=== PATIENT | female | born 1955 | race Asian ===

== ENCOUNTER → 2017-12-20 14:25 | Outpatient (CLI) | payer OTHER, SELFPAY ==
--- NOTE | 2017-12-20 | DI.RAD.S_ITS ---
PROCEDURE: XR KNEE LT 3V INDICATIONS: BILATERAL KNEE PAIN TECHNIQUE: 3 views of the knee were acquired. COMPARISON: [facility], CR, XR KNEE RT 3V, 12/20/2017, 14:21. FINDINGS: Bones: No fractures or dislocations. No suspicious bony lesions. Slight medial joint space narrowing indicating presence of mild osteoarthritis in this area. Soft tissues: No joint effusion. No suspicious soft tissue calcifications. IMPRESSION: No effusion or loose body found, no trauma seen. Only very mild degenerative medial compartment joint space narrowing is identified. Dictated by: Schuyler Stafford M.D. on 12/20/2017 at 15:18 Approved by: Schuyler Stafford M.D. on 12/20/2017 at 15:18
--- NOTE | 2017-12-20 | DI.RAD.S_ITS ---
PROCEDURE: XR KNEE RT 3V INDICATIONS: BILATERAL KNEE PAIN TECHNIQUE: 3 views of the knee were acquired. COMPARISON: [facility], CR, XR KNEE LT 3V, 12/20/2017, 14:21. FINDINGS: Bones: No fractures or dislocations. No suspicious bony lesions. Soft tissues: No joint effusion. No suspicious soft tissue calcifications. IMPRESSION: No trauma to the right knee is seen. Slight medial compartment joint space narrowing. Dictated by: Schuyler Stafford M.D. on 12/20/2017 at 15:17 Approved by: Schuyler Stafford M.D. on 12/20/2017 at 15:18
== END ==
PROVIDERS: Family Provider Family Medicine; PCP Family Medicine; Visit Provider Family Medicine
DX: M25.561 Pain in right knee (principal); M25.562 Pain in left knee
CPT/HCPCS: 73562

== ENCOUNTER 2017-12-26 06:55 | Day surgery (SDC) | payer OTHER, SELFPAY ==
[2017-12-26 07:27] VITALS: BP 124/75; PULSE 79; RESP 15; TEMP 36.3; O2SAT 100; BMI 21.2
[2017-12-26] MEDS: PROPARACAINE 0.5% OPHTH SOL 2 DROPS EYE-OP (07:30)
[2017-12-26] MEDS: CATARACT EYE COMPOUND (10 DROPS/SYRINGE) 3 DROPS EYE-OP ×3 (07:35→07:45)
--- NOTE | 2017-12-26 08:53 | P.OP.PRE_ITS ---
Pre-operative Note Interval Note Changes: No
--- NOTE | 2017-12-26 08:53 | PM.PREOP ---
Pre-operative Note Interval Note Changes: No
--- NOTE | 2017-12-26 08:54 | P.OP_ITS ---
Operative Date/Time/Diagnoses Pre-op diagnosis: Cataract Right eye Post-op diagnosis: same Procedure & Clinicians Procedure: Cataract Surgery Same procedure as scheduled: Yes Surgeon: Mikey Barriga Anesthesia Type: MAC +/- and Sedation Operative Notes Procedure in detail: Patient brought to the operating suite. Tetracaine drops placed in the right eye. Patient was prepped and draped in sterile manner. Wire lid speculum was placed in the eye. Betadine drops were placed on the eye. This was irrigated. Lidocaine jelly was placed on the eye. A paracentesis port was created with a side-port blade. 0.1 mL 1% preservative free lidocaine was injected into the anterior chamber. The anterior chamber was deepened with viscoelastic. 2.6 mm keratome was used to create a temporal clear corneal incision. Cystotome and Utrata forceps were used to create continuous tear capsulorrhexis. Balanced salt solution was used to hydro dissect the nucleus. The phacoemulsification handpiece was inserted and the nucleus was removed using the stop and chop technique. The irrigation aspiration handpiece was inserted and the remaining cortex was removed. Anterior chamber was deepened with viscoelastic. An Clay ZCB00 intraocular lens with a power of 19.5 was injected into the capsular bag. Irrigation aspiration handpiece was inserted and the remaining viscoelastic was removed. Incision was hydrated with balanced salt solution and found to be leak free with pressure with Weck- Moni sponges. 0.1 mL Vigamox injected anterior chamber. 0.3 mL Kenalog 10 mg was injected subconjunctivally. Lid speculum was removed. The patient left the operating room in excellent condition. Complications: none Condition: stable Disposition: same day surgery
[2017-12-26] MEDS: CHONDROIDTIN/SOD HYALURONATE 1.05 ML SYRINGE INTRAOCULA (09:03)
[2017-12-26] MEDS: MOXIFLOXACIN OPHTH DROPS 3 ML BOTTLE 2 DROPS INJ (09:03)
[2017-12-26] MEDS: LIDOCAINE JELLY 2% 5 ML 1 APPLIC TOP (09:03)
[2017-12-26] MEDS: TRIAMCINOLONE 50 MG/5 ML VIAL INJ (09:04)
[2017-12-26] MEDS: TETRACAINE 0.5% OPHTH DROPS 15 ML 2 DROPS EYE-RIGHT (09:04)
[2017-12-26] MEDS: PHENYLEPHRINE/LIDOCAINE 3ML VIAL (OR) EYE-OP (09:04)
[2017-12-26] MEDS: BALANCED SALT IRRIG SOLN NO.2 500 ML, EPINEPHrine 1 MG IRR (09:05)
[2017-12-26 09:20] VITALS: BP 115/72; PULSE 73; RESP 15; TEMP 36.6; O2SAT 97
== END 2017-12-26 09:38 ==
PROVIDERS: PCP Family Medicine; Visit Provider Ophthalmology
DX: H25.11 Age-related nuclear cataract, right eye (principal); F41.9 Anxiety disorder, unspecified; E16.2 Hypoglycemia, unspecified
CPT/HCPCS: J0171; J2250; J3010; J3301

== ENCOUNTER 2018-01-09 06:25 | Day surgery (SDC) | payer OTHER, SELFPAY ==
[2018-01-09] MEDS: PROPARACAINE 0.5% OPHTH SOL 2 DROPS EYE-OP (06:42)
[2018-01-09 06:43] VITALS: BP 144/74; PULSE 75; RESP 16; TEMP 36.3; O2SAT 100; BMI 21.2
[2018-01-09] MEDS: CATARACT EYE COMPOUND (10 DROPS/SYRINGE) 3 DROPS EYE-OP (06:43)
--- NOTE | 2018-01-09 07:51 | P.OP.PRE_ITS ---
Pre-operative Note Interval Note Changes: No
--- NOTE | 2018-01-09 07:51 | P.OP_ITS ---
Operative Date/Time/Diagnoses Pre-op diagnosis: Cataract Left eye Post-op diagnosis: same Procedure & Clinicians Surgeon: Mikey Barriga Anesthesia Type: MAC +/- and Sedation Operative Notes Procedure in detail: Patient brought to the operating suite. Tetracaine drops placed in the left eye. Patient was prepped and draped in sterile manner. Wire lid speculum was placed in the eye. Betadine drops were placed on the eye. This was irrigated. Lidocaine jelly was placed on the eye. A paracentesis port was created with a side-port blade. 0.1 mL 1% preservative free lidocaine was injected into the anterior chamber. The anterior chamber was deepened with viscoelastic. 2.6 mm keratome was used to create a temporal clear corneal incision. Cystotome and Utrata forceps were used to create continuous tear capsulorrhexis. Balanced salt solution was used to hydro dissect the nucleus. The phacoemulsification handpiece was inserted and the nucleus was removed using the stop and chop technique. The irrigation aspiration handpiece was inserted and the remaining cortex was removed. Anterior chamber was deepened with viscoelastic. An Clay ZCB00 intraocular lens with a power of 19.5 was injected into the capsular bag. Irrigation aspiration handpiece was inserted and the remaining viscoelastic was removed. Incision was hydrated with balanced salt solution and found to be leak free with pressure with Weck- Moni sponges. 0.1 mL Vigamox injected anterior chamber. 0.3 mL Kenalog 10 mg was injected subconjunctivally. Lid speculum was removed. The patient left the operating room in excellent condition. Complications: none Condition: stable Disposition: same day surgery
--- NOTE | 2018-01-09 07:51 | PM.PREOP ---
Pre-operative Note Interval Note Changes: No
[2018-01-09] MEDS: CHONDROIDTIN/SOD HYALURONATE 1.05 ML SYRINGE INTRAOCULA (08:02)
[2018-01-09] MEDS: LIDOCAINE JELLY 2% 5 ML 1 APPLIC TOP (08:03)
[2018-01-09] MEDS: TETRACAINE 0.5% OPHTH DROPS 15 ML 2 DROPS EYE-LEFT (08:03)
[2018-01-09] MEDS: PHENYLEPHRINE/LIDOCAINE VIAL (OR) 0.2 ML EYE-OP (08:03)
[2018-01-09] MEDS: MOXIFLOXACIN OPHTH DROPS 3 ML BOTTLE 2 DROPS INJ (08:03)
[2018-01-09] MEDS: TRIAMCINOLONE 50 MG/5 ML VIAL INJ (08:04)
[2018-01-09] MEDS: BALANCED SALT IRRIG SOLN NO.2 500 ML, EPINEPHrine 1 MG IRR (08:04)
[2018-01-09 08:23] VITALS: BP 106/66; PULSE 72; RESP 16; TEMP 36.5; O2SAT 98
--- NOTE | 2018-01-09 08:34 | SUR.PHASEII ---
pt states bp high on admit- normal is 110/70
== END 2018-01-09 08:35 ==
LOC: OR 06:26
PROVIDERS: PCP Family Medicine; Visit Provider Ophthalmology
DX: H25.12 Age-related nuclear cataract, left eye (principal); F41.9 Anxiety disorder, unspecified; E16.2 Hypoglycemia, unspecified
CPT/HCPCS: J0171; J2250; J3010; J3301

== ENCOUNTER → 2018-01-18 10:00 | Outpatient (CLI) | payer OTHER, SELFPAY | PROVIDERS: PCP Family Medicine | DX: Z23 Encounter for immunization (principal) | CPT/HCPCS: 90471; 90686 ==

== ENCOUNTER 2018-02-15 18:57 | Emergency (ER) | payer OTHER, SELFPAY ==
--- NOTE | 2018-02-15 19:02 | ED.EYEPROB ---
HPI - Eye Problem <DWAYNE Arora - Last Filed: 02/15/18 20:13> General Chief complaint: Eye Problems Stated complaint: LEFT EYE PAIN Time Seen by Provider: 02/15/18 19:02 Source: patient Mode of arrival: ambulatory Limitations: no limitations History of Present Illness HPI Narrative: L eye started hurting earlier today, denies any injury/trauma, but states feels like something is in it, feels gritty and like there is a dagger or something in bottom of eye shooting up eye denies any other issues than the eye MD chief complaint: eye pain Onset (ago): day(s) (1) Onset description: sudden Duration: constant Location: left eye Eye Symptoms: pain and foreign body sensation Place: home Mechanism: none Severity: moderate If Pain, Quality: stabbing Associated symptoms: none Treatments Prior to Arrival: irrigated eye Related Data Home Medications Medication Instructions Recorded Confirmed pseudoephedrine-guaifenesin 1 tab PO Q12H #0 05/31/12 12/26/17 [Mucinex D Maximum Strength] metformin [Glucophage] 500 mg PO DAILY #0 05/23/17 tramadol 50 mg PO Q6HP PRN 12/26/17 12/26/17 fluoxetine 40 mg PO DAILY 01/09/18 01/09/18 lisinopril 5 mg PO DAILY 01/09/18 01/09/18 omeprazole 20 mg PO DAILY 01/09/18 01/09/18 Previous Rx's Medication Instructions Recorded erythromycin 0.5 inch EYE-LEFT Q8H 5 Days #1 02/15/18 gram tramadol [Ultram] 50 mg PO Q6H PRN #20 tab 02/15/18 Allergies Allergy/AdvReac Type Severity Reaction Status Date / Time No Known Drug Allergies Allergy Verified 02/15/18 19:05 Review of Systems <DWAYNE Arora - Last Filed: 02/15/18 20:13> Constitutional Reports as per HPI and Reports system reviewed and no additional complaints, except as docu Eyes Reports as per HPI, Denies blurry vision, Denies change in vision, Denies eye discharge, Denies irritation, Denies itchy eyes, Denies loss of vision, Reports eye pain, Denies requires corrective lenses and Denies photophobia ENT Ears, Nose, Mouth, and Throat: Reports system reviewed and no additional complaints, except as docu and Reports as per HPI Neurologic Denies loss of vision Allergic/Immunologic Denies itchy eyes Exam <DWAYNE Arora - Last Filed: 02/15/18 20:13> Initial Vital Signs Initial Vital Signs: Vital Signs Temperature 98.5 F 02/15/18 19:05 Pulse Rate 80 02/15/18 19:05 Respiratory Rate 16 02/15/18 19:05 Blood Pressure 124/73 02/15/18 19:05 Pulse Oximetry 100 02/15/18 19:05 Const General: cooperative, healthy appearing, comfortable, well developed and well groomed Nutritional Appearance: average body habitus Orientation: alert, awake and oriented x3 HENMT Head: normal to inspection and atraumatic Ears: hearing grossly normal bilaterally and external ears normal Nose: external nose normal Face and sinus: normal facial exam Mouth: oral mucosae normal, lip normal and tongue normal Eyes General: appearance normal, both eyes and all related structures Visual Real: normal visual real by confrontation Alignment and Position: alignment normal Periorbital: periorbital findings normal Eyelids: eyelids normal Conjunctivae: conjunctivae normal Sclera: sclerae normal Cornea: corneas abnormal and fluorescein used (using properacaine gtts to L eye and fluorscein stain strip, eye examined under wood/black lamp and dye uptake and corneal abrasion seen at 6:00 position, eye flushed with ns after and pt tolerated procedure well without issues) Pupils: PERRL EOM: EOM intact bilaterally Direct ophthalmoscopy: normal light reflex Neck Neck: normal visual inspection and full ROM Resp Effort & Inspection: normal respiratory effort and able to speak in complete sentences Back/Spine/Pelvis Cervical Spine: cervical ROM normal Thoracic/Lumbar Spine: thoraco-lumbar ROM normal Skin General: elasticity normal and turgor normal Neuro General: alert, awake, oriented x3, gait normal and moves all extremities Cognition: normal cognition Speech: speech normal Gait: normal gait Motor: muscle tone normal throughout Sensory Exam: no sensory deficits noted Extrem General: normal to inspection and full ROM Right upper extremity: full ROM Left upper extremity: full ROM Right lower extremity: full ROM Psych Appearance: grossly normal and well kempt Speech and Movement: speech and movement normal Mood: congruent mood Affect: normal affect Attitude: cooperative Thought Process: normal Thought Content: normal Judgment: judgment good <Herminia Wood DO - Last Filed: 02/16/18 04:22> Initial Vital Signs Initial Vital Signs: Vital Signs Temperature 98.5 F 02/15/18 19:05 Pulse Rate 80 02/15/18 19:05 Respiratory Rate 16 02/15/18 19:05 Blood Pressure 124/73 02/15/18 19:05 Pulse Oximetry 100 02/15/18 19:05 Course <DWAYNE Arora - Last Filed: 02/15/18 20:13> Orders Ordered: Discontinued Medications Proparacaine HCl (Parcaine 0.5% Ophth Julianna) 1 drops EYE-LEFT NOW ONE Stop: 02/15/18 19:16 Last Admin: 02/15/18 19:16 Dose: 1 drop Vital Signs - 8 hr 02/15/18 19:05 02/15/18 19:43 Temperature 98.5 F Pulse Rate 80 75 Respiratory Rate 16 16 Blood Pressure 124/73 153/69 H Pulse Oximetry 100 98 <DO Natalie Fox Last Filed: 02/16/18 04:22> Orders Ordered: Discontinued Medications Proparacaine HCl (Parcaine 0.5% Ophth Julianna) 1 drops EYE-LEFT NOW ONE Stop: 02/15/18 19:16 Last Admin: 02/15/18 19:16 Dose: 1 drop Vital Signs - 8 hr 02/15/18 19:05 02/15/18 19:43 Temperature 98.5 F Pulse Rate 80 75 Respiratory Rate 16 16 Blood Pressure 124/73 153/69 H Pulse Oximetry 100 98 MDM - Eye Problem <DWAYNE Arora - Last Filed: 02/15/18 20:13> Differential Diagnosis Likely corneal abrasion, conjunctivitis, acute iritis, hyphema, subconjunctival hemorrhage and corneal ulcer Discharge Plan Departure Patient Disposition: Home Clinical Impression: Corneal abrasion Discharge Date/Time: 02/15/18 19:42 Interventions: ED Discharge Assessment Last Done: 02/15/18 19:43 Instructions: DI for Corneal Abrasion Prescriptions: New erythromycin 5 mg/gram (0.5 %) ointment 0.5 inch EYE-LEFT Q8H 5 Days Qty: 1 RF: 0 tramadol [Ultram] 50 mg tablet 50 mg PO Q6H PRN (Reason: pain) Qty: 20 RF: 0 No Action pseudoephedrine-guaifenesin [Mucinex D Maximum Strength] 1,200 MG/120 MG tablet extended release 12 hr 1 tab PO Q12H Qty: 0 RF: 0 metformin [Glucophage] 500 MG tablet 500 mg PO DAILY Qty: 0 RF: 0 tramadol 50 MG tablet 50 mg PO Q6HP PRN (Reason: Pain (Scale Score 1-3)) RF: 0 fluoxetine 40 mg PO DAILY RF: 0 omeprazole 20 mg Capsule,Delayed Release(Dr/Ec) 20 mg PO DAILY RF: 0 lisinopril 5 mg Tablet 5 mg PO DAILY RF: 0 Referrals: Angeline Taylor MD [Non-Staff] - Xavi Hernandez MD [Primary Care Provider] - Estella Leach MD [Non-Staff] - Israel Corley MD [Non-Staff] - Miya Walter MD [Non-Staff] - (would recommend follow up with ophthalmology in 1-2 days ) Paul Cabrera MD [Non-Staff] - Stand Alone Forms: Work/School Restrictions <Herminia Wood DO - Last Filed: 02/16/18 04:22> Cosign ED Attending Cosignature Attestation: I was immediately available in the department for consultation. This documentation has been reviewed and I agree with assessment and plan. Supervised by Herminia Wood DO
[2018-02-15 19:05] VITALS: BP 124/73; PULSE 80; RESP 16; TEMP 36.9; O2SAT 100; BMI 21.2
[2018-02-15] MEDS: PROPARACAINE 0.5% OPHTH SOL 1 DROPS EYE-LEFT (19:16)
[2018-02-15 19:43] VITALS: BP 153/69; PULSE 75; RESP 16; O2SAT 98
== END 2018-02-15 19:42 | disposition home or self-care (01) ==
PROVIDERS: Emergency Provider Nurse Practitioner; PCP Family Medicine
DX: S05.02XA Injury of conjunctiva and corneal abrasion without foreign body, left eye, initial encounter (principal); Z98.890 Other specified postprocedural states
CPT/HCPCS: 99282; 99283

== ENCOUNTER → 2018-07-05 11:39 | Outpatient (CLI) | payer OTHER, SELFPAY ==
--- NOTE | 2018-07-05 | DI.RAD.S_ITS ---
PROCEDURE: XR CHEST 2V INDICATIONS: COUGH AND DYSPENEA TECHNIQUE: 2 views of the chest were acquired. COMPARISON: [facility], , CHEST 2 VIEW, 08/01/2014, 10:01. FINDINGS: Surgical changes and devices: None. Lungs and pleura: Lungs are clear. No pleural effusions or pneumothorax. Mediastinum: Mediastinal contours are normal. Heart size is normal. Bones and chest wall: No suspicious bony abnormalities. Soft tissues appear unremarkable. IMPRESSION: Negative chest films Dictated by: Zafar Wheeler M.D. on 07/05/2018 at 13:06 Approved by: Zafar Wheeler M.D. on 07/05/2018 at 13:07
== END ==
PROVIDERS: PCP Family Medicine; Visit Provider Family Medicine
DX: R05 Cough (principal); R06.00 Dyspnea, unspecified
CPT/HCPCS: 71046

== ENCOUNTER → 2019-02-15 13:17 | Outpatient (CLI) | payer OTHER, SELFPAY | PROVIDERS: PCP Family Medicine | DX: Z23 Encounter for immunization (principal) | CPT/HCPCS: 90471; 90686 ==

== ENCOUNTER 2019-08-09 02:13 | Emergency (ER) | payer OTHER, SELFPAY ==
--- NOTE | 2019-08-09 02:14 | ED.BACK ---
HPI - Back Pain/Injury General Chief Complaint: Back Pain/Injury Stated Complaint: pulsating pain lower back Time Seen by Provider: 08/09/19 02:14 Source: patient Mode of arrival: Ambulatory Limitations: no limitations History of Present Illness HPI Narrative: 64-year-old female smoker with history of HTN and COPD on prednisone presents with the chief complaint of severe lumbar pain that comes in waves. She denies any injury, history of the same. She denies provocation or palliation. The episodes are by 5-10 minutes and seem to radiate to her chest. She is not dizzy, weak, or lightheaded. She denies recent travel or exposure to ill persons under suspicion for COVID-19. She denies numbness, weakness or tingling. She denies any trouble controlling bowel or bladder. She denies any abdominal pain or constipation. She has had no dysuria, frequency or urgency. She stopped taking her blood pressure medications a month or so ago. She has lost 15-20 pounds in the past 2 months or so, unplanned, due to poor appetite. MD Complaint: back pain Onset (ago): hour(s) Duration: intermittent Similar Symptoms Previously: No Location: lumbar spine Severity: severe Quality: spasming Radiation: none Relieving factors: none Exacerbating factors: none Associated symptoms: other Related Data Home Medications Medication Instructions Recorded Confirmed pseudoephedrine-guaifenesin 1 tab PO Q12H #0 05/31/12 12/26/17 [Mucinex D Maximum Strength] metformin [Glucophage] 500 mg PO DAILY #0 05/23/17 tramadol 50 mg PO Q6HP PRN 12/26/17 12/26/17 fluoxetine 40 mg PO DAILY 01/09/18 01/09/18 lisinopril 5 mg PO DAILY 01/09/18 01/09/18 omeprazole 20 mg PO DAILY 01/09/18 01/09/18 Previous Rx's Medication Instructions Recorded tramadol [Ultram] 50 mg PO Q6H PRN #20 tab 02/15/18 diazepam [Valium] 2 mg PO BID-TID PRN #10 tab 08/09/19 Allergies Allergy/AdvReac Type Severity Reaction Status Date / Time No Known Drug Allergies Allergy Verified 02/15/18 19:05 Review of Systems Constitutional Constitutional: Denies chills, Denies fatigue, Denies fever(s), Denies frequent falls, Denies lethargy and Denies weakness Eyes Eyes: Denies change in vision, Denies eye discharge, Denies irritation and Denies loss of vision ENT Ears, Nose, Mouth, and Throat: Denies change in voice, Denies dizziness, Denies neck pain, Denies sore throat and Denies throat swelling Cardiovascular Cardiovascular: Reports chest pain, Denies irregular heart rhythm, Denies lightheadedness, Denies palpitations, Denies dyspnea, Denies dyspnea on exertion and Denies orthopnea Respiratory Respiratory: Denies cough, Denies dyspnea, Denies dyspnea on exertion and Denies wheezing Gastrointestinal Gastrointestinal: Denies abdominal pain, Denies change in bowel habits, Denies diarrhea, Denies nausea and Denies vomiting Genitourinary Genitourinary: Denies hematuria, Denies flank pain, Denies urinary incontinence and Denies urinary urgency Musculoskeletal Musculoskeletal: Reports back pain, Denies muscle weakness, Denies neck pain, Denies numbness and Denies tingling Integumentary/Breasts Skin/Breast: Denies pruritus, Denies erythema, Denies rash and Denies wounds Neurologic Neurologic: Denies behavioral changes, Denies confusion, Denies dizziness, Denies frequent falls, Denies loss of vision, Denies numbness, Denies tingling and Denies weakness Psychiatric Psychiatric: Denies anxiety, Denies behavioral changes, Denies confusion, Denies depression, Denies homicidal ideation and Denies suicidal ideation Endocrine Endocrine: Denies fatigue, Denies flushing and Denies palpitations Hematologic/Lymphatic Hematologic/Lymphatic: Denies easy bruising Allergic/Immunologic Allergic/Immunologic: Denies urticaria, Denies throat swelling and Denies wheezing Patient History Social History household members: friend(s) and none Smoking Status: Current every day smoker Exam Narrative Exam Narrative: GENERAL: [64] year old patient appears stated age. Well-nourished, well-developed patient, in obviously in pain, tearful. HEAD: Atraumatic. Normocephalic. EYES: Pupils equal round and reactive. Extraocular motions intact. No scleral icterus. No injection or drainage. ENT: Nose without bleeding, purulent drainage. Throat without erythema, tonsillar hypertrophy or exudate. Airway patent. NECK: Trachea midline. Non tender CARDIOVASCULAR: Regular rate and rhythm without murmurs, gallops, or rubs. Anterior chest wall pain to palpation RESPIRATORY: Clear to auscultation. Breath sounds equal bilaterally. No wheezes, rales, or rhonchi. GASTROINTESTINAL: Abdomen soft, non-tender, nondistended. EXTREMITIES: No edema or joint tenderness. BACK: Tender to palpation in the paraspinal musculature NEURO: AOx3. SKIN: No rash or erythema of visible areas Initial Vital Signs Initial Vital Signs: Vital Signs Temperature 97.6 F 08/09/19 02:27 Pulse Rate 80 08/09/19 02:27 Respiratory Rate 12 08/09/19 02:27 Blood Pressure 218/114 H 08/09/19 02:27 Pulse Oximetry 98 08/09/19 02:27 Course Orders Ordered: ED Orders 08/09/19 02:20 Basic Metabolic Panel Stat Complete Blood Count AUTO DIFF Stat Magnesium Stat Troponin & CK Cardiac Panel Stat 08/09/19 02:22 EKG-12 Lead Stat 08/09/19 02:52 CT chest abd pel w con Stat 08/09/19 03:51 Urine Culture Stat Urine Microscopic Stat Magnesium Sulfate (Magnesium Sulfate) 2 gm in 50 mls @ 25 mls/hr IV NOW ONE Stop: 08/09/19 04:51 Last Admin: 08/09/19 02:55 Dose: 25 mls/hr Documented by: QUETA Cosigned by: SUNNY Discontinued Medications Sodium Chloride (Normal Saline 0.9%) 1,000 mls @ 1,000 mls/hr IV BOLUS ONE Stop: 08/09/19 03:51 Last Infusion: 08/09/19 03:51 Dose: 0 mls/hr Documented by: Admin: 08/09/19 02:57 Dose: 1,000 mls/hr Documented by: QUETA Lorazepam (Ativan) 1 mg IV NOW ONE Stop: 08/09/19 02:23 Last Admin: 08/09/19 02:46 Dose: 1 mg Documented by: QUETA Pantoprazole Sodium (Protonix) 40 mg IV NOW ONE Stop: 08/09/19 02:53 Last Admin: 08/09/19 02:57 Dose: 40 mg Documented by: QUETA Reevaluation(s) Reevaluation #1: patient feeling much better after Ativan 1mg IVP Time: 02:54 Vital Signs Vital signs: Vital Signs - 8 hr 08/09/19 02:27 08/09/19 02:50 08/09/19 03:45 Temperature 97.6 F Pulse Rate 80 77 74 Respiratory Rate 12 15 20 Blood Pressure 218/114 H Blood Pressure [Left Arm] 173/81 H 175/81 H Pulse Oximetry 98 97 96 MDM - Back Pain/Injury Lab Data Result diagrams: 08/09/19 02:20 08/09/19 02:20 Labs: Lab Results 08/09/19 08/09/19 08/09/19 Range/Units 02:20 02:20 03:51 WBC 7.3 (4.5-11.0) X10^3/uL RBC 4.24 (4.0-5.2) X10^6/uL Hgb 13.8 (12.0-16.0) g/dL Hct 40.1 (36-46) % MCV 94.6 (80-100) fL MCH 32.6 (26-34) PG MCHC 34.5 (30-36) % RDW 12.0 (11.6-14.8) % Plt Count 232 (150-400) X10^3/uL Neut % (Auto) 80.2 H (50-75) % Lymph % (Auto) 14.5 L (25-40) % [place] % (Auto) 4.2 (3-14) % Eos % (Auto) 0.1 L (2-4) % Baso % (Auto) 1.0 (0-2) % Neut # (Auto) 5800 (1766-1008) /uL Lymph # (Auto) 1100 (3514-6792) /uL [place] # (Auto) 300 (0-900) /uL Eos # (Auto) 0 (0-450) /uL Baso # (Auto) 100 (0-100) /uL Sodium 135 L (137-145) mmol/L Potassium 4.0 (3.4-5.1) mmol/L Chloride 100 (98-107) mmol/L Carbon Dioxide 24 (22-32) mmol/L BUN 15 (7-17) mg/dL Creatinine 0.72 (0.52-1.04) mg/dL Estimated GFR > 60.0 (>60) mL/min BUN/Creatinine Ratio 20.8 (6-22) Glucose 229 H (80-110) mg/dL Calcium 9.8 (8.4-10.2) mg/dL Magnesium 1.5 L (1.6-2.3) mg/dL Total Creatine Kinase 34 (30-135) U/L CK-MB (CK-2) TNP CK-MB (CK-2) Rel Index TNP Troponin I < 0.012 (0.01-0.034) ng/mL Urine RBC 0-1/hpf (0-5/HPF) Urine WBC 0-1/hpf (0-5/HPF) Ur Squamous Epith Cells 0-1 /hpf (0-5/HPF) Urine Bacteria Occasional (0-1) (None) Ur Culture Indicated? Specimen cultured Urine Dip Bedside Urine Glucose Negative Bedside Urine Bilirubin - Negative Bedside Urine Ketone - Negative Urine Specific [place] 1.010 Bedside Urine Occult Blood +/- Bedside Urine pH 6.0 Bedside Urine Protein +/- 15 Bedside Urine Urobilinogen - Negative Bedside Urine Nitrite - Negative Bedside Urine Leukocytes +/- [address] scan - abdomen/pelvis: Radiologist's Impression: No neoplastic process identified within chest, abdomen, or pelvis. Emphysema. Hepatic steatosis. ECG Data Attestation: I personally reviewed and interpreted this ECG as follows: Interpretation: EKG is normal sinus rhythm rate [86 ] and free of any signs of ischemia or ectopy. No ST segmental elevation or depression. No T wave inversions Discharge Plan Departure Patient Disposition: Home Clinical Impression: Back muscle spasm Instructions: DI for Back Spasm Activity Restrictions/Additional Instructions: *You have been diagnosed with [back spasm] *What to do: *Take medications as directed *Follow up with your primary care provider in 2-3 days, call for an appointment. Let them know you were seen in the Emergency Department and that we ask that you be seen in follow up *Return to ER if you should have any new, worsening or concerning symptoms Prescriptions: New diazepam [Valium] 2 mg tablet 2 mg PO BID-TID PRN (Reason: muscle spasm) Qty: 10 RF: 0 No Action pseudoephedrine-guaifenesin [Mucinex D Maximum Strength] 1,200 MG/120 MG tablet extended release 12 hr 1 tab PO Q12H Qty: 0 RF: 0 metformin [Glucophage] 500 MG tablet 500 mg PO DAILY Qty: 0 RF: 0 tramadol 50 MG tablet 50 mg PO Q6HP PRN (Reason: Pain (Scale Score 1-3)) RF: 0 fluoxetine 40 mg PO DAILY RF: 0 omeprazole 20 mg Capsule,Delayed Release(Dr/Ec) 20 mg PO DAILY RF: 0 lisinopril 5 mg Tablet 5 mg PO DAILY RF: 0 tramadol [Ultram] 50 mg tablet 50 mg PO Q6H PRN (Reason: pain) Qty: 20 RF: 0 Referrals: Brenda Vieyra MD [Primary Care Provider] -
[2019-08-09 02:27] VITALS: BP 218/114; PULSE 80; RESP 12; TEMP 36.4; O2SAT 98
[2019-08-09 02:34] LABS: Add Manual Diff / Slide Review NO; Basophils Absolute Auto 100 /uL (0-100); Eosinophils Absolute Auto 0 /uL (0-450); Eosinophils Percent Auto 0.1 % (2-4); Hematocrit 40.1 % (36-46); Hemoglobin 13.8 g/dL (12.0-16.0); Lymphocytes Absolute Auto 1100 /uL (1100-4500); Lymphocytes Percent Auto 14.5 % (25-40); Mean Corpuscular HGB Conc 34.5 % (30-36); Mean Corpuscular Hemoglobin 32.6 PG (26-34); Mean Corpuscular Volume 94.6 fL (80-100); Monocytes Absolute Auto 300 /uL (0-900); Monocytes Percent Auto 4.2 % (3-14); Neutrophils Absolute Auto 5800 /uL (1500-7000); Neutrophils Percent Auto 80.2 % (50-75); Platelet Count 232 X10^3/uL (150-400); Red Blood Cell Count 4.24 X10^6/uL (4.0-5.2); White Blood Cell Count 7.3 X10^3/uL (4.5-11.0)
[2019-08-09 02:42] LABS: BUN Creatinine Ratio 20.8 (6-22); Blood Urea Nitrogen 15 mg/dL (7-17); Calcium 9.8 mg/dL (8.4-10.2); Carbon Dioxide 24 mmol/L (22-32); Chloride 100 mmol/L (98-107); Creatine Kinase 34 U/L (30-135); Estimated Glomerular Filt Rate > 60.0 mL/min (>60); Glucose 229 mg/dL (80-110); HEMOLYSIS 34 (0-50); Magnesium 1.5 mg/dL (1.6-2.3); Sodium 135 mmol/L (137-145)
--- NOTE | 2019-08-09 02:42 | PC.NURSE ---
PT states lumbar pain that shoots toward chest and comes in waves since about 0100 after she had awoke to go to bathroom and denies known injury or weakness. Hx of HTN and COPD on prednisone. denies any injury, history of the same. Denies urinary or bowel changes. Reports she stopped taking her blood pressure medications about a month ago and hypertensive upon arrival. LS clear bilaterally upon auscultation.
[2019-08-09] MEDS: LORazepam 2 MG/ML INJ 1 MG IV (02:46)
[2019-08-09 02:50] VITALS: BP 173/81; PULSE 77; RESP 15; O2SAT 97
--- NOTE | 2019-08-09 02:52 | DI.CT.S_ITS ---
PROCEDURE: CT CHEST ABD PEL W CON INDICATIONS: chest pain, back pain, unexplained weight loss TECHNIQUE: After the administration of intravenous contrast, 5 mm thick sections acquired from the lung apices to the symphysis. 5 mm coronal and sagittal reformats were performed, with additional 7 mm MIP reformats through the lungs. For radiation dose reduction, the following was used: automated exposure control, adjustment of mA and/or kV according to patient size. COMPARISON: None. FINDINGS: Image quality: Excellent. CHEST: Lungs and pleura: 3 mm subpleural nodule noted in the right upper lobe (series 5, image 71). 4 mm sub-solid nodule noted in the left upper lobe (series 5, image 91). 1.1 cm groundglass opacity noted in the right middle lobe (series 5, image 179). No pleural effusions or pneumothorax. Central and peripheral airways appear patent and normal in caliber. Mediastinum: Heart size is normal. No pericardial effusion. No mediastinal or hilar adenopathy by size criteria. Thoracic aorta and central pulmonary arteries are normal in size. Esophagus is normal in caliber. No hiatal hernia. Chest wall: No axillary or supraclavicular adenopathy by size criteria. Thyroid gland is normal. ABDOMEN: Solid organs: Liver is normal in size and enhancement. Mild, diffuse fatty infiltration of the liver. Gallbladder is contracted, but within normal limits. Biliary system is non dilated. Pancreas enhances normally. Spleen is normal in size and enhancement. No adrenal nodules. Kidneys demonstrate normal size and enhancement, without hydronephrosis. Peritoneum and bowel: There is prominence of the proximal stomach wall which be due to under distention versus less likely inflammatory or neoplastic process. Bowel loops demonstrate normal wall thickness and caliber. No free fluid or air. The appendix is normal. Nodes and vessels: No retroperitoneal or mesenteric adenopathy by size criteria. Aorta and inferior vena cava are normal in size. Scattered atherosclerotic calcifications involving the abdominal and pelvic vasculature. Miscellaneous: No ventral hernias. PELVIS: Genitourinary: Bladder wall thickness is normal. Prominent periuterine vessels are noted which is a nonspecific finding but can be associated with pelvic congestion syndrome (pelvic venous insufficiency). Miscellaneous: No inguinal hernias or adenopathy. Bones: No suspicious bony lesions. No vertebral body compression fractures. IMPRESSION: 1. 3 mm right upper lobe solid nodule, 4 mm left upper lobe a sub-solid nodule and 1.1 cm groundglass opacity in the right middle lobe. Recommend followup CT scan in 3-6 months based on Fleischner Society criteria outlined below. 2. Prominence of the proximal gastric wall likely due to underdistention. There is clinical concern for inflammatory neoplastic process involving the stomach, then barium contrast upper GI series or endoscopy should be considered for additional evaluation of the finding. 3. No lymphadenopathy based on size criteria. Fleischner Society criteria for SOLID lung nodule followup. Nodule size (mm)Low-risk patientHigh-risk patient<6 (single or multiple)No routine followup.Optional CT at 12 months. 6-8 (single or multiple)CT at 6-12 months, then optional CT at 18-24 mo.CT at 6-12 months, then CT at 18-24 months. >8 (single)CT at 3 months, PET-CT, or biopsy. Same as for low-risk pts. >8 (multiple)CT at 3-6 months, then optional CT at 18-24 mo.CT at 3-6 months, then CT at 18-24 months. Fleischner Society criteria for SUB-SOLID lung nodule followup. Solitary pure ground-glass nodules<6 mm (ground glass or part solid)No followup needed. 6 mm or larger (ground glass)CT at 6-12 months to confirm persistence, then CT every 2 years until 5 years.6 mm or larger (part solid)CT at 3-6 months to confirm persistence, then annual CT until 5 years if unchanged and solid component remains <6 mm. Multiple sub-solid nodules<6 mmCT at 3-6 months, then CT consider at 2 & 4 years for high risk patients. [address] at 3-6 months. Subsequent management based on most suspicious lesions. Recommendations do not apply to lung cancer screening, patients with immunosuppression, or patients with known primary cancer. Dictated by: Samaria Pruitt MD, PhD on 08/09/2019 at 8:31 Approved by: Samaria Pruitt MD, PhD on 08/09/2019 at 8:39
[2019-08-09 02:54] LABS: Troponin I < 0.012 ng/mL (0.01-0.034)
[2019-08-09] MEDS: MAGNESIUM SULFATE 2 GM/50 ML PIGGYBACK IV (02:55)
[2019-08-09] MEDS: PANTOPRAZOLE 40 MG VIAL IV (02:57)
[2019-08-09] MEDS: SODIUM CHLORIDE 0.9% 1,000 ML 1000 ML IV (02:57)
[2019-08-09 03:45] VITALS: BP 175/81; PULSE 74; RESP 20; O2SAT 96
[2019-08-09 04:07] LABS: Bacteria Urine Occasional (0-1); Culture Indicated Urine Specimen Cultured; RBC Urine 0-1/HPF (0-5/HPF); Squamous Epithelial Cell Urine 0-1 /HPF (0-5/HPF); WBC Urine 0-1/HPF (0-5/HPF)
== END 2019-08-09 04:28 | disposition home or self-care (01) ==
PROVIDERS: Emergency Provider Emergency Medicine; PCP Student in an Organized Health Care Education/Training Program
DX: M62.830 Muscle spasm of back (principal); I10 Essential (primary) hypertension; R07.9 Chest pain, unspecified
CPT/HCPCS: 36415; 71260; 74177; 80048; 81003; 81015; 82550; 83735; 84484; 85025; 87086; 93005; 96361; 96374; 96375; 99284; C9113; J2060; Q9967

== ENCOUNTER → 2019-09-25 12:31 | Outpatient (CLI) | payer OTHER, SELFPAY ==
--- NOTE | 2019-09-25 | DI.RAD.S_ITS ---
PROCEDURE: FL UPPER GI SERIES INDICATIONS: Other diseases of stomach and duodenum COMPARISON: None. FINDINGS: KUB: Preprocedural mill controller film demonstrates a normal bowel gas pattern. No suspicious abdominal calcifications. Visualized solid organ contours appear normal. Bony structures appear unremarkable. Esophagus: Esophageal mucosa is normal on air-contrast views. On single-contrast views, there is normal esophageal peristalsis. No strictures, extrinsic mass effects, or diverticula. No hiatal hernia or elicited gastroesophageal reflux. Stomach: The stomach is normally distensible, with normal rugal fold thickness. No mucosal masses or ulcers. Pylorus and duodenal bulb appear normal in morphology. Duodenal folds are normal in thickness as well. IMPRESSION: Normal examination, no reflux seen. No hiatal hernia mass or stricture is found. Dictated by: Schuyler Stafford M.D. on 09/25/2019 at 16:14 Approved by: Schuyler Stafford M.D. on 09/25/2019 at 16:15
== END ==
PROVIDERS: PCP Student in an Organized Health Care Education/Training Program; Referring Provider Student in an Organized Health Care Education/Training Program; Visit Provider Student in an Organized Health Care Education/Training Program
DX: K31.89 Other diseases of stomach and duodenum (principal)
CPT/HCPCS: 74240

== ENCOUNTER → 2019-10-18 11:16 | Outpatient (CLI) | payer OTHER, SELFPAY ==
[2019-10-18 23:19] LABS: COVID19 Sendout Not Detected (Not Detect)
== END ==
PROVIDERS: PCP Student in an Organized Health Care Education/Training Program; Visit Provider Physician Assistant
DX: Z01.812 Encounter for preprocedural laboratory examination (principal)
CPT/HCPCS: 87635

== ENCOUNTER 2019-10-21 12:49 | Day surgery (SDC) | payer OTHER, SELFPAY ==
[2019-10-21] VITALS (8 sets, daily range): BP systolic 106–177; BP diastolic 59–105; PULSE 103–122; RESP 16–28; TEMP 36.3–36.9; O2SAT 95–98; BMI 22.6
--- NOTE | 2019-10-21 | PATH_ITS ---
[facility] Accession Number: [id number] . 01 Material submitted: . PART A: duodenum - DUODENUM THIRD PORTION PART B: duodenum - DUODENUM SECOND PORTION PART C: duodenum bulb - DUODENAL BULB PART D: gastrointestinal site - ANTRUM, HYPERPLASTIC TISSUE PART E: gastrointestinal site - ANTRUM RANDOM BIOPSIES PART F: gastrointestinal site - FUNDUS PART G: gastrointestinal site - BODY PART H: esophagus, E-G Junction - GE JUNCTION 6 O'CLOCK PART I: esophagus - DISTAL ESOPHAGUS . 02 Diagnosis: A-C: Duodendum, Third Portion, Section Portion, Bulb, Biopsies: Duodenal mucosa with no diagnostic abnormality. Negative for active inflammation, features of sprue, dysplasia, or malignancy. . D. Stomach, Hyperplastic Tissue Antrum, Biopsy: Antral mucosa with foveolar hyperplasia and active inflammation. Please see comment. Negative for intestinal metaplasia. Negative for dysplasia and malignancy. . E. Stomach Antrum, Random Biopsies: Antral mucosa with mild chronic gastritis. Please see comment. Negative for intestinal metaplasia. Negative for dysplasia and malignancy. . F. Stomach, Fundus, Biopsy: Body-type mucosa with mild chronic gastritis and proton pump inhibitor-like changes. Negative for intestinal metaplasia. Negative for dysplasia and malignancy. . G. Stomach, Body, Biopsy: Body-type mucosa with mild chronic gastritis and proton pump inhibitor-like changes. Negative for intestinal metaplasia. Negative for dysplasia and malignancy. . H. Gastroesophageal Junction, 6 o'clock, Biopsy: Columnar mucosa with mild active inflammation and specialized intestinal metaplasia, consistent with Marroquin's esophagus. Negative for dysplasia and malignancy. . I. Distal Esophagus, Biopsy: Squamous epithelium with no diagnostic abnormality. Intraepithelial eosinophils are not increased. Negative for dysplasia and malignancy. [facility] 10/22/2019 1123 Local . 02 Comment: D-G: There is no definite evidence of Helicobacter organisms on the H/E stains. Immunohistochemical stains for Helicobacter will be performed and the results reported as an addendum. . D. The hyperplastic antral tissue may be consistent with an inflamed hyperplastic polyp in the appropriate endoscopic setting. . 02 Electronically signed: . Neela Aponte MD, Pathologist NPI- [id number] . 01 Gross description: . Part A: DUODENUM THIRD PORTION: Received in formalin are 2 fragment(s) of damon, soft tissue measuring 0.1 x 0.1 x 0.1 cm to 0.2 x 0.1 x 0.1 cm submitted entirely in 1 cassette(s) Part B: DUODENUM SECOND PORTION: Received in formalin are 2 fragment(s) of damon, soft tissue measuring 0.1 x 0.1 x 0.1 cm to 0.2 x 0.1 x 0.1 cm submitted entirely in 1 cassette(s) Part C: DUODENAL BULB: Received in formalin is 1 fragment(s) of damon, soft tissue measuring 0.1 x 0.1 x 0.1 cm submitted entirely in 1 cassette(s) Part D: ANTRUM, HYPERPLASTIC TISSUE: Received in formalin are 2 fragment(s) of damon, soft tissue measuring 0.1 x 0.1 x 0.1 cm to 0.2 x 0.1 x 0.1 cm submitted entirely in 1 cassette(s) Part E: ANTRUM RANDOM BIOPSIES: Received in formalin are 2 fragment(s) of damon, soft tissue measuring 0.1 x 0.1 x 0.1 cm to 0.2 x 0.1 x 0.1 cm submitted entirely in 1 cassette(s) Part F: FUNDUS: Received in formalin are 2 fragment(s) of damon, soft tissue measuring 0.1 x 0.1 x 0.1 cm to 0.3 x 0.2 x 0.2 cm submitted entirely in 1 cassette(s) Part G: BODY: Received in formalin is 1 fragment(s) of damon, soft tissue measuring 0.3 x 0.2 x 0.2 cm submitted entirely in 1 cassette(s) Part H: GE JUNCTION 6 O'CLOCK: Received in formalin is 1 fragment(s) of damon, soft tissue measuring 0.2 x 0.1 x 0.1 cm submitted entirely in 1 cassette(s) Part I: DISTAL ESOPHAGUS: Received in formalin is 1 fragment(s) of damon, soft tissue measuring 0.1 x 0.1 x 0.1 cm submitted entirely in 1 cassette(s) /HARRY 10/21/2019 2111 Local . 02 Pathologist provided ICD-10: K22.70, K21.9, K31.89 . 02 CPT . 011366, 582272, 472413, 211787, 614027, 739694, 606189, 224491, 085209, [id number] Performed at: 01 [facility] [address] [facility] [address] [place] [address], [place], [place] [id number] MD Edy Pepper MD Phone: [phone] Performed at: [address] [facility] [address] [place], [place] [id number] MD Neela Aponte MD Phone: [phone]
--- NOTE | 2019-10-21 12:05 | PM.HP.1 ---
History of Present Illness History of Present Illness Date Patient Seen: 10/21/19 Time Patient Seen: 14:24 Chief complaint: [id number] Narrative: 64 year old female comes in today for consideration of a diagnostic EGD. Patient had a recent ED visit on 08/09/2019 for pulsating lower back pain. CT chest/abdomen/pelvis showed lung nodules in the right left in upper lobes as well as prominence of proximal stomach ectopy distension versus inflammation versus neoplasm. Prior to coronavirus, she did have a 15-20 lb unintentional weight loss in 2 months but then we gained 6 lb back during the [place] due to overeating. Barium contrast on 09/25/2019 was normal. She is postmenopausal and has regular night sweats, nothing above baseline. Denies any overt epigastric or abdominal pain. No change in bowel or bladder habits. No nausea or vomiting. No dysphagia. Denies reflux. History of GERD. Recent labs including CBC, CMP, UA significant for a low sodium of 129 and low chloride of 91 as well as a low ALT of 8. Notably, she did not have any anemia. Last EGD/colonoscopy on 05/23/2017 for abdominal pain, nausea, and vomiting, showed a normal appearing duodenum, mild antral gastritis, small sliding hiatal hernia, her and a mildly irregular Z-line and no colonic polyps or masses. She had both internal and external hemorrhoids. Chronic health issues have been otherwise stable, including no major cardiac events for at least 6 weeks. Past medical history: Diabetes mellitus type 2 Hyperlipidemia Hypertension COPD GERD Gastric wall thickening Pulmonary nodule Osteoporosis, postmenopausal Tobacco dependence Eczema Past Surgical history: EGD/colonoscopy, 2018 Bilateral tubal ligation Family history: No gastric, or colon cancer. Social history: Lives alone, works at [employer]. Tobacco dependence. One beer per week. Patient History Family & Social History Social History: household members friend(s),none Tobacco & Substance use: Smoking Status Current every day smoker alcohol intake frequency 0-2 drinks per day Substance Use Type does not use Meds Home Medications and Allergies Home Medications Medication Instructions Recorded Confirmed Type pseudoephedrine-guaifenesin 1 tab PO Q12H #0 05/31/12 10/21/19 History [Mucinex D Maximum Strength] metformin [Glucophage] 500 mg PO DAILY #0 05/23/17 10/21/19 History fluoxetine 40 mg PO DAILY 01/09/18 10/21/19 History lisinopril 5 mg PO DAILY 01/09/18 10/21/19 History omeprazole 20 mg PO DAILY 01/09/18 10/21/19 History diazepam [Valium] 2 mg PO BID-TID PRN #10 tab 08/09/19 10/21/19 Rx Allergies Allergy/AdvReac Type Severity Reaction Status Date / Time No Known Drug Allergies Allergy Verified 10/21/19 13:08 Review of Systems Review of Systems ROS: Yes All systems reviewed with the patient and are negative except as otherwise documented Exam Narrative Exam Narrative: GENERAL: Alert and oriented, appearing stated age and in no acute distress. HEENT: Head normocephalic/atraumatic. Pupils equal, round, and reactive to light and accomodation. Extraocular muscles intact. Tympanic membranes clear. Nasal mucosa moist, septum midline. Oral mucosa moist, no lesions. Neck soft and supple, no lymphadenopathy. LUNGS: Clear to ausculation bilaterally, no wheezes, rhonchi or rales. CV: Normal S1 and S2 with regular rate and rhythm, no audible murmurs, rubs or gallops. ABDOMEN: Soft, non-tender, non-distended, no organomegaly. Positive bowel sounds. EXTREMITIES: No clubbing, cyanosis, or edema. NEURO: Cranial nerves II through XII grossly intact, no focal deficits. PSYCH: Alert and oriented x 3. SKIN: No concerning lesions. Assessment & Plan Assessment & Plan narrative: 1. Gastric wall thickening 2. Unintentional weight loss 3. History of GERD 4. Recently diagnosed pulmonary nodules 5. Tobacco dependence Plan for EGD. The nature and character of the procedure as well as anticipated results were discussed. The possibility of not completing the procedure was also discussed. Possible complications including aspiration pneumonia, bleeding, perforation and reaction to medications either for sedation or preparation and missed lesions were discussed. Questions were answered and proceeding to the colonoscopy was elected. Informed consent signed.
--- NOTE | 2019-10-21 12:19 | P.OP.ENDO_ITS ---
Operative Date/Time/Diagnoses Date of procedure: 10/21/19 Time of procedure: 14:38 Pre-op diagnosis: 1. Gastric wall thickening 2. Unintentional weight loss 3. History of GERD 4. Recently diagnosed pulmonary nodules 5. Tobacco dependence Post-op diagnosis: other (1. Duodenitis, 2. Antritis, 3. Peptic ulcer disease, 4. Hyperplastic lesions, antrum x2) Procedure & Clinicians Study performed: EGD Same procedure as scheduled: Yes Indications: 1. Gastric wall thickening 2. Unintentional weight loss 3. History of GERD 4. Recently diagnosed pulmonary nodules 5. Tobacco dependence Surgeon: Brenda Vieyra Procedure Notes SCOAP/Timeout: 14:37 Procedure in detail: PROCEDURE: EGD with biopsy INDICATIONS: 1. Gastric wall thickening 2. Unintentional weight loss 3. GERD 4. Recently diagnosed pulmonary nodules 5. Tobacco dependence ENDOSCOPIST: Brenda Vieyra MD Sedation RN: Sanjana Kessler RN Sedation start time: 2:30 p.m. Sedation end time: 3:06 p.m. MEDICATION: Incremental doses of Versed and fentanyl until an appropriate level of sedation was achieved. ASA Ratin DURATION OF PROCEDURE: 7 minutes. COMPLICATIONS: None. LIMITATIONS: None EXTENT OF PROCEDURE: Third portion of the Duodenum. PROCEDURE: The high-definition gastroduodenoscope was introduced into the posterior oropharynx under direct vision after Hurricaine spray, noted IV sedation, and proper informed consent. The esophagus was identified and intubated under direct visualization. The scope was quickly passed through the esophagus and into the fundus of the stomach. A clear fundal pool was aspirated. The scope was then advanced to the antrum and the pylorus was identified. The scope was passed through the pylorus into the second and third portions of the duodenum. Severe peptic ulcer disease was noted in various stages of healing, no actively bleeding ulcers. Targeted random biopsies taken in the 2nd, 3rd, and 1st portions of the duodenum. The pyloric channel was not stenotic. The antrum had severe peptic ulcer disease in various stages of healing, no active bleeding. There were 2 areas of hyperplastic tissue with targeted biopsy taken x2. Random biopsy sampling was done in the antrum, body, and fundus. J maneuver was produced. No abnormalities were noted of the proximal body, fundus or cardia. No hiatal hernia was noted. Scope was broken out of the J maneuver and the remainder of the stomach was carefully inspected upon withdrawal and was normal. The stomach was carefully deflated of all air on withdrawal. The distal esophagus was carefully inspected and Z-line was noted to be intact, targeted b iopsy taken at 6 o'clock. The remainder of the esophagus was normal upon withdrawal. Random esophageal biopsy taken in the distal esophagus. The larynx and vocal cords appeared to be unremarkable. IMPRESSION: 1. Peptic ulcer disease, duodenum and antrum, severe, very stages of healing 2. Duodenitis 3. Antritis 4. Hyperplastic mass x 2, approximately 1x1 cm, antrum PLAN: 1. Follow-up in clinic status post pathology results. The possibility of missed lesion including a malignancy was discussed prior with the patient. Potential alarm symptoms have been discussed and should be reported by the patient immediately. Complications: none Post-procedure Recommendations: Will call with biopsy results Follow up: weeks (2) Disposition: PACU
[2019-10-21] MEDS: HYOSCYAMINE 0.125 MG TABLET PO (13:41)
[2019-10-21] MEDS: LACTATED RINGERS 1,000 ML 42 ML IV (13:42)
[2019-10-21] MEDS: LIDOCAINE 4% SOLN 50 ML 20 ML TOP (15:11)
[2019-10-21] MEDS: MIDAZOLAM 5 MG/5 ML VIAL IV (15:12)
[2019-10-21] MEDS: fentaNYL 250 MCG/5 ML INJ IV (15:12)
--- NOTE | 2019-10-21 15:18 | SUR.PHASEI ---
Denture placed back in mouth.
--- NOTE | 2019-10-21 15:43 | SUR.PHASEI ---
Slow to wqake up tolerated ice then juice. To OPD stable
--- NOTE | 2019-10-21 16:05 | SUR.PHASEII ---
Pt asked to go, called friend, left unit when ready and left in stable condition.
== END 2019-10-21 16:05 | disposition home or self-care (01) ==
PROVIDERS: PCP Student in an Organized Health Care Education/Training Program; Referring Provider Student in an Organized Health Care Education/Training Program; Visit Provider Student in an Organized Health Care Education/Training Program
PROC: 0DJ08ZZ Inspection of Upper Intestinal Tract, Via Natural or Artificial Opening Endoscopic (ICD-10-PCS; CPT 43235; principal; 2019-10-21 14:30)
DX: K29.50 Unspecified chronic gastritis without bleeding (principal); E11.9 Type 2 diabetes mellitus without complications; E78.5 Hyperlipidemia, unspecified; I10 Essential (primary) hypertension; J44.9 Chronic obstructive pulmonary disease, unspecified; R91.8 Other nonspecific abnormal finding of lung field; R63.4 Abnormal weight loss; F17.210 Nicotine dependence, cigarettes, uncomplicated; Z79.84 Long term (current) use of oral hypoglycemic drugs; K29.80 Duodenitis without bleeding; K21.9 Gastro-esophageal reflux disease without esophagitis; K31.89 Other diseases of stomach and duodenum
CPT/HCPCS: 43239; J2250; J3010

== ENCOUNTER 2020-01-11 13:43 | Observation (INO) | payer OTHER, SELFPAY ==
[2020-01-11] VITALS (12 sets, daily range): BP systolic 144–190; BP diastolic 65–97; PULSE 82–111; RESP 16–36; TEMP 36–36.9; O2SAT 94–100; BMI 20.9
--- NOTE | 2020-01-11 14:14 | DI.RAD.S_ITS ---
PROCEDURE: XR CHEST 1V INDICATIONS: Dyspnea TECHNIQUE: One view of the chest was acquired. COMPARISON: [facility], , XR CHEST 2V, 07/05/2018, 11:45. [facility], , CHEST 2 VIEW, 08/01/2014, 10:01. FINDINGS: Surgical changes and devices: None. Lungs and pleura: Lungs are clear but lung volumes are large. No pleural effusions or pneumothorax. Mediastinum: Mediastinal contours appear normal. Heart size is normal. Bones and chest wall: No suspicious bony lesions. Overlying soft tissues appear unremarkable. IMPRESSION: Normal for age except for large lung volumes, source of current shortness of breath symptoms is not seen. Dictated by: Schuyler Stafford M.D. on 01/11/2020 at 15:29 Approved by: Schuyler Stafford M.D. on 01/11/2020 at 15:30
--- NOTE | 2020-01-11 14:23 | ED.SOB ---
HPI - SOB/Dyspnea General Chief Complaint: Shortness of Breath/Dyspnea Stated Complaint: Hyperventilating/Coughing COPD Time Seen by Provider: 01/11/20 14:05 Source: patient Mode of arrival: Ambulatory Limitations: no limitations History of Present Illness HPI Narrative: Patient is a smoker. History of COPD. Patient is staff member here. Complains dyspnea with nonproductive cough for the past 2 weeks. Worsening in the past 2 days. Denies any chest pain. Denies any history of coronary disease. He is diabetic. Denies any fever chills. No sore throat. Complaint: shortness of breath Related Data Home Medications Medication Instructions Recorded Confirmed pseudoephedrine-guaifenesin 1 tab PO Q12H #0 05/31/12 01/11/20 [Mucinex D Maximum Strength] metformin [Glucophage] 500 mg PO DAILY #0 05/23/17 10/21/19 fluoxetine 20 mg PO DAILY #0 01/09/18 01/11/20 omeprazole 20 mg PO DAILY 01/09/18 10/21/19 albuterol sulfate 2 puff INHALATION Q4-6H PRN 01/11/20 01/11/20 meloxicam 01/11/20 Allergies Allergy/AdvReac Type Severity Reaction Status Date / Time No Known Drug Allergies Allergy Verified 01/11/20 14:00 Review of Systems Review of Systems Narrative: GENERAL: Denies chills, fatigue, malaise, fever, sweats. HEENT: Denies sinus pain, ear pain, sore throat, difficulty swallowing, dizziness. RESPIRATORY: Complains of dyspnea, cough, wheezing, denies hemoptysis, sputum. CARDIOVASCULAR: Denies chest pain, palpitations, orthopnea, edema, GASTROINTESTINAL: Denies nausea, vomiting, abdominal pain, diarrhea, constipation, melena. : Denies dysuria, frequency, incontinence, hematuria, urinary retention. MUSCULOSKELETAL: denies weakness, joint pain, or bony pain SKIN: Denies rash, skin lesions NEUROLOGIC: Denies weakness, headache, numbness, change in speech, confusion, seizures, incoordination. PSYCHIATRIC: No concerning psychosocial issues. ROS Unobtainable: All systems reviewed & are unremarkable except as noted in HPI and below Patient History Social History household members: friend(s) and none Smoking Status: Current every day smoker Smoking Status: Current every day smoker tobacco type: cigarettes alcohol intake frequency: 0-2 drinks per day Substance Use Type: does not use Exam Narrative Exam Narrative: GENERAL: patient appears stated age. Well-nourished, well-developed patient, in no distress, not toxic HEAD: Atraumatic. Normocephalic. EYES: Pupils equal round and reactive. Extraocular motions intact. No scleral icterus. No injection or drainage. ENT: Nose without bleeding, purulent drainage. Throat without erythema, tonsillar hypertrophy or exudate. Airway patent. NECK: Trachea midline. Non tender CARDIOVASCULAR: Regular rate and rhythm without murmurs, gallops, or rubs. RESPIRATORY: Equal bilateral lung sounds that are diminished in diffuse wheezing. Speaks short sentences GASTROINTESTINAL: Abdomen soft, non-tender, nondistended. EXTREMITIES: No edema or joint tenderness. BACK: Nontender without deformity or crepitance. No flank tenderness. NEURO: AOx4. SKIN: No rash or erythema of visible areas PSYCH: Not anxious, is cooperative Initial Vital Signs Initial Vital Signs: Vital Signs Pulse Rate 101 H 01/11/20 13:49 Pulse Oximetry 100 01/11/20 13:49 Course Course Course Narrative: Patient improving with breathing treatments Solu-Medrol IV fluids. Would benefit for admission Decision to Admit Date: 01/11/20 Decision to Admit time: 15:06 Orders Ordered: ED Orders 01/11/20 14:10 Venous Blood Gas Stat 01/11/20 14:13 EKG-12 Lead Stat 01/11/20 14:14 XR chest 1V Stat 01/11/20 14:15 COVID19 -ED/INPAT/OR/L&D Stat Complete Blood Count AUTO DIFF Stat Comprehensive Metabolic Panel Stat D Dimer Stat Lactate (Lactic Acid) Stat NT-proBNP (BNP-Adult 18+) Stat Partial Thromboplastin Time Stat Procalcitonin Stat Troponin & CK Cardiac Panel Stat 01/11/20 15:04 RT Consult Eval and Treat NOW 01/11/20 15:24 Blood Culture Stat Acetaminophen (Tylenol) 650 mg PO Q6HR PRN PRN Reason: Fever/Mild Pain (1-3) Albuterol/Ipratropium (Duoneb) 3 ml INH RTQ4HR PRN PRN Reason: Shortness Of Breath Discontinued Medications Albuterol (Ventolin Hfa (Vent/Covid R/O)) 2 puff INH NOW ONE Stop: 01/11/20 14:01 Last Admin: 01/11/20 14:25 Dose: 2 puff Documented by: DEDRA Albuterol (Ventolin) 2.5 mg INH NOW ONE Stop: 01/11/20 14:24 Last Admin: 01/11/20 14:28 Dose: 2.5 mg Documented by: DEDRA Ceftriaxone Sodium/Dextrose (Rocephin) 1 gm in 50 mls @ 100 mls/hr IV NOW ONE Stop: 01/11/20 15:33 Last Infusion: 01/11/20 16:10 Dose: 0 mls/hr Documented by: Admin: 01/11/20 15:23 Dose: 100 mls/hr Documented by: SHAKA Azithromycin 500 mg/ Dextrose 250 mls @ 250 mls/hr IV NOW ONE Stop: 01/11/20 15:05 Last Admin: 01/11/20 16:45 Dose: 250 mls/hr Documented by: BISI Methylprednisolone (Solu-Medrol 125 Mg Vial) 125 mg IV NOW ONE Stop: 01/11/20 14:13 Last Admin: 01/11/20 14:27 Dose: 125 mg Documented by: SHAKA Reevaluation(s) Reevaluation #1: Breathing much easier after treatment. Time: 15:06 Consultations Consultation #1: Spoke with Dr. Franklin, will admit. Time: 15:07 Vital Signs Vital signs: Vital Signs - 8 hr 01/11/20 13:49 01/11/20 13:51 01/11/20 14:00 Temperature Pulse Rate 101 H 92 H 82 Respiratory Rate 33 H 36 H Blood Pressure 190/88 H Pulse Oximetry 100 96 96 01/11/20 14:01 01/11/20 14:06 01/11/20 14:30 Temperature 98.4 F Pulse Rate 92 H 87 84 Respiratory Rate 36 H 24 22 Blood Pressure 190/88 H 159/73 H Pulse Oximetry 98 96 96 01/11/20 15:00 Temperature Pulse Rate 87 Respiratory Rate 27 H Blood Pressure 144/65 H Pulse Oximetry 97 MDM - SOB/Dyspnea Differential Diagnosis Differential diagnosis: Likely acute exacerbation of chronic obstructive airways disease, congestive heart failure and community acquired pneumonia Lab Data Attestation: I reviewed the patient's lab results. Result diagrams: 01/11/20 14:15 01/11/20 14:15 Labs: Lab Results 01/11/20 01/11/20 01/11/20 Range/Units 14:10 14:15 14:15 WBC (4.5-11.0) X10^3/uL RBC (4.0-5.2) X10^6/uL Hgb (12.0-16.0) g/dL Hct (36-46) % MCV (80-100) fL MCH (26-34) PG MCHC (30-36) % RDW (11.6-14.8) % Plt Count (150-400) X10^3/uL Neut % (Auto) (50-75) % Lymph % (Auto) (25-40) % Sterling % (Auto) (3-14) % Eos % (Auto) (2-4) % Baso % (Auto) (0-2) % Neut # (Auto) (4951-9769) /uL Lymph # (Auto) (9860-6609) /uL Sterling # (Auto) (0-900) /uL Eos # (Auto) (0-450) /uL Baso # (Auto) (0-100) /uL APTT 33 (26.4-36.2) SECONDS D-Dimer < 200 (<230) ng/mL VBG pH 7.40 (7.33-7.43) VBG pCO2 43.0 L (45-50) mmHg VBG pO2 38 (35-45) mmHg VBG HCO3 26 (23-28) mmol/L VBG Total CO2 28 (24-29) mmol/L VBG O2 Saturation 71 (70-75) % VBG Base Excess 2.0 (0-4) mmol/L Sodium (137-145) mmol/L Potassium (3.4-5.1) mmol/L Chloride (98-107) mmol/L Carbon Dioxide (22-32) mmol/L BUN (7-17) mg/dL Creatinine (0.52-1.04) mg/dL Estimated GFR (>60) mL/min BUN/Creatinine Ratio (6-22) Glucose (80-110) mg/dL Lactate (0.7-2.1) mmol/L Calcium (8.4-10.2) mg/dL Total Bilirubin (0.2-1.3) mg/dL AST (14-36) IU/L ALT (<35) IU/L Alkaline Phosphatase (38-126) U/L Total Creatine Kinase (30-135) U/L CK-MB (CK-2) CK-MB (CK-2) Rel Index Troponin I (0.01-0.034) ng/mL NT-Pro-B Natriuret Pep 116 (<125) pg/mL Total Protein (6.3-8.2) g/dL Albumin (3.5-5.0) g/dL Globulin (1.7-4.1) g/dL Albumin/Globulin Ratio (1.0-2.8) Procalcitonin (<0.5) ng/mL COVID-19 PCR (Negative) 01/11/20 01/11/20 01/11/20 Range/Units 14:15 14:15 14:15 WBC 3.7 L (4.5-11.0) X10^3/uL RBC 4.38 (4.0-5.2) X10^6/uL Hgb 13.9 (12.0-16.0) g/dL Hct 40.3 (36-46) % MCV 92.0 (80-100) fL MCH 31.7 (26-34) PG MCHC 34.4 (30-36) % RDW 11.9 (11.6-14.8) % Plt Count 178 (150-400) X10^3/uL Neut % (Auto) 52.6 (50-75) % Lymph % (Auto) 23.9 L (25-40) % Sterling % (Auto) 8.0 (3-14) % Eos % (Auto) 13.4 H (2-4) % Baso % (Auto) 2.1 H (0-2) % Neut # (Auto) 1900 (8768-1204) /uL Lymph # (Auto) 900 L (9400-7365) /uL Sterling # (Auto) 300 (0-900) /uL Eos # (Auto) 500 H (0-450) /uL Baso # (Auto) 100 (0-100) /uL APTT (26.4-36.2) SECONDS D-Dimer (<230) ng/mL VBG pH (7.33-7.43) VBG pCO2 (45-50) mmHg VBG pO2 (35-45) mmHg VBG HCO3 (23-28) mmol/L VBG Total CO2 (24-29) mmol/L VBG O2 Saturation (70-75) % VBG Base Excess (0-4) mmol/L Sodium 131 L (137-145) mmol/L Potassium 4.5 (3.4-5.1) mmol/L Chloride 96 L (98-107) mmol/L Carbon Dioxide 27 (22-32) mmol/L BUN 10 (7-17) mg/dL Creatinine 0.59 (0.52-1.04) mg/dL Estimated GFR > 60.0 (>60) mL/min BUN/Creatinine Ratio 16.9 (6-22) Glucose 219 H (80-110) mg/dL Lactate (0.7-2.1) mmol/L Calcium 9.4 (8.4-10.2) mg/dL Total Bilirubin 0.6 (0.2-1.3) mg/dL AST 26 (14-36) IU/L ALT 9 (<35) IU/L Alkaline Phosphatase 100 (38-126) U/L Total Creatine Kinase 68 (30-135) U/L CK-MB (CK-2) TNP CK-MB (CK-2) Rel Index TNP Troponin I < 0.012 (0.01-0.034) ng/mL NT-Pro-B Natriuret Pep (<125) pg/mL Total Protein 7.2 (6.3-8.2) g/dL Albumin 4.2 (3.5-5.0) g/dL Globulin 3.0 (1.7-4.1) g/dL Albumin/Globulin Ratio 1.4 (1.0-2.8) Procalcitonin (<0.5) ng/mL COVID-19 PCR Negative (Negative) 01/11/20 01/11/20 Range/Units 14:15 14:15 WBC (4.5-11.0) X10^3/uL RBC (4.0-5.2) X10^6/uL Hgb (12.0-16.0) g/dL Hct (36-46) % MCV (80-100) fL MCH (26-34) PG MCHC (30-36) % RDW (11.6-14.8) % Plt Count (150-400) X10^3/uL Neut % (Auto) (50-75) % Lymph % (Auto) (25-40) % Sterling % (Auto) (3-14) % Eos % (Auto) (2-4) % Baso % (Auto) (0-2) % Neut # (Auto) (7853-3819) /uL Lymph # (Auto) (5252-4304) /uL Sterling # (Auto) (0-900) /uL Eos # (Auto) (0-450) /uL Baso # (Auto) (0-100) /uL APTT (26.4-36.2) SECONDS D-Dimer (<230) ng/mL VBG pH (7.33-7.43) VBG pCO2 (45-50) mmHg VBG pO2 (35-45) mmHg VBG HCO3 (23-28) mmol/L VBG Total CO2 (24-29) mmol/L VBG O2 Saturation (70-75) % VBG Base Excess (0-4) mmol/L Sodium (137-145) mmol/L Potassium (3.4-5.1) mmol/L Chloride (98-107) mmol/L Carbon Dioxide (22-32) mmol/L BUN (7-17) mg/dL Creatinine (0.52-1.04) mg/dL Estimated GFR (>60) mL/min BUN/Creatinine Ratio (6-22) Glucose (80-110) mg/dL Lactate 1.6 (0.7-2.1) mmol/L Calcium (8.4-10.2) mg/dL Total Bilirubin (0.2-1.3) mg/dL AST (14-36) IU/L ALT (<35) IU/L Alkaline Phosphatase (38-126) U/L Total Creatine Kinase (30-135) U/L CK-MB (CK-2) CK-MB (CK-2) Rel Index Troponin I (0.01-0.034) ng/mL NT-Pro-B Natriuret Pep (<125) pg/mL Total Protein (6.3-8.2) g/dL Albumin (3.5-5.0) g/dL Globulin (1.7-4.1) g/dL Albumin/Globulin Ratio (1.0-2.8) Procalcitonin < 0.05 (<0.5) ng/mL COVID-19 PCR (Negative) Imaging Data Chest x-ray: My Impression: No acute process Radiologist's Impression: [address] [address] XRay Report Signed Patient: Edwina Woods BMR#: [id number] : 7Acct:[id number] Age/Sex: 64 / FDate of Service: 01/11/20 Loc: GW70H-3 Accession Number: [id number] Procedure: XR chest 1V Ordering Provider: Paul Matute MD PROCEDURE: XR CHEST 1V INDICATIONS: Dyspnea TECHNIQUE: One view of the chest was acquired. COMPARISON: [facility], CR, XR CHEST 2V, 07/05/2018, 11:45. [facility], , CHEST 2 VIEW, 08/01/2014, 10:01. FINDINGS: Surgical changes and devices: None. Lungs and pleura: Lungs are clear but lung volumes are large. No pleural effusions or pneumothorax. Mediastinum: Mediastinal contours appear normal. Heart size is normal. Bones and chest wall: No suspicious bony lesions. Overlying soft tissues appear unremarkable. IMPRESSION: Normal for age except for large lung volumes, source of current shortness of breath symptoms is not seen. Dictated by: Schuyler Stafford M.D. on 01/11/2020 at 15:29 Approved by: Schuyler Stafford M.D. on 01/11/2020 at 15:30 ECG Data Attestation: I personally reviewed and interpreted this ECG as follows: Interpretation: Normal sinus rhythm ventricular rate 83. Normal EKG. No ST elevation or depression MDM Narrative Medical decision making narrative: Patient agrees for admission for COPD exacerbation. Will need DuoNeb treatments and steroids, likely need observation 23 hours Discharge Plan Departure Patient Disposition: Admitted as Observation Clinical Impression: Acute exacerbation of chronic obstructive airways disease Discharge Date/Time: 01/11/20 16:00 Referrals: Brenda Vieyra MD [Primary Care Provider] - Admit Date/Time: 01/11/20 15:24 Admit Provider: Vicente Franklin
[2020-01-11] MEDS: ALBUTEROL HFA 200 PUFF/18 GM INH (COVID POS/VENT PTS) INH ×3 (14:25→19:35)
[2020-01-11] MEDS: methylPREDNISolone 125 MG/2 ML VIAL IV (14:27)
[2020-01-11] MEDS: ALBUTEROL 2.5 MG/3 ML NEB (ADULT) INH (14:28)
[2020-01-11 14:36] LABS: Add Manual Diff / Slide Review NO; Basophils Absolute Auto 100 /uL (0-100); Basophils Percent Auto 2.1 % (0-2); Eosinophils Absolute Auto 500 /uL (0-450); Eosinophils Percent Auto 13.4 % (2-4); Hematocrit 40.3 % (36-46); Hemoglobin 13.9 g/dL (12.0-16.0); Lymphocytes Absolute Auto 900 /uL (1100-4500); Lymphocytes Percent Auto 23.9 % (25-40); Mean Corpuscular HGB Conc 34.4 % (30-36); Mean Corpuscular Hemoglobin 31.7 PG (26-34); Monocytes Absolute Auto 300 /uL (0-900); Neutrophils Absolute Auto 1900 /uL (1500-7000); Neutrophils Percent Auto 52.6 % (50-75); Platelet Count 178 X10^3/uL (150-400); Red Blood Cell Count 4.38 X10^6/uL (4.0-5.2); Red Cell Distribution Width 11.9 % (11.6-14.8); White Blood Cell Count 3.7 X10^3/uL (4.5-11.0)
[2020-01-11 14:42] LABS: Lactate (Lactic Acid) 1.6 mmol/L (0.7-2.1); PTT Partial Thromboplastin Tim 33 SECONDS (26.4-36.2)
[2020-01-11 14:43] LABS: Alanine Aminotransferase 9 IU/L (<35); Albumin 4.2 g/dL (3.5-5.0); Albumin Globulin Ratio 1.4 (1.0-2.8); Alkaline Phosphatase 100 U/L (38-126); Aspartate Aminotransferase 26 IU/L (14-36); BUN Creatinine Ratio 16.9 (6-22); Bilirubin Total 0.6 mg/dL (0.2-1.3); Blood Urea Nitrogen 10 mg/dL (7-17); Calcium 9.4 mg/dL (8.4-10.2); Carbon Dioxide 27 mmol/L (22-32); Chloride 96 mmol/L (98-107); Creatine Kinase 68 U/L (30-135); Estimated Glomerular Filt Rate > 60.0 mL/min (>60); Glucose 219 mg/dL (80-110); HEMOLYSIS < 15 (0-50); Potassium 4.5 mmol/L (3.4-5.1); Sodium 131 mmol/L (137-145); Total Protein 7.2 g/dL (6.3-8.2)
[2020-01-11 14:48] LABS: COVID19 -Nasal RAPID Negative (Negative)
[2020-01-11 14:50] LABS: D Dimer < 200 ng/mL (<230)
[2020-01-11 14:54] LABS: Troponin I < 0.012 ng/mL (0.01-0.034)
[2020-01-11 14:58] LABS: NT-proBNP (BNP-Adult 18+) 116 pg/mL (<125)
[2020-01-11 15:00] LABS: Procalcitonin < 0.05 ng/mL (<0.5)
[2020-01-11 15:21] LABS: HCO3 VBG 26 mmol/L (23-28); Oxygen Saturation VBG 71 % (70-75); PO2 VBG 38 mmHg (35-45); Total CO2 VBG 28 mmol/L (24-29)
[2020-01-11] MEDS: CEFTRIAXONE 1 GM/50 ML FROZ.PIGGY IV (15:23)
[2020-01-11] MEDS: AZITHROMYCIN 500 MG in DEXTROSE 5% IN WATER 250 ML IV (16:45)
--- NOTE | 2020-01-11 16:59 | PC.ADMIT ---
[id number] [place] [address] Admission Note: The patient,Edwina Woods,64 y/o, was given written information regarding hospital policies, unit procedures and contact persons. Patient's smoking status: Current every day smoker. Pt arrived from ED via stretcher. A/O. Steady on feet. Oriented to room and call system. Pt verbalized she will call for needs. Vital Signs - 8 hr 01/11/20 13:49 01/11/20 13:51 01/11/20 14:00 Temperature Pulse Rate 101 H 92 H 82 Respiratory Rate 33 H 36 H Blood Pressure 190/88 H Pulse Oximetry 100 96 96 01/11/20 14:01 01/11/20 14:06 01/11/20 14:30 Temperature 98.4 F Pulse Rate 92 H 87 84 Respiratory Rate 36 H 24 22 Blood Pressure 190/88 H 159/73 H Pulse Oximetry 98 96 96 01/11/20 15:00 01/11/20 15:30 Temperature Pulse Rate 87 92 H Respiratory Rate 27 H 26 H Blood Pressure 144/65 H 152/72 H Pulse Oximetry 97 96
--- NOTE | 2020-01-11 17:10 | DI.CT.S_ITS ---
PROCEDURE: CT CHEST WO CON COMPARISON: [facility], CT, CT CHEST ABD PEL W CON, 08/09/2019, 2:57. [facility], RF, FL UPPER GI SERIES, 09/25/2019, 12:48. [facility], CR, XR CHEST 1V, 01/11/2020, 14:34. INDICATIONS: f/u lung nodules FINDINGS: A 3 mm subpleural nodule has not changed lateral right upper lobe. This is currently seen on series 3, image 77. A subsolid 4 mm focus of airspace disease can be seen at the left upper lobe, smaller in size currently measuring only approximately 3 mm in diameter. At the right middle lobe and a small focus of subsolid radiodensity is more clearly visualized by the current study in represents it band of mild alveolar prominence, transverse in its orientation, consistent with alveolar scarring from a prior inflammatory event. No new nodule has developed, no malignant-appearing mass is seen. IMPRESSION: According to the Fleischner society no follow-up is recommended for the 3 mm stable appearing nodule lateral right upper lobe and the left upper lobe subsolid focus has diminished in size to only 3 mm. The band of alveolar scarring right middle lobe does not raise concern for neoplasm. Overall, no neoplasm or pneumonia is suspected and no follow-up is recommended. Dictated by: Schuyler Stafford M.D. on 01/11/2020 at 19:07 Approved by: Schuyler Stafford M.D. on 01/11/2020 at 19:15
--- NOTE | 2020-01-11 17:22 | PM.HP.1 ---
History of Present Illness History of Present Illness Date Patient Seen: 01/11/20 Time Patient Seen: 17:22 Date of Onset of Symptoms: 01/09/20 Chief complaint: Hyperventilating/Coughing COPD Narrative: Shortness of breath Patient admitted through the ER for seizures seen for shortness of breath. She has been having increasing cough and shortness of breath for the last 2 weeks. Over last 2 days shortness of breath seemingly got more severe and that she present to the emergency room. She does have an albuterol inhaler that she has been does seem to be helping. She has had no fever chills no mucus production no URI symptoms no chest pain no palpitations no calf pain no edema She says she has a history of diagnosis of of COPD. For which she uses the inhaler. She does not have asthma or emphysema as far she is aware. She currently is a smoker and has been a smoker for years. She was found to have pulmonary nodules and chest CT in August this year with recommended follow-up in 3-[address] will be ordered while she is here at the hospital. Other medical calms include diabetes for which she takes metformin once a day. She does not monitor her sugar. So far as I can tell the last hemoglobin A1c was 4 years ago. She apparently has a problem with depression and degenerative joint disease takes medication for same. Patient was given the inhalation treatment in the emergency room IV steroids and has improved significantly over was feeling back to normal Patient History Family & Social History Social History: household members friend(s),none Prior Living Arrangements Apartment/Condo Safety & Behavioral: Feels Safe in Current Yes Environment Suicidal Ideation Description None Tobacco & Substance use: Tobacco type cigarettes Smoking Status Current every day smoker Smoking packs per day 1 alcohol intake frequency 0-2 drinks per day Substance Use Type does not use Meds Home Medications and Allergies Home Medications Medication Instructions Recorded Confirmed Type pseudoephedrine-guaifenesin 1 tab PO Q12H #0 05/31/12 01/11/20 History [Mucinex D Maximum Strength] metformin [Glucophage] 500 mg PO DAILY #0 05/23/17 10/21/19 History fluoxetine 20 mg PO DAILY #0 01/09/18 01/11/20 History omeprazole 20 mg PO DAILY 01/09/18 10/21/19 History albuterol sulfate 2 puff INHALATION Q4-6H PRN 01/11/20 01/11/20 History meloxicam 01/11/20 History Allergies Allergy/AdvReac Type Severity Reaction Status Date / Time No Known Drug Allergies Allergy Verified 01/11/20 14:00 Review of Systems Review of Systems ROS: Yes All systems reviewed with the patient and are negative except as otherwise documented Exam Vital Signs (past 8 hours): - 01/11/20 13:49 01/11/20 13:51 01/11/20 14:00 Temperature Pulse Rate 101 H 92 H 82 Respiratory Rate 33 H 36 H Blood Pressure 190/88 H Pulse Oximetry 100 96 96 01/11/20 14:01 01/11/20 14:06 01/11/20 14:30 Temperature 98.4 F Pulse Rate 92 H 87 84 Respiratory Rate 36 H 24 22 Blood Pressure 190/88 H 159/73 H Pulse Oximetry 98 96 96 01/11/20 15:00 01/11/20 15:30 Temperature Pulse Rate 87 92 H Respiratory Rate 27 H 26 H Blood Pressure 144/65 H 152/72 H Pulse Oximetry 97 96 Oxygen Delivery Method Room Air Narrative Exam Narrative: Gen.: The patient examined hospital bed sitting up and she appears in no distress conversant able to speech long sentences has no obvious wheezing hurt look short of breath and has intermittent cough. Skin: Warm well perfused. No prominent lesions. Nonicteric. HEENT: PERRL., normal EOM, external ears canals TMs normal, nasal mucosa normal and midline septum, oropharynx without lesions. Neck: Trachea midline. Thyroid nontender and not enlarged. Carotids without bruits. No lymphadenopathy Back: No obvious deformity or tenderness. Chest: She has decreased breath sounds throughout. She does have expiratory rhonchi and end expiratory wheezing CV: RRR no murmur or gallop. No JVD. Abdomen: No masses bruits tenderness or visceromegaly. Neuro: Cranial nerves II through XII grossly intact. Sensory and motor exams intact. Gait normal. Mental status: Intact for screening Extremities: No cyanosis clubbing or edema calves are nontender Musculoskeletal: No gross deformities Lymphatics: Negative for lymphadenopathy, supraclavicular axillary or inguinal Objective Labs Result Diagrams: 01/11/20 14:15 01/11/20 14:15 Labs: Laboratory Results - last 24 hr 01/11/20 01/11/20 01/11/20 14:10 14:15 14:15 WBC RBC Hgb Hct MCV MCH MCHC RDW Plt Count Neut % (Auto) Lymph % (Auto) Baldwin % (Auto) Eos % (Auto) Baso % (Auto) Neut # (Auto) Lymph # (Auto) Baldwin # (Auto) Eos # (Auto) Baso # (Auto) APTT 33 D-Dimer < 200 VBG pH 7.40 VBG pCO2 43.0 L VBG pO2 38 VBG HCO3 26 VBG Total CO2 28 VBG O2 Saturation 71 VBG Base Excess 2.0 Sodium Potassium Chloride Carbon Dioxide BUN Creatinine Estimated GFR BUN/Creatinine Ratio Glucose Lactate Calcium Total Bilirubin AST ALT Alkaline Phosphatase Total Creatine Kinase CK-MB (CK-2) CK-MB (CK-2) Rel Index Troponin I NT-Pro-B Natriuret Pep 116 Total Protein Albumin Globulin Albumin/Globulin Ratio Procalcitonin COVID-19 PCR 01/11/20 01/11/20 01/11/20 14:15 14:15 14:15 WBC 3.7 L RBC 4.38 Hgb 13.9 Hct 40.3 MCV 92.0 MCH 31.7 MCHC 34.4 RDW 11.9 Plt Count 178 Neut % (Auto) 52.6 Lymph % (Auto) 23.9 L Baldwin % (Auto) 8.0 Eos % (Auto) 13.4 H Baso % (Auto) 2.1 H Neut # (Auto) 1900 Lymph # (Auto) 900 L Baldwin # (Auto) 300 Eos # (Auto) 500 H Baso # (Auto) 100 APTT D-Dimer VBG pH VBG pCO2 VBG pO2 VBG HCO3 VBG Total CO2 VBG O2 Saturation VBG Base Excess Sodium 131 L Potassium 4.5 Chloride 96 L Carbon Dioxide 27 BUN 10 Creatinine 0.59 Estimated GFR > 60.0 BUN/Creatinine Ratio 16.9 Glucose 219 H Lactate Calcium 9.4 Total Bilirubin 0.6 AST 26 ALT 9 Alkaline Phosphatase 100 Total Creatine Kinase 68 CK-MB (CK-2) TNP CK-MB (CK-2) Rel Index TNP Troponin I < 0.012 NT-Pro-B Natriuret Pep Total Protein 7.2 Albumin 4.2 Globulin 3.0 Albumin/Globulin Ratio 1.4 Procalcitonin COVID-19 PCR Negative 01/11/20 01/11/20 14:15 14:15 WBC RBC Hgb Hct MCV MCH MCHC RDW Plt Count Neut % (Auto) Lymph % (Auto) Baldwin % (Auto) Eos % (Auto) Baso % (Auto) Neut # (Auto) Lymph # (Auto) Baldwin # (Auto) Eos # (Auto) Baso # (Auto) APTT D-Dimer VBG pH VBG pCO2 VBG pO2 VBG HCO3 VBG Total CO2 VBG O2 Saturation VBG Base Excess Sodium Potassium Chloride Carbon Dioxide BUN Creatinine Estimated GFR BUN/Creatinine Ratio Glucose Lactate 1.6 Calcium Total Bilirubin AST ALT Alkaline Phosphatase Total Creatine Kinase CK-MB (CK-2) CK-MB (CK-2) Rel Index Troponin I NT-Pro-B Natriuret Pep Total Protein Albumin Globulin Albumin/Globulin Ratio Procalcitonin < 0.05 COVID-19 PCR of significance COVID-19 negative, procalcitonin negative, lactate normal, BNP normal troponin normal white blood cell count 3700 D-dimer normal Assessment & Plan Assessment & Plan narrative: 1. The patient presumably has pre-existing COPD. She she does have lower expanded lungs on x-ray it certainly consistent with the diagnosis. She does state this which she had in the past. On albuterol for same. She is on no maintenance inhalers however. 2. Current respiratory status appears to be an acute exacerbation of chronic obstructive pulmonary disease. She does not have pneumonia as far as we can tell. May well have some upper airway bronchitis hence the azithromycin. Clearly has reactive airway based on the wheezing that she has. She will be given intravenous Solu-Medrol overnight at perhaps the couple days of prednisone on discharge. She also be continued on p.o. Zithromax and upon discharge. 3. Diabetes unclear exactly how well the management has been blood sugars over 200 here. Hemoglobin A1c to be ordered. And we will resume her maintenance apparent of metformin 500 mg once a day in the morning. Additionally BGs a.c. and HS. 4. History of pulmonary nodules based on as a chest CT done in August. Recommended follow-up in 3-[address] will be ordered while she is here. 5. Anticipated overnight stay and hopefully with the aggressive pulmonary toilet patient can be discharged tomorrow presumably on a maintenance inhaler based on recommendation by the respiratory therapist Should the patient end up staying in the hospital till Monday Dr. Vieyra will resume care then
[2020-01-11 19:29] LABS: Hemoglobin A1C% w Est Avg Glu 7.2 % (4.0-6.0)
[2020-01-11] MEDS: guaiFENesin ER 600 MG TAB PO (20:52)
[2020-01-11] MEDS: methylPREDNISolone 125 MG/2 ML VIAL 60 MG IV (20:57)
[2020-01-11] MEDS: SODIUM CHLORIDE 0.9% FLUSH 10 ML IV (21:37)
[2020-01-11] MEDS: INSULIN ASPART 100 UNIT/ML INSULN PEN SUBCUT (22:38)
[2020-01-11] MEDS: NICOTINE 21 MG PATCH TOP (22:41)
[2020-01-12 03:08] VITALS: BP 170/110; PULSE 104; RESP 16; TEMP 36.3; O2SAT 96
[2020-01-12] MEDS: ALBUTEROL HFA 200 PUFF/18 GM INH (COVID POS/VENT PTS) INH ×2 (03:27→06:18)
[2020-01-12] MEDS: ACETAMINOPHEN 325 MG TABLET 650 MG PO (03:29)
[2020-01-12] MEDS: methylPREDNISolone 125 MG/2 ML VIAL 60 MG IV (05:33)
[2020-01-12 06:19] VITALS: PULSE 102; RESP 20; O2SAT 97
[2020-01-12 06:33] VITALS: BP 149/90; PULSE 108
[2020-01-12] MEDS: ALBUTEROL 2.5 MG/3 ML NEB (ADULT) INH ×2 (08:17→08:18)
[2020-01-12 08:30] VITALS: BP 146/79; PULSE 106; RESP 17; TEMP 36.2; O2SAT 96
[2020-01-12 08:38] VITALS: PULSE 104; RESP 18; O2SAT 97
--- NOTE | 2020-01-12 09:28 | P.DS_ITS ---
History of Present Illness History of Present Illness Chief complaint: Hyperventilating/Coughing COPD Narrative: Shortness of breath Patient admitted through the ER for seizures seen for shortness of breath. She has been having increasing cough and shortness of breath for the last 2 weeks. Over last 2 days shortness of breath seemingly got more severe and that she present to the emergency room. She does have an albuterol inhaler that she has been does seem to be helping. She has had no fever chills no mucus production no URI symptoms no chest pain no palpitations no calf pain no edema She says she has a history of diagnosis of of COPD. For which she uses the inhaler. She does not have asthma or emphysema as far she is aware. She currently is a smoker and has been a smoker for years. She was found to have pulmonary nodules and chest CT in August this year with recommended follow-up in 3-[address] will be ordered while she is here at the hospital. Other medical calms include diabetes for which she takes metformin once a day. She does not monitor her sugar. So far as I can tell the last hemoglobin A1c was 4 years ago. She apparently has a problem with depression and degenerative joint disease takes medication for same. Patient was given the inhalation treatment in the emergency room IV steroids and has improved significantly over was feeling back to normal Discharge Providers Provider Date of admission: 01/11/20 15:24 Discharge Date: 01/12/20 Primary care physician: Brenda Vieyra MD Discharge provider: Vicente Franklin MD Summary Hospital Course Discharge Diagnosis: Acute exacerbation of pre-existing COPD 2. Presumed upper airway bronchitis. 3. Hypertension that apparently has been present in the past. 4. Diabetes reasonably well controlled. 5. Smoker. Hospital Course: Patient was admitted for respiratory therapy for acute exacerbation of a pre-existing COPD. She tells me that she does have a diagnosis of COPD unclear how that was made. She has been using her albuterol as needed. Her hospital stay here was uneventful she was treated initially with IV steroids antibiotics. She responded the relative good typically quickly from the treatment emergency room and she remained asymptomatic overnight on room air. This morning she feels much better feels great wants to go home. She does cells have a cough for request something to help suppress the cough. And she is also interested in starting on a nicotine patch which she requested. She has had problems quo quitting in the past. She was discharged on azithromycin 250 mg daily for 4 days. Prednisone 40 mg for 2 days. Lisinopril 10 mg daily for hypertension. And nicotine patch 21 mg per day she is a pack-a-day smoker. This will be followed up by Dr. Vieyra in the office as far as the tapering down the dosage of the nicotine. Diabetes management is reasonable without A1c of 7.2. Status at Discharge Cognitive/behavioral status at discharge: oriented and at baseline, oriented Functional status at discharge: independent ambulation Overall status at discharge: patient is back to baseline Exam Vital Signs (past 8 hours): - 01/12/20 03:08 01/12/20 06:19 01/12/20 06:33 Temperature 97.4 F L Pulse Rate 104 H 102 H 108 H Respiratory Rate 16 20 Blood Pressure 170/110 H 149/90 H Pulse Oximetry 96 97 01/12/20 08:38 Temperature Pulse Rate 104 H Respiratory Rate 18 Blood Pressure Pulse Oximetry 97 Oxygen Delivery Method Room Air Oxygen Flow Rate 0 Objective Labs Result Diagrams: 01/11/20 14:15 01/11/20 14:15 Labs: Laboratory Results - last 24 hr 01/11/20 01/11/20 01/11/20 14:10 14:15 14:15 WBC RBC Hgb Hct MCV MCH MCHC RDW Plt Count Neut % (Auto) Lymph % (Auto) [place] % (Auto) Eos % (Auto) Baso % (Auto) Neut # (Auto) Lymph # (Auto) [place] # (Auto) Eos # (Auto) Baso # (Auto) APTT 33 D-Dimer < 200 VBG pH 7.40 VBG pCO2 43.0 L VBG pO2 38 VBG HCO3 26 VBG Total CO2 28 VBG O2 Saturation 71 VBG Base Excess 2.0 Sodium Potassium Chloride Carbon Dioxide BUN Creatinine Estimated GFR BUN/Creatinine Ratio Glucose Hemoglobin A1c Lactate Calcium Total Bilirubin AST ALT Alkaline Phosphatase Total Creatine Kinase CK-MB (CK-2) CK-MB (CK-2) Rel Index Troponin I NT-Pro-B Natriuret Pep 116 Total Protein Albumin Globulin Albumin/Globulin Ratio Procalcitonin COVID-19 PCR 01/11/20 01/11/20 01/11/20 14:15 14:15 14:15 WBC 3.7 L RBC 4.38 Hgb 13.9 Hct 40.3 MCV 92.0 MCH 31.7 MCHC 34.4 RDW 11.9 Plt Count 178 Neut % (Auto) 52.6 Lymph % (Auto) 23.[address] [place] % (Auto) 8.0 Eos % (Auto) 13.4 H Baso % (Auto) 2.1 H Neut # (Auto) 1900 Lymph # (Auto) [address] [place] # (Auto) 300 Eos # (Auto) 500 H Baso # (Auto) 100 APTT D-Dimer VBG pH VBG pCO2 VBG pO2 VBG HCO3 VBG Total CO2 VBG O2 Saturation VBG Base Excess Sodium 131 L Potassium 4.5 Chloride 96 L Carbon Dioxide 27 BUN 10 Creatinine 0.59 Estimated GFR > 60.0 BUN/Creatinine Ratio 16.9 Glucose 219 H Hemoglobin A1c Lactate Calcium 9.4 Total Bilirubin 0.6 AST 26 ALT 9 Alkaline Phosphatase 100 Total Creatine Kinase 68 CK-MB (CK-2) TNP CK-MB (CK-2) Rel Index TNP Troponin I < 0.012 NT-Pro-B Natriuret Pep Total Protein 7.2 Albumin 4.2 Globulin 3.0 Albumin/Globulin Ratio 1.4 Procalcitonin COVID-19 PCR Negative 01/11/20 01/11/20 01/11/20 14:15 14:15 14:15 WBC RBC Hgb Hct MCV MCH MCHC RDW Plt Count Neut % (Auto) Lymph % (Auto) [place] % (Auto) Eos % (Auto) Baso % (Auto) Neut # (Auto) Lymph # (Auto) [place] # (Auto) Eos # (Auto) Baso # (Auto) APTT D-Dimer VBG pH VBG pCO2 VBG pO2 VBG HCO3 VBG Total CO2 VBG O2 Saturation VBG Base Excess Sodium Potassium Chloride Carbon Dioxide BUN Creatinine Estimated GFR BUN/Creatinine Ratio Glucose Hemoglobin A1c 7.2 H Lactate 1.6 Calcium Total Bilirubin AST ALT Alkaline Phosphatase Total Creatine Kinase CK-MB (CK-2) CK-MB (CK-2) Rel Index Troponin I NT-Pro-B Natriuret Pep Total Protein Albumin Globulin Albumin/Globulin Ratio Procalcitonin < 0.05 COVID-19 PCR Discharge Plan Discharge Plan Patient Disposition: Home Discharge comment: appt w Dr. Vieyra 2 weeks Discharge orders & Medications Prescriptions: New azithromycin 250 mg tablet 250 mg PO DAILY 4 Days Qty: 4 RF: 0 prednisone 20 mg tablet 40 mg PO DAILY Qty: 4 RF: 0 lisinopril 10 mg tablet 10 mg PO DAILY Qty: 90 RF: 3 nicotine [Nicoderm CQ] 21 mg/24 hr patch 24 hour 1 patch transdermal DAILY Qty: 14 RF: 0 benzonatate [Tessalon Perles] 100 mg capsule 100 mg PO TID PRN (Reason: cough) Qty: 20 RF: 0 Continued pseudoephedrine-guaifenesin [Mucinex D Maximum Strength] 1,200 MG/120 MG tablet extended release 12 hr 1 tab PO Q12H Qty: 0 RF: 0 metformin [Glucophage] 500 MG tablet 500 mg PO DAILY Qty: 0 RF: 0 fluoxetine 20 mg Tablet 20 mg PO DAILY Qty: 0 RF: 0 omeprazole 20 mg Capsule,Delayed Release(Dr/Ec) 20 mg PO DAILY RF: 0 meloxicam 7.5 mg Tablet 7.5 mg BEDTIME RF: 0 albuterol sulfate 90 mcg/actuation Hfa Aerosol Inhaler 2 puff INHALATION Q4-6H PRN (Reason: shortness of breath) RF: 0 Follow up/Referrals: Brenda Vieyra MD [Primary Care Provider] - Discharge Health Status Multidrug resistant organism: No MDRO Diet/Activity/Treatments Diet: Diet as Tolerated Discharge Data Primary Care Provider: Brenda Vieyra Attending Provider: Brenda Vieyra Admit Date/Time: 01/11/20 15:24
[2020-01-12] MEDS: METFORMIN HCL 500 MG TABLET PO (09:29)
[2020-01-12] MEDS: ENOXAPARIN 40 MG/0.4 ML SYRINGE SUBCUT (09:29)
[2020-01-12 09:30] VITALS: BP 149/90
[2020-01-12] MEDS: lisinopriL 10 MG TABLET PO (09:30)
[2020-01-12] MEDS: FLUoxetine 20 MG CAPSULE PO (09:30)
[2020-01-12] MEDS: guaiFENesin ER 600 MG TAB PO (09:30)
[2020-01-12] MEDS: INSULIN ASPART 100 UNIT/ML INSULN PEN SUBCUT (09:32)
--- NOTE | 2020-01-12 10:48 | PC.NURSE ---
D/c instructions review with Pt. Pt signed instruction and verbally commented she understood. Pt's belongings accounted for, packed up and given to Pt. Pt escorted to car via w/c by ELIA Rodriguez.
--- NOTE | 2020-01-12 11:01 | CM.DANOTE ---
Discharge Planning/Care Management DCP: assessment: case received, EM reviewed and discussed in Team Rounds. A d/c order was expected. Pt is a 64 year old female who admitted late yesterday to care of Dr. Franklin. PCP: Dr. Vieyra Payer: [facility] Dr. Franklin was in early this morning, deemed pt stable for d/c to home on oral antibiotics. A check in after Rounds with RN Naman showed that pt, who works nights at [employer] in [facility], had left for home. She drove herself to her apartment and then followed up with a call to Naman to let him know she arrived safely. PCP followup was planned. CM Discharge Assessment Start: 01/12/20 10:57 Freq: Status: Active Protocol: Document 01/12/20 10:57 ITV (Rec: 01/12/20 11:01 ITV [id number]) Discharge Planning Assessment Advance Directives? No Advance Directives on File Yes History Provided By Medical Record Prior Living Arrangements Apartment/Condo Type of transporation used prior to Drives own vehicle admit Independent with ADL's Yes Is patient alert and oriented? Yes Review Status In Process
[2020-01-13 18:24] LABS: PCO2 VBG 42.7 mmHg (45-50)
[2020-01-15 23:46] LABS: Acinetobacter baumannii Not Detected (Not Detect); Candida albicans Not Detected (Not Detect); Candida glabrata Not Detected (Not Detect); Candida krusei Not Detected (Not Detect); Candida parapsilosis Not Detected (Not Detect); Candida tropicalis Not Detected (Not Detect); E. coli Not Detected (Not Detect); Enterobacter cloacae complex Not Detected (Not Detect); Enterobacteriaceae species Not Detected (Not Detect); Enterococcus species Not Detected (Not Detect); Haemophilus influenzae Not Detected (Not Detect); Listeria monocytogenes Not Detected (Not Detect); Neisseria meningitidis Not Detected (Not Detect); Proteus species Not Detected (Not Detect); Pseudomonas aeruginosa Not Detected (Not Detect); Serratia marcescens Not Detected (Not Detect); Staphylococcus species Not Detected (Not Detect); Streptococcus agalactiae (Gr B Not Detected (Not Detect); Streptococcus pneumonia Not Detected (Not Detect); Streptococcus pyogenes (Gr A) Not Detected (Not Detect); Streptococcus species Not Detected (Not Detect)
--- NOTE | 2020-01-21 00:11 | PC.NURSE ---
Late Entry: Azithromycin infusion initiated 01/10 at 16:45, complete at 17:46.
== END 2020-01-12 10:50 | disposition home or self-care (01) ==
LOC: ED 15:07 → AC 15:25
PROVIDERS: Admitting Provider Family Medicine; Emergency Provider Emergency Medicine; PCP Student in an Organized Health Care Education/Training Program; Referring Provider Emergency Medicine; Visit Provider Student in an Organized Health Care Education/Training Program
DX: J44.1 Chronic obstructive pulmonary disease with (acute) exacerbation (principal); R06.02 Shortness of breath; F17.210 Nicotine dependence, cigarettes, uncomplicated; F32.9 Major depressive disorder, single episode, unspecified; E11.9 Type 2 diabetes mellitus without complications; I10 Essential (primary) hypertension; Z11.59 Encounter for screening for other viral diseases; R91.8 Other nonspecific abnormal finding of lung field
CPT/HCPCS: 36415; 71045; 71250; 80053; 82550; 82805; 82962; 83036; 83605; 83880; 84145; 84484; 85025; 85379; 85730; 87040; 87150; 87205; 87635; 93005; 94640; 94760; 96365; 96367; 96372; 96375; 96376; 99217; 99220; 99284; G0378; A9270; J1650; J2930; J7613

== ENCOUNTER → 2020-02-19 00:20 | Outpatient (CLI) | payer OTHER, SELFPAY ==
[2020-01-11 16:23] VITALS: BMI 20.9
== END ==
PROVIDERS: PCP Student in an Organized Health Care Education/Training Program; Referring Provider Internal Medicine; Visit Provider Internal Medicine
DX: Z23 Encounter for immunization (principal)
CPT/HCPCS: 90471; 90686

== ENCOUNTER → 2020-03-10 15:16 | Outpatient (CLI) | payer OTHER, SELFPAY ==
[2020-01-11 16:23] VITALS: BMI 20.9
[2020-03-12 07:30] LABS: COVID19 Sendout Not Detected (Not Detect)
== END ==
PROVIDERS: PCP Student in an Organized Health Care Education/Training Program; Visit Provider Physician Assistant
DX: Z01.812 Encounter for preprocedural laboratory examination (principal)
CPT/HCPCS: 87635

== ENCOUNTER 2020-03-13 12:37 | Day surgery (SDC) | payer OTHER, SELFPAY ==
[2020-01-11 16:23] VITALS: BMI 20.9
--- NOTE | 2020-03-13 | PATH_ITS ---
[facility] Accession Number: [id number] . 01 Material submitted: . PART A: duodenum - DUODENUM BIOPSY PART B: gastrointestinal site - ANTRUM BIOPSY PART C: esophagus, E-G Junction - GE JUNCTION 6 O'CLOCK BIOPSY PART D: esophagus, E-G Junction - GE JUNCTION 3 O'CLOCK BIOPSY PART E: esophagus, E-G Junction - GE JUNCTION 12 O'CLOCK BIOPSY PART F: esophagus, E-G Junction - GE JUNCTION 9 O'CLOCK BIOPSY PART G: esophagus - DISTAL ESOPHAGUS 36 CM 6 O'CLOCK BIOPSY PART H: esophagus - DISTAL ESOPHAGUS 36 CM 12 O'CLOCK BIOPSY PART I: esophagus - DISTAL ESOPHAGUS 36CM 3 O'CLOCK PART J: esophagus - DISTAL ESOPHAGUS 36CM 9 O'CLOCK . 01 Clinical history: . SDC B: ABNORMAL MUCOSA . 02 Diagnosis: A. Duodenum, Biopsy: Small bowel mucosa with no diagnostic abnormality. Negative for active inflammation, features of sprue, dysplasia, and malignancy. . B. Stomach, Antrum, Biopsy: Helicobacter pylori gastritis confirmed by immunohistochemistry. Negative for intestinal metaplasia. Negative for dysplasia and malignancy. . C. Gastroesophageal Junction, 6 o'clock, Biopsy: Squamocolumnar junctional mucosa with no diagnostic abnormality. Negative for intestinal metaplasia. Negative for dysplasia and malignancy. . D. Gastroesophageal Junction, 3 o'clock, Biopsy: Squamocolumnar junctional mucosa with mild chronic inflammation. Positive for Helicobacter organism by immunohistochemistry. Negative for intestinal metaplasia. Negative for dysplasia and malignancy. . E. Gastroesophageal Junction, 12 o'clock, Biopsy: Squamous epithelium with no diagnostic abnormality. Intraepithelial eosinophils are not increased. A PAS stain is negative for fungal organisms. Negative for dysplasia and malignancy. . F. Gastroesophageal Junction 9 o'clock, Biopsy: Squamocolumnar junctional mucosa with specialized intestinal metaplasia, consistent with Marroquin's esophagus. Negative for dysplasia and malignancy. . G-J. Distal Esophagus 36 cm, 6 o'clock, 12 o'clock, 3 o'clock, 9 o'clock, Biopsies: Squamous epithelium with no diagnostic abnormality. Intraepithelial eosinophils are not increased. Negative for dysplasia and malignancy. [facility] 03/18/2020 [facility] Local . 02 Electronically signed: . Neela Aponte MD, Pathologist NPI- [id number] . 01 Gross description: . A. The specimen is received in formalin, labeled duodenum, and consists of a 0.5 x 0.4 x 0.2 cm damon-pink fragment of soft tissue which is entirely submitted in cassette A1. B. The specimen is received in formalin, labeled antrum, and consists of two damon-pink fragments of soft tissue measuring 0.6 x 0.4 x 0.2 cm in aggregate. The specimen is entirely submitted in cassette B1. C. The specimen is received in formalin, labeled GE junction, and consists of a 0.3 x 0.2 x 0.2 cm damon-white fragment of soft tissue which is entirely submitted in cassette C1. D. The specimen is received in formalin, labeled GE junction 3 o'clock, and consists of a 0.4 x 0.3 x 0.2 cm damon fragment of soft tissue which is entirely submitted in cassette D1. E. The specimen is received in formalin, labeled GE junction 12 o'clock, and consists of a 0.2 x 0.2 x 0.2 cm damon fragment of soft tissue which is entirely submitted in cassette E1. F. The specimen is received in formalin, labeled GE junction 9 o'clock, and consists of a 0.2 x 0.2 x 0.2 cm damon fragment of soft tissue which is entirely submitted in cassette F1. G. The specimen is received in formalin, labeled distal esophagus 36 cm 6 o'clock, and consists of two damon fragments of soft tissue measuring 0.2 x 0.2 x 0.2 cm in aggregate. The specimen is entirely submitted in cassette G1. H. The specimen is received in formalin, labeled distal esophagus 36 cm 12 o'clock, and consists of a 0.3 x 0.2 x 0.2 cm damon fragment of soft tissue which is entirely submitted in cassette H1. I. The specimen is received in formalin, labeled distal esophagus 36 cm 3 o'clock, and consists of a 0.2 x 0.2 x 0.2 cm damon-white fragment of soft tissue which is entirely submitted in cassette I1. J. The specimen is received in formalin, labeled distal esophagus 36 cm 9 o'clock, and consists of a 0.4 x 0.3 x 0.2 cm damon-white fragment of soft tissue which is entirely submitted in cassette J1. ([id number]) /FRR 03/14/2020 [facility] . 02 Microscopic: . B, D, F. Immunohistochemical stains were performed on blocks B, D and F in order to evaluate for Helicobacter organisms and are all positive. The control stain showed appropriate reactivity. . E. A PAS stain was performed to evaluate for fungal organisms and is negative. The control stain showed appropriate reactivity. . F. An AB/PAS stain was performed to evaluate for intestinal metaplasia and is positive. The control stain showed appropriate reactivity. . * This test was developed and its performance characteristics determined by [employer]. It has not been cleared or approved by the U.S. Food and Drug Administration. The FDA has determined that such clearance or approval is not necessary. This test is used for clinical purposes. It should not be regarded as investigational or for research. . 02 Pathologist provided ICD-10: K22.70, B96.81 . 02 CPT . 862149, 328230, 700291, 385574, 359366, 370330, 658841, 407863, 774047, 914129, G39627, 441133, 460441 Performed at: 01 [facility] [address] [place] [address], [place], [place] [id number] MD Edy Pepper MD Phone: [phone] Performed at: 02 [facility] [address] [place], [place] [id number] MD Neela Aponte MD Phone: [phone]
--- NOTE | 2020-03-13 12:08 | P.HP_ITS ---
History of Present Illness History of Present Illness Date Patient Seen: 03/13/20 Chief complaint: SDC Narrative: 64 Years Old Female seen today for consideration of a surveillance EGD. Last EGD on 10/21/2019 indicated for: 1. Gastric wall thickening 2. Unintentional weight loss 3. History of GERD 4. Recently diagnosed pulmonary nodules 5. Tobacco dependence Showed: 1. Mild, chronic gastritis, antrum, body 2. Proton pump inhibitor-like changes, body 3. Hyperplastic mass x2, presently 1 x 1 cm, antrum. Biopsy showed no evidence of H. pylori. Findings consistent with inflamed hyperplastic polyp. No intestinal metaplasia, dysplasia, or malignancy. 4. Irregular GE junction, 6 o'clock biopsy showed mild active inflammation and specialized intestinal metaplasia consistent with Beckham's esophagus. Negative for dysplasia or malignancy. 5. Biopsies from distal esophagus and duodenum had no diagnostic abnormalities. Started on Protonix 40 mg p.o. twice daily and advised patient to avoid NSAIDs, alcohol, tobacco, caffeine. Also advised elevating her head the head of her bed x4 inches. She is here today for her 3-month surveillance scope. Plan is for esophageal biopsies every 2 cm. Reports that she is now asymptomatic on Protonix. She has cut down on her smoking, half pack a day now from 1 pack a day. Otherwise, overall health issues have been stable, including no major cardiac events for at least 6 weeks. Past Medical History: Reviewed history from 03/12/2019 and no changes required: Neck pain (ICD-723.1) (UHI51-Q46.2) HYPERLIPIDEMIA (ICD-272.4) (TTA05-V18.5) HYPERTENSION (ICD-401.1) (STX74-R04) Diabetes mellitus type II (ICD-250.00) (JVC43-H56.9) DM, TYPE 2, W/ PERIPHERAL AUTONOMIC NEUROPATHY (ICD-250.60) (JCG99-Y22.43) COPD (ICD-496) (EJB27-S52.9) ESOPHAGEAL REFLUX (ICD-530.81) (TOK23-G04.9) Cough, chronic (ICD-786.2) (XBQ11-J87) Cold intolerance (ICD-780.99) (KSA98-F78.89) Degenerative joint disease (ICD-715.90) (RDV09-D00.90) OSTEOPOROSIS, POSTMENOPAUSAL (ICD-733.01) (WJZ51-U77.0) Leg cramps, nocturnal (ICD-729.82) (CZP39-F18.62) ECZEMA (ICD-692.9) (XXB30-I27.9) DEPRESSION, MAJOR, RECURRENT, MODERATE (ICD-296.32) (GQI38-M96.1) Past Surgical History: Reviewed history and no changes required Family History: No family history of colon cancer or colon polyps. 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 Patient History Family & Social History Social History: household members friend(s),none Tobacco & Substance use: Tobacco type cigarettes Smoking Status Current every day smoker alcohol intake frequency 0-2 drinks per day Substance Use Type does not use Meds Home Medications and Allergies Home Medications Medication Instructions Recorded Confirmed Type metformin [Glucophage] 500 mg PO DAILY #0 05/23/17 03/13/20 History fluoxetine 20 mg PO DAILY #0 01/09/18 03/13/20 History omeprazole 20 mg PO DAILY 01/09/18 03/13/20 History albuterol sulfate 2 puff INHALATION Q4-6H PRN 01/11/20 03/13/20 History meloxicam 7.5 mg BEDTIME 01/11/20 03/13/20 History lisinopril 10 mg PO DAILY #90 tab 01/12/20 03/13/20 Rx nicotine [Nicoderm CQ] 1 patch TRANSDERMAL DAILY #14 each 01/12/20 03/13/20 Rx atorvastatin See Rx Instructions .ROUTE .COMPLEX 03/13/20 03/13/20 History Allergies Allergy/AdvReac Type Severity Reaction Status Date / Time No Known Drug Allergies Allergy Verified 03/13/20 12:52 Review of Systems Review of Systems ROS: Yes All systems reviewed with the patient and are negative except as otherwise documented Exam Narrative Exam Narrative: GENERAL: Alert and oriented, appearing stated age and in no acute distress. HEENT: Head normocephalic/atraumatic. Pupils equal, round, and reactive to light and accomodation. Extraocular muscles intact. Tympanic membranes clear. Nasal mucosa moist, septum midline. Oral mucosa moist, no lesions. Neck soft and supple, no lymphadenopathy. LUNGS: Clear to ausculation bilaterally, no wheezes, rhonchi or rales. CV: Normal S1 and S2 with regular rate and rhythm, no audible murmurs, rubs or gallops. ABDOMEN: Soft with tenderness over epigastrium. No masses, organomegaly, or abdominal wall hernias. Bowel sounds positive. EXTREMITIES: No clubbing, cyanosis, or edema. NEURO: Cranial nerves II through XII grossly intact, no focal deficits. PSYCH: Alert and oriented x 3. SKIN: No concerning lesions. Assessment & Plan Assessment & Plan narrative: 1. BECKHAM'S ESOPHAGUS 2. Gastric wall thickening 3. Esophageal reflux Plan: Surveillance EGD with esophageal biopsy specimens every 2 cm. Gastric wall thickening was likely a hyperplastic polyp. Will revisualize today and repeat biopsy if necessary. The nature and character of the procedure as well as anticipated results were discussed. The possibility of not completing the procedure was also discussed. Possible complications including aspiration pneumonia, bleeding, perforation and reaction to medications either for sedation or preparation and missed lesions were discussed. Questions were answered and proceeding to the colonoscopy was elected. Informed consent signed.
--- NOTE | 2020-03-13 12:13 | PM.OP.ENDO ---
Operative Date/Time/Diagnoses Date of procedure: 03/13/20 Procedure Notes SCOAP/Timeout: 1:54 p.m. Procedure in detail: ENDOSCOPIST: Brenda Vieyra MD Sedation RN: Bernie Michel RN Sedation start time: 2:00 p.m. Sedation end time: 142 PROCEDURE: EGD with biopsy INDICATIONS: 1. Marroquin's esophagus 2. Gastric wall thickening 3. Esophageal reflux MEDICATION: Incremental doses of Versed and fentanyl until an appropriate level of sedation was achieved. ASA Ratin DURATION OF PROCEDURE: 25 minutes. COMPLICATIONS: None. LIMITATIONS: None EXTENT OF PROCEDURE: Third portion of the Duodenum. PROCEDURE: The high-definition gastroduodenoscope was introduced into the posterior oropharynx under direct vision after Hurricaine spray, noted IV sedation, and proper informed consent. The esophagus was identified and intubated under direct visualization. The scope was quickly passed through the esophagus and into the fundus of the stomach. A clear fundal pool was aspirated. The scope was then advanced to the antrum and the pylorus was identified. The scope was passed through the pylorus into the second and third portions of the duodenum. No abnormalities were noted in the duodenum, duodenal bulb or pyloric channel. The antrum again had abnormal erythematous mucosa surrounding the pylorus, targeted biopsy taken x2. J maneuver was produced. No abnormalities were noted of the proximal body, fundus or cardia. A small hiatal hernia was noted. Scope was broken out of the J maneuver and the remainder of the stomach was carefully inspected upon withdrawal and was normal. The stomach was carefully deflated of all air on withdrawal. The distal esophagus was carefully inspected and Z-line was noted to be irregular, 4 quadrant biopsies taken x2, 1 cm apart, at 37 and 36 cm from the incisors. Top of the gastric folds noted at 37 cm from the incisors; circumferential extent of the metaplasia was 36 cm from the incisors; maximal extent of the metaplasia was 36 cm from the incisors. The remainder of the esophagus was normal upon withdrawal. The larynx and vocal cords appeared to be unremarkable. IMPRESSION: 1. Inflamed mucosa, pylorus 2. Endoscopically suspected esophageal mucosa, C1M1 PLAN: 1. Follow-up in clinic status post pathology results. The possibility of missed lesion including a malignancy was discussed prior with the patient. Potential alarm symptoms have been discussed and should be reported by the patient immediately.
[2020-03-13 12:56] VITALS: BP 141/75; PULSE 71; RESP 16; TEMP 36.5; O2SAT 98; BMI 21.2
[2020-03-13] MEDS: LACTATED RINGERS 1,000 ML 200 ML IV (13:16)
[2020-03-13] MEDS: LIDOCAINE 4% SOLN 50 ML 20 ML TOP (13:55)
[2020-03-13] MEDS: LIDOCAINE JELLY 2% 5 ML 1 APPLIC TOP (13:55)
[2020-03-13] MEDS: MIDAZOLAM 5 MG/5 ML VIAL IV (14:05)
[2020-03-13] MEDS: fentaNYL 250 MCG/5 ML INJ IV (14:06)
[2020-03-13 14:30] VITALS: BP 141/65; PULSE 72; RESP 18; TEMP 36.7; O2SAT 100
[2020-03-13 14:35] VITALS: BP 125/71; PULSE 76; RESP 20; O2SAT 96
--- NOTE | 2020-03-13 14:38 | SUR.PHASEI ---
Dr. Vieyra into see pt and to talk with her about her results
[2020-03-13 14:41] VITALS: BP 118/73; PULSE 75; RESP 20; TEMP 36.4; O2SAT 100
[2020-03-13 14:55] VITALS: BP 155/78; PULSE 71; RESP 12; TEMP 36.7; O2SAT 99
== END 2020-03-13 15:04 | disposition home or self-care (01) ==
PROVIDERS: PCP Student in an Organized Health Care Education/Training Program; Referring Provider Student in an Organized Health Care Education/Training Program; Visit Provider Student in an Organized Health Care Education/Training Program
PROC: 0DJ08ZZ Inspection of Upper Intestinal Tract, Via Natural or Artificial Opening Endoscopic (ICD-10-PCS; CPT 43235; principal; 2020-03-13 13:45)
DX: K22.70 Barrett's esophagus without dysplasia (principal); B96.81 Helicobacter pylori [H. pylori] as the cause of diseases classified elsewhere; K21.9 Gastro-esophageal reflux disease without esophagitis; K44.9 Diaphragmatic hernia without obstruction or gangrene; E11.43 Type 2 diabetes mellitus with diabetic autonomic (poly)neuropathy; I10 Essential (primary) hypertension; E78.5 Hyperlipidemia, unspecified; F17.210 Nicotine dependence, cigarettes, uncomplicated; Z79.84 Long term (current) use of oral hypoglycemic drugs; F33.1 Major depressive disorder, recurrent, moderate
CPT/HCPCS: 43239; J2250; J3010

== ENCOUNTER → 2020-05-14 14:07 | Outpatient (CLI) | payer OTHER, SELFPAY ==
[2020-01-11 16:23] VITALS: BMI 20.9
[2020-05-14] MEDS: COVID-19 VACC(MODERNA-1)/PF 100 MCG/0.5 ML VIAL IM (14:11)
== END ==
PROVIDERS: PCP Student in an Organized Health Care Education/Training Program; Visit Provider Internal Medicine
DX: Z23 Encounter for immunization (principal)
CPT/HCPCS: 0011A; 91301

== ENCOUNTER → 2020-06-12 13:52 | Outpatient (CLI) | payer OTHER, SELFPAY ==
[2020-01-11 16:23] VITALS: BMI 20.9
[2020-06-12] MEDS: COVID-19 VACC #2, MRNA(MOD) 100 MCG/0.5 ML VIAL IM (13:58)
== END ==
PROVIDERS: PCP Student in an Organized Health Care Education/Training Program; Visit Provider Internal Medicine
DX: Z23 Encounter for immunization (principal)
CPT/HCPCS: 0012A; 91301

== ENCOUNTER → 2020-12-31 15:16 | Outpatient (ROUT) | payer OTHER, SELFPAY ==
[2020-01-11 16:23] VITALS: BMI 20.9
[2020-12-31 15:45] LABS: Troponin I < 0.012 ng/mL (0.01-0.034)
== END ==
PROVIDERS: PCP Student in an Organized Health Care Education/Training Program; Visit Provider Student in an Organized Health Care Education/Training Program
DX: R07.89 Other chest pain (principal)
CPT/HCPCS: 84484

== ENCOUNTER → 2021-01-13 13:47 | Outpatient (CLI) | payer OTHER, SELFPAY ==
[2020-01-11 16:23] VITALS: BMI 20.9
[2021-01-13 14:57] LABS: COVID19 -Nasal RAPID Negative (Negative)
== END ==
PROVIDERS: PCP Student in an Organized Health Care Education/Training Program; Referring Provider Internal Medicine; Visit Provider Internal Medicine
DX: Z20.822 Contact with and (suspected) exposure to COVID-19 (principal)
CPT/HCPCS: 87635; C9803

== ENCOUNTER → 2021-01-14 12:42 | Outpatient (CLI) | payer OTHER, SELFPAY ==
[2020-01-11 16:23] VITALS: BMI 20.9
--- NOTE | 2021-01-22 08:35 | PM.PFT.1 ---
Pulmonary Function Test Referral & Results Date Patient Seen: 01/14/21 Requesting provider: Brenda Vieyra Results: The spirometry demonstrates an FVC of 1.35 L which is 43% of predicted. The FEV1 was measured at 0.8 L which is 34% of predicted. The FEV1/FVC ratio was 60 which is 77% of predicted. Following the administration of bronchodilator there was a 36% improvement in FEV1 and a 144% improvement in FEF 25-75% Lung volumes show an SVC of 1.44 L which is 49% of predicted. The diffusing capacity was measured at 13.59 which is 59% of predicted. No hemoglobin value was provided, so no correction for potential anemia could be made, if appropriate. The maximum voluntary ventilation was severely reduced Interpretation: This study demonstrates severe obstructive lung disease based on FEV1 of less than 1 L. There is evidence of significant benefit following bronchodilator as above both in large in small airway flow based on improvement in FEV1 and FEF 25-75% There is also moderately severe restrictive lung disease present based on reduction SVC There is also a moderate reduction in diffusing capacity suggesting significant disease at the capillary alveolar level Altogether this is consistent with a diagnosis of moderately severe COPD Clinical correlation suggested
== END ==
PROVIDERS: PCP Student in an Organized Health Care Education/Training Program; Referring Provider Student in an Organized Health Care Education/Training Program; Visit Provider Student in an Organized Health Care Education/Training Program
DX: J44.1 Chronic obstructive pulmonary disease with (acute) exacerbation (principal); F17.200 Nicotine dependence, unspecified, uncomplicated
CPT/HCPCS: 94060; 94726; 94729

== ENCOUNTER 2021-01-21 20:20 | Emergency (ER) | payer OTHER, SELFPAY ==
[2020-01-11 16:23] VITALS: BMI 20.9
[2021-01-21] VITALS (10 sets, daily range): BP systolic 184–202; BP diastolic 84–93; PULSE 89–106; RESP 18–28; TEMP 36.9; O2SAT 93–100; BMI 20.2
--- NOTE | 2021-01-21 20:25 | DI.RAD.S_ITS ---
PROCEDURE: XR CHEST 2V INDICATIONS: SOB TECHNIQUE: 2 views of the chest were acquired. COMPARISON: [facility], CR, XR CHEST 1V, 01/11/2020, 14:34. FINDINGS: Surgical changes and devices: None. Lungs and pleura: Lungs are hyperinflated and demonstrate coarse interstitial markings. There is possible right infrahilar linear like consolidation previously present. No pleural effusion pneumothorax Mediastinum: Mediastinal contours are normal. Heart size is normal. Bones and chest wall: No suspicious bony abnormalities. Soft tissues appear unremarkable. IMPRESSION: 1. Bandlike right infrahilar opacity, atelectasis versus scarring. 2. Findings of hyperinflation suggests asthma or emphysema. Dictated by: Aga Montero M.D. on 01/21/2021 at 22:14 Approved by: Aga Montero M.D. on 01/21/2021 at 22:19
[2021-01-21 20:47] LABS: Hematocrit 37.4 % (36-46); Hemoglobin 13.1 g/dL (12.0-16.0); Mean Corpuscular Hemoglobin 32.6 PG (26-34); Platelet Count 190 X10^3/uL (150-400); Red Blood Cell Count 4.02 X10^6/uL (4.0-5.2); Red Cell Distribution Width 12.1 % (11.6-14.8); White Blood Cell Count 5.3 X10^3/uL (4.5-11.0)
[2021-01-21 20:47] LABS: COVID19 -Nasal RAPID Negative (Negative)
--- NOTE | 2021-01-21 20:48 | ED_ITS ---
HPI - SOB/Dyspnea General Chief Complaint: Shortness of Breath/Dyspnea Stated Complaint: difficulty breathing Time Seen by Provider: 01/21/21 20:22 Source: patient Mode of arrival: Ambulatory History of Present Illness HPI Narrative: 65-year-old female smoker with history of COPD presents with a chief complaint of increasing shortness of breath for the past month. She has had increased SOB with exertion and feels tight and wheezy. She's had no fever or chills. She has developed some sharp and stabbing anterior chest pain with cough only. She has had increased sputum production but denies any hemoptysis. She has had no nausea or vomiting. She denies any diarrhea. She denies recent travel. Related Data Home Medications Medication Instructions Recorded Confirmed metformin 500 mg tablet 500 mg PO DAILY #0 05/23/17 03/13/20 (Glucophage) fluoxetine 20 mg tablet 20 mg PO DAILY #0 01/09/18 03/13/20 omeprazole 20 mg capsule,delayed 20 mg PO DAILY 01/09/18 03/13/20 release albuterol sulfate 90 mcg/actuation 2 puff INHALATION Q4-6H PRN 01/11/20 03/13/20 aerosol inhaler meloxicam 7.5 mg tablet 7.5 mg BEDTIME 01/11/20 03/13/20 atorvastatin 10 mg tablet See Rx Instructions .ROUTE .COMPLEX 03/13/20 03/13/20 Previous Rx's Medication Instructions Recorded lisinopril 10 mg tablet 10 mg PO DAILY #90 tab 01/12/20 nicotine 21 mg/24 hr daily 1 patch TRANSDERMAL DAILY #14 each 01/12/20 transdermal patch (Nicoderm CQ) benzonatate 100 mg capsule 100 mg PO TID PRN #14 cap 01/21/21 (Tessalon Perlkrystyna) doxycycline hyclate 100 mg tablet 100 mg PO BID #20 tab 01/21/21 prednisone 10 mg tablet See Rx Instructions .ROUTE 01/21/21 .COMPLEX #30 tab Allergies Allergy/AdvReac Type Severity Reaction Status Date / Time No Known Drug Allergies Allergy Verified 01/21/21 20:29 Review of Systems Review of Systems Narrative: GENERAL: Denies chills, fatigue, malaise, fever, sweats. HEENT: Denies sinus pain, ear pain, sore throat, difficulty swallowing, dizziness. RESPIRATORY: See HPI CARDIOVASCULAR: See HPI GASTROINTESTINAL: Denies nausea, vomiting, abdominal pain, diarrhea, constipation, melena. : Denies dysuria, frequency, incontinence, hematuria, urinary retention. MUSCULOSKELETAL: denies weakness, joint pain, or bony pain SKIN: Denies rash, skin lesions, or other NEUROLOGIC: Denies weakness, headache, numbness, change in speech, confusion, seizures, incoordination. PSYCHIATRIC: No concerning psychosocial issues. 12 point review of systems is negative except for those stated above Patient History Social History household members: none Smoking Status: Current every day smoker alcohol intake: current Smoking Status: Current every day smoker tobacco type: cigarettes alcohol intake frequency: 3 or more drinks per day Substance Use Type: does not use Exam Narrative Exam Narrative: GENERAL: [65 year old patient appears stated age. Well-developed patient, in mild distress. HEAD: Atraumatic. Normocephalic. EYES: Pupils equal round and reactive. Extraocular motions intact. No scleral icterus. No injection or drainage. ENT: Nose without bleeding, purulent drainage. Throat without erythema, tonsillar hypertrophy or exudate. Airway patent. NECK: Trachea midline. Non tender CARDIOVASCULAR: Regular rate and rhythm without murmurs, gallops, or rubs. RESPIRATORY: Decreased breath sounds bilaterally with prolonged expiratory phase, tight, wheezes in all griffiths with faint crackles in bilateral bases GASTROINTESTINAL: Abdomen soft, non-tender, nondistended. EXTREMITIES: No edema or joint tenderness. BACK: Nontender without deformity or crepitance. No flank tenderness. NEURO: AOx3. SKIN: No rash or erythema of visible areas Initial Vital Signs Initial Vital Signs: Vital Signs Pulse Rate 106 H 01/21/21 20:25 Pulse Oximetry 97 01/21/21 20:25 Course Orders Ordered: ED Orders 01/21/21 20:25 XR chest 2V Stat 01/21/21 20:26 COVID19 -Nasal swab/Pre-Proc Stat 01/21/21 20:40 Complete Blood Count AUTO DIFF Stat Comprehensive Metabolic Panel Stat NT-proBNP (BNP-Adult 18+) Stat Procalcitonin Stat Troponin & CK Cardiac Panel Stat 01/21/21 20:45 Blood Culture Stat Discontinued Medications Albuterol/Ipratropium (Albuterol/Ipratropium 3 Ml Ampul) 3 ml INH NOW ONE Stop: 01/21/21 20:49 Last Admin: 01/21/21 20:55 Dose: 3 ml Documented by: ANGELIQUE Albuterol/Ipratropium (Albuterol/Ipratropium 3 Ml Ampul) 3 ml INH NOW ONE Stop: 01/21/21 21:53 Last Admin: 01/21/21 21:57 Dose: 3 ml Documented by: ANGELIQUE Sodium Chloride (Normal Saline 0.9%) 1,000 mls @ 125 mls/hr IV CONT RAFY Last Infusion: 01/21/21 22:33 Dose: 0 mls/hr Documented by: Admin: 01/21/21 20:56 Dose: 125 mls/hr Documented by: SUNNY Methylprednisolone (Methylprednisolone 125 Mg/2 Ml Vial) 125 mg IV NOW ONE Stop: 01/21/21 20:49 Last Admin: 01/21/21 20:56 Dose: 125 mg Documented by: SUNNY Reevaluation(s) Reevaluation #1: Significant improvement with above-stated therapies. Vital signs are stable. Vital Signs Vital signs: Vital Signs - 8 hr 01/21/21 20:25 01/21/21 20:26 01/21/21 20:27 Temperature 98.4 F Pulse Rate 106 H 102 H 102 H Respiratory Rate 28 H Blood Pressure 202/93 H 202/93 H Pulse Oximetry 97 97 96 01/21/21 20:30 01/21/21 20:57 01/21/21 21:00 Temperature Pulse Rate 90 89 90 Respiratory Rate 18 Blood Pressure 190/89 H Pulse Oximetry 97 96 100 01/21/21 21:30 01/21/21 22:00 01/21/21 22:01 Temperature Pulse Rate 92 H 94 H 95 H Respiratory Rate 18 Blood Pressure Pulse Oximetry 94 100 95 01/21/21 22:29 Temperature Pulse Rate 104 H Respiratory Rate Blood Pressure 184/84 H Pulse Oximetry 93 MDM - SOB/Dyspnea Lab Data Result diagrams: 01/21/21 20:40 01/21/21 20:40 Labs: Lab Results 01/21/21 01/21/21 01/21/21 Range/Units 20:26 20:40 20:40 WBC 5.3 (4.5-11.0) X10^3/uL RBC 4.02 (4.0-5.2) X10^6/uL Hgb 13.1 (12.0-16.0) g/dL Hct 37.4 (36-46) % MCV 93.0 (80-100) fL MCH 32.6 (26-34) PG MCHC 35.0 (30-36) % RDW 12.1 (11.6-14.8) % Plt Count 190 (150-400) X10^3/uL Neut % (Auto) 56.6 (50-75) % Lymph % (Auto) 29.4 (25-40) % Lewis % (Auto) 5.7 (3-14) % Eos % (Auto) 6.7 H (2-4) % Baso % (Auto) 1.4 (0-2) % Neut # (Auto) 3000 (1980-2504) /uL Lymph # (Auto) 1600 (5855-1123) /uL Lewis # (Auto) 300 (0-900) /uL Eos # (Auto) 400 (0-450) /uL Baso # (Auto) 100 (0-100) /uL Sodium 132 L (137-145) mmol/L Potassium 4.8 (3.4-5.1) mmol/L Chloride 99 (98-107) mmol/L Carbon Dioxide 24 (22-32) mmol/L BUN 15 (7-17) mg/dL Creatinine 0.94 (0.52-1.04) mg/dL Estimated GFR > 60.0 (>60) mL/min BUN/Creatinine Ratio 16.0 (6-22) Glucose 121 H (80-110) mg/dL Calcium 9.5 (8.4-10.2) mg/dL Total Bilirubin 0.8 (0.2-1.3) mg/dL AST 32 (14-36) IU/L ALT 15 (<35) IU/L Alkaline Phosphatase 115 (38-126) U/L Total Creatine Kinase 79 (30-135) U/L CK-MB (CK-2) TNP CK-MB (CK-2) Rel Index TNP Troponin I < 0.012 (0.01-0.034) ng/mL NT-Pro-B Natriuret Pep 139 H (<125) pg/mL Total Protein 7.3 (6.3-8.2) g/dL Albumin 4.5 (3.5-5.0) g/dL Globulin 2.8 (1.7-4.1) g/dL Albumin/Globulin Ratio 1.6 (1.0-2.8) Procalcitonin 0.07 (<0.5) ng/mL SARS-CoV-2 (PCR) Negative (Negative) Imaging Data Chest x-ray: Radiologist's Impression: [address] [address] XRay Report Signed Patient: Edwina Woods MR#: [id number] : 1955 Acct:[id number] Age/Sex: 65 / F Date of Service: 01/21/21 Loc: ED Accession Number: [id number] ?? Procedure: XR chest 2V Ordering Provider: Polo Gaston D.O. PROCEDURE:? XR CHEST 2V ? INDICATIONS:? SOB ? TECHNIQUE:? 2 views of the chest were acquired.? ? COMPARISON:? [facility], CR, XR CHEST 1V, 01/11/2020, 14:34. ? FINDINGS:? ? Surgical changes and devices:? None.? ? Lungs and pleura:? Lungs are hyperinflated and demonstrate coarse interstitial markings.? There is possible right infrahilar linear like consolidation previously present.? No pleural effusion pneumothorax ? Mediastinum:? Mediastinal contours are normal.? Heart size is normal.? ? Bones and chest wall:? No suspicious bony abnormalities.? Soft tissues appear unremarkable.? ? IMPRESSION:? 1. Bandlike right infrahilar opacity, atelectasis versus scarring.? 2. Findings of hyperinflation suggests asthma or emphysema.? ? Dictated by: Aga Montero M.D. on 01/21/2021 at 22:14 ? ? Approved by: Aga Montero M.D. on 01/21/2021 at 22:19 ? MDM Narrative Medical decision making narrative: worsening symptoms over the course of 1 month. Patient has no fever but minor chills and increasing sputum production. She has significant improvement with above-stated therapies, patient has no significant work of breathing or need for supplemental oxygen. Return precautions given and questions answered to their apparent satisfaction Discharge Plan Departure Patient Disposition: Home Clinical Impression: Acute exacerbation of chronic obstructive airways disease, Atypical pneumonia Instructions: DI for Chronic Obstructive Pulmonary Disease, DI for Atypical Pneumonia Activity Restrictions/Additional Instructions: *You have been diagnosed with [exacerbation of COPD and possible atypical pneumonia *What to do: *Please continue to take your regular medications as directed. [x ] New medication prescriptions sent to your pharmacy: [[facility]] [ ] New medication written as a paper prescription [ ] No new medications given *Please follow up with your primary care provider in 2-3 days, call for an appointment. Let them know you were seen in the Emergency Department and that we ask that you be seen in follow up. We will electronically transmit a record of today's note if your PCP is in our system *If you do not have a primary care provider please contact the [facility] Resource line at [phone]. They will ask some questions about your medical history and help get you set up with a doctor in the community. *Return to Emergency Department if you should have any new, worsening or concerning symptoms, such as [fever greater than 101 F, shaking chills, worsening pain, persistent vomiting or other bothersome symptoms] Prescriptions: New prednisone 10 mg tablet See Rx Instructions .ROUTE .COMPLEX Qty: 30 RF: 0 benzonatate [Tessalon Perles] 100 mg capsule 100 mg PO TID PRN (Reason: cough) Qty: 14 RF: 0 doxycycline hyclate 100 mg tablet 100 mg PO BID Qty: 20 RF: 0 No Action metformin [Glucophage] 500 MG tablet 500 mg PO DAILY Qty: 0 RF: 0 fluoxetine 20 mg Tablet 20 mg PO DAILY Qty: 0 RF: 0 omeprazole 20 mg Capsule,Delayed Release(Dr/Ec) 20 mg PO DAILY RF: 0 meloxicam 7.5 mg Tablet 7.5 mg BEDTIME RF: 0 albuterol sulfate 90 mcg/actuation Hfa Aerosol Inhaler 2 puff INHALATION Q4-6H PRN (Reason: shortness of breath) RF: 0 lisinopril 10 mg tablet 10 mg PO DAILY Qty: 90 RF: 3 nicotine [Nicoderm CQ] 21 mg/24 hr patch 24 hour 1 patch transdermal DAILY Qty: 14 RF: 0 atorvastatin 10 mg Tablet See Rx Instructions .ROUTE .COMPLEX RF: 0 Referrals: Brenda Vieyra MD [Primary Care Provider] - Stand Alone Forms: Work Release Note
[2021-01-21] MEDS: ALBUTEROL/IPRATROPIUM 3 ML AMPUL INH ×2 (20:55→21:57)
[2021-01-21] MEDS: SODIUM CHLORIDE 0.9% 1,000 ML 125 ML IV (20:56)
[2021-01-21] MEDS: methylPREDNISolone 125 MG/2 ML VIAL IV (20:56)
[2021-01-21 20:57] LABS: Alanine Aminotransferase 15 IU/L (<35); Albumin 4.5 g/dL (3.5-5.0); Albumin Globulin Ratio 1.6 (1.0-2.8); Alkaline Phosphatase 115 U/L (38-126); Aspartate Aminotransferase 32 IU/L (14-36); Bilirubin Total 0.8 mg/dL (0.2-1.3); Blood Urea Nitrogen 15 mg/dL (7-17); Calcium 9.5 mg/dL (8.4-10.2); Carbon Dioxide 24 mmol/L (22-32); Chloride 99 mmol/L (98-107); Creatine Kinase 79 U/L (30-135); Estimated Glomerular Filt Rate > 60.0 mL/min (>60); Globulin 2.8 g/dL (1.7-4.1); Glucose 121 mg/dL (80-110); HEMOLYSIS < 15 (0-50); Potassium 4.8 mmol/L (3.4-5.1); Sodium 132 mmol/L (137-145); Total Protein 7.3 g/dL (6.3-8.2)
[2021-01-21 21:04] LABS: Lymphocytes Percent Auto 29.4 % (25-40); Monocytes Percent Auto 5.7 % (3-14); Neutrophils Percent Auto 56.6 % (50-75)
[2021-01-21 21:05] LABS: Add Manual Diff / Slide Review NO; Basophils Absolute Auto 100 /uL (0-100); Basophils Percent Auto 1.4 % (0-2); Eosinophils Absolute Auto 400 /uL (0-450); Eosinophils Percent Auto 6.7 % (2-4); Lymphocytes Absolute Auto 1600 /uL (1100-4500); Monocytes Absolute Auto 300 /uL (0-900); Neutrophils Absolute Auto 3000 /uL (1500-7000)
[2021-01-21 21:10] LABS: NT-proBNP (BNP-Adult 18+) 139 pg/mL (<125); Troponin I < 0.012 ng/mL (0.01-0.034)
[2021-01-21 21:14] LABS: Procalcitonin 0.07 ng/mL (<0.5)
== END 2021-01-21 22:33 | disposition home or self-care (01) ==
PROVIDERS: Emergency Provider Emergency Medicine; PCP Student in an Organized Health Care Education/Training Program
DX: J44.1 Chronic obstructive pulmonary disease with (acute) exacerbation (principal); J18.9 Pneumonia, unspecified organism; R07.9 Chest pain, unspecified; R05 Cough; Z20.822 Contact with and (suspected) exposure to COVID-19
CPT/HCPCS: 36415; 71046; 80053; 82550; 83880; 84145; 84484; 85025; 87040; 87635; 94640; 96361; 96374; 99284; C9803; J2930

== ENCOUNTER 2021-02-16 00:15 | Emergency (ER) | payer OTHER, SELFPAY ==
[2020-01-11 16:23] VITALS: BMI 20.9
[2021-02-16 00:38] VITALS: BP 173/82; PULSE 95; RESP 20; TEMP 36.6; O2SAT 97; BMI 20.2
--- NOTE | 2021-02-16 00:53 | ED.HA ---
HPI - Headache General Chief Complaint: Headache Stated Complaint: headache x5 days Time Seen by Provider: 02/16/21 00:51 Mode of arrival: Ambulatory Limitations: no limitations History of Present Illness HPI Narrative: 65-year-old female smoker with history of COPD, hypertension hyperlipidemia presents with a chief complaint of a gradually worsening generalized headache over the past few days. She states that this is perhaps the most intense headache she has ever had. She denies any trauma or injury. She has had no fever or chills. She states that it has been gradually worsening and denies any neck involvement. She has no neurologic symptoms such as blurred vision or trouble with speech. She has no focal neurologic findings such as numbness, tingling or weakness. Her pain is worse with any motion as well bright lights and loud noises Related Data Home Medications Medication Instructions Recorded Confirmed metformin 500 mg tablet 500 mg PO DAILY #0 05/23/17 03/13/20 (Glucophage) fluoxetine 20 mg tablet 20 mg PO DAILY #0 01/09/18 03/13/20 omeprazole 20 mg capsule,delayed 20 mg PO DAILY 01/09/18 03/13/20 release albuterol sulfate 90 mcg/actuation 2 puff INHALATION Q4-6H PRN 01/11/20 03/13/20 aerosol inhaler meloxicam 7.5 mg tablet 7.5 mg BEDTIME 01/11/20 03/13/20 atorvastatin 10 mg tablet See Rx Instructions .ROUTE .COMPLEX 03/13/20 03/13/20 Previous Rx's Medication Instructions Recorded lisinopril 10 mg tablet 10 mg PO DAILY #90 tab 01/12/20 nicotine 21 mg/24 hr daily 1 patch TRANSDERMAL DAILY #14 each 01/12/20 transdermal patch (Nicoderm CQ) benzonatate 100 mg capsule 100 mg PO TID PRN #14 cap 01/21/21 (Tessalon Perles) doxycycline hyclate 100 mg tablet 100 mg PO BID #20 tab 01/21/21 prednisone 10 mg tablet See Rx Instructions .ROUTE 01/21/21 .COMPLEX #30 tab Allergies Allergy/AdvReac Type Severity Reaction Status Date / Time No Known Drug Allergies Allergy Verified 01/21/21 20:29 Review of Systems Review of Systems Narrative: GENERAL: Denies chills, fatigue, malaise, fever, sweats. HEENT: Denies sinus pain, ear pain, sore throat, difficulty swallowing, dizziness. RESPIRATORY: Denies dyspnea, cough, wheezing, hemoptysis, sputum. CARDIOVASCULAR: Denies chest pain, palpitations, orthopnea, edema, GASTROINTESTINAL: Denies nausea, vomiting, abdominal pain, diarrhea, constipation, melena. : Denies dysuria, frequency, incontinence, hematuria, urinary retention. MUSCULOSKELETAL: denies weakness, joint pain, or bony pain SKIN: Denies rash, skin lesions, or other NEUROLOGIC: See HP PSYCHIATRIC: No concerning psychosocial issues. 12 point review of systems is negative except for those stated above Patient History Social History household members: none Smoking Status: Current every day smoker alcohol intake: current Smoking Status: Current every day smoker tobacco type: cigarettes alcohol intake frequency: 3 or more drinks per day Substance Use Type: does not use Exam Narrative Exam Narrative: GENERAL: [65 year old patient appears stated age. Well-developed patient, in mild distress. Obviously uncomfortable, rubbing her head HEAD: Atraumatic. Normocephalic. EYES: Pupils equal round and reactive. Extraocular motions intact. No scleral icterus. No injection or drainage. ENT: Nose without bleeding, purulent drainage. Throat without erythema, tonsillar hypertrophy or exudate. Airway patent. NECK: Trachea midline. Non tender CARDIOVASCULAR: Regular rate and rhythm without murmurs, gallops, or rubs. RESPIRATORY: Clear to auscultation. Breath sounds equal bilaterally. No wheezes, rales, or rhonchi. GASTROINTESTINAL: Abdomen soft, non-tender, nondistended. EXTREMITIES: No edema or joint tenderness. BACK: Nontender without deformity or crepitance. No flank tenderness. NEURO: AOx3. SKIN: No rash or erythema of visible areas Initial Vital Signs Initial Vital Signs: Vital Signs Temperature 97.9 F 02/16/21 00:38 Pulse Rate 95 H 02/16/21 00:38 Respiratory Rate 20 02/16/21 00:38 Blood Pressure 173/82 H 02/16/21 00:38 Pulse Oximetry 97 02/16/21 00:38 Course Orders Ordered: Discontinued Medications Diphenhydramine HCl (Diphenhydramine 50 Mg/Ml Vial) 25 mg IV NOW ONE Stop: 02/16/21 02:04 Sodium Chloride (Normal Saline 0.9%) 1,000 mls @ 1,000 mls/hr IV BOLUS ONE Stop: 02/16/21 01:53 Last Infusion: 02/16/21 03:18 Dose: 0 mls/hr Documented by: Admin: 02/16/21 01:39 Dose: 1,000 mls/hr Documented by: SUNNY Ketorolac Tromethamine (Ketorolac 30 Mg/Ml Vial) 15 mg IV NOW ONE Stop: 02/16/21 02:04 Last Admin: 02/16/21 02:13 Dose: 15 mg Documented by: SUNNY Metoclopramide HCl (Metoclopramide 10 Mg/2 Ml Inj) 5 mg IV NOW ONE Stop: 02/16/21 02:04 Last Admin: 02/16/21 02:12 Dose: 5 mg Documented by: SUNNY Reevaluation(s) Reevaluation #1: Significant improvement after above-stated therapies Vital Signs Vital signs: Vital Signs - 8 hr 02/16/21 00:38 Temperature 97.9 F Pulse Rate 95 H Respiratory Rate 20 Blood Pressure 173/82 H Pulse Oximetry 97 MDM - Headache Lab Data Labs: Lab Results 02/16/21 Range/Units 00:35 SARS-CoV-2 (PCR) Negative (Negative) Imaging Data CT scan - head: Radiologist's Impression: Chart Viewer Diagnostics Subcategory All Activity ??:?? All Time ??:?? All Subcategories Filter Laboratory Imaging Microbiology Pathology Blood Bank Tests Cardiovascular Other Specialty DATE TYPE STATUS REF RANGE/AUTHOR Hx 02/16/21 00:[address] Signed Javon Wen 01/21/21 20:25 Chest X-Ray Signed Aga Montero 03/13/20 12:37 Telemetry Strips ? 01/11/20 17:[address] Signed Schuyler Stafford 01/11/20 15:24 Telemetry Strips ? 01/11/20 14:14 Chest X-Ray Signed Schuyler Stafford 10/21/19 12:49 Telemetry Strips ? 09/25/19 00:00 Upper GI Series Signed Schuyler Stafford 08/09/19 02:52 Chest/Abdomen/Pelvis CT Signed Samaria Pruitt 07/05/18 00:00 Chest X-Ray Signed Zafar Wheeler 12/20/17 00:00 Knee X-Ray Signed Schuyler Stafford 12/20/17 00:00 Knee X-Ray Signed Schuyler Stafford 12/10/16 22:05 Radiology - Historical ? Edwina Woods 65, F?1955 MRN#? [id number] DEP ER,?[facility] ED??? 160.02cm 51.71kg BMI: 20.2kg/m? Headache Acc#? [id number] Resus Status Not Ordered Hx Avail Special Indicators No Data to Display Home Meds Not Confirmed Prescription Monitoring Program MEDICATIONS (INSTRUCTIONS) LAST TAKEN Active ??albuterol sulfate ??2 puffINHALATIONQ4-6HPRN ??atorvastatin ??See Rx Instructions.ROUTE.COMPLEX ??benzonatate [Tessalon Perles] ??100 mgPOTIDPRN#14 cap ??doxycycline hyclate ??100 mgPOBID#20 tab ??fluoxetine ??20 mgPODAILY#0 ??lisinopril ??10 mgPODAILY#90 tab ??meloxicam ??7.5 mgBEDTIME ??metformin [Glucophage] ??500 mgPODAILY#0 *Product no longer available ??nicotine [Nicoderm CQ] ??1 patchTRANSDERMALDAILY#14 each ??omeprazole ??20 mgPODAILY ??prednisone ??See Rx Instructions.ROUTE.COMPLEX#30 tab Allergies No Known Drug Allergies Problems ? ONSET Acute exacerbation of chronic obstructive airways disease Headache Scalp hematoma Alcohol intoxication Post concussive syndrome Vital Signs 02/16/21 03:45 BP 128/70? Pulse 82? Resp 16? O2 Sat 97? Delivery Room Air? Diagnostics Reports Edwina Woods??65??F??1955 ? Allergy/Adv: No Known Drug Allergies (More??) Close Head CT (Signed) Javon Wen - 02/16/21 Chest X-Ray (Signed) Aga Montero - 01/21/21 Telemetry Strips 03/13/[address] (Signed) Schuyler Stafford - 01/11/20 Telemetry Strips 01/11/20 Chest X-Ray (Signed) Schuyler Stafford - 01/11/20 Telemetry Strips 10/21/19 Upper GI Series (Signed) Schuyler Stafford - 09/25/19 Chest/Abdomen/Pelvis CT (Signed) Samaria Pruitt - 08/09/19 Chest X-Ray (Signed) Nitza Wheeleric - 07/05/18 Knee X-Ray (Signed) Schuyler Stafford - 12/20/17 Knee X-Ray (Signed) Schuyler Stafford - 12/20/17 Radiology - Historical 12/10/16 Launch?Image [address] [address] [address] Scan Report Signed Patient: Edwina Woods MR#: [id number] : 1955 Acct:[id number] Age/Sex: 65 / F Date of Service: 02/16/21 Loc: ED Accession Number: [id number] ?? Procedure: CT head/brain wo con Ordering Provider: Polo Gaston D.O. PROCEDURE:? CT HEAD/BRAIN WO CON ? INDICATIONS:? worst headache of life ? TECHNIQUE:? Noncontrast 4.5 mm thick angled axial sections acquired from the foramen magnum to the vertex, with coronal and sagittal reformats.? For radiation dose reduction, the following was used:? automated exposure control, adjustment of mA and/or kV according to patient size.? ? COMPARISON:? [facility], CT, HEAD WITHOUT CONTRAST, 12/17/2016, 0:45. ? FINDINGS:? Image quality:? Excellent.? ? CSF spaces:? Basal cisterns are patent.? No extra-axial fluid collections.? The ventricles are symmetric in size and shape.? ? Brain:? No intracranial bleeds or masses.? There is cerebral volume loss for age, with resultant ventricular and sulcal prominence.? There are periventricular and deep white matter chronic small vessel ischemic changes.? There is intracranial internal carotid artery atherosclerosis.? ? Skull and face:? Calvarium and visualized facial bones appear intact, without suspicious lesions.? ? Sinuses:? Visualized sinuses and mastoids are clear.? ? IMPRESSION:? No acute intracranial process. ? Dictated by: Javon Wen M.D. on 02/16/2021 at 1:19 ? ? MDM Narrative Medical decision making narrative: Headache considerations include, but not limited to: Subarachnoid hemorrhage, but unlikely as patient denies sudden onset of pain, not worst of life, or neck pain Meningitis considered, but thought unlikely given lack of Brudzinski's, Kernig's sign, altered mental status or fever Giant cell arteritis considered, but thought unlikely given lack of unilateral findings, pain in anglican, vision change HTN Emergency considered, but thought unlikely given normal vitals Other serious diagnoses considered unlikely given lack of red flag findings such as sudden onset, increasing frequency, immunocompromise, systemic signs (fever, chills, stiff neck, or rash), focal neurologic findings, trauma, blood thinners, etc. Discharge Plan Departure Patient Disposition: Home Clinical Impression: Headache Qualifiers: Headache type: unspecified Headache chronicity pattern: acute headache Intractability: not intractable Qualified Code(s): R51.9 - Headache, unspecified Activity Restrictions/Additional Instructions: *You have been diagnosed with [ Headache ] *What to do: *Take medications as directed *Follow up with your primary care provider in 2-3 days, call for an appointment. Let them know you were seen in the Emergency Department and that we ask that you be seen in follow up *Return to ER if you should have any new, worsening or concerning symptoms, such as [ fever > 101F, neck pain or stiffness, vomiting, confusion, seizure, focal weakness, vision change, speech deficit or other concerning symptoms ] Prescriptions: No Action metformin [Glucophage] 500 MG tablet 500 mg PO DAILY Qty: 0 RF: 0 prednisone 10 mg tablet See Rx Instructions .ROUTE .COMPLEX Qty: 30 RF: 0 benzonatate [Tessalon Perles] 100 mg capsule 100 mg PO TID PRN (Reason: cough) Qty: 14 RF: 0 doxycycline hyclate 100 mg tablet 100 mg PO BID Qty: 20 RF: 0 fluoxetine 20 mg Tablet 20 mg PO DAILY Qty: 0 RF: 0 omeprazole 20 mg Capsule,Delayed Release(Dr/Ec) 20 mg PO DAILY RF: 0 meloxicam 7.5 mg Tablet 7.5 mg BEDTIME RF: 0 albuterol sulfate 90 mcg/actuation Hfa Aerosol Inhaler 2 puff INHALATION Q4-6H PRN (Reason: shortness of breath) RF: 0 lisinopril 10 mg tablet 10 mg PO DAILY Qty: 90 RF: 3 nicotine [Nicoderm CQ] 21 mg/24 hr patch 24 hour 1 patch transdermal DAILY Qty: 14 RF: 0 atorvastatin 10 mg Tablet See Rx Instructions .ROUTE .COMPLEX RF: 0 Referrals: Brenda Vieyra MD [Primary Care Provider] - Stand Alone Forms: Work Release Note
--- NOTE | 2021-02-16 00:54 | DI.CT.S_ITS ---
PROCEDURE: CT HEAD/BRAIN WO CON INDICATIONS: worst headache of life TECHNIQUE: Noncontrast 4.5 mm thick angled axial sections acquired from the foramen magnum to the vertex, with coronal and sagittal reformats. For radiation dose reduction, the following was used: automated exposure control, adjustment of mA and/or kV according to patient size. COMPARISON: [facility], CT, HEAD WITHOUT CONTRAST, 12/17/2016, 0:45. FINDINGS: Image quality: Excellent. CSF spaces: Basal cisterns are patent. No extra-axial fluid collections. The ventricles are symmetric in size and shape. Brain: No intracranial bleeds or masses. There is cerebral volume loss for age, with resultant ventricular and sulcal prominence. There are periventricular and deep white matter chronic small vessel ischemic changes. There is intracranial internal carotid artery atherosclerosis. Skull and face: Calvarium and visualized facial bones appear intact, without suspicious lesions. Sinuses: Visualized sinuses and mastoids are clear. IMPRESSION: No acute intracranial process. Dictated by: Javon Wen M.D. on 02/16/2021 at 1:19 Approved by: Javon Wen M.D. on 02/16/2021 at 1:21
[2021-02-16 00:59] LABS: COVID19 -Nasal RAPID Negative (Negative)
[2021-02-16] MEDS: SODIUM CHLORIDE 0.9% 1,000 ML 1000 ML IV (01:39)
[2021-02-16] MEDS: METOCLOPRAMIDE 10 MG/2 ML INJ 5 MG IV (02:12)
[2021-02-16] MEDS: KETOROLAC 30 MG/ML VIAL 15 MG IV (02:13)
[2021-02-16 03:45] VITALS: BP 128/70; PULSE 82; RESP 16; O2SAT 97
== END 2021-02-16 03:49 | disposition home or self-care (01) ==
PROVIDERS: Emergency Provider Emergency Medicine; PCP Student in an Organized Health Care Education/Training Program
DX: R51.9 Headache, unspecified (principal); Z20.822 Contact with and (suspected) exposure to COVID-19
CPT/HCPCS: 36415; 70450; 87635; 96361; 96374; 96375; 99284; C9803; J1200; J1885; J2765

== ENCOUNTER 2021-02-24 02:04 | Emergency (ER) | payer OTHER, SELFPAY ==
[2020-01-11 16:23] VITALS: BMI 20.9
[2021-02-24] VITALS (8 sets, daily range): BP systolic 125–134; BP diastolic 60–88; PULSE 89–115; RESP 22–39; TEMP 36.8; O2SAT 94–100; BMI 23.0
--- NOTE | 2021-02-24 02:08 | ED_ITS ---
HPI - General Adult General Chief complaint: Shortness of Breath/Dyspnea Stated complaint: trouble breathing copd Time Seen by Provider: 02/24/21 02:04 History of Present Illness HPI narrative: 65-year-old woman with history of COPD, hypertension, hyperlipidemia, depression, continued tobacco addiction and reflux presents with 4 days of worsening dyspnea. She has baseline significant wheeze and was recently started on Spiriva. Over the last 4 days she has had worsening wheezing, fatigue, tachycardia. She notes that she is able to work only 1-2 days before being so exhausted she today off. She describes slightly productive cough, no fevers. She has had some chest tightness but no specific palpitations. No abdominal pain vomiting or diarrhea. Sometimes when she is working hard to breathe she notices some numbness and to her fingers. No headaches and no other neurologic complaints Related Data Home Medications Medication Instructions Recorded Confirmed metformin 500 mg tablet 500 mg PO DAILY #0 05/23/17 03/13/20 (Glucophage) fluoxetine 20 mg tablet 20 mg PO DAILY #0 01/09/18 03/13/20 omeprazole 20 mg capsule,delayed 20 mg PO DAILY 01/09/18 03/13/20 release albuterol sulfate 90 mcg/actuation 2 puff INHALATION Q4-6H PRN 01/11/20 03/13/20 aerosol inhaler meloxicam 7.5 mg tablet 7.5 mg BEDTIME 01/11/20 03/13/20 atorvastatin 10 mg tablet See Rx Instructions .ROUTE .COMPLEX 03/13/20 03/13/20 Previous Rx's Medication Instructions Recorded lisinopril 10 mg tablet 10 mg PO DAILY #90 tab 01/12/20 nicotine 21 mg/24 hr daily 1 patch TRANSDERMAL DAILY #14 each 01/12/20 transdermal patch (Nicoderm CQ) benzonatate 100 mg capsule 100 mg PO TID PRN #14 cap 01/21/21 (Tessalon Perles) doxycycline hyclate 100 mg tablet 100 mg PO BID #20 tab 01/21/21 prednisone 10 mg tablet See Rx Instructions .ROUTE 01/21/21 .COMPLEX #30 tab prednisone 10 mg tablet 10 mg PO DAILY #42 tab 02/24/21 Allergies Allergy/AdvReac Type Severity Reaction Status Date / Time No Known Drug Allergies Allergy Verified 01/21/21 20:29 Review of Systems Review of Systems Narrative: Remainder of complete review of systems is otherwise unremarkable except for that included in the HPI. Patient History Medical History COPD (chronic obstructive pulmonary disease) Depression Hyperlipidemia Hypertension Social History household members: none Smoking Status: Current every day smoker alcohol intake: current Smoking Status: Current every day smoker tobacco type: cigarettes alcohol intake frequency: 3 or more drinks per day Substance Use Type: does not use Exam Narrative Exam Narrative: General: Chronically ill-appearing in moderate respiratory distress. Able to give a complete and coherent history but able to speak in only 4-5 word sentences. HEENT: Moist mucous membranes, normal sclera with reactive pupils, Neck: No JVD, supple Respiratory: Lungs with significant wheeze throughout all lung griffiths, overall increased work of breathing with tachypnea without retractions Cardiac: Tachycardic with Regular rate and rhythm no murmurs no bruits Abdomen: Soft, nontender, good bowel tones, no flank pain Skin: Warm and dry, no rashes Neurologic: Grossly neurologically intact with no obvious asymmetries or abnormalities Extremities: No trauma, well perfused Psych: Cooperative, appropriate insight and affect Initial Vital Signs Initial Vital Signs: Vital Signs Pulse Rate 114 H 02/24/21 02:11 Respiratory Rate 33 H 02/24/21 02:11 Blood Pressure 127/88 02/24/21 02:11 Pulse Oximetry 94 02/24/21 02:11 Course Orders Ordered: ED Orders 02/24/21 02:05 COVID19 -Nasal swab/Pre-Proc Stat 02/24/21 02:13 Complete Blood Count AUTO DIFF Stat Comprehensive Metabolic Panel Stat 02/24/21 02:14 XR chest 1V Stat D Dimer Stat Magnesium Stat NT-proBNP (BNP-Adult 18+) Stat Troponin I Stat EKG-12 Lead Stat 02/24/21 02:20 Respiratory Panel (Film Array) Stat Sodium Chloride (Normal Saline 0.9%) 1,000 mls @ 150 mls/hr IV CONT RAFY Last Admin: 02/24/21 02:27 Dose: 150 mls/hr Documented by: Discontinued Medications Albuterol (Albuterol 2.5 Mg/3 Ml Neb (Adult)) 5 mg INH NOW ONE Stop: 02/24/21 03:11 Last Admin: 02/24/21 03:15 Dose: 5 mg Documented by: Albuterol/Ipratropium (Albuterol/Ipratropium 3 Ml Ampul) 3 ml INH NOW ONE Stop: 02/24/21 02:13 Last Admin: 02/24/21 02:36 Dose: 3 ml Documented by: Magnesium Sulfate (Magnesium Sulfate) 2 gm in 50 mls @ 150 mls/hr IV NOW ONE Stop: 02/24/21 02:31 Last Infusion: 02/24/21 02:50 Dose: Infused Documented by: Ketorolac Tromethamine (Ketorolac 30 Mg/Ml Vial) 15 mg IV NOW ONE Stop: 02/24/21 03:11 Last Admin: 02/24/21 03:15 Dose: 15 mg Documented by: Methylprednisolone (Methylprednisolone 125 Mg/2 Ml Vial) 125 mg IV NOW ONE Stop: 02/24/21 02:13 Last Admin: 02/24/21 02:27 Dose: 125 mg Documented by: Vital Signs Vital signs: Vital Signs - 8 hr 02/24/21 02:11 02/24/21 02:13 02/24/21 02:30 Temperature 98.3 F Pulse Rate 114 H 115 H 97 H Respiratory Rate 33 H 36 H 31 H Blood Pressure 127/88 127/88 132/73 Pulse Oximetry 94 94 98 02/24/21 02:36 02/24/21 03:00 02/24/21 03:15 Temperature Pulse Rate 89 96 H 107 H Respiratory Rate 25 H 26 H 25 H Blood Pressure 125/61 Pulse Oximetry 100 95 94 02/24/21 03:30 02/24/21 04:00 Temperature Pulse Rate 100 H 108 H Respiratory Rate 39 H 22 Blood Pressure 134/60 Pulse Oximetry 99 94 Medical Decision Making Lab Data Result diagrams: 02/24/21 02:20 02/24/21 02:20 Labs: Lab Results 02/24/21 02/24/21 02/24/21 Range/Units 02:05 02:20 02:20 WBC 7.1 (4.5-11.0) X10^3/uL RBC 3.94 L (4.0-5.2) X10^6/uL Hgb 12.6 (12.0-16.0) g/dL Hct 37.2 (36-46) % MCV 94.3 (80-100) fL MCH 32.0 (26-34) PG MCHC 33.9 (30-36) % RDW 12.2 (11.6-14.8) % Plt Count 212 (150-400) X10^3/uL Neut % (Auto) 55.7 (50-75) % Lymph % (Auto) 30.1 (25-40) % [place] % (Auto) 7.8 (3-14) % Eos % (Auto) 5.2 H (2-4) % Baso % (Auto) 1.2 (0-2) % Neut # (Auto) 4000 (3471-9053) /uL Lymph # (Auto) 2200 (7941-9159) /uL [place] # (Auto) 600 (0-900) /uL Eos # (Auto) 400 (0-450) /uL Baso # (Auto) 100 (0-100) /uL D-Dimer (<230) ng/mL Sodium 131 L (137-145) mmol/L Potassium 4.2 (3.4-5.1) mmol/L Chloride 94 L (98-107) mmol/L Carbon Dioxide 27 (22-32) mmol/L BUN 14 (7-17) mg/dL Creatinine 0.66 (0.52-1.04) mg/dL Estimated GFR > 60.0 (>60) mL/min BUN/Creatinine Ratio 21.2 (6-22) Glucose 170 H (80-110) mg/dL Calcium 9.4 (8.4-10.2) mg/dL Magnesium (1.6-2.3) mg/dL Total Bilirubin 0.8 (0.2-1.3) mg/dL AST 36 (14-36) IU/L ALT 16 (<35) IU/L Alkaline Phosphatase 115 (38-126) U/L Troponin I (0.01-0.034) ng/mL NT-Pro-B Natriuret Pep (<125) pg/mL Total Protein 7.2 (6.3-8.2) g/dL Albumin 4.5 (3.5-5.0) g/dL Globulin 2.7 (1.7-4.1) g/dL Albumin/Globulin Ratio 1.7 (1.0-2.8) Chlamy pneumoniae PCR (Not Detect) Adenovirus (PCR) (Not Detect) B. pertussis DNA (PCR) (Not Detecte) B.parapertussis DNA PCR (Not Detecte) Coronavirus OC43 (PCR) (Not Detect) Coronavirus HKU1 (PCR) (Not Detect) Coronavirus 229E (PCR) (Not Detect) SARS-CoV-2 (PCR) Negative (Negative) Coronavirus NL63 (PCR) (Not Detect) Human Metapneumovir PCR (Not Detect) Influenza Type A (PCR) (Not Detect) Influenza Type B (PCR) (Not Detect) M. pneumoniae (PCR) (Not Detect) Parainfluenza 1 (PCR) (Not Detect) Parainfluenza 2 (PCR) (Not Detect) Parainfluenza 3 (PCR) (Not Detect) Parainfluenza 4 (PCR) (Not Detect) RSV (PCR) (Not Detect) Entero/Rhino (PCR) (Not Detect) 02/24/21 02/24/21 02/24/21 Range/Units 02:20 02:20 02:20 WBC (4.5-11.0) X10^3/uL RBC (4.0-5.2) X10^6/uL Hgb (12.0-16.0) g/dL Hct (36-46) % MCV (80-100) fL MCH (26-34) PG MCHC (30-36) % RDW (11.6-14.8) % Plt Count (150-400) X10^3/uL Neut % (Auto) (50-75) % Lymph % (Auto) (25-40) % [place] % (Auto) (3-14) % Eos % (Auto) (2-4) % Baso % (Auto) (0-2) % Neut # (Auto) (0012-2635) /uL Lymph # (Auto) (8082-5418) /uL [place] # (Auto) (0-900) /uL Eos # (Auto) (0-450) /uL Baso # (Auto) (0-100) /uL D-Dimer < 200 (<230) ng/mL Sodium (137-145) mmol/L Potassium (3.4-5.1) mmol/L Chloride (98-107) mmol/L Carbon Dioxide (22-32) mmol/L BUN (7-17) mg/dL Creatinine (0.52-1.04) mg/dL Estimated GFR (>60) mL/min BUN/Creatinine Ratio (6-22) Glucose (80-110) mg/dL Calcium (8.4-10.2) mg/dL Magnesium 1.2 L (1.6-2.3) mg/dL Total Bilirubin (0.2-1.3) mg/dL AST (14-36) IU/L ALT (<35) IU/L Alkaline Phosphatase (38-126) U/L Troponin I < 0.012 (0.01-0.034) ng/mL NT-Pro-B Natriuret Pep 214 H (<125) pg/mL Total Protein (6.3-8.2) g/dL Albumin (3.5-5.0) g/dL Globulin (1.7-4.1) g/dL Albumin/Globulin Ratio (1.0-2.8) Chlamy pneumoniae PCR Not detected (Not Detect) Adenovirus (PCR) Not detected (Not Detect) B. pertussis DNA (PCR) Not detected (Not Detecte) B.parapertussis DNA PCR Not detected (Not Detecte) Coronavirus OC43 (PCR) Not detected (Not Detect) Coronavirus HKU1 (PCR) Not detected (Not Detect) Coronavirus 229E (PCR) Not detected (Not Detect) SARS-CoV-2 (PCR) Not detected (Negative) Coronavirus NL63 (PCR) Not detected (Not Detect) Human Metapneumovir PCR Not detected (Not Detect) Influenza Type A (PCR) Not detected (Not Detect) Influenza Type B (PCR) Not detected (Not Detect) M. pneumoniae (PCR) Not detected (Not Detect) Parainfluenza 1 (PCR) Not detected (Not Detect) Parainfluenza 2 (PCR) Not detected (Not Detect) Parainfluenza 3 (PCR) Not detected (Not Detect) Parainfluenza 4 (PCR) Not detected (Not Detect) RSV (PCR) Not detected (Not Detect) Entero/Rhino (PCR) Not detected (Not Detect) Imaging Data Chest x-ray: Radiologist's Impression: Mild lung hyperinflation suggesting chronic obstructive pulmonary disease. No acute process. Lorrie Bain, ECG Data Interpretation: Sinus tachycardia at a rate of 108 Normal intervals, normal axis No acute ischemic changes MDM Narrative Medical decision making narrative: 65-year-old woman presents with increasing work of breathing and dyspnea for the last 4 days. Moderate respiratory distress on arrival. Response nicely to initial DuoNeb, fluids are being administered, magnesium and Solu-Medrol are given. Labs do not suggest acute infection she does not have a pneumothorax, no pulmonary embolism she is COVID negative, no acute coronary syndrome. Remainder of respiratory panel is currently pending. Despite interventions she still is having significant tachypnea with increased work of breathing and pursed lipped breathing. Oxygen saturations on room air remain in the upper 90s. Heart rate has come down to the mid 90s, respiratory rate in the low 20s. 420am sleeping comfortably no longer using pursed lip breathing. Still with scattered wheeze but dramatically improved. No evidence of any respiratory viruses. Today's presentation is most consistent with acute COPD exacerbation. Will place her on a steroid taper, have her continue albuterol nebulizers 3 times a day and more if needed and follow-up with Dr. Vieyra in the near future. She states she has a administrative office assistant appointment scheduled already in April. We again, talked about the importance of discontinuing smoking completely. She Is safe for home discharge Discharge Plan Departure Patient Disposition: Home Clinical Impression: Acute exacerbation of chronic obstructive pulmonary disease, Continuous tobacco abuse Instructions: DI for Chronic Obstructive Pulmonary Disease Activity Restrictions/Additional Instructions: Thank you for coming in today Your exam, chest x-ray and blood work all suggest that your wheezing is an acute COPD exacerbation. Today, there is no evidence of acute heart attack or heart attack like syndrome, collapsed lung, pneumonia, respiratory viral infection (including COVID) or pulmonary embolism. Your given fluids, IV magnesium, IV steroids and nebulizer treatments. You improved nicely. I am going to send you home but you do need follow-up with Dr. Vieyra in the near future. Home medications will need to include steroid taper. Please take 40 mg for 4 days, 30 mg for 4 days, 20 mg for 4 days, 10 mg for 4 days and 5 mg for 4 days. Please write this taper out on your calendar. Your prescription will be for a total of 40-10 mg pills to complete this slow steroid taper. This prescription was electronically transmitted to [facility] for you today Please use your albuterol nebulizer 3 times a day and more if you are coughing or having severe wheezing. Do continue your Spiriva If you have new or worsening symptoms, please return to the ER Prescriptions: New prednisone 10 mg tablet 10 mg PO DAILY Qty: 42 RF: 0 No Action metformin [Glucophage] 500 MG tablet 500 mg PO DAILY Qty: 0 RF: 0 prednisone 10 mg tablet See Rx Instructions .ROUTE .COMPLEX Qty: 30 RF: 0 benzonatate [Tessalon Perles] 100 mg capsule 100 mg PO TID PRN (Reason: cough) Qty: 14 RF: 0 doxycycline hyclate 100 mg tablet 100 mg PO BID Qty: 20 RF: 0 fluoxetine 20 mg Tablet 20 mg PO DAILY Qty: 0 RF: 0 omeprazole 20 mg Capsule,Delayed Release(Dr/Ec) 20 mg PO DAILY RF: 0 meloxicam 7.5 mg Tablet 7.5 mg BEDTIME RF: 0 albuterol sulfate 90 mcg/actuation Hfa Aerosol Inhaler 2 puff INHALATION Q4-6H PRN (Reason: shortness of breath) RF: 0 lisinopril 10 mg tablet 10 mg PO DAILY Qty: 90 RF: 3 nicotine [Nicoderm CQ] 21 mg/24 hr patch 24 hour 1 patch transdermal DAILY Qty: 14 RF: 0 atorvastatin 10 mg Tablet See Rx Instructions .ROUTE .COMPLEX RF: 0 Referrals: Brenda Vieyra MD [Primary Care Provider] -
--- NOTE | 2021-02-24 02:14 | DI.RAD.S_ITS ---
PROCEDURE: XR CHEST 1V INDICATIONS: dyspnea TECHNIQUE: One view of the chest was acquired. COMPARISON: [facility], CR, XR CHEST 1V, 01/11/2020, 14:34. FINDINGS: Surgical changes and devices: None. Lungs and pleura: Lungs are clear. No pleural effusions or pneumothorax. Lungs hyperinflated suggesting COPD. Mediastinum: Mediastinal contours appear normal. Heart size is normal. Bones and chest wall: No suspicious bony lesions. Overlying soft tissues appear unremarkable. IMPRESSION: No acute cardiopulmonary disease process. Dictated by: Samaria Pruitt MD, PhD on 02/24/2021 at 9:36 Approved by: Samaria Pruitt MD, PhD on 02/24/2021 at 9:36
[2021-02-24 02:27] LABS: COVID19 -Nasal RAPID Negative (Negative)
[2021-02-24] MEDS: SODIUM CHLORIDE 0.9% 1,000 ML 150 ML IV (02:27)
[2021-02-24] MEDS: MAGNESIUM SULFATE 2 GM/50 ML PIGGYBACK IV (02:27)
[2021-02-24] MEDS: methylPREDNISolone 125 MG/2 ML VIAL IV (02:27)
[2021-02-24] MEDS: ALBUTEROL/IPRATROPIUM 3 ML AMPUL INH (02:36)
[2021-02-24 02:38] LABS: Alanine Aminotransferase 16 IU/L (<35); Albumin 4.5 g/dL (3.5-5.0); Albumin Globulin Ratio 1.7 (1.0-2.8); Alkaline Phosphatase 115 U/L (38-126); Aspartate Aminotransferase 36 IU/L (14-36); BUN Creatinine Ratio 21.2 (6-22); Bilirubin Total 0.8 mg/dL (0.2-1.3); Blood Urea Nitrogen 14 mg/dL (7-17); Calcium 9.4 mg/dL (8.4-10.2); Carbon Dioxide 27 mmol/L (22-32); Chloride 94 mmol/L (98-107); Estimated Glomerular Filt Rate > 60.0 mL/min (>60); Globulin 2.7 g/dL (1.7-4.1); Glucose 170 mg/dL (80-110); HEMOLYSIS 19 (0-50); Potassium 4.2 mmol/L (3.4-5.1); Sodium 131 mmol/L (137-145); Total Protein 7.2 g/dL (6.3-8.2)
[2021-02-24 02:39] LABS: Magnesium 1.2 mg/dL (1.6-2.3)
[2021-02-24 02:40] LABS: D Dimer < 200 ng/mL (<230)
[2021-02-24 02:42] LABS: Add Manual Diff / Slide Review NO; Basophils Absolute Auto 100 /uL (0-100); Basophils Percent Auto 1.2 % (0-2); Eosinophils Absolute Auto 400 /uL (0-450); Eosinophils Percent Auto 5.2 % (2-4); Hematocrit 37.2 % (36-46); Hemoglobin 12.6 g/dL (12.0-16.0); Lymphocytes Absolute Auto 2200 /uL (1100-4500); Lymphocytes Percent Auto 30.1 % (25-40); Mean Corpuscular HGB Conc 33.9 % (30-36); Mean Corpuscular Volume 94.3 fL (80-100); Monocytes Absolute Auto 600 /uL (0-900); Monocytes Percent Auto 7.8 % (3-14); Neutrophils Absolute Auto 4000 /uL (1500-7000); Neutrophils Percent Auto 55.7 % (50-75); Platelet Count 212 X10^3/uL (150-400); Red Blood Cell Count 3.94 X10^6/uL (4.0-5.2); Red Cell Distribution Width 12.2 % (11.6-14.8); White Blood Cell Count 7.1 X10^3/uL (4.5-11.0)
[2021-02-24 02:50] LABS: NT-proBNP (BNP-Adult 18+) 214 pg/mL (<125); Troponin I < 0.012 ng/mL (0.01-0.034)
[2021-02-24] MEDS: KETOROLAC 30 MG/ML VIAL 15 MG IV (03:15)
[2021-02-24] MEDS: ALBUTEROL 2.5 MG/3 ML NEB (ADULT) 5 MG INH (03:15)
[2021-02-24 03:25] LABS: Adenovirus Not Detected (Not Detect); B. parapertussis Not Detected (Not Detecte); Bordetella pertussis Not Detected (Not Detecte); Chlamydophila pneumoniae Not Detected (Not Detect); Coronavirus 229E Not Detected (Not Detect); Coronavirus HKU1 Not Detected (Not Detect); Coronavirus NL 63 Not Detected (Not Detect); Coronavirus OC43 Not Detected (Not Detect); Human Metapneumovirus Not Detected (Not Detect); Human Rhinovirus/Enterovirus Not Detected (Not Detect); Influenza A Not Detected (Not Detect); Influenza B Not Detected (Not Detect); Mycoplasma pneumoniae Not Detected (Not Detect); Parainfluenza Virus 1 Not Detected (Not Detect); Parainfluenza Virus 2 Not Detected (Not Detect); Parainfluenza Virus 3 Not Detected (Not Detect); Parainfluenza Virus 4 Not Detected (Not Detect); Respiratory Syncytial Virus Not Detected (Not Detect); SARS- CoV-2 Not Detected (Not Detecte)
== END 2021-02-24 04:37 | disposition home or self-care (01) ==
PROVIDERS: Emergency Provider Emergency Medicine; PCP Student in an Organized Health Care Education/Training Program
DX: J44.1 Chronic obstructive pulmonary disease with (acute) exacerbation (principal); F17.210 Nicotine dependence, cigarettes, uncomplicated; Z20.822 Contact with and (suspected) exposure to COVID-19
CPT/HCPCS: 36415; 71045; 80053; 83735; 83880; 84484; 85025; 85379; 87633; 87635; 93005; 93010; 94640; 96361; 96365; 96375; 99284; 99285; C9803; J1885; J2930; J3475; J7613

== ENCOUNTER → 2021-03-22 12:11 | Outpatient (CLI) | payer OTHER, SELFPAY ==
[2020-01-11 16:23] VITALS: BMI 20.9
== END ==
PROVIDERS: PCP Student in an Organized Health Care Education/Training Program; Referring Provider Internal Medicine; Visit Provider Internal Medicine
DX: Z23 Encounter for immunization (principal)
CPT/HCPCS: 90471; 90686

== ENCOUNTER → 2021-03-26 08:55 | Outpatient (CLI) | payer OTHER, SELFPAY ==
[2020-01-11 16:23] VITALS: BMI 20.9
[2021-03-26] MEDS: COVID-19 VACC #3, MRNA(MOD) 50 MCG/0.25 ML VIAL IM (09:01)
== END ==
PROVIDERS: PCP Student in an Organized Health Care Education/Training Program; Visit Provider Internal Medicine
DX: Z23 Encounter for immunization (principal)
CPT/HCPCS: 0013A; 91301

== ENCOUNTER 2021-05-29 11:29 | Emergency (ER) | payer OTHER, SELFPAY ==
[2020-01-11 16:23] VITALS: BMI 20.9
[2021-05-29 11:37] VITALS: BP 154/78; PULSE 92; RESP 16; TEMP 36.7; O2SAT 97; BMI 20.9
--- NOTE | 2021-05-29 11:48 | ED.BACK ---
HPI - Back Pain/Injury General Chief Complaint: Back Pain/Injury Stated Complaint: back pain Time Seen by Provider: 05/29/21 11:41 Source: patient Mode of arrival: Ambulatory Limitations: no limitations History of Present Illness HPI Narrative: 66-year-old female who is here for evaluation of bilateral lower back pain with left being greater than right. She states that these symptoms started yesterday when she woke up. There was no specific incident that caused the discomfort. Was recently started on antibiotics by the walk-in clinic for a left-sided facial/your infection no urinary symptoms. No fevers. Has not tried anything for the symptoms prior to arrival. Related Data Home Medications Medication Instructions Recorded Confirmed metformin 500 mg tablet 500 mg PO DAILY #0 05/23/17 05/27/21 (Glucophage) fluoxetine 20 mg tablet 20 mg PO DAILY #0 01/09/18 05/27/21 omeprazole 20 mg capsule,delayed 20 mg PO DAILY 01/09/18 05/27/21 release albuterol sulfate 90 mcg/actuation 2 puff INHALATION Q4-6H PRN 01/11/20 05/27/21 aerosol inhaler meloxicam 7.5 mg tablet 7.5 mg BEDTIME 01/11/20 05/27/21 atorvastatin 10 mg tablet See Rx Instructions .ROUTE .COMPLEX 03/13/20 05/27/21 Aspirin PO DAILY 05/27/21 05/27/21 Previous Rx's Medication Instructions Recorded lisinopril 10 mg tablet 10 mg PO DAILY #90 tab 01/12/20 nicotine 21 mg/24 hr daily 1 patch TRANSDERMAL DAILY #14 each 01/12/20 transdermal patch (Nicoderm CQ) benzonatate 100 mg capsule 100 mg PO TID PRN #14 cap 01/21/21 (Tessalon Leonor) doxycycline hyclate 100 mg tablet 100 mg PO BID #20 tab 01/21/21 prednisone 10 mg tablet See Rx Instructions .ROUTE 01/21/21 .COMPLEX #30 tab prednisone 10 mg tablet 10 mg PO DAILY #42 tab 02/24/21 amoxicillin 875 mg-potassium 1 tab PO BID 10 Days #20 tab 05/27/21 clavulanate 125 mg tablet (Augmentin) cyclobenzaprine 10 mg tablet 10 mg PO TID PRN #10 tab 05/29/21 hydrocodone 5 mg-acetaminophen 325 1 tab PO Q4-6H PRN #14 tab 05/29/21 mg tablet Allergies Allergy/AdvReac Type Severity Reaction Status Date / Time No Known Drug Allergies Allergy Verified 05/27/21 11:38 Review of Systems Gastrointestinal Gastrointestinal: Reports system reviewed and no additional complaints, except as documented Genitourinary Genitourinary: Reports system reviewed and no additional complaints, except as documented Musculoskeletal Musculoskeletal: Reports system reviewed and no additional complaints, except as documented and Reports as per HPI Neurologic Neurologic: Reports system reviewed and no additional complaints, except as documented and Reports as per HPI Patient History Medical History COPD (chronic obstructive pulmonary disease) Depression Hyperlipidemia Hypertension Social History household members: none Smoking Status: Current every day smoker alcohol intake: current Smoking Status: Current every day smoker tobacco type: cigarettes alcohol intake frequency: 3 or more drinks per day Substance Use Type: does not use Exam Initial Vital Signs Initial Vital Signs: Vital Signs Temperature 98.0 F 05/29/21 11:37 Pulse Rate 92 H 05/29/21 11:37 Respiratory Rate 16 05/29/21 11:37 Blood Pressure 154/78 H 05/29/21 11:37 Pulse Oximetry 97 05/29/21 11:37 HENMT Head: normal to inspection Resp Effort & Inspection: normal respiratory effort Cardio Rate: regular rate GI Inspection: normal to inspection and non-distended Palpation: soft Back/Spine/Pelvis Other: Tenderness to palpation lumbar paraspinal region. Also tenderness to palpation Neuro General: patient alert, patient awake and moves all extremities Extrem General: normal to inspection and capillary refill normal Course Orders Ordered: Discontinued Medications Ketorolac Tromethamine (Ketorolac 30 Mg/Ml Vial) 30 mg IM NOW ONE Stop: 05/29/21 11:50 Last Admin: 05/29/21 12:01 Dose: 30 mg Documented by: JONATHAN Morphine Sulfate (Morphine 4 Mg/Ml Inj) 4 mg IM NOW ONE Stop: 05/29/21 11:50 Last Admin: 05/29/21 12:01 Dose: 4 mg Documented by: JONATHAN Vital Signs Vital signs: Vital Signs - 8 hr 05/29/21 11:37 Temperature 98.0 F Pulse Rate 92 H Respiratory Rate 16 Blood Pressure 154/78 H Pulse Oximetry 97 MDM - Back Pain/Injury MDM Narrative Medical decision making narrative: Patient's symptoms today very clearly musculoskeletal in origin. Low suspicion for cauda equina or emergent surgical issue based on her history and my physical exam. Will try symptom treatment. Patient was given return precautions and follow-up instructions. She expressed understanding and agreement. Discharge Plan Departure Patient Disposition: Home Clinical Impression: Lower back pain Instructions: DI for Low Back Pain Activity Restrictions/Additional Instructions: I do recommend that you try to stay as active as possible. Can use heat and ice and massage. You can also use Advil like we discussed. Medications to try to help the symptoms were electronically transmitted to [facility]. Please take them as needed and as directed. Contact your primary doctor for a follow-up. Return to the emergency department for any new or worsening symptoms. Prescriptions: New cyclobenzaprine 10 mg tablet 10 mg PO TID PRN (Reason: muscle spasm) Qty: 10 0RF hydrocodone-acetaminophen 5-325 mg tablet 1 tab PO Q4-6H PRN (Reason: pain) Qty: 14 0RF No Action Aspirin 81 mg PO DAILY 0RF amoxicillin-pot clavulanate [Augmentin] 875-125 mg tablet 1 tab PO BID 10 Days Qty: 20 0RF Rx Instructions: Take with food. Finish all of this medication. metformin [Glucophage] 500 MG tablet 500 mg PO DAILY Qty: 0 0RF prednisone 10 mg tablet See Rx Instructions .ROUTE .COMPLEX Qty: 30 0RF Rx Instructions: Day 1,2,3: 40mg PO Daily Day 4,5,6: 30mg PO Daily Day 7,8,9: 20mg PO Daily Day 10,11,12: 10mg PO Daily #30 benzonatate [Tessalon Perles] 100 mg capsule 100 mg PO TID PRN (Reason: cough) Qty: 14 0RF doxycycline hyclate 100 mg tablet 100 mg PO BID Qty: 20 0RF fluoxetine 20 mg Tablet 20 mg PO DAILY Qty: 0 0RF omeprazole 20 mg Capsule,Delayed Release(Dr/Ec) 20 mg PO DAILY 0RF meloxicam 7.5 mg Tablet 7.5 mg BEDTIME 0RF albuterol sulfate 90 mcg/actuation Hfa Aerosol Inhaler 2 puff INHALATION Q4-6H PRN (Reason: shortness of breath) 0RF lisinopril 10 mg tablet 10 mg PO DAILY Qty: 90 3RF nicotine [Nicoderm CQ] 21 mg/24 hr patch 24 hour 1 patch transdermal DAILY Qty: 14 0RF atorvastatin 10 mg Tablet See Rx Instructions .ROUTE .COMPLEX 0RF Rx Instructions: unsure of dosage prednisone 10 mg tablet 10 mg PO DAILY Qty: 42 0RF Rx Instructions: Patient has tapering instructions Referrals: Brenda Vieyra MD [Primary Care Provider] -
[2021-05-29] MEDS: KETOROLAC 30 MG/ML VIAL IM (12:01)
[2021-05-29] MEDS: MORPHINE 4 MG/ML INJ IM (12:01)
[2021-05-29 13:27] VITALS: BP 163/70; PULSE 79; RESP 18; TEMP 37.1; O2SAT 97
== END 2021-05-29 13:28 | disposition home or self-care (01) ==
PROVIDERS: Emergency Provider Emergency Medicine; PCP Student in an Organized Health Care Education/Training Program
DX: M54.50 Low back pain, unspecified (principal)
CPT/HCPCS: 96372; 99283; J1885; J2270

== ENCOUNTER 2021-05-30 17:25 | Emergency (ER) | payer OTHER, SELFPAY ==
[2020-01-11 16:23] VITALS: BMI 20.9
[2021-05-30 17:32] VITALS: BP 165/79; PULSE 67; RESP 20; TEMP 36.6; O2SAT 96
--- NOTE | 2021-05-30 17:56 | DI.CT.S_ITS ---
PROCEDURE: CT ABDOMEN PELVIS WO CON INDICATIONS: back pain - kidney stone TECHNIQUE: Axial sections were acquired from the lung bases to the pubic symphysis. Coronal and sagittal reformats were performed. For radiation dose reduction, the following was used: automated exposure control, adjustment of mA and/or kV according to patient size. COMPARISON: None. FINDINGS: Image quality: Excellent. Lung bases: Minimal left atelectasis. Heart: No significant findings. URINARY: Right Kidney: No stones or hydronephrosis. Right Ureter: No hydroureter. Left Kidney: No stones or hydronephrosis. Left Ureter: No hydroureter. Bladder: Normal wall thickness. No stones. ABDOMEN: Liver: Unremarkable. Gallbladder: Unremarkable. Biliary ducts: Unremarkable. Pancreas: Unremarkable. Spleen: Unremarkable. Adrenal Glands: Unremarkable. Stomach and Bowel: Stomach, small bowel loops, and colon are unremarkable. The appendix is not dilated. Peritoneum: No abnormal intraperitoneal fluid. No free air. Ventral Wall: No hernia. Abdominal Nodes: No enlarged retroperitoneal or mesenteric lymph nodes. Vessels: Aorta and inferior vena cava are normal in size. Moderate calcified plaque. PELVIS: Pelvic Organs: Uterus is unremarkable. Pelvic Nodes: Unremarkable. Miscellaneous: No inguinal hernias are seen. Bones: No compression fracture. No suspicious lesion. IMPRESSION: 1. No kidney stones. No hydronephrosis. 2. Normal appendix. No free fluid. Dictated by: Sabas Toure M.D. on 05/30/2021 at 18:32 Approved by: Sabas Toure M.D. on 05/30/2021 at 18:37
--- NOTE | 2021-05-30 17:58 | ED_ITS ---
HPI - Back Pain/Injury <Julian Renteria PA-C - Last Filed: 05/30/21 19:14> General Chief Complaint: Back Pain/Injury Stated Complaint: Lower Back Pain, Thinks Kidneys Time Seen by Provider: 05/30/21 17:53 Source: patient History of Present Illness HPI Narrative: Patient is 66-year-old female presenting with low back pain on both sides. She was seen in the ER yesterday for the same symptoms was given pain medications muscle relaxers with no change in her pain. She denies any recent trauma or fall. Patient reports pain increases with flexion and extension of the lower back with pain radiating to her left hip. Related Data Home Medications Medication Instructions Recorded Confirmed metformin 500 mg tablet 500 mg PO DAILY #0 05/23/17 05/27/21 (Glucophage) fluoxetine 20 mg tablet 20 mg PO DAILY #0 01/09/18 05/27/21 omeprazole 20 mg capsule,delayed 20 mg PO DAILY 01/09/18 05/27/21 release albuterol sulfate 90 mcg/actuation 2 puff INHALATION Q4-6H PRN 01/11/20 05/27/21 aerosol inhaler meloxicam 7.5 mg tablet 7.5 mg BEDTIME 01/11/20 05/27/21 atorvastatin 10 mg tablet See Rx Instructions .ROUTE .COMPLEX 03/13/20 05/27/21 Aspirin PO DAILY 05/27/21 05/27/21 Previous Rx's Medication Instructions Recorded lisinopril 10 mg tablet 10 mg PO DAILY #90 tab 01/12/20 nicotine 21 mg/24 hr daily 1 patch TRANSDERMAL DAILY #14 each 01/12/20 transdermal patch (Nicoderm CQ) benzonatate 100 mg capsule 100 mg PO TID PRN #14 cap 01/21/21 (Tessalon Leonor) doxycycline hyclate 100 mg tablet 100 mg PO BID #20 tab 01/21/21 prednisone 10 mg tablet See Rx Instructions .ROUTE 01/21/21 .COMPLEX #30 tab prednisone 10 mg tablet 10 mg PO DAILY #42 tab 02/24/21 amoxicillin 875 mg-potassium 1 tab PO BID 10 Days #20 tab 05/27/21 clavulanate 125 mg tablet (Augmentin) cyclobenzaprine 10 mg tablet 10 mg PO TID PRN #10 tab 05/29/21 hydrocodone 5 mg-acetaminophen 325 1 tab PO Q4-6H PRN #14 tab 05/29/21 mg tablet cyclobenzaprine 10 mg tablet 10 mg PO Q8H PRN #21 tab 05/30/21 ibuprofen 800 mg tablet 800 mg PO Q8H PRN #21 tab 05/30/21 Allergies Allergy/AdvReac Type Severity Reaction Status Date / Time No Known Drug Allergies Allergy Verified 05/27/21 11:38 Review of Systems <Julian Renteria PA-C - Last Filed: 05/30/21 19:14> Review of Systems ROS Unobtainable: All systems reviewed & are unremarkable except as noted in HPI and below Constitutional Constitutional: Denies chills, Denies fatigue, Denies fever(s), Denies frequent falls, Denies lethargy and Denies weakness Eyes Eyes: Denies change in vision, Denies eye discharge, Denies irritation and Denies loss of vision ENT Ears, Nose, Mouth, and Throat: Denies change in voice, Denies dizziness, Denies neck pain, Denies sore throat and Denies throat swelling Cardiovascular Cardiovascular: Denies chest pain, Denies irregular heart rhythm, Denies lightheadedness, Denies palpitations, Denies dyspnea, Denies dyspnea on exertion and Denies orthopnea Respiratory Respiratory: Denies cough, Denies dyspnea, Denies dyspnea on exertion and Denies wheezing Gastrointestinal Gastrointestinal: Reports abdominal pain, Denies change in bowel habits, Denies diarrhea, Denies nausea and Denies vomiting Genitourinary Genitourinary: Denies hematuria, Denies flank pain, Denies urinary incontinence and Denies urinary urgency Musculoskeletal Musculoskeletal: Reports back pain, Denies muscle weakness, Denies neck pain, Denies numbness and Denies tingling Integumentary/Breasts Skin/Breast: Denies pruritus, Denies erythema, Denies rash and Denies wounds Neurologic Neurologic: Denies behavioral changes, Denies confusion, Denies dizziness, Denies frequent falls, Denies loss of vision, Denies numbness, Denies tingling and Denies weakness Psychiatric Psychiatric: Denies anxiety, Denies behavioral changes, Denies confusion, Denies depression, Denies homicidal ideation and Denies suicidal ideation Endocrine Endocrine: Denies fatigue, Denies flushing and Denies palpitations Hematologic/Lymphatic Hematologic/Lymphatic: Denies easy bruising Allergic/Immunologic Allergic/Immunologic: Denies urticaria, Denies throat swelling and Denies wheezing Patient History <Julian Renteria PA-C - Last Filed: 05/30/21 19:14> Medical History COPD (chronic obstructive pulmonary disease) Depression Hyperlipidemia Hypertension Social History household members: none Smoking Status: Current every day smoker alcohol intake: current Smoking Status: Current every day smoker tobacco type: cigarettes alcohol intake frequency: 3 or more drinks per day Substance Use Type: does not use Exam <Julian Renteria PA-C - Last Filed: 05/30/21 19:14> Initial Vital Signs Initial Vital Signs: Vital Signs Temperature 97.9 F 05/30/21 17:32 Pulse Rate 67 05/30/21 17:32 Respiratory Rate 20 05/30/21 17:32 Blood Pressure 165/79 H 05/30/21 17:32 Pulse Oximetry 96 05/30/21 17:32 Const General: cooperative, healthy appearing, comfortable and acute distress Nutritional Appearance: average body habitus and well nourished Orientation: Orientation Resp Effort & Inspection: normal respiratory effort and able to speak in complete sentences Auscultation: clear to auscultation bilaterally Percussion: percussion normal Cardio Palpation: normal PMI Rate: regular rate Rhythm: regular rhythm GI Inspection: normal to inspection Palpation: soft Percussion: normal to percussion Auscultation: normal bowel sounds Neuro General: patient alert, patient awake and patient oriented x3 Course <Julian Renteria PA-C - Last Filed: 05/30/21 19:14> Orders Ordered: ED Orders 05/30/21 17:46 Urine Culture Stat Urine Microscopic Stat 05/30/21 17:56 CT abdomen pelvis wo con Stat 05/30/21 18:05 CBC Auto Diff [Complete Blood Count AUTO DIFF] Stat CMP [Comprehensive Metabolic Panel] Stat Discontinued Medications Fentanyl (Fentanyl 100 Mcg/2 Ml Inj) 50 mcg IV NOW ONE Stop: 05/30/21 17:57 Last Admin: 05/30/21 18:20 Dose: 50 mcg Documented by: IRMA Vital Signs Vital signs: Vital Signs - 8 hr 05/30/21 17:32 05/30/21 19:23 Temperature 97.9 F Pulse Rate 67 90 Respiratory Rate 20 Blood Pressure 165/79 H 138/63 Pulse Oximetry 96 98 MDM - Back Pain/Injury <Julain Renteria PA-C - Last Filed: 05/30/21 19:14> Differential Diagnosis Differential diagnosis: Likely strain of lumbar region Lab Data Result diagrams: 05/30/21 18:05 05/30/21 18:05 Labs: Lab Results 05/30/21 05/30/21 05/30/21 Range/Units 17:46 18:05 18:05 WBC 6.7 (4.5-11.0) X10^3/uL RBC 3.95 L (4.0-5.2) X10^6/uL Hgb 12.7 (12.0-16.0) g/dL Hct 37.2 (36-46) % MCV 94.2 (80-100) fL MCH 32.2 (26-34) PG MCHC 34.2 (30-36) % RDW 12.2 (11.6-14.8) % Plt Count 180 (150-400) X10^3/uL Neut % (Auto) 67.4 (50-75) % Lymph % (Auto) 19.5 L (25-40) % [place] % (Auto) 10.7 (3-14) % Eos % (Auto) 1.9 L (2-4) % Baso % (Auto) 0.5 (0-2) % Neut # (Auto) 4500 (2193-2732) /uL Lymph # (Auto) 1300 (0958-0523) /uL [place] # (Auto) 700 (0-900) /uL Eos # (Auto) 100 (0-450) /uL Baso # (Auto) 0 (0-100) /uL Sodium 133 L (137-145) mmol/L Potassium 4.1 (3.4-5.1) mmol/L Chloride 100 (98-107) mmol/L Carbon Dioxide 24 (22-32) mmol/L BUN 10 (7-17) mg/dL Creatinine 0.54 (0.52-1.04) mg/dL Estimated GFR > 60.0 (>60) mL/min BUN/Creatinine Ratio 18.5 (6-22) Glucose 125 H (80-110) mg/dL Calcium 9.7 (8.4-10.2) mg/dL Total Bilirubin 1.2 (0.2-1.3) mg/dL AST 41 H (14-36) IU/L ALT 21 (<35) IU/L Alkaline Phosphatase 120 (38-126) U/L Total Protein 7.8 (6.3-8.2) g/dL Albumin 4.5 (3.5-5.0) g/dL Globulin 3.3 (1.7-4.1) g/dL Albumin/Globulin Ratio 1.4 (1.0-2.8) Urine RBC 1-5/hpf (0-5/HPF) Urine WBC None seen (0-5/HPF) Ur Squamous Epith Cells 1-5 /hpf (0-5/HPF) Urine Bacteria None seen (None) Ur Culture Indicated? Cult not indicated Urine Dip Bedside Urine Glucose Negative Bedside Urine Bilirubin - Negative Bedside Urine Ketone - Negative Urine Specific [place] 1.010 Bedside Urine Occult Blood + Bedside Urine pH 6.0 Bedside Urine Protein +/- 15 Bedside Urine Urobilinogen - Negative Bedside Urine Nitrite - Negative Bedside Urine Leukocytes - Negative Esterase Imaging Data CT scan - abdomen/pelvis: Radiologist's Impression: PROCEDURE:? CT ABDOMEN PELVIS WO CON ? INDICATIONS:? back pain - kidney stone ? TECHNIQUE:? Axial sections were acquired from the lung bases to the pubic symphysis.? Coronal and sagittal reformats were performed.? For radiation dose reduction, the following was used: ?automated exposure control, adjustment of mA and/or kV according to patient size.? ? COMPARISON:? None. ? FINDINGS:? Image quality:? Excellent.? ? Lung bases:? Minimal left atelectasis.? ? Heart:? No significant findings. ? URINARY: Right Kidney: ? No stones or hydronephrosis.? Right Ureter:? No hydroureter.? ? Left Kidney: ? No stones or hydronephrosis. Left Ureter:? No hydroureter.? ? Bladder:? Normal wall thickness. No stones. ? ? ? ABDOMEN: Liver:? Unremarkable.? ? Gallbladder:? Unremarkable.? ? Biliary ducts:? Unremarkable.? ? Pancreas:? Unremarkable.? ? Spleen:? Unremarkable.? ? Adrenal Glands:? Unremarkable.? ? ? Stomach and Bowel:? Stomach, small bowel loops, and colon are unremarkable.? The appendix is not dilated.? Peritoneum:? No abnormal intraperitoneal fluid.? No free air.? ? Ventral Wall: ? No hernia.? Abdominal Nodes:? No enlarged retroperitoneal or mesenteric lymph nodes.? Vessels:? Aorta and inferior vena cava are normal in size.? Moderate calcified plaque.? ? PELVIS: Pelvic Organs:? Uterus is unremarkable.? ? Pelvic Nodes: Unremarkable. Miscellaneous: No inguinal hernias are seen. ? ? ? Bones:? No compression fracture.? No suspicious lesion. ? IMPRESSION:? 1. No kidney stones.? No hydronephrosis. ? 2. Normal appendix.? No free fluid. MDM Narrative Medical decision making narrative: Patient was evaluated in the emergency room today for severe low back pain. Blood work CT was done which was all unremarkable. Her work condition requires frequent bending and lifting and as result I believe that this she has strained her lower back. A few days off of work muscle relaxers anti-inflammatories should be enough to diminish her pain and make it tolerable. If her low back continues she will need a referral to neuro for further workup and evaluation. Patient was discharged home Discharge Plan Departure Patient Disposition: Home Clinical Impression: Lumbar back sprain Instructions: DI for Back Spasm Activity Restrictions/Additional Instructions: Patient will require 2 days off work return to work on Monday without any limitations. Prescriptions: New cyclobenzaprine 10 mg tablet 10 mg PO Q8H PRN (Reason: muscle spasm) Qty: 21 0RF ibuprofen 800 mg tablet 800 mg PO Q8H PRN (Reason: pain) Qty: 21 0RF No Action Aspirin 81 mg PO DAILY 0RF amoxicillin-pot clavulanate [Augmentin] 875-125 mg tablet 1 tab PO BID 10 Days Qty: 20 0RF Rx Instructions: Take with food. Finish all of this medication. metformin [Glucophage] 500 MG tablet 500 mg PO DAILY Qty: 0 0RF prednisone 10 mg tablet See Rx Instructions .ROUTE .COMPLEX Qty: 30 0RF Rx Instructions: Day 1,2,3: 40mg PO Daily Day 4,5,6: 30mg PO Daily Day 7,8,9: 20mg PO Daily Day 10,11,12: 10mg PO Daily #30 benzonatate [Tessalon Perles] 100 mg capsule 100 mg PO TID PRN (Reason: cough) Qty: 14 0RF doxycycline hyclate 100 mg tablet 100 mg PO BID Qty: 20 0RF fluoxetine 20 mg Tablet 20 mg PO DAILY Qty: 0 0RF omeprazole 20 mg Capsule,Delayed Release(Dr/Ec) 20 mg PO DAILY 0RF meloxicam 7.5 mg Tablet 7.5 mg BEDTIME 0RF albuterol sulfate 90 mcg/actuation Hfa Aerosol Inhaler 2 puff INHALATION Q4-6H PRN (Reason: shortness of breath) 0RF lisinopril 10 mg tablet 10 mg PO DAILY Qty: 90 3RF nicotine [Nicoderm CQ] 21 mg/24 hr patch 24 hour 1 patch transdermal DAILY Qty: 14 0RF atorvastatin 10 mg Tablet See Rx Instructions .ROUTE .COMPLEX 0RF Rx Instructions: unsure of dosage prednisone 10 mg tablet 10 mg PO DAILY Qty: 42 0RF Rx Instructions: Patient has tapering instructions cyclobenzaprine 10 mg tablet 10 mg PO TID PRN (Reason: muscle spasm) Qty: 10 0RF hydrocodone-acetaminophen 5-325 mg tablet 1 tab PO Q4-6H PRN (Reason: pain) Qty: 14 0RF Referrals: Brenda Vieyra MD [Primary Care Provider] - Stand Alone Forms: Work Release Note
[2021-05-30 18:09] LABS: Bacteria Urine None Seen; Culture Indicated Urine Cult Not Indicated; RBC Urine 1-5/HPF (0-5/HPF); Squamous Epithelial Cell Urine 1-5 /HPF (0-5/HPF); WBC Urine None Seen (0-5/HPF)
[2021-05-30 18:13] LABS: Add Manual Diff / Slide Review NO; Basophils Absolute Auto 0 /uL (0-100); Basophils Percent Auto 0.5 % (0-2); Eosinophils Absolute Auto 100 /uL (0-450); Eosinophils Percent Auto 1.9 % (2-4); Hematocrit 37.2 % (36-46); Hemoglobin 12.7 g/dL (12.0-16.0); Lymphocytes Absolute Auto 1300 /uL (1100-4500); Lymphocytes Percent Auto 19.5 % (25-40); Mean Corpuscular HGB Conc 34.2 % (30-36); Mean Corpuscular Hemoglobin 32.2 PG (26-34); Mean Corpuscular Volume 94.2 fL (80-100); Monocytes Absolute Auto 700 /uL (0-900); Monocytes Percent Auto 10.7 % (3-14); Neutrophils Absolute Auto 4500 /uL (1500-7000); Neutrophils Percent Auto 67.4 % (50-75); Platelet Count 180 X10^3/uL (150-400); Red Blood Cell Count 3.95 X10^6/uL (4.0-5.2); Red Cell Distribution Width 12.2 % (11.6-14.8); White Blood Cell Count 6.7 X10^3/uL (4.5-11.0)
[2021-05-30] MEDS: fentaNYL 100 MCG/2 ML INJ 50 MCG IV (18:20)
[2021-05-30 18:26] LABS: Alanine Aminotransferase 21 IU/L (<35); Albumin 4.5 g/dL (3.5-5.0); Albumin Globulin Ratio 1.4 (1.0-2.8); Alkaline Phosphatase 120 U/L (38-126); Aspartate Aminotransferase 41 IU/L (14-36); BUN Creatinine Ratio 18.5 (6-22); Bilirubin Total 1.2 mg/dL (0.2-1.3); Blood Urea Nitrogen 10 mg/dL (7-17); Calcium 9.7 mg/dL (8.4-10.2); Carbon Dioxide 24 mmol/L (22-32); Chloride 100 mmol/L (98-107); Estimated Glomerular Filt Rate > 60.0 mL/min (>60); Globulin 3.3 g/dL (1.7-4.1); Glucose 125 mg/dL (80-110); HEMOLYSIS 46 (0-50); Potassium 4.1 mmol/L (3.4-5.1); Sodium 133 mmol/L (137-145); Total Protein 7.8 g/dL (6.3-8.2)
[2021-05-30 19:23] VITALS: BP 138/63; PULSE 90; O2SAT 98
--- NOTE | 2021-05-30 19:27 | PC.NURSE ---
Patient decided to ambulate instead of use wheelchair for discharge. Steady gait.
== END 2021-05-30 19:27 | disposition home or self-care (01) ==
PROVIDERS: Emergency Medicine; Emergency Provider Physician Assistant; PCP Student in an Organized Health Care Education/Training Program
DX: S33.5XXA Sprain of ligaments of lumbar spine, initial encounter (principal); X58.XXXA Exposure to other specified factors, initial encounter
CPT/HCPCS: 36415; 74176; 80053; 81003; 81015; 85025; 87077; 87086; 87186; 96374; 99284; J3010

== ENCOUNTER → 2022-04-04 08:04 | Outpatient (CLI) | payer OTHER, SELFPAY ==
[2022-04-10 12:46] VITALS: BMI 19.9
== END ==
PROVIDERS: PCP Student in an Organized Health Care Education/Training Program; Referring Provider Internal Medicine; Visit Provider Internal Medicine
DX: Z23 Encounter for immunization (principal)
CPT/HCPCS: 90471; 90686

== ENCOUNTER 2022-04-10 03:56 | Inpatient (IN) | payer OTHER, SELFPAY ==
[2020-01-11 16:23] VITALS: BMI 20.9
[2022-04-10] VITALS (29 sets, daily range): BP systolic 127–235; BP diastolic 60–98; PULSE 91–129; RESP 18–40; TEMP 37.1–38.5; O2SAT 90–99; BMI 20.9; BMI 19.9
--- NOTE | 2022-04-10 04:23 | DI.RAD.S_ITS ---
PROCEDURE: XR CHEST 1V INDICATIONS: coughing, short of breath, h/o COPD TECHNIQUE: One view of the chest was acquired. COMPARISON: [facility], CT, CT CHEST WO CON, 01/11/2020, 18:41. [facility], CR, CHEST 1 VIEW, 08/10/2007, 17:34. [facility], CR, XR CHEST 1V, 01/11/2020, 14:34. [facility], CR, XR CHEST 2V, 01/21/2021, 20:22. [facility], CR, XR CHEST 1V, 02/24/2021, 2:15. FINDINGS: Surgical changes and devices: None. Lungs and pleura: Minimal nodules can be seen within the left suprahilar region. The lungs otherwise appear clear. No pleural effusions or pneumothorax. Mediastinum: Mediastinal contours appear normal. Heart size is normal. Atherosclerotic calcification of the aortic arch is noted. Bones and chest wall: No suspicious bony lesions. Age-appropriate bony degenerative changes are seen. Overlying soft tissues appear unremarkable. IMPRESSION: Minimal nodular opacity can be seen within the left suprahilar region. If clinically appropriate, please consider short-term follow-up. Note: No significant discrepancy from the preliminary report. Dictated by: Gerald Grubbs M.D. on 04/10/2022 at 7:30 Approved by: Gerald Grubbs M.D. on 04/10/2022 at 7:35
[2022-04-10 05:02] LABS: Influenza A - CEPHEID Flu A POSITIVE (NEGATIVE); Influenza B - CEPHEID Flu B NEGATIVE (NEGATIVE); Respiratory Syncytial Virus Negative (Negative)
[2022-04-10 05:05] LABS: COVID-19 CEPHEID 4-PLEX PCR Negative (Negative)
[2022-04-10] MEDS: SODIUM CHLORIDE 0.9% 1,000 ML 1000 ML IV (05:45)
[2022-04-10 05:50] LABS: Add Manual Diff / Slide Review NO; Basophils Absolute Auto 0 /uL (0-100); Basophils Percent Auto 0.7 % (0-2); Eosinophils Absolute Auto 0 /uL (0-450); Eosinophils Percent Auto 0.1 % (2-4); Hematocrit 37.6 % (36-46); Hemoglobin 12.8 g/dL (12.0-16.0); Lymphocytes Absolute Auto 300 /uL (1100-4500); Mean Corpuscular HGB Conc 34.2 % (30-36); Mean Corpuscular Hemoglobin 31.3 PG (26-34); Mean Corpuscular Volume 91.5 fL (80-100); Monocytes Absolute Auto 400 /uL (0-900); Monocytes Percent Auto 9.4 % (3-14); Neutrophils Absolute Auto 3500 /uL (1500-7000); Neutrophils Percent Auto 81.8 % (50-75); Platelet Count 122 X10^3/uL (150-400); Red Blood Cell Count 4.11 X10^6/uL (4.0-5.2); Red Cell Distribution Width 12.4 % (11.6-14.8); White Blood Cell Count 4.3 X10^3/uL (4.5-11.0)
[2022-04-10 06:02] LABS: Lactate (Lactic Acid) 1.7 mmol/L (0.7-2.1)
[2022-04-10 06:03] LABS: Alanine Aminotransferase 24 IU/L (<35); Albumin 4.5 g/dL (3.5-5.0); Albumin Globulin Ratio 1.6 (1.0-2.8); Alkaline Phosphatase 167 U/L (38-126); Aspartate Aminotransferase 58 IU/L (14-36); BUN Creatinine Ratio 10.8 (6-22); Bilirubin Total 0.4 mg/dL (0.2-1.3); Blood Urea Nitrogen 7 mg/dL (7-17); Calcium 8.7 mg/dL (8.4-10.2); Carbon Dioxide 23 mmol/L (22-32); Chloride 99 mmol/L (98-107); Creatine Kinase 235 U/L (30-135); Estimated Glomerular Filt Rate > 60 mL/min (>60); Globulin 2.9 g/dL (1.7-4.1); Glucose 190 mg/dL (80-110); HEMOLYSIS < 15 (0-50); Potassium 3.9 mmol/L (3.4-5.1); Sodium 134 mmol/L (137-145); Total Protein 7.4 g/dL (6.3-8.2)
[2022-04-10 06:15] LABS: Troponin I 0.114 ng/mL (0.01-0.034)
[2022-04-10 06:18] LABS: Creatine Kinase MB 2.36 ng/mL (<2.37)
[2022-04-10] MEDS: KETOROLAC 30 MG/ML VIAL 15 MG IV (06:24)
--- NOTE | 2022-04-10 07:38 | ED.CHESTPAIN ---
HPI - Chest Pain General Chief Complaint: Upper Respiratory Symptoms Stated Complaint: COUGHING/HEADACHE/BODY ACHES Time Seen by Provider: 04/10/22 04:49 Source: patient Mode of arrival: Ambulatory Limitations: no limitations History of Present Illness HPI narrative: This a 66 year old female with history of COPD, hypertension, diabetes and dyslipidemia. Patient states Monday she started having cough, she states it was productive but that has stopped she has not had any hemoptysis. Patient has had some chest discomfort which she states has been persistent without any waxing and waning, she is felt short of breath, she is felt wheezy, she denies nausea or vomiting, no swelling in her extremities. She is had some dizziness but no passing out, patient denies any persistent productive sputum. She takes her Advair every single day regardless of how she feels. She uses her albuterol only for emergencies but has been using it several times daily since Monday when her symptoms started. Patient has not had fevers that she is aware. Patient denies any known drug allergies. Related Data Home Medications Medication Instructions Recorded Confirmed metformin 500 mg tablet 1,000 mg PO DAILY ##0 05/23/17 04/10/22 (Glucophage) albuterol sulfate 90 mcg/actuation 2 puff inhalation Q4-6H PRN 01/11/20 04/10/22 aerosol inhaler shortness of breath Aspirin 81 mg PO DAILY 05/27/21 04/10/22 clopidogrel 75 mg tablet 75 mg PO DAILY 04/10/22 04/10/22 fluoxetine 40 mg capsule 40 mg PO DAILY 04/10/22 04/10/22 fluticasone propionate 45 2 puff inhalation BID 04/10/22 04/10/22 mcg-salmeterol 21 mcg/actuation HFA inhaler (Advair HFA) lisinopril 40 mg tablet 40 mg PO DAILY 04/10/22 04/10/22 pantoprazole 40 mg tablet,delayed 40 mg PO BID 04/10/22 04/10/22 release rosuvastatin 40 mg tablet 40 mg PO DAILY 04/10/22 04/10/22 Allergies Allergy/AdvReac Type Severity Reaction Status Date / Time No Known Drug Allergies Allergy Verified 05/27/21 11:38 Review of Systems Review of Systems ROS Unobtainable: All systems reviewed & are unremarkable except as noted in HPI and below Patient History Medical History COPD (chronic obstructive pulmonary disease) Depression Hyperlipidemia Hypertension Social History household members: none Smoking Status: Current every day smoker alcohol intake: current Smoking Status: Current every day smoker tobacco type: cigarettes alcohol intake frequency: 3 or more drinks per day Substance Use Type: does not use Exam Narrative Exam Narrative: GENERAL: Alert and oriented x three, female in [id number] distress. HEENT: Head normocephalic, atraumatic, EOMI, pupils reactive, face symmetric, moist mucous membranes NECK: Supple, full range of motion CARDIOVASCULAR: Tachycardic but Regular rate and rhythm without murmurs, rubs or gallops. No JVD. No swelling bilateral lower extremities. RESPIRATORY: Breath sounds equal bilaterally, mild wheeze bilaterally, no rales or rhonchi. Patient has tachypnea, no accessory muscle use. ABDOMEN: Soft, nontender. Normoactive bowel sounds all 4 quadrants. No guarding or rebound, rigidity, no mass : No CVA tenderness EXTREMITIES: Normal range of motion, no clubbing or edema. Neurovascularly intact NEUROLOGICAL: Cranial nerves II through XII grossly intact. Moving all extremities SKIN: Warm, dry, no petechiae, no rashes or lesions. Initial Vital Signs Initial Vital Signs: Vital Signs Temperature 101.3 F H 04/10/22 04:13 Pulse Rate 125 H 04/10/22 04:13 Respiratory Rate 40 H 04/10/22 04:13 Blood Pressure 235/98 H 04/10/22 04:13 Pulse Oximetry 93 04/10/22 04:13 Oxygen Delivery Method 04/10/22 04:13 Course Orders Ordered: Hydrocodone Bitart/Acetaminophen (Hydrocodone/Acet 5/325 Tablet) 1 tab PO Q4H PRN PRN Reason: Pain, Moderate (4-6) Last Admin: 04/10/22 21:59 Dose: 1 tab Documented By: TLS Aspirin (Aspirin Ec 325 Mg Tablet) 325 mg PO DAILY [facility] Last Admin: 04/11/22 08:16 Dose: 325 mg Documented By: HCW Atorvastatin Calcium (Atorvastatin 20 Mg Tablet) 20 mg PO BEDTIME [facility] Last Admin: 04/10/22 20:13 Dose: 20 mg Documented By: AM Benzonatate (Benzonatate 100 Mg Capsule) 100 mg PO TID PRN PRN Reason: cough Last Admin: 04/10/22 15:37 Dose: 100 mg Documented By: NR Dextrose (Dextrose 50 % In Water 25 Gm/50 Ml Syringe) 25 gm IV PRN PRN PRN Reason: Hypoglycemia Enoxaparin Sodium (Enoxaparin 40 Mg/0.4 Ml Syringe) 40 mg SUBCUT DAILY [facility] Last Admin: 04/11/22 08:16 Dose: 40 mg Documented By: Admin: 04/10/22 15:37 Dose: 40 mg Documented By: NR Fluoxetine HCl (Fluoxetine 20 Mg Capsule) 20 mg PO DAILY [facility] Last Admin: 04/11/22 08:16 Dose: 20 mg Documented By: HCW Guaifenesin (Guaifenesin Er 600 Mg Tab) 600 mg PO BID [facility] Last Admin: 04/11/22 11:05 Dose: 600 mg Documented By: SYEDAW Guaifenesin/Codeine Phosphate (Codeine/Guaifenesin Liquid 5ml Udc) 10 ml PO Q6H PRN PRN Reason: Cough Azithromycin 500 mg/ Dextrose 250 mls @ 250 mls/hr IV Q24H [facility] Last Infusion: 04/10/22 17:43 Dose: 0 mls/hr Documented By: Admin: 04/10/22 15:37 Dose: 250 mls/hr Documented By: NR Ibuprofen (Ibuprofen 600 Mg Tablet) 600 mg PO Q6H PRN PRN Reason: Fever/Mild Pain (1-3) Insulin Human Lispro (Insulin Lispro 100 Unit/Ml 3ml Vial) 0 unit SUBCUT ACHS [facility]; Protocol Last Admin: 04/11/22 08:14 Dose: 1 unit Documented By: HCW Co-signed By: CK Admin: 04/10/22 20:13 Dose: Not Given Documented By: Admin: 04/10/22 17:25 Dose: 7 unit Documented By: CLL Co-signed By: ALONDRA Lisinopril (Lisinopril 20 Mg Tablet) 40 mg PO DAILY [facility] Last Admin: 04/11/22 11:05 Dose: 40 mg Documented By: HCW Methylprednisolone (Methylprednisolone 125 Mg/2 Ml Vial) 60 mg IV Q8H [facility] Last Admin: 04/11/22 09:32 Dose: Not Given Documented By: HCW Metoprolol Tartrate (Metoprolol Ir 25 Mg Tablet) 12.5 mg PO BID [facility] Morphine Sulfate (Morphine 2 Mg/Ml Inj) 2 mg IV Q5MIN PRN PRN Reason: Chest Pain Naloxone HCl (Naloxone 0.4 Mg/Ml Vial) 0.2 mg IV Q2MIN PRN PRN Reason: Opiate Reversal Nitroglycerin (Nitroglycerin 0.4 Mg Sl Tab) 0.4 mg SL [id number] PRN PRN Reason: Chest Pain Nitroglycerin (Nitroglycerin Oint 1 Inch/Gm Oint...G.) 0.25 inch TOP Q6HR [facility] Pantoprazole Sodium (Pantoprazole Dr 20 Mg Tablet) 20 mg PO 0600 [facility] Last Admin: 04/11/22 07:01 Dose: 20 mg Documented By: AM Discontinued Medications Albuterol/Ipratropium (Albuterol/Ipratropium 3 Ml Ampul) 3 ml INH NOW ONE Stop: 04/10/22 08:20 Last Admin: 04/10/22 08:23 Dose: 3 ml Documented By: SANTOS Aspirin (Aspirin 81 Mg Chew Tab) 324 mg PO NOW ONE Stop: 04/10/22 07:29 Last Admin: 04/10/22 08:09 Dose: 324 mg Documented By: RB Sodium Chloride (Normal Saline 0.9%) 1,000 mls @ 1,000 mls/hr IV BOLUS ONE Stop: 04/10/22 05:49 Last Infusion: 04/10/22 08:27 Dose: 0 mls/hr Documented By: Admin: 04/10/22 05:45 Dose: 1,000 mls/hr Documented By: MEGAN Dextrose/Sodium Chloride (Dextrose 5%-0.9% Ns) 1,000 mls @ 100 mls/hr IV CONT [facility] Last Admin: 04/10/22 17:50 Dose: Not Given Documented By: CLL Sodium Chloride (Normal Saline 0.9%) 1,000 mls @ 100 mls/hr IV CONT [facility] Last Admin: 04/11/22 03:05 Dose: 100 mls/hr Documented By: Infusion: 04/11/22 03:05 Dose: 100 mls/hr Documented By: Admin: 04/10/22 17:24 Dose: 100 mls/hr Documented By: JAMES Ketorolac Tromethamine (Ketorolac 30 Mg/Ml Vial) 15 mg IV NOW ONE Stop: 04/10/22 06:11 Last Admin: 04/10/22 06:24 Dose: 15 mg Documented By: NR Methylprednisolone (Methylprednisolone 125 Mg/2 Ml Vial) 125 mg IV NOW ONE Stop: 04/10/22 08:21 Last Admin: 04/10/22 09:24 Dose: 125 mg Documented By: NR Methylprednisolone (Methylprednisolone 125 Mg/2 Ml Vial) 60 mg IV DAILY [facility] Last Admin: 04/11/22 08:16 Dose: 60 mg Documented By: HCW Metoprolol Succinate (Metoprolol Er 50 Mg Tablet) 50 mg PO NOW ONE Stop: 04/10/22 14:04 Last Admin: 04/10/22 15:49 Dose: 50 mg Documented By: NR Potassium Chloride (Potassium Chloride 20 Meq Tab) 20 meq PO NOW ONE Stop: 04/11/22 10:35 Last Admin: 04/11/22 11:58 Dose: 20 meq Documented By: HCW Vital Signs Vital signs: Vital Signs - 8 hr 04/10/22 04:13 04/10/22 04:41 04/10/22 05:49 Temperature 101.3 F H Pulse Rate 125 H 125 H 117 H Respiratory Rate 40 H Blood Pressure 235/98 H Pulse Oximetry 93 94 92 Oxygen Delivery Method Room Air 04/10/22 06:00 04/10/22 06:22 04/10/22 06:22 Temperature Pulse Rate 119 H 125 H Respiratory Rate Blood Pressure 194/84 H Pulse Oximetry 90 L 91 Oxygen Delivery Method 04/10/22 06:27 04/10/22 06:27 04/10/22 06:30 Temperature Pulse Rate 125 H Respiratory Rate Blood Pressure 201/84 H 180/77 H Pulse Oximetry 93 Oxygen Delivery Method 04/10/22 06:30 04/10/22 07:00 04/10/22 07:00 Temperature Pulse Rate 124 H 121 H Respiratory Rate Blood Pressure 151/67 H Pulse Oximetry 90 L 91 Oxygen Delivery Method 04/10/22 07:30 04/10/22 07:30 04/10/22 08:24 Temperature Pulse Rate 120 H 127 H Respiratory Rate 22 Blood Pressure 146/67 H Pulse Oximetry 91 96 Oxygen Delivery Method Room Air 04/10/22 07:59 04/10/22 07:59 04/10/22 08:00 Temperature Pulse Rate 129 H 129 H Respiratory Rate Blood Pressure 178/81 H Pulse Oximetry 94 94 Oxygen Delivery Method 04/10/22 08:01 04/10/22 08:01 Temperature 98.9 F Pulse Rate 128 H Respiratory Rate Blood Pressure 169/68 H Pulse Oximetry 94 Oxygen Delivery Method MDM - Chest Pain Lab Data Result diagrams: 04/11/22 06:35 04/11/22 06:35 Labs: Lab Results 04/10/22 04/10/22 04/10/22 Range/Units 04:09 05:35 05:35 WBC 4.3 L (4.5-11.0) X10^3/uL RBC 4.11 (4.0-5.2) X10^6/uL Hgb 12.8 (12.0-16.0) g/dL Hct 37.6 (36-46) % MCV 91.5 (80-100) fL MCH 31.3 (26-34) PG MCHC 34.2 (30-36) % RDW 12.4 (11.6-14.8) % Plt Count 122 L (150-400) X10^3/uL Neut % (Auto) 81.8 H (50-75) % Lymph % (Auto) 8.0 L (25-40) % [place] % (Auto) 9.4 (3-14) % Eos % (Auto) 0.1 L (2-4) % Baso % (Auto) 0.7 (0-2) % Neut # (Auto) 3500 (5026-0929) /uL Lymph # (Auto) 300 L (6496-3636) /uL [place] # (Auto) 400 (0-900) /uL Eos # (Auto) 0 (0-450) /uL Baso # (Auto) 0 (0-100) /uL D-Dimer (<500) ng/ml Sodium 134 L (137-145) mmol/L Potassium 3.9 (3.4-5.1) mmol/L Chloride 99 (98-107) mmol/L Carbon Dioxide 23 (22-32) mmol/L BUN 7 (7-17) mg/dL Creatinine 0.65 (0.52-1.04) mg/dL Estimated GFR > 60 (>60) mL/min BUN/Creatinine Ratio 10.8 (6-22) Glucose 190 H (80-110) mg/dL Lactate (0.7-2.1) mmol/L Calcium 8.7 (8.4-10.2) mg/dL Total Bilirubin 0.4 (0.2-1.3) mg/dL AST 58 H (14-36) IU/L ALT 24 (<35) IU/L Alkaline Phosphatase 167 H (38-126) U/L Total Creatine Kinase 235 H (30-135) U/L CK-MB (CK-2) 2.36 (<2.37) ng/mL CK-MB (CK-2) Rel Index 1.0 L (1.5-5.0) % Troponin I 0.114 H (0.01-0.034) ng/mL NT-Pro-B Natriuret Pep (<125) pg/mL Total Protein 7.4 (6.3-8.2) g/dL Albumin 4.5 (3.5-5.0) g/dL Globulin 2.9 (1.7-4.1) g/dL Albumin/Globulin Ratio 1.6 (1.0-2.8) Procalcitonin 0.20 (<0.5) ng/mL SARS-CoV-2 (PCR) Negative (Negative) Influenza A (RT-PCR) Flu a positive H (NEGATIVE) Influenza B (RT-PCR) Flu b negative (NEGATIVE) RSV (PCR) Negative (Negative) 04/10/22 04/10/22 04/10/22 Range/Units 05:35 08:20 08:20 WBC (4.5-11.0) X10^3/uL RBC (4.0-5.2) X10^6/uL Hgb (12.0-16.0) g/dL Hct (36-46) % MCV (80-100) fL MCH (26-34) PG MCHC (30-36) % RDW (11.6-14.8) % Plt Count (150-400) X10^3/uL Neut % (Auto) (50-75) % Lymph % (Auto) (25-40) % [place] % (Auto) (3-14) % Eos % (Auto) (2-4) % Baso % (Auto) (0-2) % Neut # (Auto) (6230-6935) /uL Lymph # (Auto) (9178-5419) /uL [place] # (Auto) (0-900) /uL Eos # (Auto) (0-450) /uL Baso # (Auto) (0-100) /uL D-Dimer 581 H (<500) ng/ml Sodium (137-145) mmol/L Potassium (3.4-5.1) mmol/L Chloride (98-107) mmol/L Carbon Dioxide (22-32) mmol/L BUN (7-17) mg/dL Creatinine (0.52-1.04) mg/dL Estimated GFR (>60) mL/min BUN/Creatinine Ratio (6-22) Glucose (80-110) mg/dL Lactate 1.7 (0.7-2.1) mmol/L Calcium (8.4-10.2) mg/dL Total Bilirubin (0.2-1.3) mg/dL AST (14-36) IU/L ALT (<35) IU/L Alkaline Phosphatase (38-126) U/L Total Creatine Kinase (30-135) U/L CK-MB (CK-2) (<2.37) ng/mL CK-MB (CK-2) Rel Index (1.5-5.0) % Troponin I 0.288 H* (0.01-0.034) ng/mL NT-Pro-B Natriuret Pep (<125) pg/mL Total Protein (6.3-8.2) g/dL Albumin (3.5-5.0) g/dL Globulin (1.7-4.1) g/dL Albumin/Globulin Ratio (1.0-2.8) Procalcitonin (<0.5) ng/mL SARS-CoV-2 (PCR) (Negative) Influenza A (RT-PCR) (NEGATIVE) Influenza B (RT-PCR) (NEGATIVE) RSV (PCR) (Negative) 04/10/22 04/10/22 Range/Units 08:20 08:20 WBC (4.5-11.0) X10^3/uL RBC (4.0-5.2) X10^6/uL Hgb (12.0-16.0) g/dL Hct (36-46) % MCV (80-100) fL MCH (26-34) PG MCHC (30-36) % RDW (11.6-14.8) % Plt Count (150-400) X10^3/uL Neut % (Auto) (50-75) % Lymph % (Auto) (25-40) % [place] % (Auto) (3-14) % Eos % (Auto) (2-4) % Baso % (Auto) (0-2) % Neut # (Auto) (0147-1177) /uL Lymph # (Auto) (8757-9872) /uL [place] # (Auto) (0-900) /uL Eos # (Auto) (0-450) /uL Baso # (Auto) (0-100) /uL D-Dimer (<500) ng/ml Sodium (137-145) mmol/L Potassium (3.4-5.1) mmol/L Chloride (98-107) mmol/L Carbon Dioxide (22-32) mmol/L BUN (7-17) mg/dL Creatinine (0.52-1.04) mg/dL Estimated GFR (>60) mL/min BUN/Creatinine Ratio (6-22) Glucose (80-110) mg/dL Lactate 1.4 (0.7-2.1) mmol/L Calcium (8.4-10.2) mg/dL Total Bilirubin (0.2-1.3) mg/dL AST (14-36) IU/L ALT (<35) IU/L Alkaline Phosphatase (38-126) U/L Total Creatine Kinase (30-135) U/L CK-MB (CK-2) (<2.37) ng/mL CK-MB (CK-2) Rel Index (1.5-5.0) % Troponin I (0.01-0.034) ng/mL NT-Pro-B Natriuret Pep 959 H (<125) pg/mL Total Protein (6.3-8.2) g/dL Albumin (3.5-5.0) g/dL Globulin (1.7-4.1) g/dL Albumin/Globulin Ratio (1.0-2.8) Procalcitonin (<0.5) ng/mL SARS-CoV-2 (PCR) (Negative) Influenza A (RT-PCR) (NEGATIVE) Influenza B (RT-PCR) (NEGATIVE) RSV (PCR) (Negative) Imaging Data Chest x-ray: Radiologist's Impression: [address] [address] XRay Report Signed Patient: Edwina Woods MR#: [id number] : 1955 Acct:[id number] Age/Sex: 66 / F Date of Service: 04/10/22 Loc: ED Accession Number: [id number] ?? Procedure: XR chest 1V Ordering Provider: Michell Sinclair D.O. PROCEDURE:? XR CHEST 1V ? INDICATIONS:? coughing, short of breath, h/o COPD ? TECHNIQUE:? One view of the chest was acquired.? ? COMPARISON:? [facility], CT, CT CHEST WO CON, 01/11/2020, 18:41.? [facility], CR, CHEST 1 VIEW, 08/10/2007, 17:34.? [facility], CR, XR CHEST 1V, 01/11/2020, 14:34.? [facility], CR, XR CHEST 2V, 01/21/2021, 20:22.? [facility], CR, XR CHEST 1V, 02/24/2021, 2:15. ? FINDINGS:? ? Surgical changes and devices:? None.? ? Lungs and pleura:? Minimal nodules can be seen within the left suprahilar region.? The lungs otherwise appear clear.? No pleural effusions or pneumothorax.? ? Mediastinum:? Mediastinal contours appear normal.? Heart size is normal.? Atherosclerotic calcification of the aortic arch is noted.? ? Bones and chest wall:? No suspicious bony lesions.? Age-appropriate bony degenerative changes are seen.? ? Overlying soft tissues appear unremarkable.? ? ? IMPRESSION:? Minimal nodular opacity can be seen within the left suprahilar region.? If clinically appropriate, please consider short-term follow-up. ? Note: No significant discrepancy from the preliminary report. ? ? ? Dictated by: Gerald Grubbs M.D. on 04/10/2022 at 7:30 ? ? Approved by: Gerald Grubbs M.D. on 04/10/2022 at 7:35?? CT scan - chest: Radiologist's Impression: Close Chest CTA (Signed) Gerald Grubbs - 04/10/22 Chest X-Ray (Signed) Gerald Grubbs - 04/10/22 Launch?Image [address] [address] [address] Scan Report Signed Patient: Edwina Woods MR#: [id number] : 1955 Acct:[id number] Age/Sex: 66 / F Date of Service: 04/10/22 Loc: ED Accession Number: [id number] ?? Procedure: CT angio chest PE protocol Ordering Provider: Herminia Wood D.O. PROCEDURE:? CT ANGIO CHEST PE PROTOCOL ? INDICATIONS:? influenza, + trop, + dimer ? TECHNIQUE:? After the administration of intravenous contrast, 2 mm thick sections acquired from the pulmonary apices to the posterior costophrenic angles.? 3-dimensional maximum intensity projection (MIP) coronal and sagittal reformats were then acquired through the thorax.? For radiation dose reduction, the following was used:? automated exposure control, adjustment of mA and/or kV according to patient size.? ? COMPARISON:? [facility], CT, CT CHEST ABD PEL W CON, 08/09/2019, 2:57.? [facility], CT, CT CHEST WO CON, 01/11/2020, 18:41.? [facility], CR, XR CHEST 1V, 04/10/2022, 4:34. ? FINDINGS:? Image quality:? Excellent.? ? Pulmonary arteries:? Pulmonary arteries are normal in size, and demonstrate no intraluminal filling defects to suggest central pulmonary embolism.? ? Lungs and pleura:? There is mild ground-glass opacity seen involving the anterior right middle lobe, the lingula, and the left lower lobe.? No consolidated infiltrates are seen. ?No definite correlate is seen for the suprahilar nodular appearing opacity.? ? Tiny pulmonary nodules are seen that measure up to 5 mm.? These are similar to prior studies, without enlargement.? No new nodules are seen. ? No pneumothorax or pleural effusions are seen. The central airways are patent. Centrilobular emphysematous changes are seen. These are more prominent at the lung apices than at the lung bases. ? Mediastinum:? Heart size is normal, without pericardial effusion.? No mediastinal or hilar adenopathy.? Thoracic aorta is normal in caliber and enhancement. Atherosclerotic calcification is noted. ? Esophagus is normal in caliber, without hiatal hernia.? ? Bones and chest wall:? No suspicious bony lesions.? Mild dextroconvex scoliotic curvature is seen. ? Ribs and thoracic spine appear intact throughout.? Thyroid gland demonstrates no significant abnormality.? No axillary or supraclavicular adenopathy.? ? Abdomen:? Visualized upper abdominal solid organs appear normal in the early arterial phase of enhancement.? IMPRESSION:? Negative for pulmonary embolism. ? Scattered areas of ground-glass opacity are seen, which are consistent with viral infection. ? No CT correlate is found for the nodular appearing left suprahilar opacity.? This is most likely related to artifact from normal vessels. ? Tiny pulmonary nodules are again seen, without new or suspicious nodules.? No specific imaging follow-up is recommended, although attention should be paid to these nodules on any future follow-up studies. ? ? Additional findings: Mild emphysematous change Mild dextroconvex scoliotic curvature ? Dictated by: Gerald Grubbs M.D. on 04/10/2022 at 9:26 ? ? Approved by: Gerald Grubbs M.D. on 04/10/2022 at 9:32?? ECG Data Attestation: I personally reviewed and interpreted this ECG as follows: Interpretation: Sinus tachycardia rate of 128 OH 142 QRS is 72 and QTC 467. No acute ST elevation, patient does not appear to be depressed. EKG 2. Sinus tachycardia rate of 112 OH 152 QRS of 477. No acute ST elevation or depression appreciated. [facility] Narrative Medical decision making narrative: This is a 66-year-old female with what appears to be COPD exacerbation brought on by influenza a, initial labs do show an indeterminate troponin that is close to positive EKG shows sinus tachycardia, will repeat troponin, add on dimer, lactate blood cultures although I suspect this is more viral than bacterial infection but will evaluate further for PE as she is persistently tachycardic despite her fever improving, she does still have wheeze so will give a DuoNeb here in the department. Patient had Toradol earlier which did improve her fever, she would a L fluids patient has not been hypotensive. Patient's repeat troponin is positive suspect possibly demand ischemia, dimer is mildly elevated and with persistent tachycardia which be secondary to infection but did not improve after fluids or neb PE scan was ordered. This is negative. Discharge Plan Departure Patient Disposition: Admitted as Observation Clinical Impression: Influenza A, Acute exacerbation of chronic obstructive pulmonary disease, Non-ST elevation NH (NSTEMI) Admit Date/Time: 04/10/22 11:56 Admit Provider: Femi Benitez
[2022-04-10] MEDS: ASPIRIN 81 MG CHEW TAB 324 MG PO (08:09)
[2022-04-10] MEDS: ALBUTEROL/IPRATROPIUM 3 ML AMPUL INH (08:23)
[2022-04-10 08:44] LABS: D Dimer 581 ng/ml (<500)
[2022-04-10 08:47] LABS: Lactate (Lactic Acid) 1.4 mmol/L (0.7-2.1)
[2022-04-10 08:57] LABS: NT-proBNP (BNP-Adult 18+) 959 pg/mL (<125)
--- NOTE | 2022-04-10 09:14 | DI.CT.S_ITS ---
PROCEDURE: CT ANGIO CHEST PE PROTOCOL INDICATIONS: influenza, + trop, + dimer TECHNIQUE: After the administration of intravenous contrast, 2 mm thick sections acquired from the pulmonary apices to the posterior costophrenic angles. 3-dimensional maximum intensity projection (MIP) coronal and sagittal reformats were then acquired through the thorax. For radiation dose reduction, the following was used: automated exposure control, adjustment of mA and/or kV according to patient size. COMPARISON: [facility], CT, CT CHEST ABD PEL W CON, 08/09/2019, 2:57. [facility], CT, CT CHEST WO CON, 01/11/2020, 18:41. [facility], CR, XR CHEST 1V, 04/10/2022, 4:34. FINDINGS: Image quality: Excellent. Pulmonary arteries: Pulmonary arteries are normal in size, and demonstrate no intraluminal filling defects to suggest central pulmonary embolism. Lungs and pleura: There is mild ground-glass opacity seen involving the anterior right middle lobe, the lingula, and the left lower lobe. No consolidated infiltrates are seen. No definite correlate is seen for the suprahilar nodular appearing opacity. Tiny pulmonary nodules are seen that measure up to 5 mm. These are similar to prior studies, without enlargement. No new nodules are seen. No pneumothorax or pleural effusions are seen. The central airways are patent. Centrilobular emphysematous changes are seen. These are more prominent at the lung apices than at the lung bases. Mediastinum: Heart size is normal, without pericardial effusion. No mediastinal or hilar adenopathy. Thoracic aorta is normal in caliber and enhancement. Atherosclerotic calcification is noted. Esophagus is normal in caliber, without hiatal hernia. Bones and chest wall: No suspicious bony lesions. Mild dextroconvex scoliotic curvature is seen. Ribs and thoracic spine appear intact throughout. Thyroid gland demonstrates no significant abnormality. No axillary or supraclavicular adenopathy. Abdomen: Visualized upper abdominal solid organs appear normal in the early arterial phase of enhancement. IMPRESSION: Negative for pulmonary embolism. Scattered areas of ground-glass opacity are seen, which are consistent with viral infection. No CT correlate is found for the nodular appearing left suprahilar opacity. This is most likely related to artifact from normal vessels. Tiny pulmonary nodules are again seen, without new or suspicious nodules. No specific imaging follow-up is recommended, although attention should be paid to these nodules on any future follow-up studies. Additional findings: Mild emphysematous change Mild dextroconvex scoliotic curvature Dictated by: Gerald Grubbs M.D. on 04/10/2022 at 9:26 Approved by: Gerald Grubbs M.D. on 04/10/2022 at 9:32
[2022-04-10 09:23] LABS: Troponin I 0.288 ng/mL (0.01-0.034)
[2022-04-10] MEDS: methylPREDNISolone 125 MG/2 ML VIAL IV (09:24)
--- NOTE | 2022-04-10 13:50 | P.HP_ITS ---
History of Present Illness History of Present Illness Date Patient Seen: 04/10/22 Time Patient Seen: 13:50 Chief complaint: COUGHING/HEADACHE/BODY ACHES Narrative: Patient states she has not been feeling well since missed work. She said this he had fevers and chills and body weakness. She began to have a headache. Then she had worsening cough. She says she has a history of COPD. Her cough is been quite so bad that she has not been able to sleep. She has had decreased appetite. She progressively got worse over the weekend and presented to the emergency department. She is coughing so hard that she gets short of breath she sometimes gets nauseated. She still has headaches and chills. She got her flu shot last week. She says she uses it at home inhalers and had Mucinex but that was not helping. Patient has a history of COPD hypertension hyperlipidemia diabetes Patient History Medical History COPD (chronic obstructive pulmonary disease) Depression Hyperlipidemia Hypertension Family & Social History Social History: household members none Tobacco & Substance use: Tobacco type cigarettes Smoking Status Current every day smoker alcohol intake current alcohol intake frequency 3 or more drinks per day Substance Use Type does not use Meds Home Medications and Allergies Home Medications Medication Instructions Recorded Confirmed Type metformin 500 mg tablet 500 mg PO DAILY ##0 05/23/17 05/27/21 History (Glucophage) fluoxetine 20 mg tablet 20 mg PO DAILY ##0 01/09/18 05/27/21 History omeprazole 20 mg capsule,delayed 20 mg PO DAILY 01/09/18 05/27/21 History release albuterol sulfate 90 mcg/actuation 2 puff inhalation Q4-6H PRN 01/11/20 05/27/21 History aerosol inhaler shortness of breath meloxicam 7.5 mg tablet 7.5 mg BEDTIME 01/11/20 05/27/21 History lisinopril 10 mg tablet 10 mg PO DAILY #90 tabs 01/12/20 05/27/21 Rx nicotine 21 mg/24 hr daily 1 patch transdermal DAILY #14 ea 01/12/20 05/27/21 Rx transdermal patch (Nicoderm CQ) atorvastatin 10 mg tablet See Rx Instructions .Route .COMPLEX 03/13/20 05/27/21 History benzonatate 100 mg capsule 100 mg PO TID PRN cough #14 caps 01/21/21 05/27/21 Rx (Jt Galvez) doxycycline hyclate 100 mg tablet 100 mg PO BID #20 tabs 01/21/21 05/27/21 Rx prednisone 10 mg tablet See Rx Instructions .Route 01/21/21 05/27/21 Rx .COMPLEX #30 tabs prednisone 10 mg tablet 10 mg PO DAILY #42 tabs 02/24/21 05/27/21 Rx Aspirin PO DAILY 05/27/21 05/27/21 History cyclobenzaprine 10 mg tablet 10 mg PO TID PRN muscle spasm #10 05/29/21 Rx tabs hydrocodone 5 mg-acetaminophen 325 1 tab PO Q4-6H PRN pain #14 tabs 05/29/21 Rx mg tablet cyclobenzaprine 10 mg tablet 10 mg PO Q8H PRN muscle spasm #21 05/30/21 Rx tabs ibuprofen 800 mg tablet 800 mg PO Q8H PRN pain #21 tabs 05/30/21 Rx Allergies Allergy/AdvReac Type Severity Reaction Status Date / Time No Known Drug Allergies Allergy Verified 05/27/21 11:38 Exam Vital Signs (past 8 hours): - 04/10/22 06:00 04/10/22 06:22 04/10/22 06:22 Temperature Pulse Rate 119 H 125 H Respiratory Rate Blood Pressure 194/84 H Pulse Oximetry 90 L 91 Oxygen Delivery Method 04/10/22 06:27 04/10/22 06:27 04/10/22 06:30 Temperature Pulse Rate 125 H Respiratory Rate Blood Pressure 201/84 H 180/77 H Pulse Oximetry 93 Oxygen Delivery Method 04/10/22 06:30 04/10/22 07:00 04/10/22 07:00 Temperature Pulse Rate 124 H 121 H Respiratory Rate Blood Pressure 151/67 H Pulse Oximetry 90 L 91 Oxygen Delivery Method 04/10/22 07:30 04/10/22 07:30 04/10/22 08:24 Temperature Pulse Rate 120 H 127 H Respiratory Rate 22 Blood Pressure 146/67 H Pulse Oximetry 91 96 Oxygen Delivery Method Room Air 04/10/22 07:59 04/10/22 07:59 04/10/22 08:00 Temperature Pulse Rate 129 H 129 H Respiratory Rate Blood Pressure 178/81 H Pulse Oximetry 94 94 Oxygen Delivery Method 04/10/22 08:01 04/10/22 08:01 04/10/22 08:30 Temperature 98.9 F Pulse Rate 128 H 127 H Respiratory Rate Blood Pressure 169/68 H Pulse Oximetry 94 98 Oxygen Delivery Method 04/10/22 08:31 04/10/22 08:31 04/10/22 09:00 Temperature Pulse Rate 129 H 127 H Respiratory Rate Blood Pressure 164/70 H Pulse Oximetry 99 93 Oxygen Delivery Method 04/10/22 09:02 04/10/22 09:02 04/10/22 09:30 Temperature Pulse Rate 124 H Respiratory Rate Blood Pressure 132/63 133/60 Pulse Oximetry 94 Oxygen Delivery Method 04/10/22 09:30 04/10/22 10:00 04/10/22 10:00 Temperature Pulse Rate 117 H 111 H Respiratory Rate Blood Pressure 132/68 Pulse Oximetry 95 93 Oxygen Delivery Method 04/10/22 10:30 04/10/22 10:35 04/10/22 10:35 Temperature Pulse Rate 107 H 109 H Respiratory Rate Blood Pressure 148/65 H Pulse Oximetry 92 94 Oxygen Delivery Method 04/10/22 11:00 04/10/22 11:00 04/10/22 11:30 Temperature Pulse Rate 119 H Respiratory Rate Blood Pressure 177/81 H 140/66 Pulse Oximetry 90 L Oxygen Delivery Method 04/10/22 11:30 04/10/22 12:00 04/10/22 12:00 Temperature Pulse Rate 100 H 100 H Respiratory Rate Blood Pressure 155/72 H Pulse Oximetry 91 91 Oxygen Delivery Method 04/10/22 12:30 04/10/22 12:30 04/10/22 13:00 Temperature Pulse Rate 96 H Respiratory Rate Blood Pressure 143/67 H 146/64 H Pulse Oximetry 93 Oxygen Delivery Method 04/10/22 13:00 04/10/22 13:30 04/10/22 13:30 Temperature Pulse Rate 91 H 105 H Respiratory Rate Blood Pressure 138/64 Pulse Oximetry 95 94 Oxygen Delivery Method Oxygen Delivery Method Room Air Narrative Exam Narrative: General alert oriented coughing mildly short of breath HEENT pupils equal round and reactive or mucosa is moist neck is supple Cardio S1-S2 regular rate and rhythm Respiratory lungs show increased work of breathing with some mild scattered wheezes Abdomen soft nontender no rebound or guarding extremities full range of motion no clubbing no cyanosis neurologic grossly intact Objective Labs Result Diagrams: 04/10/22 05:35 04/10/22 05:35 Labs: Laboratory Results - last 24 hr 04/10/22 04/10/22 04/10/22 04:09 05:35 05:35 WBC 4.3 L RBC 4.11 Hgb 12.8 Hct 37.6 MCV 91.5 MCH 31.3 MCHC 34.2 RDW 12.4 Plt Count 122 L Neut % (Auto) 81.8 H Lymph % (Auto) 8.0 L [place] % (Auto) 9.4 Eos % (Auto) 0.1 L Baso % (Auto) 0.7 Neut # (Auto) 3500 Lymph # (Auto) 300 L [place] # (Auto) 400 Eos # (Auto) 0 Baso # (Auto) 0 D-Dimer Sodium 134 L Potassium 3.9 Chloride 99 Carbon Dioxide 23 BUN 7 Creatinine 0.65 Estimated GFR > 60 BUN/Creatinine Ratio 10.8 Glucose 190 H Lactate Calcium 8.7 Total Bilirubin 0.4 AST 58 H ALT 24 Alkaline Phosphatase 167 H Total Creatine Kinase 235 H CK-MB (CK-2) 2.36 CK-MB (CK-2) Rel Index 1.0 L Troponin I 0.114 H NT-Pro-B Natriuret Pep Total Protein 7.4 Albumin 4.5 Globulin 2.9 Albumin/Globulin Ratio 1.6 Procalcitonin 0.20 SARS-CoV-2 (PCR) Negative Influenza A (RT-PCR) Flu a positive H Influenza B (RT-PCR) Flu b negative RSV (PCR) Negative 04/10/22 04/10/22 04/10/22 05:35 08:20 08:20 WBC RBC Hgb Hct MCV MCH MCHC RDW Plt Count Neut % (Auto) Lymph % (Auto) [place] % (Auto) Eos % (Auto) Baso % (Auto) Neut # (Auto) Lymph # (Auto) [place] # (Auto) Eos # (Auto) Baso # (Auto) D-Dimer 581 H Sodium Potassium Chloride Carbon Dioxide BUN Creatinine Estimated GFR BUN/Creatinine Ratio Glucose Lactate 1.7 Calcium Total Bilirubin AST ALT Alkaline Phosphatase Total Creatine Kinase CK-MB (CK-2) CK-MB (CK-2) Rel Index Troponin I 0.288 H* NT-Pro-B Natriuret Pep Total Protein Albumin Globulin Albumin/Globulin Ratio Procalcitonin SARS-CoV-2 (PCR) Influenza A (RT-PCR) Influenza B (RT-PCR) RSV (PCR) 04/10/22 04/10/22 08:20 08:20 WBC RBC Hgb Hct MCV MCH MCHC RDW Plt Count Neut % (Auto) Lymph % (Auto) [place] % (Auto) Eos % (Auto) Baso % (Auto) Neut # (Auto) Lymph # (Auto) [place] # (Auto) Eos # (Auto) Baso # (Auto) D-Dimer Sodium Potassium Chloride Carbon Dioxide BUN Creatinine Estimated GFR BUN/Creatinine Ratio Glucose Lactate 1.4 Calcium Total Bilirubin AST ALT Alkaline Phosphatase Total Creatine Kinase CK-MB (CK-2) CK-MB (CK-2) Rel Index Troponin I NT-Pro-B Natriuret Pep 959 H Total Protein Albumin Globulin Albumin/Globulin Ratio Procalcitonin SARS-CoV-2 (PCR) Influenza A (RT-PCR) Influenza B (RT-PCR) RSV (PCR) Assessment & Plan Assessment and plan (1) Influenza A: Status: Acute (2) Acute exacerbation of chronic obstructive pulmonary disease: Status: Acute (3) Non-ST elevation [place] (NSTEMI): Status: Acute Plan Acute coronary syndrome. Patient has acute coronary syndrome with non ST wave elevation myocardial infarction. Her troponins are elevated. She has risk factors of hypertension diabetes and a smoker. Patient will be admitted with oxygen nasal cannula nitroglycerin aspirin beta-janice and morphine. Will obtain an echocardiogram. I think her concomitant illness of influenza and COPD is contributing to her current cardiac issues. Will go ahead and place her not only on a beta-janice and an aspirin and oxygen she will be given a statin 20 mg daily. Will trend her cardiac enzymes. certainly worsened by her underlying influenza and COPD exacerbation COPD with exacerbation patient has a smoking history and known history of COPD. Patient is not significantly hypoxic but coughing and wheezing. Will continue with steroids 60 mg IV daily. Will go ahead and place her on Zithromax in case there is a concomitant bacterial infection although mice likely this is been exacerbated by her influenza. She will have respiratory therapy with nebulizers per protocol. Oxygen as needed to maintain saturations greater than 90% Influenza a. Patient has influenza A. With headache fevers chills body aches. Continue with Tylenol IV fluids and diet as tolerated. certainly contributing to underlying coronary syndrome and COPD exacerbation Diabetes. Patient has known history of diabetes hyperglycemic in the emergency department. Will go ahead and write for insulin sliding scale coverage will hold her metformin at this time. Provide a carbohydrate consistent diet. Hypertension tachycardic. Patient is mildly hypertensive and tachycardic she wi ll be continued on a beta-janice. We can reinstitute her lisinopril if she tolerates her beta-janice well. Hyperlipidemia patient will be continued on her statin Depression. Patient will be continued on her Prozac code status patient is a full code Prophylaxis for DVT with Lovenox Disposition plan patient will be admitted as an inpatient Time Spent With Patient Critical Care time: I spent a total of [] minutes of critical care time on this patient's care today; this time is exclusive of procedural time.
--- NOTE | 2022-04-10 13:56 | DI.ECHO.S_ITS ---
[facility]---------+ [facility] +---------+ : : [address] [place] : : : : [id number] : : : : Phone: [phone]+ Echocardiogram Report + + :Name: JACLYN DUNAWAY Study Date: 04/11/2022 Height: 63 in : :[facility] ReadingLocation: Weight: 118 lb : : Gender: Female BSA: 1.5 m2 : :: 1955 Age: 66 yrs BP: 142/80 mmHg: :Reason For Study: CHEST PAIN : :Ordering Physician: WADE, : :ROB Performed By: Joellen Soto : :Referring: ROB OLVERA : + + Interpretation Summary The ejection fraction is estimated to be 60-65%. Grade II diastolic dysfunction. The left atrium is mildly dilated. The right ventricle is normal in size and function. There is mild mitral regurgitation. There is mild to moderate tricuspid regurgitation. The right ventricular systolic pressure is estimated to be at least 43 mmHg based on an estimated right atrial pressure of 3 mm Hg. Procedure: A two-dimensional transthoracic echocardiogram with color flow and Doppler was performed. The study quality was technically adequate. There is no prior echocardiogram noted for this patient. The patient was in sinus rhythm with heart rates between 80-90 bpm during the exam. Left Ventricle: There is normal left ventricular wall thickness. The left ventricle is normal in size. The ejection fraction is estimated to be 60-65%. Diastolic parameters suggest a pseudonormalization pattern, consistent with probable elevated filling pressures. Right Ventricle: The right ventricle is normal in size and function. Atria: The left atrium is mildly dilated. Right atrial size is normal. There is no Doppler evidence for an interatrial shunt. Mitral Valve: The mitral valve leaflets appear borderline thickened, but open well. There is mild mitral regurgitation. Aortic Valve: The aortic valve is trileaflet. The aortic valve opens well. There is no aortic valve stenosis. No aortic regurgitation is present. Tricuspid Valve: The tricuspid valve is normal in structure and function. There is mild to moderate tricuspid regurgitation. The right ventricular systolic pressure is estimated to be at least 43 mmHg based on an estimated right atrial pressure of 3 mm Hg. Pulmonic Valve: The pulmonic valve leaflets are thin and pliable; valve motion is normal. There is no pulmonic valvular regurgitation. Great Vessels: The aortic root is normal size. The dimensions of the ascending aorta are normal. The IVC is of normal diameter and collapses greater than 50% with a sniff. This suggests a low right atrial pressure of 3 mm Hg. Pericardium/ Pleura There is no pericardial effusion. There is no pleural effusion. MMode/2D Measurements & Calculations LVIDd: 3.7 cm LVOT diam: 2.0 cm LVIDs: 2.3 cm Ao root diam: 2.8 cm FS: 37.1 % Ao Arch Diam (Prox Trans): 2.6 cm IVSd: 0.99 cm LVPWd: 0.90 cm LV cisneros. diameter/BSA (cm/m^2): 2.4 LV sys. diameter/BSA (cm/m^2): 1.5 LA A2 area: 18.3 cm2 RA long axis: 4.5 cm LA A4 area: 15.6 cm2 RA area: 13.4 cm2 LA length (vol): 4.5 cm RA vol: 33.8 ml LA vol: 53.7 ml RA : 21.9 ml/m2 LA vol index: 34.7 ml/m2 IVC diam: 1.9 cm RVD1 (basal): 3.0 cm RVD2 (mid): 2.6 cm TAPSE: 2.0 cm Doppler Measurements & Calculations Ao V2 max: 140.1 cm/sec LVOT Max Alfredo: 100.6 cm/sec Ao V2 mean: 109.2 cm/sec LV V1 max P.0 mmHg Ao max P.9 mmHg LV V1 VTI: 21.2 cm Ao mean P.1 mmHg VICTORIA(I,D): 2.2 cm2 Ao V2 VTI: 29.9 cm VICTORIA(V,D): 2.2 cm2 sev ratio: 0.71 VICTORIA indexed to BSA (cm^2/m^2): 1.4 MV E max alfredo: 92.5 cm/sec TR max alfredo: 315.9 cm/sec MV A max alfredo: 97.4 cm/sec TR max P.9 mmHg MV E/A: 0.95 PA V2 max: 78.3 cm/sec Med Peak E' Alfredo: 7.5 cm/sec PA V2 mean: 54.6 cm/sec E/E' med: 12.4 PA mean P.4 mmHg Lat Peak E' Alfredo: 6.3 cm/sec PA pr(Accel): 55.0 mmHg E/E' lat: 14.8 E/e' average: 13.6 MV dec time: 0.19 sec SV(LVOT): 65.6 ml Reading Physician:03:12 PM
[2022-04-10] MEDS: AZITHROMYCIN 500 MG in DEXTROSE 5% IN WATER 250 ML 250 MG IV (15:37)
[2022-04-10] MEDS: ENOXAPARIN 40 MG/0.4 ML SYRINGE SUBCUT (15:37)
[2022-04-10] MEDS: BENZONATATE 100 MG CAPSULE PO (15:37)
[2022-04-10] MEDS: METOPROLOL ER 50 MG TABLET PO (15:49)
--- NOTE | 2022-04-10 16:41 | PC.NURSE ---
Addendum entered by Jeimy Falk R.N. 04/10/22 18:50: Patient is resting comfortably. Original Note: Patient admitted to the floor with influenza, and high troponins. She is coughing but nonproductive, patient does sound congested. Breath sounds CTA at this time and patient is on room air. She will be a stand by assist or independent in her room. She is comfortable at this time.
[2022-04-10] MEDS: SODIUM CHLORIDE 0.9% 1,000 ML 100 ML IV (17:24)
[2022-04-10] MEDS: INSULIN LISPRO 100 UNIT/ML 3ML VIAL SUBCUT (17:25)
[2022-04-10] MEDS: ATORVASTATIN 20 MG TABLET PO (20:13)
[2022-04-10] MEDS: HYDROCODONE/ACET 5/325 TABLET 1 TAB PO (21:59)
[2022-04-10 22:25] LABS: Creatine Kinase 500 U/L (30-135)
[2022-04-10 22:38] LABS: Troponin I < 0.012 ng/mL (0.01-0.034)
[2022-04-10 22:45] LABS: CKMB % Relative Index 0.2 % (1.5-5.0); Creatine Kinase MB 1.19 ng/mL (<2.37)
[2022-04-11] VITALS (9 sets, daily range): BP systolic 104–183; BP diastolic 69–98; PULSE 73–94; RESP 16–20; TEMP 36.4–37.2; O2SAT 93–100
[2022-04-11] MEDS: SODIUM CHLORIDE 0.9% 1,000 ML 100 ML IV (03:05)
[2022-04-11] MEDS: PANTOPRAZOLE DR 20 MG TABLET PO (07:01)
[2022-04-11 07:31] LABS: Alanine Aminotransferase 19 IU/L (<35); Albumin 3.6 g/dL (3.5-5.0); Albumin Globulin Ratio 1.3 (1.0-2.8); Alkaline Phosphatase 116 U/L (38-126); Aspartate Aminotransferase 53 IU/L (14-36); BUN Creatinine Ratio 17.3 (6-22); Bilirubin Total 0.3 mg/dL (0.2-1.3); Blood Urea Nitrogen 9 mg/dL (7-17); Calcium 8.4 mg/dL (8.4-10.2); Carbon Dioxide 23 mmol/L (22-32); Chloride 105 mmol/L (98-107); Estimated Glomerular Filt Rate > 60 mL/min (>60); Globulin 2.7 g/dL (1.7-4.1); Glucose 135 mg/dL (80-110); HEMOLYSIS < 15 (0-50); Sodium 135 mmol/L (137-145); Total Protein 6.3 g/dL (6.3-8.2)
[2022-04-11 07:32] LABS: Add Manual Diff / Slide Review NO; Basophils Absolute Auto 0 /uL (0-100); Basophils Percent Auto 0.3 % (0-2); Eosinophils Absolute Auto 0 /uL (0-450); Eosinophils Percent Auto 0.1 % (2-4); Hematocrit 33.9 % (36-46); Hemoglobin 11.5 g/dL (12.0-16.0); Lymphocytes Absolute Auto 700 /uL (1100-4500); Lymphocytes Percent Auto 20.7 % (25-40); Mean Corpuscular HGB Conc 34.1 % (30-36); Mean Corpuscular Hemoglobin 31.4 PG (26-34); Mean Corpuscular Volume 92.3 fL (80-100); Monocytes Absolute Auto 400 /uL (0-900); Neutrophils Absolute Auto 2300 /uL (1500-7000); Neutrophils Percent Auto 66.9 % (50-75); Platelet Count 134 X10^3/uL (150-400); Red Blood Cell Count 3.67 X10^6/uL (4.0-5.2); Red Cell Distribution Width 12.4 % (11.6-14.8); White Blood Cell Count 3.5 X10^3/uL (4.5-11.0)
[2022-04-11 07:42] LABS: Potassium 3.5 mmol/L (3.4-5.1)
[2022-04-11] MEDS: INSULIN LISPRO 100 UNIT/ML 3ML VIAL SUBCUT ×4 (08:14→20:23)
[2022-04-11] MEDS: FLUoxetine 20 MG CAPSULE PO (08:16)
[2022-04-11] MEDS: ASPIRIN EC 325 MG TABLET PO (08:16)
[2022-04-11] MEDS: ENOXAPARIN 40 MG/0.4 ML SYRINGE SUBCUT (08:16)
[2022-04-11] MEDS: methylPREDNISolone 125 MG/2 ML VIAL 60 MG IV ×2 (08:16→17:23)
--- NOTE | 2022-04-11 09:00 | PM.PN.1 ---
Subjective Subjective Date Patient Seen: 04/11/22 Time Patient Seen: 09:00 Interval history: Patient is still feeling poorly but feels better than on admit. She is coughing excessively. She use Mucinex at home and this was helpful. She is eating well without difficulty. Twelve point review of systems is otherwise negative. Exam Vital Signs (past 8 hours): - 04/11/22 04:00 04/11/22 04:00 04/11/22 08:00 Temperature 98.7 F 97.6 F Pulse Rate 85 93 H Respiratory Rate 19 20 Blood Pressure 160/98 H 183/77 H Pulse Oximetry 93 93 93 Oxygen Delivery Method Room Air Oxygen Delivery Method Room Air Oxygen Flow Rate 0 Narrative Exam Narrative: Patient on room air becomes breathless when speaking but alert and oriented x3 and in no apparent distress. Lying in hospital bed eating breakfast HEENT shows mucous membranes moist and pink without lesions Neck: Supple without adenopathy Chest: Inspiratory expiratory wheezes with poor air exchange throughout but no rhonchi or crackles Cor: Regular rate and rhythm with distant S1-S2 Abdomen: Positive bowel sounds, soft, nontender Extremities no edema, pulses intact Objective Labs Result Diagrams: 04/11/22 06:35 04/11/22 06:35 Labs: Laboratory Results - last 24 hr 04/10/22 04/10/22 04/10/22 08:20 16:15 22:00 WBC RBC Hgb Hct MCV MCH MCHC RDW Plt Count Neut % (Auto) Lymph % (Auto) [place] % (Auto) Eos % (Auto) Baso % (Auto) Neut # (Auto) Lymph # (Auto) [place] # (Auto) Eos # (Auto) Baso # (Auto) Sodium Potassium Chloride Carbon Dioxide BUN Creatinine Estimated GFR BUN/Creatinine Ratio Glucose Calcium Total Bilirubin AST ALT Alkaline Phosphatase Total Creatine Kinase 500 H D CK-MB (CK-2) 1.19 D CK-MB (CK-2) Rel Index 0.2 L Troponin I 0.288 H* 0.110 H < 0.012 Total Protein Albumin Globulin Albumin/Globulin Ratio 04/11/22 04/11/22 06:35 06:35 WBC 3.5 L RBC 3.67 L Hgb 11.5 L Hct 33.9 L MCV 92.3 MCH 31.4 MCHC 34.1 RDW 12.4 Plt Count 134 L Neut % (Auto) 66.9 Lymph % (Auto) 20.7 L [place] % (Auto) 12.0 Eos % (Auto) 0.1 L Baso % (Auto) 0.3 Neut # (Auto) 2300 Lymph # (Auto) 700 L [place] # (Auto) 400 Eos # (Auto) 0 Baso # (Auto) 0 Sodium 135 L Potassium 3.5 Chloride 105 Carbon Dioxide 23 BUN 9 Creatinine 0.52 Estimated GFR > 60 BUN/Creatinine Ratio 17.3 Glucose 135 H Calcium 8.4 Total Bilirubin 0.3 AST 53 H ALT 19 Alkaline Phosphatase 116 D Total Creatine Kinase CK-MB (CK-2) CK-MB (CK-2) Rel Index Troponin I Total Protein 6.3 Albumin 3.6 Globulin 2.7 Albumin/Globulin Ratio 1.3 PFSH Medical History COPD (chronic obstructive pulmonary disease) Depression Hyperlipidemia Hypertension Social History household members: none Smoking Status: Current every day smoker alcohol intake: current Assessment & Plan Assessment & Plan narrative: 1) Influenza A: ?Status:?Acute (2) Acute exacerbation of chronic obstructive pulmonary disease: ?Status:?Acute (3) Non-ST elevation [place] (NSTEMI): ?Status:?Acute 4. Type 2 diabetes Plan ?Acute coronary syndrome.? Patient has acute coronary syndrome with non ST wave elevation myocardial infarction.? Her troponins are elevated but peaked on admission. Now normal. Repeat done this a.m. is still pending. Patient has had no symptoms of ischemia or acute coronary syndrome..? She has risk factors of hypertension diabetes and a smoker.? Patient will be admitted with oxygen nasal cannula nitroglycerin aspirin beta-janice and morphine.? Will obtain an echocardiogram.? I think her concomitant illness of influenza and COPD is contributing to her current cardiac issues.? Will go ahead and place her not only on a beta-janice and an aspirin and oxygen she will be given a statin 20 mg daily.? Will trend her cardiac enzymes. certainly worsened by her underlying influenza and COPD exacerbation. We will watch carefully regarding beta-janice and affecting her lungs. ?COPD with exacerbation patient has a smoking history and known history of COPD.? Patient is not significantly hypoxic but coughing and wheezing.? Will continue with steroids 60 mg IV daily.? Will go ahead and place her on Zithromax in case there is a concomitant bacterial infection although mice likely this is been exacerbated by her influenza.? She will have respiratory therapy with nebulizers per protocol.? Oxygen as needed to maintain saturations greater than 90%. Patient currently on room air oxygen Influenza a.? Patient has influenza A.? With headache fevers chills body aches.? Continue with Tylenol IV fluids and diet as tolerated. certainly contributing to underlying coronary syndrome and COPD exacerbation. Patient was out of the window for treatment with Tamiflu Diabetes.? Patient has known history of diabetes hyperglycemic in the emergency department.? Will go ahead and write for insulin sliding scale coverage will hold her metformin at this time.? Provide a carbohydrate consistent diet. Blood sugar this morning 146. Patient on outpatient metformin and well-controlled. Hypertension tachycardic.? Patient is mildly hypertensive and tachycardic she will be continued on a beta-janice.? We can reinstitute her lisinopril if she tolerates her beta-janice well. Hyperlipidemia patient will be continued on her statin Depression.? Patient will be continued on her Prozac Discussed code status with patient and she prefers DNI but would want CPR and other full resuscitation other than invasive airway management Time Spent With Patient Critical Care time: I spent a total of [] minutes of critical care time on this patient's care today; this time is exclusive of procedural time. Quality VTE Deep Vein Thrombosis/Pulmonary Embolism Present on Admission: No
[2022-04-11 09:04] LABS: Creatine Kinase 999 U/L (30-135)
--- NOTE | 2022-04-11 09:14 | RT ---
pt is interested in taking cardio pulmonary rehab. pt has decided to quit smoking and is trying cold turkey. i have advised that she gets some medical help with this. pt is constantly using pierced lip breathing. i gave pt an IS and flutter valve to help clear secretions.
[2022-04-11 09:16] LABS: Troponin I 0.048 ng/mL (0.01-0.034)
[2022-04-11 09:20] LABS: CKMB % Relative Index 0.3 % (1.5-5.0); Creatine Kinase MB 2.82 ng/mL (<2.37)
[2022-04-11] MEDS: lisinopriL 20 MG TABLET 40 MG PO (11:05)
[2022-04-11] MEDS: guaiFENesin ER 600 MG TAB PO ×2 (11:05→20:22)
[2022-04-11] MEDS: POTASSIUM CHLORIDE 20 MEQ TAB PO (11:58)
[2022-04-11] MEDS: NITROGLYCERIN OINT 1 INCH/GM OINT...G. 0.25 INCH TOP (12:47)
[2022-04-11] MEDS: AZITHROMYCIN 500 MG in DEXTROSE 5% IN WATER 250 ML 250 MG IV (14:28)
--- NOTE | 2022-04-11 15:29 | CM.DANOTE ---
DCP: Case received. Called patient's room, since she is in isolation. Introduced self and role. Was able to complete DCP assessment based upon information currently available. Patient is a 66 year old female who admitted yesterday morning to the care of the hospitalist team. PCP: Dr. Medrano. Payer: confirmed: [facility]. Patient came to the hospital via private vehicle secondary to having increased cough, chest discomfort. Patient has history of COPD, and does use inhalers at home. Patient holds diagnosis of influenza A, exacerbation of COPD, and NSTEMI. Called patient's room. Confirmed that she is indepedent at her baseline. She works here at [employer]. She did mention to the nurse, she had concerns about her bill, her insurance covers some of it, but has several co-pays. She mentioned, it's also hard for her to get or buy food, due to limited income. She also wanted to know about how to sign up for Medicare, as patient is 66, and her birthday is in [birth year]. Spoke to patient, and let her know that nurse will bring in a Medicaid application, she indicated, she has started filling out one before, but didn't complete it. Printed out a form with food bank information as well. Emailed the admission change group, and they gave a number for patient to call to establish with Medicare, since [facility] office is not available. Asked patient if she had filled out a [place]ovan application before, but she indicted, she does not qualify. P: DCP to continue to follow. Have had some resources given to patient after consulting with CARMEN Nicholson. Plan is home when deemed medically stable. Angelita Zarate RN/Supervisor Pre Wave Discharge Planning/Care Management CM Discharge Assessment Start: 04/11/22 15:27 Freq: Status: Active Protocol: Document 04/11/22 15:28 (Rec: 04/11/22 15:29 [id number]) Discharge Planning Assessment Assigned Curing Supervisor Angelita Zarate RN/Supervisor Pre Wave Advance Directives? No Advance Directives on File Yes History Provided By Patient,Medical Record Prior Living Arrangements Apartment/Condo Household Members none Type of transporation used prior to Drives own vehicle admit Independent with ADL's Yes Is patient alert and oriented? Yes Caregiver for Another No Discharge Plan Home Transportation Arrangement Family or friends Referrals Initiated None needed Whiteboard Updated in Patient Room with No name and ext. # of Curing Supervisor Comment Patient is in isolation, did not enter room. Review Status In Process Next Review Type Continued Stay Review
--- NOTE | 2022-04-11 16:25 | PC.NURSE ---
notified provider that patient felt very dizzy standing up and going to the bathroom. denied head ache. BP 128/92
--- NOTE | 2022-04-11 16:50 | DIET.CONS ---
Addendum entered by Mery Hammond 04/11/22 16:55: While hospitalized, sending ONS Ensure Enlive bid to support nutrition status as pt remains SOB. Original Note: Dietary Consultation Note Admission Date: 04/10/2022 11:56 Assessment: 66y F admitted for SOB and headache secondary to Influenza A referred to nutrition for resources regarding low BMI. Pt with Chronic Malnutrition related to food insecurity. Pt reports difficulty affording enough food to eat, especially over the past 6mo with increase in food costs. Pt works NOC shift EVS here at hospital. Ht: 160.02 cm Wt: 51 kg BMI: 19.9 Last BM: 04/10/22 (04/10/22 20:00) MNA: 10 Tarik Score: 21 Diet: 04/10/22 Dinner Carbohydrate Consistent Diet Diet Modifications: Carbohydrate level: Large (4 CHO) Bedtime snack: No Nutrition Percent Meal Consumed 75% 04/11/22 09:29 Labs: RBC 3.67 X10^6/uL (4.0-5.2) L 04/11/22 06:35 Hgb 11.5 g/dL (12.0-16.0) L 04/11/22 06:35 Hct 33.9 % (36-46) L 04/11/22 06:35 Creatinine 0.52 mg/dL (0.52-1.04) 04/11/22 06:35 Lactate 1.4 mmol/L (0.7-2.1) 04/10/22 08:20 NT-Pro-B Natriuret Pep 959 pg/mL (<125) H 04/10/22 08:20 Nutrition Diagnosis: Moderate Chronic Malnutrition r/t food insecurity aeb BMI 19.9 (low for age), pt reports difficulty affording food and running out of food. Interventions: 1. Provided pt pamphlet and free shop card for [employer] non-profit food rescue program. Pt can shop up to 3x/w for nominal fee and short volunteer shift monthly. Provided instructions to call ahead to ensure they are open when she wants to do her tour and free shop. Pt excited for this resource and will visit the business once d/c'd from hospital. Program does not require income verification or participation in any state sponsored programming. EER: 1530kcals (30kcal/kg), 51-55g PRO (1-1.3g/kg) Monitoring/Evaluations: ONS tolerance Electronically Signed by: Mery Hammond 04/11/22 16:50 Clinical Dietitian [address] [address]
[2022-04-11] MEDS: HYDROCODONE/ACET 5/325 TABLET 1 TAB PO (18:08)
[2022-04-11] MEDS: METOPROLOL IR 25 MG TABLET 12.5 MG PO (20:22)
[2022-04-11] MEDS: ATORVASTATIN 20 MG TABLET PO (20:22)
[2022-04-11] MEDS: ALBUTEROL/IPRATROPIUM 3 ML AMPUL INH (23:15)
[2022-04-12] VITALS (11 sets, daily range): BP systolic 138–163; BP diastolic 71–83; PULSE 66–80; RESP 16–22; TEMP 36.4–36.6; O2SAT 95–98
[2022-04-12] MEDS: methylPREDNISolone 125 MG/2 ML VIAL 60 MG IV ×3 (00:35→16:19)
[2022-04-12] MEDS: HYDROCODONE/ACET 5/325 TABLET 1 TAB PO ×3 (03:55→16:19)
[2022-04-12] MEDS: BENZONATATE 100 MG CAPSULE PO ×4 (03:59→23:25)
[2022-04-12] MEDS: PANTOPRAZOLE DR 20 MG TABLET PO (05:43)
[2022-04-12 07:13] LABS: Add Manual Diff / Slide Review NO; Basophils Absolute Auto 0 /uL (0-100); Basophils Percent Auto 0.2 % (0-2); Eosinophils Absolute Auto 0 /uL (0-450); Hematocrit 34.4 % (36-46); Hemoglobin 11.6 g/dL (12.0-16.0); Lymphocytes Absolute Auto 300 /uL (1100-4500); Lymphocytes Percent Auto 9.4 % (25-40); Mean Corpuscular HGB Conc 33.9 % (30-36); Mean Corpuscular Hemoglobin 31.5 PG (26-34); Monocytes Absolute Auto 200 /uL (0-900); Monocytes Percent Auto 5.5 % (3-14); Neutrophils Absolute Auto 3100 /uL (1500-7000); Neutrophils Percent Auto 84.9 % (50-75); Platelet Count 152 X10^3/uL (150-400); Red Cell Distribution Width 12.3 % (11.6-14.8); White Blood Cell Count 3.7 X10^3/uL (4.5-11.0)
[2022-04-12 07:28] LABS: Creatine Kinase 1204 U/L (30-135)
[2022-04-12 07:29] LABS: Alanine Aminotransferase 21 IU/L (<35); Albumin 3.8 g/dL (3.5-5.0); Albumin Globulin Ratio 1.5 (1.0-2.8); Alkaline Phosphatase 107 U/L (38-126); Aspartate Aminotransferase 70 IU/L (14-36); BUN Creatinine Ratio 21.7 (6-22); Bilirubin Total 0.3 mg/dL (0.2-1.3); Blood Urea Nitrogen 13 mg/dL (7-17); Calcium 8.9 mg/dL (8.4-10.2); Carbon Dioxide 24 mmol/L (22-32); Chloride 98 mmol/L (98-107); Estimated Glomerular Filt Rate > 60 mL/min (>60); Globulin 2.5 g/dL (1.7-4.1); Glucose 239 mg/dL (80-110); HEMOLYSIS < 15 (0-50); Potassium 4.2 mmol/L (3.4-5.1); Sodium 131 mmol/L (137-145); Total Protein 6.3 g/dL (6.3-8.2)
[2022-04-12 07:41] LABS: Troponin I 0.013 ng/mL (0.01-0.034)
[2022-04-12 07:43] LABS: CKMB % Relative Index 0.1 % (1.5-5.0); Creatine Kinase MB 1.75 ng/mL (<2.37)
--- NOTE | 2022-04-12 08:36 | PM.PN.1 ---
Subjective Subjective Date Patient Seen: 04/12/22 Time Patient Seen: 08:36 Interval history: Patient feeling better today. She got some rest last night. She is coughing less with the cough medicine. She is feeling a bit less breathless. She is having bilateral inferior anterior rib pain with movement and with cough and deep inspiration. She is having no chest pain. She is having no abdominal pain. She is tolerating p.o. without difficulty. She had unremarkable night. Due to bump in troponin yesterday we applied 1/4 inch of nitro paste and patient had extreme dizziness with a blood pressure in the 120s over 70s so this was discontinued. Otherwise 12 point review of systems is negative Exam Vital Signs (past 8 hours): - 04/12/22 04:00 04/12/22 04:00 04/12/22 07:49 Temperature 97.5 F L 98 F Pulse Rate 72 76 Respiratory Rate 22 17 Blood Pressure 147/79 H 140/71 Pulse Oximetry 95 95 96 Oxygen Delivery Method Room Air Oxygen Flow Rate 0 Oxygen Delivery Method Room Air Oxygen Flow Rate 0 Narrative Exam Narrative: Afebrile vital signs are stable. Blood pressure is trending down but still some elevated blood pressures. Also with episode of low blood pressure with nitroglycerin. Patient with no increased work of breathing. She is resting comfortably in actually sleeping in the hospital bed when evaluated. HEENT is unremarkable Neck: Supple without adenopathy or masses Chest: Shows inspiratory expiratory wheezes but better air movement than yesterday. No rhonchi or crackles Cor: Distant S1-S2 with regular rate and rhythm without obvious murmur Abdomen: Positive bowel sounds, soft, nontender, nondistended Extremities no edema, pulses intact Neurologic exam is nonfocal Objective Labs Result Diagrams: 04/12/22 06:37 04/12/22 06:37 Labs: Laboratory Results - last 24 hr 04/11/22 04/12/22 04/12/22 06:35 06:37 06:37 WBC 3.7 L RBC 3.70 L Hgb 11.6 L Hct 34.4 L MCV 93.0 MCH 31.5 MCHC 33.9 RDW 12.3 Plt Count 152 Neut % (Auto) 84.9 H Lymph % (Auto) 9.4 L [place] % (Auto) 5.5 Eos % (Auto) 0.0 L Baso % (Auto) 0.2 Neut # (Auto) 3100 Lymph # (Auto) 300 L [place] # (Auto) 200 Eos # (Auto) 0 Baso # (Auto) 0 Sodium 131 L Potassium 4.2 Chloride 98 Carbon Dioxide 24 BUN 13 Creatinine 0.60 Estimated GFR > 60 BUN/Creatinine Ratio 21.7 Glucose 239 H D Calcium 8.9 Total Bilirubin 0.3 AST 70 H ALT 21 Alkaline Phosphatase 107 Total Creatine Kinase 999 H D CK-MB (CK-2) 2.82 H D CK-MB (CK-2) Rel Index 0.3 L Troponin I 0.048 H Total Protein 6.3 Albumin 3.8 Globulin 2.5 Albumin/Globulin Ratio 1.5 04/12/22 06:37 WBC RBC Hgb Hct MCV MCH MCHC RDW Plt Count Neut % (Auto) Lymph % (Auto) [place] % (Auto) Eos % (Auto) Baso % (Auto) Neut # (Auto) Lymph # (Auto) [place] # (Auto) Eos # (Auto) Baso # (Auto) Sodium Potassium Chloride Carbon Dioxide BUN Creatinine Estimated GFR BUN/Creatinine Ratio Glucose Calcium Total Bilirubin AST ALT Alkaline Phosphatase Total Creatine Kinase 1204 H CK-MB (CK-2) 1.75 CK-MB (CK-2) Rel Index 0.1 L Troponin I 0.013 Total Protein Albumin Globulin Albumin/Globulin Ratio [facility] Medical History COPD (chronic obstructive pulmonary disease) Depression Hyperlipidemia Hypertension Social History household members: none Smoking Status: Current every day smoker alcohol intake: current Assessment & Plan Assessment & Plan narrative: 66-year-old female admitted with acute respiratory failure secondary to COPD exacerbation and influenza A. Hospital day 3. Patient currently on room air Assessment 1. Acute coronary syndrome. Unclear if truly this is acute coronary syndrome verses elevation in her troponin due to elevated blood pressure or respiratory issues. She had an elevation slight in her troponin yesterday but back down to normal today. She is had no symptoms and her echo shows a normal ejection fraction and LV function without evidence of wall motion abnormality. S put a call in to Cardiology to discuss. I think at this point we will continue with medical management with statin, metoprolol, low dose and watch carefully for worsening of her lungs function and lisinopril and continue to monitor. Patient has acute coronary syndrome with non ST wave elevation myocardial infarction.? Her troponins are elevated but peaked on admission.? Now normal.? Repeat done this a.m. is still pending.? Patient has had no symptoms of ischemia or acute coronary syndrome..? She has risk factors of hypertension diabetes and a smoker.? I think her concomitant illness of influenza and COPD is contributing to her current cardiac issues.? Will continue to watch to see if statin contributing to elevation in creatinine kinase. Certainly this could be related to muscle pain from excessive coughing. Assessment 2. ?COPD with exacerbation patient has a smoking history and known history of COPD.? Improved with IV Solu-Medrol. Will continue the same. Continue with RT. Continue with supportive care. Assessment 3. Influenza a.? Patient has influenza A.? With headache fevers chills body aches.? Continue with Tylenol IV fluids and diet as tolerated. certainly contributing to underlying coronary syndrome and COPD exacerbation.? Patient was out of the window for treatment with Tamiflu Assessment 4. Diabetes.? Blood sugars elevated due to steroids. Will add Lantus 10 units at bedtime tonight Will go ahead and write for insulin sliding scale coverage will hold her metformin at this time.? Provide a carbohydrate consistent diet.? Blood sugar this morning 146.? Patient on outpatient metformin and well-controlled. Assessment 5. Hypertension Patient is mildly hypertensive and tachycardic she will be continued on a beta-janice.? Lisinopril restarted yesterday and blood pressure is improving. Unable to tolerate nitro paste. Assessment 6. Hyperlipidemia patient will be continued on her statin Assessment 7. Depression.? Patient will be continued on her Prozac Assessment 8. Hyponatremia, new suspect related to IV Solu-Medrol and hyperglycemia. We will continue to follow. Discussed code status with patient and she prefers DNI but would want CPR and other full resuscitation other than invasive airway management Time Spent With Patient Critical Care time: I spent a total of [] minutes of critical care time on this patient's care today; this time is exclusive of procedural time. Quality VTE Deep Vein Thrombosis/Pulmonary Embolism Present on Admission: No
[2022-04-12] MEDS: ALBUTEROL/IPRATROPIUM 3 ML AMPUL INH ×4 (08:40→23:41)
[2022-04-12] MEDS: guaiFENesin ER 600 MG TAB PO ×2 (09:22→20:24)
[2022-04-12] MEDS: ENOXAPARIN 40 MG/0.4 ML SYRINGE SUBCUT (09:23)
[2022-04-12] MEDS: ASPIRIN EC 325 MG TABLET PO (09:23)
[2022-04-12] MEDS: FLUoxetine 20 MG CAPSULE PO (09:23)
[2022-04-12] MEDS: IBUPROFEN 600 MG TABLET PO (09:23)
[2022-04-12] MEDS: METOPROLOL IR 25 MG TABLET 12.5 MG PO ×2 (09:24→20:24)
[2022-04-12] MEDS: lisinopriL 20 MG TABLET 40 MG PO (09:24)
[2022-04-12] MEDS: INSULIN LISPRO 100 UNIT/ML 3ML VIAL SUBCUT ×4 (09:26→20:25)
[2022-04-12] MEDS: AZITHROMYCIN 500 MG in DEXTROSE 5% IN WATER 250 ML 250 MG IV (14:14)
[2022-04-12] MEDS: CODEINE/GUAIFENESIN LIQUID 5ML UDC 10 ML PO ×2 (16:19→23:25)
[2022-04-12] MEDS: ATORVASTATIN 20 MG TABLET PO (20:24)
[2022-04-12] MEDS: INSULIN GLARGINE 100 UNIT/ML 3ML PEN 10 UNIT SUBCUT (20:25)
[2022-04-13] VITALS (8 sets, daily range): BP systolic 141–161; BP diastolic 72–75; PULSE 69–90; RESP 16–20; TEMP 36.4–36.6; O2SAT 95–96
[2022-04-13] MEDS: methylPREDNISolone 125 MG/2 ML VIAL 60 MG IV ×2 (01:16→09:17)
[2022-04-13 06:31] LABS: Creatine Kinase 775 U/L (30-135)
[2022-04-13 06:38] LABS: Blood Urea Nitrogen 18 mg/dL (7-17); Calcium 9.1 mg/dL (8.4-10.2); Carbon Dioxide 25 mmol/L (22-32); Chloride 97 mmol/L (98-107); Estimated Glomerular Filt Rate > 60 mL/min (>60); Glucose 262 mg/dL (80-110); HEMOLYSIS < 15 (0-50); Potassium 5.3 mmol/L (3.4-5.1); Sodium 131 mmol/L (137-145)
[2022-04-13] MEDS: PANTOPRAZOLE DR 20 MG TABLET PO (06:38)
[2022-04-13 06:42] LABS: Troponin I < 0.012 ng/mL (0.01-0.034)
[2022-04-13 06:46] LABS: CKMB % Relative Index 0.1 % (1.5-5.0); Creatine Kinase MB 1.16 ng/mL (<2.37)
[2022-04-13 07:13] LABS: Add Manual Diff / Slide Review NO; Basophils Absolute Auto 0 /uL (0-100); Basophils Percent Auto 0.1 % (0-2); Eosinophils Absolute Auto 0 /uL (0-450); Hematocrit 34.7 % (36-46); Hemoglobin 11.8 g/dL (12.0-16.0); Lymphocytes Absolute Auto 300 /uL (1100-4500); Lymphocytes Percent Auto 8.7 % (25-40); Mean Corpuscular Hemoglobin 31.5 PG (26-34); Mean Corpuscular Volume 92.6 fL (80-100); Monocytes Absolute Auto 200 /uL (0-900); Monocytes Percent Auto 5.6 % (3-14); Neutrophils Absolute Auto 3200 /uL (1500-7000); Neutrophils Percent Auto 85.6 % (50-75); Platelet Count 158 X10^3/uL (150-400); Red Blood Cell Count 3.75 X10^6/uL (4.0-5.2); Red Cell Distribution Width 12.4 % (11.6-14.8); White Blood Cell Count 3.7 X10^3/uL (4.5-11.0)
[2022-04-13] MEDS: ALBUTEROL/IPRATROPIUM 3 ML AMPUL INH (08:43)
[2022-04-13] MEDS: HYDROCODONE/ACET 5/325 TABLET 1 TAB PO (09:17)
[2022-04-13] MEDS: lisinopriL 20 MG TABLET 40 MG PO (09:17)
[2022-04-13] MEDS: ENOXAPARIN 40 MG/0.4 ML SYRINGE SUBCUT (09:17)
[2022-04-13] MEDS: guaiFENesin ER 600 MG TAB PO (09:18)
[2022-04-13] MEDS: BENZONATATE 100 MG CAPSULE PO ×2 (09:18→14:16)
[2022-04-13] MEDS: INSULIN LISPRO 100 UNIT/ML 3ML VIAL SUBCUT (09:18)
[2022-04-13] MEDS: METOPROLOL IR 25 MG TABLET 12.5 MG PO (09:18)
[2022-04-13] MEDS: FLUoxetine 20 MG CAPSULE PO (09:18)
[2022-04-13] MEDS: AZITHROMYCIN 250 MG TABLET 500 MG PO (09:18)
[2022-04-13] MEDS: ASPIRIN EC 325 MG TABLET PO (09:18)
--- NOTE | 2022-04-13 13:05 | P.DS_ITS ---
History of Present Illness History of Present Illness Date Patient Seen: 04/13/22 Time Patient Seen: 13:05 Chief complaint: COUGHING/HEADACHE/BODY ACHES Narrative: Patient doing much better and cleaning her room. Patient wanted to go home. Her coughing is better and her breathing is better. She still is guarding when she coughs on her right inferior anterior ribs. She is tolerating p.o. without any difficulty. She denies any chest pain or shortness of breath or dizziness or abdominal pain Otherwise 12 point review of systems negative Discharge Providers Provider Date of admission: 04/10/22 11:56 Discharge Date: 04/13/22 Primary care physician: Brenda Vieyra MD Consults: 04/10/22 13:58 Consult to Cardio/Pulmonary Rehabilitation Routine Comment: Physician Instructions: Evaluate and treat 04/10/22 17:20 Consult to Dietitian, Adult Routine Comment: Reason For Exam: risk of malnutrition r/t resources [place] [facility] [place] [facility] Routine Comment: Discharge provider: Geetha Medrano MD Summary Hospital Course Discharge Diagnosis: 1. Acute respiratory failure 2. COPD exacerbation 3. Influenza A 4. Type 2 diabetes with worsening due to IV steroids 5. Troponinemia. Resolved CK-MB % was always normal. Due to the context it is thought that the troponins Patricia was secondary to hypertension, hypoxemia and tachycardia. Normal echo. Normal stress MIBI in June 2021. Reviewed with Cardiology. 6. Depression without issues Hospital Course: Patient admitted to the hospital with acute respiratory failure secondary to COPD exacerbation secondary to influenza A. Patient treated for possible secondary bacterial infection with azithromycin. Patient was treated with IV Solu-Medrol. There was concern for non STEMI however patient never had any symptoms. Her troponin peaked and then improved and then bumped again and then back down to normal. Her CK has been elevated throughout her stay and CK-MB % is always been negative. Her echo was entirely normal. She had a stress MIBI in June of 2021 which is entirely normal. Patient continued to improve and was discharged home on hospital day 4. Will Discharge medications include outpatient medications plus Tessalon Perles, promethazine with codeine as needed, metoprolol tartrate 12.5 mg twice daily, prednisone 40 mg for 5 days, 20 mg for 7 days 10 mg for 7 days 10 mg every other day for 6 days, azithromycin 500 mg x 1 Labs on Monday follow-up with me on Monday. Out of work until seen on Monday Status at Discharge Cognitive/behavioral status at discharge: oriented Functional status at discharge: independent ambulation Overall status at discharge: patient is progressing back to baseline Exam Vital Signs (past 8 hours): - 04/13/22 09:17 04/13/22 08:00 04/13/22 09:00 Temperature 97.5 F L Pulse Rate 78 90 Respiratory Rate 20 Blood Pressure 161/72 H 141/75 H Pulse Oximetry 95 95 Oxygen Delivery Method Room Air Oxygen Flow Rate 0 0 Oxygen Delivery Method Room Air Oxygen Flow Rate 0 Narrative Exam Narrative: Afebrile vital signs are stable. Patient continues to be stable on room air. Decreased coughing Patient with more energy overall appears clinically improved HEENT unremarkable Neck is supple without adenopathy Chest: No wheezing and improved air exchange with no rhonchi or crackles but overall prolonged expiratory phase Cor: Regular rate and rhythm without murmur Abdomen: Positive bowel sounds, soft, nontender Extremities: No edema pulses intact Inferior anterior ribs with tenderness and tenderness rectus abdominal muscles right upper quadrant Neurologic exam nonfocal Objective Labs Result Diagrams: 04/13/22 05:53 04/13/22 05:53 Labs: Laboratory Results - last 24 hr 04/13/22 04/13/22 04/13/22 05:53 05:53 05:53 WBC 3.7 L RBC 3.75 L Hgb 11.8 L Hct 34.7 L MCV 92.6 MCH 31.5 MCHC 34.0 RDW 12.4 Plt Count 158 Neut % (Auto) 85.6 H Lymph % (Auto) 8.7 L [place] % (Auto) 5.6 Eos % (Auto) 0.0 L Baso % (Auto) 0.1 Neut # (Auto) 3200 Lymph # (Auto) 300 L [place] # (Auto) 200 Eos # (Auto) 0 Baso # (Auto) 0 Sodium 131 L Potassium 5.3 H Chloride 97 L Carbon Dioxide 25 BUN 18 H Creatinine 0.72 Estimated GFR > 60 BUN/Creatinine Ratio 25.0 H Glucose 262 H Calcium 9.1 Total Creatine Kinase 775 H CK-MB (CK-2) 1.16 CK-MB (CK-2) Rel Index 0.1 L Troponin I < 0.012 [facility] Medical History COPD (chronic obstructive pulmonary disease) Depression Hyperlipidemia Hypertension Social History household members: none Smoking Status: Current every day smoker alcohol intake: current Discharge Assessment & Plan Assessment and Plan Assessment: 1. Acute respiratory failure 2. COPD exacerbation 3. Influenza A 4. Type 2 diabetes with worsening due to IV steroids 5. Troponinemia. Resolved CK-MB % was always normal. Due to the context it is thought that the troponins Patricia was secondary to hypertension, hypoxemia and tachycardia. Normal echo. Normal stress MIBI in June 2021. Reviewed with Cardiology. 6. Depression without issues Plan of Treatment: Discharge to home Follow-up with me next Monday with labs on Monday Discharge medications include outpatient medications including azithromycin 500 mg x 1; prednisone taper, metoprolol tartrate 12.5 mg twice daily, cough suppressant 35 minute spent with patient in in discharge Discharge Plan Discharge Plan Patient Disposition: Home Discharge orders & Medications Prescriptions: New azithromycin [Zithromax Z-Trino] 250 mg Tablet 500 mg PO DAILY Qty: 1 0RF benzonatate 100 mg Capsule 100 mg PO TID PRN (Reason: cough) Qty: 60 0RF codeine-guaifenesin 10-100 mg/5 mL Liquid 10 ml PO Q6H PRN (Reason: Cough) Qty: 120 0RF metoprolol tartrate 25 mg Tablet 12.5 mg PO BID Qty: 60 0RF Continued Aspirin 81 mg 81 mg PO DAILY metformin [Glucophage] 500 MG tablet 1,000 mg PO DAILY Qty: 0 albuterol sulfate 90 mcg/actuation Hfa Aerosol Inhaler 2 puff INHALATION Q4-6H PRN (Reason: shortness of breath) Advair HFA 45-21 mcg/actuation HFA aerosol inhaler 2 puff INHALATION BID Label Comments: INHALE TWO PUFFS BY MOUTH TWICE DAILY --RINSE MOUTH WITH WATER AFTER USE TO REDUCE AFTERTASTE AND CANDIDIASIS; DO NOT SWALLOW-- clopidogrel 75 mg tablet 75 mg PO DAILY Label Comments: TAKE ONE TABLET BY MOUTH ONE TIME DAILY fluoxetine 40 mg capsule 40 mg PO DAILY lisinopril 40 mg tablet 40 mg PO DAILY Label Comments: TAKE ONE TABLET BY MOUTH ONE TIME DAILY pantoprazole 40 mg tablet,delayed release (DR/EC) 40 mg PO BID Label Comments: Take one tablet by mouth twice a day TAKE 30 MINUTES BEFORE MEALS OR 2 HOURS AFTER EATING. rosuvastatin 40 mg tablet 40 mg PO DAILY Label Comments: TAKE ONE tablet by mouth once a day Follow up/Referrals: Brenda Vieyra MD [Primary Care Provider] - Geetha Medrano MD [Physician] - 04/20/22 Diet/Activity/Treatments Diet: Carb-consistent/Diabetic Discharge Data Primary Care Provider: Brenda Vieyra Quality VTE Deep Vein Thrombosis/Pulmonary Embolism Present on Admission: No
[2022-04-13] MEDS: CODEINE/GUAIFENESIN LIQUID 5ML UDC 10 ML PO (14:16)
== END 2022-04-13 14:50 | disposition home or self-care (01) | DRG 193 ==
LOC: ED 07:36 → AC 16:04
PROVIDERS: Emergency Medicine; Admitting Provider Family Medicine; Emergency Provider Emergency Medicine; PCP Student in an Organized Health Care Education/Training Program; Referring Provider Emergency Medicine; Visit Provider Family Medicine
DX: J10.1 Influenza due to other identified influenza virus with other respiratory manifestations (principal); J96.01 Acute respiratory failure with hypoxia; J44.1 Chronic obstructive pulmonary disease with (acute) exacerbation; I10 Essential (primary) hypertension; E78.5 Hyperlipidemia, unspecified; F32.A Depression, unspecified; E09.65 Drug or chemical induced diabetes mellitus with hyperglycemia; F17.210 Nicotine dependence, cigarettes, uncomplicated; T38.0X5A Adverse effect of glucocorticoids and synthetic analogues, initial encounter; Z79.84 Long term (current) use of oral hypoglycemic drugs; Z20.822 Contact with and (suspected) exposure to COVID-19
CPT/HCPCS: 0241U; 36415; 71045; 71275; 80048; 80053; 82550; 82553; 82962; 83605; 83880; 84145; 84484; 85025; 85379; 87040; 93005; 93010; 93306; 94640; 96374; 96375; 99284; 99285; J1650; J1815; J1885; J2930; Q9967

== ENCOUNTER 2022-04-22 20:34 | Emergency (ER) | payer OTHER, SELFPAY ==
[2022-04-10 12:46] VITALS: BMI 19.9
[2022-04-22 20:45] VITALS: BP 139/68; PULSE 107; RESP 22; TEMP 36.3; O2SAT 98; BMI 20.3
[2022-04-22 21:33] LABS: INR 0.8 (0.9-1.3); Prothrombin Time 9.4 SECONDS (10.1-12.7)
[2022-04-22 21:35] LABS: Albumin 3.8 g/dL (3.5-5.0); Albumin Globulin Ratio 1.6 (1.0-2.8); Alkaline Phosphatase 115 U/L (38-126); Aspartate Aminotransferase 24 IU/L (14-36); BUN Creatinine Ratio 23.6 (6-22); Bilirubin Total 0.5 mg/dL (0.2-1.3); Blood Urea Nitrogen 17 mg/dL (7-17); Calcium 8.2 mg/dL (8.4-10.2); Carbon Dioxide 19 mmol/L (22-32); Chloride 92 mmol/L (98-107); Estimated Glomerular Filt Rate > 60 mL/min (>60); Globulin 2.4 g/dL (1.7-4.1); HEMOLYSIS < 15 (0-50); Potassium 4.9 mmol/L (3.4-5.1); Sodium 124 mmol/L (137-145); Total Protein 6.2 g/dL (6.3-8.2)
[2022-04-22 21:39] LABS: Add Manual Diff / Slide Review NO; Basophils Absolute Auto 0 /uL (0-100); Basophils Percent Auto 0.3 % (0-2); Eosinophils Absolute Auto 0 /uL (0-450); Hemoglobin 11.6 g/dL (12.0-16.0); Lymphocytes Absolute Auto 200 /uL (1100-4500); Lymphocytes Percent Auto 3.4 % (25-40); Mean Corpuscular Hemoglobin 31.2 PG (26-34); Mean Corpuscular Volume 91.9 fL (80-100); Monocytes Absolute Auto 100 /uL (0-900); Monocytes Percent Auto 1.9 % (3-14); Neutrophils Absolute Auto 6900 /uL (1500-7000); Neutrophils Percent Auto 94.4 % (50-75); Platelet Count 240 X10^3/uL (150-400); Red Cell Distribution Width 12.4 % (11.6-14.8); White Blood Cell Count 7.3 X10^3/uL (4.5-11.0)
[2022-04-22 21:40] LABS: D Dimer 742 ng/ml (<500)
[2022-04-22 21:46] LABS: Glucose 518 mg/dL (80-110)
[2022-04-22 21:47] LABS: NT-proBNP (BNP-Adult 18+) 418 pg/mL (<125); Troponin I < 0.012 ng/mL (0.01-0.034)
--- NOTE | 2022-04-22 21:52 | ED_ITS ---
HPI - Chest Pain General Chief Complaint: Shortness of Breath/Dyspnea Stated Complaint: Chest pain, Headache Time Seen by Provider: 04/22/22 21:04 Source: patient Mode of arrival: Ambulatory Limitations: no limitations History of Present Illness HPI narrative: This is a 66-year-old female with history of COPD, hypertension, diabetes and dyslipidemia patient was admitted for influenza, COPD/asthma exasperation and trope anemia, patient presents today with complaint of chest pressure continuing can wheeze sounds some grogginess in her chest headache and feeling a little bit unsteady. She denies any fevers she states she still has a cough although it is better and her shortness of breath has actually improved. She states she is persistent bitter after taste and can not really taste food properly. She jovita es nausea vomiting. She denies diarrhea constipation she states she has not had polyuria or polydipsia, she denies swelling in her extremities. Patient notes she has been on prednisone since her discharge her only medication for her diabetes is metformin and her glucose is found to be 500 today. Patient was discharged home on Tessalon Perles, promethazine with codeine, metoprolol, prednisone taper and azithromycin on 04/13/2022. Patient is currently on 20 mg daily for her prednisone. Related Data Home Medications Medication Instructions Recorded Confirmed metformin 500 mg tablet 1,000 mg PO DAILY ##0 05/23/17 04/10/22 (Glucophage) albuterol sulfate 90 mcg/actuation 2 puff inhalation Q4-6H PRN 01/11/20 04/10/22 aerosol inhaler shortness of breath Aspirin 81 mg PO DAILY 05/27/21 04/10/22 clopidogrel 75 mg tablet 75 mg PO DAILY 04/10/22 04/10/22 fluoxetine 40 mg capsule 40 mg PO DAILY 04/10/22 04/10/22 fluticasone propionate 45 2 puff inhalation BID 04/10/22 04/10/22 mcg-salmeterol 21 mcg/actuation HFA inhaler (Advair HFA) lisinopril 40 mg tablet 40 mg PO DAILY 04/10/22 04/10/22 pantoprazole 40 mg tablet,delayed 40 mg PO BID 04/10/22 04/10/22 release rosuvastatin 40 mg tablet 40 mg PO DAILY 04/10/22 04/10/22 Previous Rx's Medication Instructions Recorded azithromycin 250 mg tablet 500 mg PO DAILY #1 tab 04/13/22 (Zithromax Z-Rtino) benzonatate 100 mg capsule 100 mg PO TID PRN cough #60 caps 04/13/22 codeine 10 mg-guaifenesin 100 mg/5 10 ml PO Q6H PRN Cough #120 mL 04/13/22 mL oral liquid metoprolol tartrate 25 mg tablet 12.5 mg PO BID #60 tabs 04/13/22 blood sugar diagnostic #30 ea 04/23/22 blood-glucose meter #1 ea 04/23/22 insulin glargine 100 unit/mL (3 10 unit (0.1 mL) SUBCUT DAILY #15 04/23/22 mL) subcutaneous pen (Lantus mL Solostar U-100 Insulin) Allergies Allergy/AdvReac Type Severity Reaction Status Date / Time No Known Drug Allergies Allergy Verified 05/27/21 11:38 Review of Systems Review of Systems ROS Unobtainable: All systems reviewed & are unremarkable except as noted in HPI and below Patient History Medical History COPD (chronic obstructive pulmonary disease) Depression Hyperlipidemia Hypertension Social History household members: none Smoking Status: Current every day smoker alcohol intake: current Smoking Status: Current every day smoker tobacco type: cigarettes alcohol intake frequency: 3 or more drinks per day Substance Use Type: does not use Exam Narrative Exam Narrative: GENERAL: Alert and oriented x three, mild distress. HEENT: Head normocephalic, atraumatic, EOMI, pupils reactive, face symmetric, moist mucous membranes NECK: Supple, full range of motion CARDIOVASCULAR: Regular rate and rhythm without murmurs, rubs or gallops. RESPIRATORY: Breath sounds equal bilaterally, no wheezes, no crackles or rhonchi. Patient is slightly coarse bilaterally. No tachypnea accessory muscle use. ABDOMEN: Soft, nontender. Normoactive bowel sounds all 4 quadrants. No guarding or rebound, rigidity, no mass. Nondistended. : No CVA tenderness EXTREMITIES: Normal range of motion, no clubbing or edema. Neurovascularly intact. 5/5 muscle strength upper and lower extremities. NEUROLOGICAL: Cranial nerves II through XII grossly intact. Moving all extremities SKIN: Warm, dry, no petechiae, no rashes or lesions. Initial Vital Signs Initial Vital Signs: Vital Signs Temperature 97.3 F L 04/22/22 20:45 Pulse Rate 107 H 04/22/22 20:45 Respiratory Rate 22 04/22/22 20:45 Blood Pressure 139/68 04/22/22 20:45 Pulse Oximetry 98 04/22/22 20:45 Oxygen Delivery Method 04/22/22 20:45 Scores GCS Maninder coma scale eye opening: Spontaneous Maninder coma scale verbal response: Orientated [place] coma scale motor response: Obey commands Maninder coma scale total score: 15 Course Orders Ordered: ED Orders 04/22/22 20:51 EKG-12 Lead Stat Measure peak expiratory flow ONCE RT Consult Eval and Treat NOW 04/22/22 21:13 Complete Blood Count AUTO DIFF Stat Comprehensive Metabolic Panel Stat D Dimer Stat Lactate (Lactic Acid) Stat NT-proBNP (BNP-Adult 18+) Stat Prothrombin Time INR Stat Troponin I Stat 04/22/22 21:39 Covid-19 + FLU A/B + RSV - PCR Stat 04/22/22 21:48 VBG [Venous Blood Gas] Stat 04/22/22 21:59 Ketones (Beta-Hydroxybutyrate) Stat 04/22/22 22:04 CT angio chest PE protocol Stat Discontinued Medications Sodium Chloride (Normal Saline 0.9%) 1,000 mls @ 1,000 mls/hr IV BOLUS ONE Stop: 04/22/22 22:54 Last Infusion: 04/22/22 23:14 Dose: 0 mls/hr Documented By: Admin: 04/22/22 22:02 Dose: 1,000 mls/hr Documented By: SATISH Sodium Chloride (Normal Saline 0.9%) 1,000 mls @ 1,000 mls/hr IV BOLUS ONE Stop: 04/23/22 00:24 Last Infusion: 04/23/22 00:14 Dose: 0 mls/hr Documented By: JOSE DE JESUS Infusion: 04/23/22 00:14 Dose: 0 mls/hr Documented By: JOSE DE JESUS Admin: 04/22/22 23:29 Dose: 1,000 mls/hr Documented By: JOSE DE JESUS Insulin Glargine (Insulin Glargine 100 Unit/Ml 3ml Pen) 5 unit SUBCUT BEDTIME RAFY Insulin Glargine (Insulin Glargine 100 Unit/Ml 3ml Pen) 5 unit SUBCUT BEDTIME O NE Stop: 04/23/22 01:10 Last Admin: 04/23/22 01:12 Dose: 5 unit Documented By: JOSE DE JESUS Co-signed By: ANABELA Vital Signs Vital signs: Vital Signs - 8 hr 04/22/22 20:45 04/23/22 01:26 Temperature 97.3 F L Pulse Rate 107 H 65 Respiratory Rate 22 16 Blood Pressure 139/68 132/74 Pulse Oximetry 98 98 Oxygen Delivery Method Room Air Room Air MDM - Chest Pain Lab Data Result diagrams: 04/22/22 21:13 04/22/22 21:13 Labs: Lab Results 04/22/22 04/22/22 04/22/22 Range/Units 21:13 21:13 21:13 WBC 7.3 (4.5-11.0) X10^3/uL RBC 3.70 L (4.0-5.2) X10^6/uL Hgb 11.6 L (12.0-16.0) g/dL Hct 34.0 L (36-46) % MCV 91.9 (80-100) fL MCH 31.2 (26-34) PG MCHC 34.0 (30-36) % RDW 12.4 (11.6-14.8) % Plt Count 240 (150-400) X10^3/uL Neut % (Auto) 94.4 H (50-75) % Lymph % (Auto) 3.4 L (25-40) % [place] % (Auto) 1.9 L (3-14) % Eos % (Auto) 0.0 L (2-4) % Baso % (Auto) 0.3 (0-2) % Neut # (Auto) 6900 (4608-6955) /uL Lymph # (Auto) 200 L (2112-7796) /uL [place] # (Auto) 100 (0-900) /uL Eos # (Auto) 0 (0-450) /uL Baso # (Auto) 0 (0-100) /uL PT 9.4 L (10.1-12.7) SECONDS INR 0.8 L (0.9-1.3) D-Dimer (<500) ng/ml VBG pH (7.33-7.43) VBG pCO2 (45-50) mmHg VBG pO2 (35-45) mmHg VBG HCO3 (23-28) mmol/L VBG Total CO2 (24-29) mmol/L VBG O2 Saturation (70-75) % VBG Base Excess (0-4) mmol/L Sodium 124 L (137-145) mmol/L Potassium 4.9 (3.4-5.1) mmol/L Chloride 92 L (98-107) mmol/L Carbon Dioxide 19 L (22-32) mmol/L BUN 17 (7-17) mg/dL Creatinine 0.72 (0.52-1.04) mg/dL Estimated GFR > 60 (>60) mL/min BUN/Creatinine Ratio 23.6 H (6-22) Glucose 518 H* D (80-110) mg/dL Lactate (0.7-2.1) mmol/L Calcium 8.2 L (8.4-10.2) mg/dL Total Bilirubin 0.5 (0.2-1.3) mg/dL AST 24 (14-36) IU/L ALT 21 (<35) IU/L Alkaline Phosphatase 115 (38-126) U/L Troponin I < 0.012 (0.01-0.034) ng/mL NT-Pro-B Natriuret Pep 418 H (<125) pg/mL Total Protein 6.2 L (6.3-8.2) g/dL Albumin 3.8 (3.5-5.0) g/dL Globulin 2.4 (1.7-4.1) g/dL Albumin/Globulin Ratio 1.6 (1.0-2.8) Ketones (<0.27) mmol/L SARS-CoV-2 (PCR) (Negative) Influenza A (RT-PCR) (NEGATIVE) Influenza B (RT-PCR) (NEGATIVE) RSV (PCR) (Negative) 04/22/22 04/22/22 04/22/22 Range/Units 21:13 21:13 21:39 WBC (4.5-11.0) X10^3/uL RBC (4.0-5.2) X10^6/uL Hgb (12.0-16.0) g/dL Hct (36-46) % MCV (80-100) fL MCH (26-34) PG MCHC (30-36) % RDW (11.6-14.8) % Plt Count (150-400) X10^3/uL Neut % (Auto) (50-75) % Lymph % (Auto) (25-40) % [place] % (Auto) (3-14) % Eos % (Auto) (2-4) % Baso % (Auto) (0-2) % Neut # (Auto) (4374-4828) /uL Lymph # (Auto) (7387-3808) /uL [place] # (Auto) (0-900) /uL Eos # (Auto) (0-450) /uL Baso # (Auto) (0-100) /uL PT (10.1-12.7) SECONDS INR (0.9-1.3) D-Dimer 742 H (<500) ng/ml VBG pH (7.33-7.43) VBG pCO2 (45-50) mmHg VBG pO2 (35-45) mmHg VBG HCO3 (23-28) mmol/L VBG Total CO2 (24-29) mmol/L VBG O2 Saturation (70-75) % VBG Base Excess (0-4) mmol/L Sodium (137-145) mmol/L Potassium (3.4-5.1) mmol/L Chloride (98-107) mmol/L Carbon Dioxide (22-32) mmol/L BUN (7-17) mg/dL Creatinine (0.52-1.04) mg/dL Estimated GFR (>60) mL/min BUN/Creatinine Ratio (6-22) Glucose (80-110) mg/dL Lactate 4.0 H (0.7-2.1) mmol/L Calcium (8.4-10.2) mg/dL Total Bilirubin (0.2-1.3) mg/dL AST (14-36) IU/L ALT (<35) IU/L Alkaline Phosphatase (38-126) U/L Troponin I (0.01-0.034) ng/mL NT-Pro-B Natriuret Pep (<125) pg/mL Total Protein (6.3-8.2) g/dL Albumin (3.5-5.0) g/dL Globulin (1.7-4.1) g/dL Albumin/Globulin Ratio (1.0-2.8) Ketones (<0.27) mmol/L SARS-CoV-2 (PCR) Negative (Negative) Influenza A (RT-PCR) Flu a negative (NEGATIVE) Influenza B (RT-PCR) Flu b negative (NEGATIVE) RSV (PCR) Negative (Negative) 04/22/22 04/22/22 04/22/22 Range/Units 21:48 21:59 23:25 WBC (4.5-11.0) X10^3/uL RBC (4.0-5.2) X10^6/uL Hgb (12.0-16.0) g/dL Hct (36-46) % MCV (80-100) fL MCH (26-34) PG MCHC (30-36) % RDW (11.6-14.8) % Plt Count (150-400) X10^3/uL Neut % (Auto) (50-75) % Lymph % (Auto) (25-40) % [place] % (Auto) (3-14) % Eos % (Auto) (2-4) % Baso % (Auto) (0-2) % Neut # (Auto) (2178-8624) /uL Lymph # (Auto) (2342-1817) /uL [place] # (Auto) (0-900) /uL Eos # (Auto) (0-450) /uL Baso # (Auto) (0-100) /uL PT (10.1-12.7) SECONDS INR (0.9-1.3) D-Dimer (<500) ng/ml VBG pH 7.38 (7.33-7.43) VBG pCO2 37.3 L (45-50) mmHg VBG pO2 46 H (35-45) mmHg VBG HCO3 22 L (23-28) mmol/L VBG Total CO2 23 L (24-29) mmol/L VBG O2 Saturation 81 H (70-75) % VBG Base Excess -3.0 L (0-4) mmol/L Sodium (137-145) mmol/L Potassium (3.4-5.1) mmol/L Chloride (98-107) mmol/L Carbon Dioxide (22-32) mmol/L BUN (7-17) mg/dL Creatinine (0.52-1.04) mg/dL Estimated GFR (>60) mL/min BUN/Creatinine Ratio (6-22) Glucose (80-110) mg/dL Lactate 2.9 H (0.7-2.1) mmol/L Calcium (8.4-10.2) mg/dL Total Bilirubin (0.2-1.3) mg/dL AST (14-36) IU/L ALT (<35) IU/L Alkaline Phosphatase (38-126) U/L Troponin I (0.01-0.034) ng/mL NT-Pro-B Natriuret Pep (<125) pg/mL Total Protein (6.3-8.2) g/dL Albumin (3.5-5.0) g/dL Globulin (1.7-4.1) g/dL Albumin/Globulin Ratio (1.0-2.8) Ketones 0.16 (<0.27) mmol/L SARS-CoV-2 (PCR) (Negative) Influenza A (RT-PCR) (NEGATIVE) Influenza B (RT-PCR) (NEGATIVE) RSV (PCR) (Negative) Point of Care Testing Glucose POC [address] scan - chest: Radiologist's Impression: [address] [address] [address] Scan Report Signed Patient: Edwina Woods MR#: [id number] : 1955 Acct:[id number] Age/Sex: 66 / F Date of Service: 04/22/22 Loc: ED Accession Number: [id number] ?? Procedure: CT angio chest PE protocol Ordering Provider: Herminia Wood D.O. PROCEDURE:? CT ANGIO CHEST PE PROTOCOL ? INDICATIONS:? chest pain, post influenza, +dimer, dka ? TECHNIQUE:? After the administration of intravenous contrast, 2 mm thick sections acquired from the pulmonary apices to the posterior costophrenic angles.? 3-dimensional maximum intensity projection (MIP) coronal and sagittal reformats were then acquired through the thorax.? For radiation dose reduction, the following was used:? automated exposure control, adjustment of mA and/or kV according to patient size.? ? COMPARISON:? [facility], CT, CT ANGIO CHEST PE PROTOCOL, 04/10/2022, 9:59. ? FINDINGS:? Image quality:? Excellent.? ? Pulmonary arteries:? Pulmonary arteries are normal in size, and demonstrate no intraluminal filling defects to suggest central pulmonary embolism.? ? Lower Neck: No lymphadenopathy by size criteria. Thyroid:? Visualized thyroid demonstrates no discrete nodules. Axillae: No lymphadenopathy by size criteria. Chest Wall:? Unremarkable.? Bones: Visualized osseous structures demonstrate no suspicious lesions. ? Lungs and Airways:? No acute consolidation.? No suspicious pulmonary nodules.? There is minimal atelectasis.? The trachea and central airways are patent.? There is mild bilateral perihilar bronchial wall thickening. Pleura: No pneumothorax or pleural effusions.? ? Heart: Heart size is normal.? No pericardial effusion. Thoracic Vessels: The thoracic aorta is normal in size.? Mediastinum and Emilia: No lymphadenopathy by size criteria. Esophagus: No wall thickening. No hiatal hernia. ? Abdomen:? Visualized upper abdominal solid organs appear normal in the early arterial phase of enhancement.? ? IMPRESSION:? ? 1. No evidence of pulmonary embolism. ? 2. No acute consolidation. ? 3. Mild bilateral perihilar bronchial wall thickening compatible with bronchiolitis or reactive airways disease.? ? ? Dictated by: Edy Junior M.D. on 04/22/2022 at 23:37 ? ? Approved by: Edy Junior M.D. on 04/22/2022 at 23:40?? ECG Data Attestation: I personally reviewed and interpreted this ECG as follows: Prior ECG tracings: available for review Interpretation: Sinus rhythm rate 92 DC 130 QRS is [address]TC [address] No acute ST changes. MDM Narrative Medical decision making narrative: This is a 66-year-old female who presents with complaint of feeling unwell, patient had influenza, COPD exacerbation with acute respiratory failure and hyperglycemia from type 2 diabetes as well as elevation her troponin which had normal echo during her stay here in the hospital, patient has improved she is currently on oral steroids which is likely causing her hyperglycemia today she almost beats DKA, she has a pH of 7.37 a glucose in the 500 range, her sodium corrected for hyperglycemia is 131 from 124, patient's anion gap is 20, and her bicarb is 19. She is anemic with a hemoglobin of 11, leftward shift. She does not have any other clear acute source of infection but will check urine. Dimer was obtained she is having some increased chest pain this is likely secondary to her hyperglycemia, EKG shows possibly slightly elevated T-waves lateral leads but no other acute dynamic changes troponin is negative. Dimer was elevated outside normal range even when age adjusted so CT angio was obtained as she has had a recent hospitalization. This showed no PE, no acute consolidation patient has some bronchial wall thickening consistent with bronchiolitis/reactive airway consistent with her recent influenza and disease. Patient received IV fluids, re-evaluated glucose is 430's, patient lactate tr ending down words was 4, is now 2.9. Patient glucose on recheck after 2 L fluids as 368, discussed with patient she would like to return home we discussed observation versus admission patient is very reluctant I do not feel that she requires insulin drip at this time, discussed with Dr. Mathews who is on for her PCP Dr. Medrano. Discussed plan to start patient on Lantus 10 units daily while she is taking prednisone. And patient will stop as she is weaning off. Plan for follow-up this coming week for recheck. I did ask patient to stay to repeat her labs she does not wish to. She states that orders already been put in for glucometer but will send prescription to the pharmacy. Patient feels comfortable this plan. She is feeling much improved at this time. Discharge Plan Departure Patient Disposition: Home Clinical Impression: Hyperglycemia Instructions: How to Use an Insulin Pen, Insulin Glargine (rDNA origin) Injection Activity Restrictions/Additional Instructions: Your glucose was extremely elevated today, recommend rechecking her labs before discharging home but understand that you really want to return home. Follow-up with Dr. Medrano this coming week for recheck. Call Monday morning for an appointment. Please start using Lantus, 10 units daily while you are on prednisone. Prednisone can cause blood sugar to be elevated in people with diabetes. As your prednisone is weaned down they will likely stop your Lantus. Check your glucose with a glucometer daily or if you feel unwell to make sure you are not hypoglycemic or have low blood sugar. Prescription sent to [facility] in [place]. Return if you are feeling worse, if you are having elevated blood sugars greater than 300, recurrent headaches, chest pain, shortness of breath, persistent vomiting, signs of dehydration, new abdominal pain, altered mental status, lethargy or other new or concerning changes. Prescriptions: New insulin glargine [Lantus Solostar U-100 Insulin] 100 unit/mL (3 mL) insulin pen 10 unit SUBCUT DAILY Qty: 15 0RF (DME) blood-glucose meter Kit See Rx Instructions .Route Qty: 1 0RF Rx Instructions: As directed (DME) blood sugar diagnostic Strip See Rx Instructions .Route Qty: 30 0RF Rx Instructions: As directed No Action Aspirin 81 mg 81 mg PO DAILY metformin [Glucophage] 500 MG tablet 1,000 mg PO DAILY Qty: 0 albuterol sulfate 90 mcg/actuation Hfa Aerosol Inhaler 2 puff INHALATION Q4-6H PRN (Reason: shortness of breath) Advair HFA 45-21 mcg/actuation HFA aerosol inhaler 2 puff INHALATION BID Label Comments: INHALE TWO PUFFS BY MOUTH TWICE DAILY --RINSE MOUTH WITH WATER AFTER USE TO REDUCE AFTERTASTE AND CANDIDIASIS; DO NOT SWALLOW-- clopidogrel 75 mg tablet 75 mg PO DAILY Label Comments: TAKE ONE TABLET BY MOUTH ONE TIME DAILY fluoxetine 40 mg capsule 40 mg PO DAILY lisinopril 40 mg tablet 40 mg PO DAILY Label Comments: TAKE ONE TABLET BY MOUTH ONE TIME DAILY pantoprazole 40 mg tablet,delayed release (DR/EC) 40 mg PO BID Label Comments: Take one tablet by mouth twice a day TAKE 30 MINUTES BEFORE MEALS OR 2 HOURS AFTER EATING. rosuvastatin 40 mg tablet 40 mg PO DAILY Label Comments: TAKE ONE tablet by mouth once a day azithromycin [Zithromax Z-Trino] 250 mg Tablet 500 mg PO DAILY Qty: 1 0RF benzonatate 100 mg Capsule 100 mg PO TID PRN (Reason: cough) Qty: 60 0RF codeine-guaifenesin 10-100 mg/5 mL Liquid 10 ml PO Q6H PRN (Reason: Cough) Qty: 120 0RF metoprolol tartrate 25 mg Tablet 12.5 mg PO BID Qty: 60 0RF Referrals: Brenda Vieyra MD [Primary Care Provider] - Visit Report Forms: Patient Portal/API
[2022-04-22] MEDS: SODIUM CHLORIDE 0.9% 1,000 ML 1000 ML IV ×2 (22:02→23:29)
--- NOTE | 2022-04-22 22:04 | DI.CT.S_ITS ---
PROCEDURE: CT ANGIO CHEST PE PROTOCOL INDICATIONS: chest pain, post influenza, +dimer, dka TECHNIQUE: After the administration of intravenous contrast, 2 mm thick sections acquired from the pulmonary apices to the posterior costophrenic angles. 3-dimensional maximum intensity projection (MIP) coronal and sagittal reformats were then acquired through the thorax. For radiation dose reduction, the following was used: automated exposure control, adjustment of mA and/or kV according to patient size. COMPARISON: [facility], CT, CT ANGIO CHEST PE PROTOCOL, 04/10/2022, 9:59. FINDINGS: Image quality: Excellent. Pulmonary arteries: Pulmonary arteries are normal in size, and demonstrate no intraluminal filling defects to suggest central pulmonary embolism. Lower Neck: No lymphadenopathy by size criteria. Thyroid: Visualized thyroid demonstrates no discrete nodules. Axillae: No lymphadenopathy by size criteria. Chest Wall: Unremarkable. Bones: Visualized osseous structures demonstrate no suspicious lesions. Lungs and Airways: No acute consolidation. No suspicious pulmonary nodules. There is minimal atelectasis. The trachea and central airways are patent. There is mild bilateral perihilar bronchial wall thickening. Pleura: No pneumothorax or pleural effusions. Heart: Heart size is normal. No pericardial effusion. Thoracic Vessels: The thoracic aorta is normal in size. Mediastinum and Emilia: No lymphadenopathy by size criteria. Esophagus: No wall thickening. No hiatal hernia. Abdomen: Visualized upper abdominal solid organs appear normal in the early arterial phase of enhancement. IMPRESSION: 1. No evidence of pulmonary embolism. 2. No acute consolidation. 3. Mild bilateral perihilar bronchial wall thickening compatible with bronchiolitis or reactive airways disease. Dictated by: Edy Junior M.D. on 04/22/2022 at 23:37 Approved by: Edy Junior M.D. on 04/22/2022 at 23:40
[2022-04-22 22:13] LABS: Alanine Aminotransferase 21 IU/L (<35)
[2022-04-22 22:16] LABS: HCO3 VBG 22 mmol/L (23-28); Oxygen Saturation VBG 81 % (70-75); PCO2 VBG 37.3 mmHg (45-50); PO2 VBG 46 mmHg (35-45); Total CO2 VBG 23 mmol/L (24-29); pH VBG 7.38 (7.33-7.43)
[2022-04-22 22:38] LABS: Ketones (Beta-Hydroxybutyrate) 0.16 mmol/L (<0.27)
[2022-04-22 23:19] LABS: Reflexed Lactate in 2 Hours Y
--- NOTE | 2022-04-22 23:29 | PC.NURSE ---
Patient able to ambulate to restroom and back to ED room, independently with strong and steady gait
[2022-04-22 23:34] LABS: Influenza A - CEPHEID Flu A NEGATIVE (NEGATIVE); Influenza B - CEPHEID Flu B NEGATIVE (NEGATIVE); Respiratory Syncytial Virus Negative (Negative)
[2022-04-22 23:35] LABS: COVID-19 CEPHEID 4-PLEX PCR Negative (Negative)
[2022-04-22 23:40] LABS: Lactate 2HR (Lactic Acid Rflx) 2.9 mmol/L (0.7-2.1)
[2022-04-23] MEDS: INSULIN GLARGINE 100 UNIT/ML 3ML PEN SUBCUT (01:12)
[2022-04-23 01:26] VITALS: BP 132/74; PULSE 65; RESP 16; O2SAT 98
== END 2022-04-23 01:27 | disposition home or self-care (01) ==
PROVIDERS: Emergency Provider Emergency Medicine; PCP Student in an Organized Health Care Education/Training Program
DX: E11.65 Type 2 diabetes mellitus with hyperglycemia (principal); Z79.4 Long term (current) use of insulin; Z79.899 Other long term (current) drug therapy; Z20.822 Contact with and (suspected) exposure to COVID-19
CPT/HCPCS: 0241U; 36415; 71275; 80053; 82009; 82805; 82962; 83605; 83880; 84484; 85025; 85379; 85610; 93005; 93010; 96360; 96361; 96372; 99284; Q9967

== ENCOUNTER 2022-11-10 01:47 | Emergency (ER) | payer OTHER, SELFPAY ==
[2022-04-10 12:46] VITALS: BMI 19.9
[2022-11-10] VITALS (11 sets, daily range): BP systolic 167–193; BP diastolic 71–86; PULSE 75–101; RESP 18–24; TEMP 36.6; O2SAT 95–99
--- NOTE | 2022-11-10 02:22 | DI.CT.S_ITS ---
PROCEDURE: CT HEAD/BRAIN WO CON INDICATIONS: worst headache of life TECHNIQUE: Noncontrast 4.5 mm thick angled axial sections acquired from the foramen magnum to the vertex, with coronal and sagittal reformats. For radiation dose reduction, the following was used: automated exposure control, adjustment of mA and/or kV according to patient size. COMPARISON: [facility], CT, CT HEAD/BRAIN WO CON, 02/16/2021, 1:01. FINDINGS: Image quality: Excellent. CSF spaces: Basal cisterns are patent. No extra-axial fluid collections. The ventricles are symmetric in size and shape. Brain: No intracranial bleeds or masses. There is cerebral volume loss for age, with resultant ventricular and sulcal prominence. There are severe periventricular and deep white matter chronic small vessel ischemic changes. 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 There is intracranial internal carotid artery atherosclerosis. Skull and face: Calvarium and visualized facial bones appear intact, without suspicious lesions. Sinuses: Visualized sinuses and mastoids are clear. IMPRESSION: 1. Age-related volume loss and severe small vessel ischemic change. 2. No acute intracranial process. Comment: Final report is concordant with preliminary interpretation provided by [facility]. Dictated by: Zafar Wheeler M.D. on 11/10/2022 at 7:51 Approved by: Zafar Wheeler M.D. on 11/10/2022 at 7:52
[2022-11-10 02:39] LABS: Add Manual Diff / Slide Review NO; Basophils Absolute Auto 100 /uL (0-100); Basophils Percent Auto 1.4 % (0-2); Eosinophils Absolute Auto 100 /uL (0-450); Eosinophils Percent Auto 1.7 % (2-4); Hemoglobin 12.5 g/dL (12.0-16.0); Lymphocytes Absolute Auto 1800 /uL (1100-4500); Lymphocytes Percent Auto 31.3 % (25-40); Mean Corpuscular HGB Conc 35.6 % (30-36); Mean Corpuscular Hemoglobin 32.7 PG (26-34); Mean Corpuscular Volume 91.8 fL (80-100); Monocytes Absolute Auto 400 /uL (0-900); Monocytes Percent Auto 6.3 % (3-14); Neutrophils Absolute Auto 3300 /uL (1500-7000); Neutrophils Percent Auto 59.3 % (50-75); Platelet Count 189 X10^3/uL (150-400); Red Blood Cell Count 3.81 X10^6/uL (4.0-5.2); Red Cell Distribution Width 12.4 % (11.6-14.8); White Blood Cell Count 5.6 X10^3/uL (4.5-11.0)
[2022-11-10 02:48] LABS: Alanine Aminotransferase 17 IU/L (<35); Albumin 3.7 g/dL (3.5-5.0); Albumin Globulin Ratio 1.5 (1.0-2.8); Alkaline Phosphatase 115 U/L (38-126); Aspartate Aminotransferase 41 IU/L (14-36); Bilirubin Total 0.9 mg/dL (0.2-1.3); Blood Urea Nitrogen 8 mg/dL (7-17); Calcium 6.8 mg/dL (8.4-10.2); Carbon Dioxide 18 mmol/L (22-32); Chloride 84 mmol/L (98-107); Creatine Kinase 83 U/L (30-135); Estimated Glomerular Filt Rate > 60 mL/min (>60); Globulin 2.5 g/dL (1.7-4.1); Glucose 117 mg/dL (80-110); HEMOLYSIS 33 (0-50); Lipase 113 U/L (23-300); Sodium 122 mmol/L (137-145); Total Protein 6.2 g/dL (6.3-8.2)
[2022-11-10 03:00] LABS: Troponin I < 0.012 ng/mL (0.01-0.034)
[2022-11-10] MEDS: SODIUM CHLORIDE 0.9% 1,000 ML 1000 ML IV (03:14)
[2022-11-10] MEDS: KETOROLAC 30 MG/ML VIAL 15 MG IV (03:14)
[2022-11-10] MEDS: ONDANSETRON 4 MG/2 ML INJ IV (03:14)
--- NOTE | 2022-11-10 04:00 | ED.HA ---
HPI - Headache General Chief Complaint: Headache Stated Complaint: Migraine Time Seen by Provider: 11/10/22 02:08 Mode of arrival: Ambulatory History of Present Illness HPI Narrative: Patient 67-year-old female history of COPD hypertension diabetes hyperlipidemia presenting today with headache. She reports that she started having headache around 7:00 p.m. has progressively gotten worse. She typically does not get headaches. She took some Aleve and Advil at home without any relief. Mild nausea no numbness tingling or weakness. She denies any chest pain shortness or other symptoms. She is noted to be quite hypertensive in the ED. mild sensitive to light. no fever or chills. No neck pain. Related Data Home Medications Medication Instructions Recorded Confirmed metformin 500 mg tablet 1,000 mg PO DAILY ##0 05/23/17 04/10/22 (Glucophage) albuterol sulfate 90 mcg/actuation 2 puff inhalation Q4-6H PRN 01/11/20 04/10/22 aerosol inhaler shortness of breath Aspirin 81 mg PO DAILY 05/27/21 04/10/22 clopidogrel 75 mg tablet 75 mg PO DAILY 04/10/22 04/10/22 fluoxetine 40 mg capsule 40 mg PO DAILY 04/10/22 04/10/22 fluticasone propionate 45 2 puff inhalation BID 04/10/22 04/10/22 mcg-salmeterol 21 mcg/actuation HFA inhaler (Advair HFA) lisinopril 40 mg tablet 40 mg PO DAILY 04/10/22 04/10/22 pantoprazole 40 mg tablet,delayed 40 mg PO BID 04/10/22 04/10/22 release rosuvastatin 40 mg tablet 40 mg PO DAILY 04/10/22 04/10/22 Previous Rx's Medication Instructions Recorded azithromycin 250 mg tablet 500 mg PO DAILY #1 tab 04/13/22 (Zithromax Z-Trino) benzonatate 100 mg capsule 100 mg PO TID PRN cough #60 caps 04/13/22 codeine 10 mg-guaifenesin 100 mg/5 10 ml PO Q6H PRN Cough #120 mL 04/13/22 mL oral liquid metoprolol tartrate 25 mg tablet 12.5 mg PO BID #60 tabs 04/13/22 blood sugar diagnostic #30 ea 04/23/22 blood-glucose meter #1 ea 04/23/22 insulin glargine 100 unit/mL (3 10 unit (0.1 mL) SUBCUT DAILY #15 04/23/22 mL) subcutaneous pen (Lantus mL Solostar U-100 Insulin) Allergies Allergy/AdvReac Type Severity Reaction Status Date / Time No Known Drug Allergies Allergy Verified 05/27/21 11:38 Review of Systems Review of Systems ROS Unobtainable: All systems reviewed & are unremarkable except as noted in HPI and below Patient History Medical History COPD (chronic obstructive pulmonary disease) Depression Hyperlipidemia Hypertension Social History household members: none Smoking Status: Current every day smoker alcohol intake: current Smoking Status: Current every day smoker tobacco type: cigarettes alcohol intake frequency: 3 or more drinks per day Substance Use Type: does not use Exam Initial Vital Signs Initial Vital Signs: Vital Signs Temperature 97.9 F 11/10/22 01:55 Pulse Rate 88 11/10/22 01:55 Respiratory Rate 18 11/10/22 01:55 Blood Pressure 193/86 H 11/10/22 01:55 Pulse Oximetry 97 11/10/22 01:55 Oxygen Delivery Method Room Air 11/10/22 01:55 GENERAL: 67-year-old female appears uncomfortable in pain and in no acute distress. HEENT: Head atraumatic,EOMI, pupils reactive, face symmetric, moist mucous membranes . No meningeal signs CARDIOVASCULAR: Regular rate and rhythm without murmurs, rubs or gallops. RESPIRATORY: Breath sounds equal bilaterally, no wheezes rales or rhonchi. ABDOMEN: Soft, nontender. Normoactive bowel sounds all 4 quadrants. No guarding or rebound. EXTREMITIES: Normal range of motion, no clubbing or edema. Neurovascularly intact NEUROLOGICAL: Alert and oriented x4.Normal gait and speech. Real Estate Lawyer strength equal bilaterally SKIN: Warm, dry, no laceration, no petechiae, no rashes or lesions. Course Orders Ordered: Discontinued Medications Sodium Chloride (Normal Saline 0.9%) 1,000 mls @ 1,000 mls/hr IV CONT RAFY Last Infusion: 11/10/22 04:30 Dose: 0 mls/hr Documented By: Admin: 11/10/22 03:14 Dose: 1,000 mls/hr Documented By: WILLIAM Ketorolac Tromethamine (Ketorolac 30 Mg/Ml Vial) 15 mg IV NOW ONE Stop: 11/10/22 02:23 Last Admin: 11/10/22 03:14 Dose: 15 mg Documented By: WILLIAM Morphine Sulfate (Morphine 4 Mg/Ml Inj) 4 mg IV NOW ONE Stop: 11/10/22 04:53 Last Admin: 11/10/22 05:12 Dose: 4 mg Documented By: WILLIAM Ondansetron HCl (Ondansetron 4 Mg/2 Ml Inj) 4 mg IV NOW ONE Stop: 11/10/22 02:23 Last Admin: 11/10/22 03:14 Dose: 4 mg Documented By: WILLIAM Vital Signs Vital signs: Vital Signs - 8 hr 11/10/22 01:55 11/10/22 02:05 11/10/22 02:40 Temperature 97.9 F Pulse Rate 88 81 80 Respiratory Rate 18 22 Blood Pressure 193/86 H Pulse Oximetry 97 99 99 Oxygen Delivery Method Room Air 11/10/22 03:00 11/10/22 03:30 11/10/22 04:00 Temperature Pulse Rate 79 101 H 88 Respiratory Rate 19 20 20 Blood Pressure Pulse Oximetry 97 98 99 Oxygen Delivery Method Room Air Room Air 11/10/22 04:21 11/10/22 04:21 11/10/22 04:30 Temperature Pulse Rate 93 H Respiratory Rate 24 Blood Pressure 180/81 H 167/71 H Pulse Oximetry Oxygen Delivery Method 11/10/22 04:30 11/10/22 05:00 11/10/22 05:00 Temperature Pulse Rate 80 77 Respiratory Rate 18 20 Blood Pressure 175/78 H Pulse Oximetry 97 98 Oxygen Delivery Method Room Air Room Air 11/10/22 05:30 11/10/22 05:30 Temperature Pulse Rate 79 Respiratory Rate 18 Blood Pressure 168/74 H Pulse Oximetry 95 Oxygen Delivery Method Room Air MDM - Headache Lab Data 11/10/22 02:20 11/10/22 02:20 Labs: Lab Results 11/10/22 11/10/22 Range/Units 02:20 02:20 WBC 5.6 (4.5-11.0) X10^3/uL RBC 3.81 L (4.0-5.2) X10^6/uL Hgb 12.5 (12.0-16.0) g/dL Hct 35.0 L (36-46) % MCV 91.8 (80-100) fL MCH 32.7 (26-34) PG MCHC 35.6 (30-36) % RDW 12.4 (11.6-14.8) % Plt Count 189 (150-400) X10^3/uL Neut % (Auto) 59.3 (50-75) % Lymph % (Auto) 31.3 (25-40) % [place] % (Auto) 6.3 (3-14) % Eos % (Auto) 1.7 L (2-4) % Baso % (Auto) 1.4 (0-2) % Neut # (Auto) 3300 (6537-7366) /uL Lymph # (Auto) 1800 (5786-5333) /uL [place] # (Auto) 400 (0-900) /uL Eos # (Auto) 100 (0-450) /uL Baso # (Auto) 100 (0-100) /uL Sodium 122 L (137-145) mmol/L Potassium 4.0 (3.4-5.1) mmol/L Chloride 84 L (98-107) mmol/L Carbon Dioxide 18 L (22-32) mmol/L BUN 8 (7-17) mg/dL Creatinine 0.57 (0.52-1.04) mg/dL Estimated GFR > 60 (>60) mL/min BUN/Creatinine Ratio 14.0 (6-22) Glucose 117 H (80-110) mg/dL Calcium 6.8 L (8.4-10.2) mg/dL Total Bilirubin 0.9 (0.2-1.3) mg/dL AST 41 H (14-36) IU/L ALT 17 (<35) IU/L Alkaline Phosphatase 115 (38-126) U/L Total Creatine Kinase 83 (30-135) U/L Troponin I < 0.012 (0.01-0.034) ng/mL Total Protein 6.2 L (6.3-8.2) g/dL Albumin 3.7 (3.5-5.0) g/dL Globulin 2.5 (1.7-4.1) g/dL Albumin/Globulin Ratio 1.5 (1.0-2.8) Lipase 113 (23-300) U/L Imaging Data CT scan - head: Radiologist's Impression: Missionary report. Negative for acute intracranial CT. Visualized mastoid air cells and paranasal sinuses unchanged ECG Data Interpretation: Sinus rhythm rate 77 MT interval 152 QRS [address] changes no T-wave inversion slightly tall peaked T-waves in V4 V5 and V6 similar to previous EKGs MDM Narrative Medical decision making narrative: Patient is 67-year-old female history of hypertension presenting today with severe headache. She is given Toradol and fluids and Zofran. It helps some but still having pretty severe headache. She is no focal deficits. Head CT is negative. She is given a dose of morphine which seems to help. She is noted to be hyponatremic sodium of 122 previously her sodium was 124. She reports that she tries to drink a lot of water I discussed with her maybe hold off on her water have her sodium rechecked. His glucose of 117 and a bicarb of 18. She previously had bicarb of 17 glucose of 518 and was found to have mild DKA. She is not having any signs or symptoms of DKA today. She was given 1 L of fluid. After toradol, morphine zofran, she is overall feeling like she would just like to go home and sleep. Recommend checking her blood pressure regularly. It has improved. She has no sign of end-organ damage. Discharge Plan Departure Patient Disposition: Home Clinical Impression: Headache, Chronic hyponatremia Instructions: DI for Headache, Hyponatremia-Adult Activity Restrictions/Additional Instructions: *You have been diagnosed with headache *What to do: At this time please check her blood pressure at home 1-2 times daily record and discussed your PCP may need changes in your medication. I also recommend decreasing your water intake her sodium getting quite low. Please have your sodium rechecked next week. *Continue to take medications as directed Motrin 600 mg every 6 hours Tylenol 650 mg every 4-6 hours needed for [id number] pain *Follow up with your primary care provider in 2-3 days or call [phone] *Return to ER if you should have increasing pain weakness numbness tingling chest pain or any new, worsening or concerning symptoms Prescriptions: No Action Aspirin 81 mg 81 mg PO DAILY metformin [Glucophage] 500 MG tablet 1,000 mg PO DAILY Qty: 0 insulin glargine [Lantus Solostar U-100 Insulin] 100 unit/mL (3 mL) insulin pen 10 unit SUBCUT DAILY Qty: 15 0RF (DME) blood-glucose meter Kit See Rx Instructions .Route Qty: 1 0RF Rx Instructions: As directed (DME) blood sugar diagnostic Strip See Rx Instructions .Route Qty: 30 0RF Rx Instructions: As directed albuterol sulfate 90 mcg/actuation Hfa Aerosol Inhaler 2 puff INHALATION Q4-6H PRN (Reason: shortness of breath) Advair HFA 45-21 mcg/actuation HFA aerosol inhaler 2 puff INHALATION BID Patient Comments: INHALE TWO PUFFS BY MOUTH TWICE DAILY --RINSE MOUTH WITH WATER AFTER USE TO REDUCE AFTERTASTE AND CANDIDIASIS; DO NOT SWALLOW-- clopidogrel 75 mg tablet 75 mg PO DAILY Patient Comments: TAKE ONE TABLET BY MOUTH ONE TIME DAILY fluoxetine 40 mg capsule 40 mg PO DAILY lisinopril 40 mg tablet 40 mg PO DAILY Patient Comments: TAKE ONE TABLET BY MOUTH ONE TIME DAILY pantoprazole 40 mg tablet,delayed release (DR/EC) 40 mg PO BID Patient Comments: Take one tablet by mouth twice a day TAKE 30 MINUTES BEFORE MEALS OR 2 HOURS AFTER EATING. rosuvastatin 40 mg tablet 40 mg PO DAILY Patient Comments: TAKE ONE tablet by mouth once a day azithromycin [Zithromax Z-Trnio] 250 mg Tablet 500 mg PO DAILY Qty: 1 0RF benzonatate 100 mg Capsule 100 mg PO TID PRN (Reason: cough) Qty: 60 0RF codeine-guaifenesin 10-100 mg/5 mL Liquid 10 ml PO Q6H PRN (Reason: Cough) Qty: 120 0RF metoprolol tartrate 25 mg Tablet 12.5 mg PO BID Qty: 60 0RF Referrals: Brenda Vieyra MD [Primary Care Provider] - Stand Alone Forms: Patient Portal/API, Work Release Note
[2022-11-10] MEDS: MORPHINE 4 MG/ML INJ IV (05:12)
== END 2022-11-10 06:50 | disposition home or self-care (01) ==
PROVIDERS: Emergency Provider Emergency Medicine; PCP Student in an Organized Health Care Education/Training Program
DX: R51.9 Headache, unspecified (principal); E87.1 Hypo-osmolality and hyponatremia
CPT/HCPCS: 36415; 70450; 80053; 82550; 83690; 84484; 85025; 93005; 93010; 96374; 96375; 99284; J1885; J2270; J2405

== ENCOUNTER → 2023-03-14 | Outpatient (CLI) | payer OTHER, SELFPAY ==
[2022-04-10 12:46] VITALS: BMI 19.9
== END ==
PROVIDERS: PCP Student in an Organized Health Care Education/Training Program; Referring Provider Family Medicine; Visit Provider Family Medicine
DX: Z23 Encounter for immunization (principal)
CPT/HCPCS: 90471; 90686

== ENCOUNTER → 2023-12-07 | Outpatient (CLI) | payer MEDICARE, SELFPAY ==
[2022-04-10 12:46] VITALS: BMI 19.9
--- NOTE | 2023-12-07 12:20 | DI.RAD.S_ITS ---
PROCEDURE: XR DEXA AXIAL SKELETON INDICATIONS: OSTEOPOROSIS COMPARISON: DEXA 08/21/2017. FINDINGS: Lumbar Spine: L1-L3. Bone mineral density 0.585 g/cm2, T score -3.9. Left Hip: Bone mineral density 0.689 g/cm2, T score -2.1. Left Femoral Neck: Bone mineral density 0.586 g/cm2, T score -2.4. Right Hip: Bone mineral density 0.676 g/cm2, T score -2.2. Right Femoral Neck: Bone mineral density 0.561 g/cm2, T score -2.6. Fracture Risk Calculation (when applicable): 10-year fracture risk of a major osteoporotic fracture 9.6 % and of a hip fracture 4.2 %. (T score greater or equal to -1.0 to: NORMAL) (T score from -1.1 to -2.4: OSTEOPENIA) (T score less than or equal to -2.5: OSTEOPOROSIS) IMPRESSION: Osteoporosis. Follow-up guidelines as follows: Osteoporosis: Consider a repeat DEXA and Vertebral Fracture Assessment (VFA) exam in 2 years or sooner if medically necessary, to reassess this patient's status. Osteopenia: Consider a repeat DEXA in 2-3 years to reassess this patient's status, or if there is a new clinical indication. Normal: Consider a repeat DEXA in 5 years or sooner, or if there is a new clinical indication. All treatment decisions require clinical judgment and consideration of individual patient factors, including patient preferences, comorbidities, previous drug use, risk factors not captured in the FRAX model (e.g., frailty, falls, vitamin D deficiency, increased bone turnover, interval significant decline in bone density ) and possible under- or over-estimation of fracture risk by FRAX. In addition, the NOF Guide recommends that FDA-approved medical therapies be considered in postmenopausal women and men age >= 50 years with a: * Hip or vertebral (clinical or morphometric) fracture * T-score of <=-2.5 at the spine or hip * Ten-year fracture probability by FRAX of >= 3% for hip fracture or >=20% for major osteoporotic fracture. People with diagnosed cases of osteoporosis or at high risk for fracture should have regular bone mineral density tests. For patients eligible for Medicare, routine testing is allowed once every 2 years. The testing frequency can be increased to one year for patients who have rapidly progressing disease, those who are receiving or discontinuing medical therapy to restore bone mass, or have additional risk factors. Dictated by: Sabas Toure M.D. on 12/28/2023 at 8:16 Approved by: Sabas Toure M.D. on 12/28/2023 at 8:18
== END ==
LOC: RAD 12:20
PROVIDERS: PCP Family Medicine; Referring Provider Family Medicine; Visit Provider Family Medicine
DX: M81.0 Age-related osteoporosis without current pathological fracture (principal)
CPT/HCPCS: 77080

== ENCOUNTER → 2024-03-20 14:44 | Outpatient (CLI) | payer MEDICARE, SELFPAY ==
[2022-04-10 12:46] VITALS: BMI 19.9
--- NOTE | 2024-03-20 14:46 | DI.CT.S_ITS ---
PROCEDURE: CT LUNG LOW DOSE SCREENING INDICATIONS: Nicotine dependence, cigarettes, uncomplicated TECHNIQUE: Noncontrast 2.0-2.5 mm thick sections acquired from the pulmonary apices to the posterior costophrenic angles. 7 mm thick axial MIP, and 5 mm coronal and sagittal reformats were then acquired. For radiation dose reduction, the following was used: automated exposure control, adjustment of mA and/or kV according to patient size. COMPARISON: [facility], CT, CT CHEST WO CON, 01/11/2020, 18:41. FINDINGS: Image quality: Diagnostic Lungs and pleura: Background emphysematous changes. No pleural effusions or dense airspace disease. Scattered scarring and atelectasis. Small Bochdalek's fat containing hernias. No overtly suspicious pulmonary nodule. Mild bronchial wall thickening, likely chronic bronchitis. Small nodules, for example in the right image 6/66 and on the right image 6/44 are either too small to change the follow-up interval or stable from prior imaging in 2019. Mediastinum, heart, and esophagus: Atherosclerotic and coronary calcifications. Unremarkable appearance of the esophagus. No pathologic lymph nodes by size criteria. Chest wall and thyroid: Unremarkable Upper abdomen: No gross abnormality on these noncontrast low-dose images Bones: No acute or suspicious osseous finding. IMPRESSION: No suspicious pulmonary nodules. LUNG-RADS 2; continued annual screening, if eligible. Other incidental findings above. There are coronary calcifications. Dictated by: Ruslan Marquez M.D. on 03/21/2024 at 10:15 Approved by: Ruslan Marquez M.D. on 03/21/2024 at 10:19
== END ==
LOC: CT 14:46
PROVIDERS: PCP Family Medicine; Referring Provider Family Medicine; Visit Provider Family Medicine
DX: F17.210 Nicotine dependence, cigarettes, uncomplicated (principal); R91.8 Other nonspecific abnormal finding of lung field; J98.11 Atelectasis; J98.4 Other disorders of lung; K44.9 Diaphragmatic hernia without obstruction or gangrene
CPT/HCPCS: 71271

== ENCOUNTER 2024-05-09 08:49 | Day surgery (SDC) | payer MEDICARE, SELFPAY ==
[2022-04-10 12:46] VITALS: BMI 19.9
--- NOTE | 2024-05-09 | PATH_ITS ---
[facility] Accession Number: [id number] No. of containers.. Tissue . 01 Material submitted: . PART A: stomach - ANTRAL PART B: colon - ASCENDING PART C: colon - TRANSVERSE PART D: colon - DESCENDING PART E: sigmoid colon - SIGMOID PART F: sigmoid colon - SIGMOID POLYP PART G: rectum - RECTAL . 01 Diagnosis: Part A: ANTRAL: Helicobacter pylori gastritis. No intestinal metaplasia, dysplasia, or malignancy identified. . Part B: ASCENDING: Colonic mucosa with no diagnostic alterations. No active inflammation, granulomas, dysplasia, or malignancy identified. . Part C: TRANSVERSE: Colonic mucosa with no diagnostic alterations. No active inflammation, granulomas, dysplasia, or malignancy identified. . Part D: DESCENDING: Colonic mucosa with no diagnostic alterations. No active inflammation, granulomas, dysplasia, or malignancy identified. . Part E: SIGMOID: Colonic mucosa with no diagnostic alterations. No active inflammation, granulomas, dysplasia, or malignancy identified. . Part F: SIGMOID POLYP: Tubular adenoma. . Part G: RECTAL: Colonic mucosa with no diagnostic alterations. No active inflammation, granulomas, dysplasia, or malignancy identified. [facility] 05/14/2024 1605 Local . 01 Electronically signed: . Edy Pepper MD, Pathologist NPI- [id number] . 01 Gross description: . A. Received in formalin with two patient identifiers and 1. Antral biopsy, are four damon soft tissue fragments, 0.3-0.6 cm in greatest dimension, submitted in A1. . B. Received in formalin with two patient identifiers and ascending colon biopsy, is a single damon soft tissue fragment, 0.7 cm in greatest dimension, submitted in B1. . C. Received in formalin with two patient identifiers and transverse colon biopsy, are two damon soft tissue fragments, 0.2-0.3 cm in greatest dimension, submitted in C1. . D. Received in formalin with two patient identifiers and 4. Descending colon biopsy, are two damon soft tissue fragments, both measuring 0.3 cm in greatest dimension, submitted in D1. . E. Received in formalin with two patient identifiers and 5. Sigmoid colon biopsy, are two damon soft tissue fragments, 0.3-0.4 cm in greatest dimension, submitted in E1. . F. Received in formalin with two patient identifiers and sigmoid polyp, is a single damon soft tissue fragment, 0.6 cm in greatest dimension, submitted in F1. . G. Received in formalin with two patient identifiers and 7. Rectal biopsies, are two damon soft tissue fragments, 0.3-0.5 cm in greatest dimension, submitted in G1. ([id number]) /MRV 05/14/2024 1605 Local . 01 Microscopic: . Part A: ANTRAL: An immunohistochemical stain was performed, revealing the presence of Helicobacter organisms. The control stains appropriately. * This test was developed and the performance characteristics were validated by [employer]. It has not been cleared or approved by the Food and Drug Administration. . 01 Pathologist provided ICD-10: B96.81, D12.5, K52.9 . 01 CPT . 243242, 516265, 574142, 626406, 514486, 267922, 521476, [id number] Performed at: [address] [address], [place], [place] [id number] MD Edy Pepper MD Phone: [phone]
[2024-05-09 09:17] VITALS: BP 155/87; PULSE 108; RESP 20; TEMP 36.8; O2SAT 95
--- NOTE | 2024-05-09 09:23 | P.HP_ITS ---
History of Present Illness History of Present Illness Date Patient Seen: 05/09/24 Time Patient Seen: 09:23 Chief complaint: SDC Narrative: Edwina is a 69 year old woman here for an EGD and colonoscopy for GERD and chronic diarrhea. See the prior office note for more details. [facility] Medical History COPD (chronic obstructive pulmonary disease) Depression Hyperlipidemia Hypertension Social History household members: none Smoking Status: Current every day smoker alcohol intake: current Meds Home Medications and Allergies Home Medications Medication Instructions Recorded Confirmed Type fluoxetine 40 mg capsule 40 mg PO DAILY 04/10/22 03/04/24 History fluticasone propionate 45 2 puff inhalation BID 04/10/22 03/04/24 History mcg-salmeterol 21 mcg/actuation HFA inhaler (Advair HFA) blood sugar diagnostic #30 ea 04/23/22 Rx blood-glucose meter #1 ea 04/23/22 Rx lisinopril 40 mg tablet 20 mg PO DAILY 03/04/24 03/04/24 History metformin 500 mg tablet 500 mg PO DAILY #0 tabs 03/04/24 03/04/24 History (Glucophage) sodium,potassium,mag sulfates 17.5 See Rx Instructions PO .COMPLEX 04/15/24 Rx gram-3.13 gram-1.6 gram oral soln #354 mL (Suprep Bowel Prep Kit) Allergies Allergy/AdvReac Type Severity Reaction Status Date / Time No Known Drug Allergies Allergy Verified 05/09/24 09:17 Exam Const General: No acute distress Resp Effort & Inspection: normal respiratory effort Assessment & Plan Assessment and plan (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
[2024-05-09 09:30] LABS: COVID19 -Nasal RAPID Negative (Negative)
[2024-05-09] MEDS: SODIUM CHLORIDE 0.9% 1,000 ML 150 ML IV (09:38)
[2024-05-09] MEDS: ALBUTEROL/IPRATROPIUM 3 ML AMPUL INH (09:43)
[2024-05-09 10:37] VITALS: BP 92/60; PULSE 7; RESP 24; TEMP 36.3; O2SAT 97
--- NOTE | 2024-05-09 10:38 | PM.OP.EC ---
Operative Date/Time/Diagnoses Date of procedure: 05/09/24 Time of procedure: 10:38 Pre-op diagnosis: History of Marroquin esophagus and chronic diarrhea Post-op diagnosis: same Procedure & Clinicians Study performed: EGD and colonoscopy Same procedure as scheduled: Yes Surgeon: Marck Dunham Procedure Notes Procedure in detail: Surgeon: Marck Dunham MD Anesthesia: Neela Maher CRNA Procedure in detail: A timeout was performed. A bite blocked was placed and monitors were attached to the patient. The patient was positioned in the left lateral decubitus position. Sedation was administered. Once the patient was sedated the endoscope was inserted through the bite block and passed through the esophagus and stomach and into the duodenum. No abnormalities were found. We then withdrew the scope into the stomach. No abnormalities were seen. Biopsies were taken from the antrum with cold forceps The endoscope was retroflexed and no hiatal hernia was seen. The endoscope was straightned and withdrawn into the esophagus. There was no evidence of Marroquin esophagus. EGD findings: Grossly normal EGD Next we repositioned the patient for a colonoscopy. A digital rectal exam was performed and was normal. The colonoscope was inserted and advanced to the cecum. The appendiceal orifice was identified and photographed. The scope was slowly withdrawn over greater than 6 minutes. Random biopsies were taken from the ascending colon, transverse colon, descending colon, sigmoid colon and rectum with cold forceps. There was a 5 mm polyp in the sigmoid colon removed with a cold snare. The scope was retroflexed in the rectum and no other abnormalities were seen. Colonoscopy findings: 5 mm sigmoid colon polyp Total procedural EBL: 5 mL Scope withdrawal time: 17 minutes Sedation minutes: 32 minutes Post-procedure Disposition: PACU
[2024-05-09 10:42] VITALS: BP 117/55; PULSE 111; RESP 28; O2SAT 99
[2024-05-09 10:48] VITALS: BP 132/63; PULSE 110; RESP 28; TEMP 36.3; O2SAT 99
[2024-05-09 10:51] VITALS: BP 130/68; PULSE 110; RESP 24; O2SAT 99
== END 2024-05-09 11:05 | disposition home or self-care (01) ==
PROVIDERS: PCP Family Medicine; Referring Provider Surgery; Visit Provider Surgery
PROC: 0DJ08ZZ Inspection of Upper Intestinal Tract, Via Natural or Artificial Opening Endoscopic (ICD-10-PCS; CPT 45385; principal; 2024-05-09 10:15)
PROC: 0DJD8ZZ Inspection of Lower Intestinal Tract, Via Natural or Artificial Opening Endoscopic (ICD-10-PCS; CPT 45378; 2024-05-09 10:15)
DX: R19.7 Diarrhea, unspecified (principal); Z87.19 Personal history of other diseases of the digestive system; K29.60 Other gastritis without bleeding; B96.81 Helicobacter pylori [H. pylori] as the cause of diseases classified elsewhere; D12.5 Benign neoplasm of sigmoid colon
CPT/HCPCS: 45385; 45380; 43235; 87635; J2704

== ENCOUNTER 2024-10-11 10:16 | Emergency (ER) | payer MEDICARE, SELFPAY ==
[2022-04-10 12:46] VITALS: BMI 19.9
[2024-10-11] VITALS (31 sets, daily range): BP systolic 126–197; BP diastolic 60–102; PULSE 75–113; RESP 18–47; TEMP 36.4–36.9; O2SAT 94–99
--- NOTE | 2024-10-11 10:34 | DI.RAD.S_ITS ---
PROCEDURE: XR CHEST 1V INDICATIONS: Shortness of breath TECHNIQUE: One view of the chest was acquired. COMPARISON: [facility], CR, XR CHEST 1V, 04/10/2022, 4:34. FINDINGS: Surgical changes and devices: None. Lungs and pleura: Lungs are clear. No pleural effusions or pneumothorax. Mediastinum: Mediastinal contours appear normal. Heart size is normal. Bones and chest wall: No suspicious bony lesions. Overlying soft tissues appear unremarkable. IMPRESSION: No acute cardiopulmonary pathology. Dictated by: Terry Martin M.D. on 10/11/2024 at 10:59 Approved by: Terry Martin M.D. on 10/11/2024 at 10:59
--- NOTE | 2024-10-11 10:36 | EKG_ITS ---
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
--- NOTE | 2024-10-11 10:43 | ED_ITS ---
HPI - SOB/Dyspnea <Giovany Martinez DO - Last Filed: 10/11/24 18:42> General Chief Complaint: Shortness of Breath/Dyspnea Stated Complaint: SOB , COPD Time Seen by Provider: 10/11/24 10:24 History of Present Illness HPI Narrative: 69-year-old female history of COPD not on home O2 current smoker 1 pack a day cut back the last 3 days presents with chest tightness, cough with clear sputum production, shortness of breath dyspnea on exertion today with no significant relief of symptoms with 3 albuterol neb treatments at home. Patient denies fever, chills, back pain, sore throat, nausea vomiting diarrhea or abdominal pain. Other than what is stated 14 point review of system is negative. Related Data Home Medications ?Medication ?Instructions ?Recorded ?Confirmed fluoxetine 40 mg capsule 40 mg PO DAILY 04/10/2202/06 fluticasone propionate 45 2 puff inhalation BID 03/04/24 mcg-salmeterol 21 mcg/actuation HFA inhaler (Advair HFA) lisinopril 40 mg tablet 20 mg PO DAILY 03/04/2402/06 metformin 500 mg tablet 500 mg PO DAILY #0 tabs 02/0603/04/24 (Glucophage) Previous Rx's ?Medication ?Instructions ?Recorded blood sugar diagnostic #30 ea 04/23/22 blood-glucose meter #1 ea 04/23/22 amoxicillin 500 mg capsule 1,000 mg (2 x 500 mg) PO BI D #56 05/17/24 caps clarithromycin 500 mg tablet 500 mg PO BID #28 tabs omeprazole 20 mg capsule,delayed 20 mg PO BID #28 caps 06/03/24 release Allergies Allergy/AdvReac Type Severity Reaction Status Date / Time No Known Drug Allergies Allergy Verified 10/11/24 10:37 Review of Systems <Giovany Martinez DO - Last Filed: 10/11/24 18:42> Review of Systems ROS Unobtainable: All systems reviewed & are unremarkable except as noted in HPI and below Patient History <Giovany Martinez DO - Last Filed: 10/11/24 18:42> Medical History COPD (chronic obstructive pulmonary disease) Depression Hyperlipidemia Hypertension Social History household members: none Smoking Status: Current every day smoker alcohol intake: current tobacco type: cigarettes alcohol intake frequency: 3 or more drinks per day Exam <Giovany Martinez DO - Last Filed: 10/11/24 18:42> Narrative Exam Narrative: GENERAL: [69] year old patient appears stated age. Well-developed patient, in mild distress. HEAD: Atraumatic. Normocephalic. EYES: Pupils equal round and reactive. Extraocular motions intact. No scleral icterus. No injection or drainage. NECK: Trachea midline. Non tender CARDIOVASCULAR: Tachycardic Regular rate and rhythm without murmurs, gallops, or rubs. RESPIRATORY:Decrease breath sounds bilaterally with faint wheeze at bases GASTROINTESTINAL: Abdomen soft, non-tender, nondistended. EXTREMITIES: No edema or joint tenderness. BACK: Nontender without deformity or crepitance. No flank tenderness. NEURO: AOx3. SKIN: No rash or erythema of visible areas Initial Vital Signs Initial Vital Signs: Vital Signs Pulse Rate 112 H 10/11/24 10:24 Respiratory Rate 29 H 10/11/24 10:24 Pulse Oximetry 97 10/11/24 10:24 <Rubio Xiao MD - Last Filed: 10/12/24 02:14> Initial Vital Signs Initial Vital Signs: Vital Signs Pulse Rate 112 H 10/11/24 10:24 Respiratory Rate 29 H 10/11/24 10:24 Pulse Oximetry 97 10/11/24 10:24 Scores <Giovany Martinez DO - Last Filed: 10/11/24 18:42> HEART Score Heart Score history: Moderately Suspicious Heart Score EKG: Non-Specific repolarization disturbance Heart Score Age: > or = 65 years old Heart Score risk factors: > 3 risk factors or hx of atherosclerotic disease Heart Score troponin: 1-3 times normal limit Heart Score Total: 7 <Rubio Xiao MD - Last Filed: 10/12/24 02:14> HEART Score Heart Score Total: 7 Course <Giovany Martinez DO - Last Filed: 10/11/24 18:42> Orders Ordered: ED Orders 10/11/24 21:10 PTT Partial Thromboplastin Porter Q6H Discontinued Medications Albuterol (Albuterol 2.5 Mg/3 Ml Neb (Adult)) 2.5 mg INH NOW ONE Stop: 10/11/24 10:38 Last Admin: 10/11/24 10:50 Dose: 2.5 mg Documented By: BRIDGER Albuterol/Ipratropium (Albuterol/Ipratropium 3 Ml Ampul) 3 ml INH NOW ONE Stop: 10/11/24 19:37 Aspirin (Aspirin Ec 325 Mg Tablet) 325 mg PO NOW ONE Stop: 10/11/24 15:10 Last Admin: 10/11/24 15:50 Dose: 325 mg Documented By: ESTELLA Heparin Sodium (Porcine) (Heparin 5,000 Unit/Ml Vial) 1,500 unit 25 unit/kg (1500 unit) IV NOW ONE Stop: 10/11/24 21:45 Last Admin: 10/11/24 21:56 Dose: 1,500 unit Documented By: MIHAI Heparin Sodium/Dextrose (Heparin Drip) 25,000 unit in 500 mls @ 12.301 mls/hr IV CONT RAFY; Protocol Last Titration: 10/11/24 22:28 Dose: Infused Documented By: MIHAI Co-signed By: EMERITA Titration: 10/11/24 21:49 Dose: 13 units/kg/hr, 13.327 mls/hr Documented By: MIHAI Co-signed By: CLAIRE Admin: 10/11/24 15:30 Dose: 12 units/kg/hr, 12.301 mls/hr Documented By: ESTELLA Co-signed By: LOVELY Ipratropium [place] (Ipratropium 0.5 Mg/2.5 Ml Neb) 0.5 mg INH NOW ONE Stop: 10/11/24 10:41 Last Admin: 10/11/24 10:50 Dose: 0.5 mg Documented By: BRIDGER Methylprednisolone (Methylprednisolone 125 Mg/2 Ml Vial) 125 mg IV NOW ONE Stop: 10/11/24 11:14 Last Admin: 10/11/24 11:54 Dose: 125 mg Documented By: SHARRI Metoprolol Tartrate (Metoprolol Ir 25 Mg Tablet) 25 mg PO NOW ONE Stop: 10/11/24 19:54 Last Admin: 10/11/24 20:40 Dose: 25 mg Documented By: MIHAI Nicotine (Nicotine 21 Mg Patch) 21 mg TOP NOW ONE Stop: 10/11/24 20:46 Last Admin: 10/11/24 20:59 Dose: 21 mg Documented By: KB Vital Signs Vital signs: Vital Signs - 8 hr 10/11/24 18:30 10/11/24 18:30 10/11/24 19:00 Temperature Pulse Rate 107 H 111 H Respiratory Rate 24 24 Blood Pressure 161/73 H Pulse Oximetry 95 96 Oxygen Delivery Method Room Air 10/11/24 19:00 10/11/24 19:30 10/11/24 19:30 Temperature Pulse Rate 107 H Respiratory Rate 23 Blood Pressure 167/72 H 183/86 H Pulse Oximetry 96 Oxygen Delivery Method 10/11/24 20:00 10/11/24 20:00 10/11/24 20:30 Temperature Pulse Rate 109 H 106 H Respiratory Rate 28 H 29 H Blood Pressure 165/76 H Pulse Oximetry 96 96 Oxygen Delivery Method 10/11/24 20:30 10/11/24 21:00 10/11/24 21:00 Temperature Pulse Rate 108 H Respiratory Rate 23 Blood Pressure 173/80 H 197/85 H Pulse Oximetry 98 Oxygen Delivery Method 10/11/24 21:30 10/11/24 21:30 10/11/24 22:00 Temperature Pulse Rate 91 H 75 Respiratory Rate 23 24 Blood Pressure 177/77 H Pulse Oximetry 99 96 Oxygen Delivery Method Room Air 10/11/24 22:00 10/11/24 22:04 Temperature 98.4 F Pulse Rate Respiratory Rate Blood Pressure 171/77 H 171/77 H Pulse Oximetry Oxygen Delivery Method <Rubio Xiao MD - Last Filed: 10/12/24 02:14> Orders Ordered: ED Orders 10/11/24 21:10 PTT Partial Thromboplastin Porter Q6H Discontinued Medications Albuterol (Albuterol 2.5 Mg/3 Ml Neb (Adult)) 2.5 mg INH NOW ONE Stop: 10/11/24 10:38 Last Admin: 10/11/24 10:50 Dose: 2.5 mg Documented By: NL Albuterol/Ipratropium (Albuterol/Ipratropium 3 Ml Ampul) 3 ml INH NOW ONE Stop: 10/11/24 19:37 Aspirin (Aspirin Ec 325 Mg Tablet) 325 mg PO NOW ONE Stop: 10/11/24 15:10 Last Admin: 10/11/24 15:50 Dose: 325 mg Documented By: LM Heparin Sodium (Porcine) (Heparin 5,000 Unit/Ml Vial) 1,500 unit 25 unit/kg (1500 unit) IV NOW ONE Stop: 10/11/24 21:45 Last Admin: 10/11/24 21:56 Dose: 1,500 unit Documented By: MIHAI Heparin Sodium/Dextrose (Heparin Drip) 25,000 unit in 500 mls @ 12.301 mls/hr IV CONT RAFY; Protocol Last Titration: 10/11/24 22:28 Dose: Infused Documented By: MIHAI Co-signed By: JACINDAG Titration: 10/11/24 21:49 Dose: 13 units/kg/hr, 13.327 mls/hr Documented By: MIHAI Co-signed By: LS Admin: 10/11/24 15:30 Dose: 12 units/kg/hr, 12.301 mls/hr Documented By: ESTELLA Co-signed By: LOVELY Ipratropium [place] (Ipratropium 0.5 Mg/2.5 Ml Neb) 0.5 mg INH NOW ONE Stop: 10/11/24 10:41 Last Admin: 10/11/24 10:50 Dose: 0.5 mg Documented By: BRIDGER Methylprednisolone (Methylprednisolone 125 Mg/2 Ml Vial) 125 mg IV NOW ONE Stop: 10/11/24 11:14 Last Admin: 10/11/24 11:54 Dose: 125 mg Documented By: SHARRI Metoprolol Tartrate (Metoprolol Ir 25 Mg Tablet) 25 mg PO NOW ONE Stop: 10/11/24 19:54 Last Admin: 10/11/24 20:40 Dose: 25 mg Documented By: MIHAI Nicotine (Nicotine 21 Mg Patch) 21 mg TOP NOW ONE Stop: 10/11/24 20:46 Last Admin: 10/11/24 20:59 Dose: 21 mg Documented By: MIHAI Vital Signs Vital signs: Vital Signs - 8 hr 10/11/24 18:30 10/11/24 18:30 10/11/24 19:00 Temperature Pulse Rate 107 H 111 H Respiratory Rate 24 24 Blood Pressure 161/73 H Pulse Oximetry 95 96 Oxygen Delivery Method Room Air 10/11/24 19:00 10/11/24 19:30 10/11/24 19:30 Temperature Pulse Rate 107 H Respiratory Rate 23 Blood Pressure 167/72 H 183/86 H Pulse Oximetry 96 Oxygen Delivery Method 10/11/24 20:00 10/11/24 20:00 10/11/24 20:30 Temperature Pulse Rate 109 H 106 H Respiratory Rate 28 H 29 H Blood Pressure 165/76 H Pulse Oximetry 96 96 Oxygen Delivery Method 10/11/24 20:30 10/11/24 21:00 10/11/24 21:00 Temperature Pulse Rate 108 H Respiratory Rate 23 Blood Pressure 173/80 H 197/85 H Pulse Oximetry 98 Oxygen Delivery Method 10/11/24 21:30 10/11/24 21:30 10/11/24 22:00 Temperature Pulse Rate 91 H 75 Respiratory Rate 23 24 Blood Pressure 177/77 H Pulse Oximetry 99 96 Oxygen Delivery Method Room Air 10/11/24 22:00 10/11/24 22:04 Temperature 98.4 F Pulse Rate Respiratory Rate Blood Pressure 171/77 H 171/77 H Pulse Oximetry Oxygen Delivery Method MDM - SOB/Dyspnea <Giovany Martinez, DO - Last Filed: 10/11/24 18:42> Lab Data 10/11/24 10:30 10/11/24 10:30 Labs: Lab Results 10/11/24 10/11/24 10/11/24 Range/Units 10:30 12:40 15:30 WBC 8.3 (4.5-11.0) X10^3/uL RBC 4.55 (4.0-5.2) X10^6/uL Hgb 14.7 (12.0-16.0) g/dL Hct 43.4 (36-46) % MCV 95.3 (80-100) fL MCH 32.3 (26-34) PG MCHC 33.9 (30-36) % RDW 12.3 (11.6-14.8) % Plt Count 192 (150-400) X10^3/uL Neut % (Auto) 87.0 H (50-75) % Lymph % (Auto) 6.0 L (25-40) % Independence % (Auto) 5.2 (3-14) % Eos % (Auto) 1.3 L (2-4) % Baso % (Auto) 0.5 (0-2) % Neut # (Auto) 7200 H (5792-7014) /uL Lymph # (Auto) 500 L (7330-5902) /uL Independence # (Auto) 400 (0-900) /uL Eos # (Auto) 100 (0-450) /uL Baso # (Auto) 0 (0-100) /uL PT 10.3 (9.4-12.5) SECONDS INR 0.9 (0.9-1.3) APTT 37 H (25.1-36.5) SECONDS Sodium 132 L (137-145) mmol/L Potassium 3.9 (3.4-5.1) mmol/L Chloride 98 (98-107) mmol/L Carbon Dioxide 23 (22-32) mmol/L BUN 13 (7-17) mg/dL Creatinine 0.71 (0.52-1.04) mg/dL Estimated GFR > 60 (>60) mL/min BUN/Creatinine Ratio 18.3 (6-22) Glucose 248 H (70-99) mg/dL Lactate 2.2 H 2.4 H (0.7-2.1) mmol/L Calcium 9.1 (8.4-10.2) mg/dL Total Bilirubin 0.8 (0.2-1.3) mg/dL AST 28 (14-36) IU/L ALT 12 (<35) IU/L Alkaline Phosphatase 80 (38-126) U/L Troponin I 0.101 H 0.186 H* (0.01-0.034) ng/mL NT-Pro-B Natriuret Pep 514 H (<125) pg/mL Total Protein 7.0 (6.3-8.2) g/dL Albumin 4.3 (3.5-5.0) g/dL Globulin 2.7 (1.7-4.1) g/dL Albumin/Globulin Ratio 1.6 (1.0-2.8) // Range/Units 21:10 WBC (4.5-11.0) X10^3/uL RBC (4.0-5.2) X10^6/uL Hgb (12.0-16.0) g/dL Hct (36-46) % MCV (80-100) fL MCH (26-34) PG MCHC (30-36) % RDW (11.6-14.8) % Plt Count (150-400) X10^3/uL Neut % (Auto) (50-75) % Lymph % (Auto) (25-40) % Independence % (Auto) (3-14) % Eos % (Auto) (2-4) % Baso % (Auto) (0-2) % Neut # (Auto) (6797-4299) /uL Lymph # (Auto) (4866-4570) /uL Independence # (Auto) (0-900) /uL Eos # (Auto) (0-450) /uL Baso # (Auto) (0-100) /uL PT (9.4-12.5) SECONDS INR (0.9-1.3) APTT 44 H D (25.1-36.5) SECONDS Sodium (137-145) mmol/L Potassium (3.4-5.1) mmol/L Chloride (98-107) mmol/L Carbon Dioxide (22-32) mmol/L BUN (7-17) mg/dL Creatinine (0.52-1.04) mg/dL Estimated GFR (>60) mL/min BUN/Creatinine Ratio (6-22) Glucose (70-99) mg/dL Lactate (0.7-2.1) mmol/L Calcium (8.4-10.2) mg/dL Total Bilirubin (0.2-1.3) mg/dL AST (14-36) IU/L ALT (<35) IU/L Alkaline Phosphatase (38-126) U/L Troponin I (0.01-0.034) ng/mL NT-Pro-B Natriuret Pep (<125) pg/mL Total Protein (6.3-8.2) g/dL Albumin (3.5-5.0) g/dL Globulin (1.7-4.1) g/dL Albumin/Globulin Ratio (1.0-2.8) Imaging Data Chest x-ray: Radiologist's Impression: [address] [address] XRay Report Signed Patient: Edwina Woods MR#: [id number] : 1955 Acct:[id number] Age/Sex: 69 / F Date of Service: 10/11/24 Loc: ED Accession Number: [id number] Procedure: XR chest 1V Ordering Provider: Giovany Martinez D.O. PROCEDURE: XR CHEST 1V INDICATIONS: Shortness of breath TECHNIQUE: One view of the chest was acquired. COMPARISON: [facility], CR, XR CHEST 1V, 04/10/2022, 4:34. FINDINGS: Surgical changes and devices: None. Lungs and pleura: Lungs are clear. No pleural effusions or pneumothorax. Mediastinum: Mediastinal contours appear normal. Heart size is normal. Bones and chest wall: No suspicious bony lesions. Overlying soft tissues appear unremarkable. IMPRESSION: No acute cardiopulmonary pathology. Dictated by: Terry Martin M.D. on 10/11/2024 at 10:59 Approved by: Terry Martin M.D. on 10/11/2024 at 10:59 CT scan - chest: Radiologist's Impression: [address] [address] [address] Scan Report Signed Patient: Edwina Woods MR#: [id number] : 1955 Acct:[id number] Age/Sex: 69 / F Date of Service: 10/11/24 Loc: ED Accession Number: [id number] Procedure: CT angio chest PE protocol Ordering Provider: Giovany Martinez D.O. PROCEDURE: CT ANGIO CHEST PE PROTOCOL INDICATIONS: chest pain sob elevated troponin TECHNIQUE: After the administration of intravenous contrast, 2 mm thick sections acquired from the pulmonary apices to the posterior costophrenic angles. 3-dimensional maximum intensity projection (MIP) coronal and sagittal reformats were then acquired through the thorax. For radiation dose reduction, the following was used: automated exposure control, adjustment of mA and/or kV according to patient size. COMPARISON: [facility], CT, CT LUNG LOW DOSE SCREENING, 03/20/2024, 14:57. FINDINGS: Image quality: Diagnostic. Pulmonary arteries: Pulmonary arteries are normal in size, and demonstrate no intraluminal filling defects to suggest central pulmonary embolism. Lower Neck: No enlarged lymph nodes. Thyroid: No thyroid nodules which require sonographic follow up, per consensus guidelines. Axillae: No enlarged lymph nodes. Chest Wall: Unremarkable. Bones: Unremarkable. Lungs and Pleura: No pneumothorax or pleural effusions. Mild emphysematous change. No focal infiltrate. No suspicious pulmonary nodules. Heart: Heart size is normal. No pericardial effusion. Thoracic Vessels: No aortic aneurysm. Mediastinum and Emilia: No enlarged lymph nodes. Esophagus: No wall thickening. No hiatal hernia. Upper Abdomen: Visualized upper abdomen solid organs and bowel loops appear normal. IMPRESSION: No pulmonary embolus. No acute cardiopulmonary process. Mild emphysematous change. Dictated by: Zafar Wheeler M.D. on 10/11/2024 at 11:54 Approved by: Zafar Wheeler M.D. on 10/11/2024 at 11:58 ECG Data Interpretation: Sinus Tach HR 107 HI 152 QRS [address]-t wave change Unchanged from 11/10/22 MDM Narrative Medical decision making narrative: All lab work vital signs nurse triage note medication list previous ER visits and all imaging studies reviewed. Patient given aspirin heparin drip Solu- Medrol breathing treatments here. EKG shows sinus tach at 1:[address] T wave changes. First set troponin 0.101 and 2nd set went up to 0.186. Chest x-ray showed no acute process and CTA PE study showed no PE just mild emphysema change. Heart score 7. Differential diagnosis includes STEMI NSTEMI unstable angina COPD exacerbation pneumothorax PE. Case discussed with Dr. Lim certified professional controller on-call who recommended patient be transferred for further cardiac workup. Patient given aspirin and started on a heparin drip. No beds currently available at [facility] last spoke with [facility] pending final disposition signed out to Dr. Xiao at shift change. <Rubio Xiao MD - Last Filed: 10/12/24 02:14> Lab Data Labs: Lab Results 10/11/24 10/11/24 10/11/24 Range/Units 10:30 12:40 15:30 WBC 8.3 (4.5-11.0) X10^3/uL RBC 4.55 (4.0-5.2) X10^6/uL Hgb 14.7 (12.0-16.0) g/dL Hct 43.4 (36-46) % MCV 95.3 (80-100) fL MCH 32.3 (26-34) PG MCHC 33.9 (30-36) % RDW 12.3 (11.6-14.8) % Plt Count 192 (150-400) X10^3/uL Neut % (Auto) 87.0 H (50-75) % Lymph % (Auto) 6.0 L (25-40) % Independence % (Auto) 5.2 (3-14) % Eos % (Auto) 1.3 L (2-4) % Baso % (Auto) 0.5 (0-2) % Neut # (Auto) 7200 H (1647-6009) /uL Lymph # (Auto) 500 L (7912-3533) /uL Independence # (Auto) 400 (0-900) /uL Eos # (Auto) 100 (0-450) /uL Baso # (Auto) 0 (0-100) /uL PT 10.3 (9.4-12.5) SECONDS INR 0.9 (0.9-1.3) APTT 37 H (25.1-36.5) SECONDS Sodium 132 L (137-145) mmol/L Potassium 3.9 (3.4-5.1) mmol/L Chloride 98 (98-107) mmol/L Carbon Dioxide 23 (22-32) mmol/L BUN 13 (7-17) mg/dL Creatinine 0.71 (0.52-1.04) mg/dL Estimated GFR > 60 (>60) mL/min BUN/Creatinine Ratio 18.3 (6-22) Glucose 248 H (70-99) mg/dL Lactate 2.2 H 2.4 H (0.7-2.1) mmol/L Calcium 9.1 (8.4-10.2) mg/dL Total Bilirubin 0.8 (0.2-1.3) mg/dL AST 28 (14-36) IU/L ALT 12 (<35) IU/L Alkaline Phosphatase 80 (38-126) U/L Troponin I 0.101 H 0.186 H* (0.01-0.034) ng/mL NT-Pro-B Natriuret Pep 514 H (<125) pg/mL Total Protein 7.0 (6.3-8.2) g/dL Albumin 4.3 (3.5-5.0) g/dL Globulin 2.7 (1.7-4.1) g/dL Albumin/Globulin Ratio 1.6 (1.0-2.8) /10/30 Range/Units 21:10 WBC (4.5-11.0) X10^3/uL RBC (4.0-5.2) X10^6/uL Hgb (12.0-16.0) g/dL Hct (36-46) % MCV (80-100) fL MCH (26-34) PG MCHC (30-36) % RDW (11.6-14.8) % Plt Count (150-400) X10^3/uL Neut % (Auto) (50-75) % Lymph % (Auto) (25-40) % Independence % (Auto) (3-14) % Eos % (Auto) (2-4) % Baso % (Auto) (0-2) % Neut # (Auto) (6527-8185) /uL Lymph # (Auto) (8262-6839) /uL Independence # (Auto) (0-900) /uL Eos # (Auto) (0-450) /uL Baso # (Auto) (0-100) /uL PT (9.4-12.5) SECONDS INR (0.9-1.3) APTT 44 H D (25.1-36.5) SECONDS Sodium (137-145) mmol/L Potassium (3.4-5.1) mmol/L Chloride (98-107) mmol/L Carbon Dioxide (22-32) mmol/L BUN (7-17) mg/dL Creatinine (0.52-1.04) mg/dL Estimated GFR (>60) mL/min BUN/Creatinine Ratio (6-22) Glucose (70-99) mg/dL Lactate (0.7-2.1) mmol/L Calcium (8.4-10.2) mg/dL Total Bilirubin (0.2-1.3) mg/dL AST (14-36) IU/L ALT (<35) IU/L Alkaline Phosphatase (38-126) U/L Troponin I (0.01-0.034) ng/mL NT-Pro-B Natriuret Pep (<125) pg/mL Total Protein (6.3-8.2) g/dL Albumin (3.5-5.0) g/dL Globulin (1.7-4.1) g/dL Albumin/Globulin Ratio (1.0-2.8) MDM Narrative Medical decision making narrative: All lab work vital signs nurse triage note medication list previous ER visits and all imaging studies reviewed. Patient given aspirin heparin drip Solu- Medrol breathing treatments here. EKG shows sinus tach at 1:[address] T wave changes. First set troponin 0.101 and 2nd set went up to 0.186. Chest x-ray showed no acute process and CTA PE study showed no PE just mild emphysema change. Heart score 7. Differential diagnosis includes STEMI NSTEMI unstable angina COPD exacerbation pneumothorax PE. Case discussed with Dr. Lim certified professional controller on-call who recommended patient be transferred for further cardiac workup. Patient given aspirin and started on a heparin drip. No beds currently available at [facility] last spoke with [facility] transfer center pending final disposition signed out to Dr. Xiao at shift change. 10/11/24, 0, [place]. Signout from Dr Martinez. Awaiting transfer. 69-year-old female with history of COPD. Had shortness of breath, took home breathing treatments at home, here given breathing treatment, IV Solu-Medrol, aspirin, chest x-ray unremarkable. CTA chest no PE, no acute changes. Initial troponin 0.101 upper limit indeterminate, on repeat increased to 0.186. BNP 549. Cardiology Dr. Zimmer at [facility] was contacted, agreed with need for transfer to cardioloogy capable facility, wait listed at their facility. Bed search in progress for alternate facilities. Speaking in full sentence on my evaluation, no wheezes on lung exam. No respiratory distress. Assumed interim care. 1036 timed earlier EKG reviewed, sinus tachycardia with rate 107 at that time, no obvious ST segment elevation or depression changes. 1949, case discussed with [facility] cardiology Dr. Toribio, agrees with treatment above aspirin and heparin, advises addition of oral Lopressor, can accept patient in transfer for further evaluation of non STEMI. Await call back from their hospitalist. 2004, case discussed with [facility] hospitalist Dr. Jackson who accepts patient for transfer Discharge Plan Departure Patient Disposition: Xfer Acute Care Hospital Clinical Impression: Non-STEMI (non-ST elevated myocardial infarction), Dyspnea Prescriptions: No Action metformin [Glucophage] 500 mg tablet 500 mg PO DAILY Qty: 0 amoxicillin 500 mg capsule 1,000 mg PO BID Qty: 56 0RF clarithromycin 500 mg tablet 500 mg PO BID Qty: 28 0RF omeprazole 20 mg capsule,delayed release(DR/EC) 20 mg PO BID Qty: 28 0RF (DME) blood-glucose meter Kit See Rx Instructions .Route Qty: 1 0RF Rx Instructions: As directed (DME) blood sugar diagnostic Strip See Rx Instructions .Route Qty: 30 0RF Rx Instructions: As directed Advair HFA 45-21 mcg/actuation HFA aerosol inhaler 2 puff INHALATION BID Patient Comments: INHALE TWO PUFFS BY MOUTH TWICE DAILY --RINSE MOUTH WITH WATER AFTER USE TO REDUCE AFTERTASTE AND CANDIDIASIS; DO NOT SWALLOW-- fluoxetine 40 mg capsule 40 mg PO DAILY lisinopril 40 mg tablet 20 mg PO DAILY Patient Comments: TAKE ONE TABLET BY MOUTH ONE TIME DAILY Referrals: Geetha Medrano MD [Primary Care Provider, Family Practice]
[2024-10-11 10:46] LABS: Add Manual Diff / Slide Review NO; Basophils Absolute Auto 0 /uL (0-100); Basophils Percent Auto 0.5 % (0-2); Eosinophils Absolute Auto 100 /uL (0-450); Eosinophils Percent Auto 1.3 % (2-4); Hematocrit 43.4 % (36-46); Hemoglobin 14.7 g/dL (12.0-16.0); Lymphocytes Absolute Auto 500 /uL (1100-4500); Mean Corpuscular HGB Conc 33.9 % (30-36); Mean Corpuscular Hemoglobin 32.3 PG (26-34); Mean Corpuscular Volume 95.3 fL (80-100); Monocytes Absolute Auto 400 /uL (0-900); Monocytes Percent Auto 5.2 % (3-14); Neutrophils Absolute Auto 7200 /uL (1500-7000); Platelet Count 192 X10^3/uL (150-400); Red Blood Cell Count 4.55 X10^6/uL (4.0-5.2); Red Cell Distribution Width 12.3 % (11.6-14.8); White Blood Cell Count 8.3 X10^3/uL (4.5-11.0)
[2024-10-11] MEDS: ALBUTEROL 2.5 MG/3 ML NEB (ADULT) INH (10:50)
[2024-10-11] MEDS: IPRATROPIUM 0.5 MG/2.5 ML NEB INH (10:50)
[2024-10-11 10:52] LABS: INR 0.9 (0.9-1.3); Prothrombin Time 10.3 SECONDS (9.4-12.5)
[2024-10-11 10:56] LABS: Alanine Aminotransferase 12 IU/L (<35); Albumin 4.3 g/dL (3.5-5.0); Albumin Globulin Ratio 1.6 (1.0-2.8); Alkaline Phosphatase 80 U/L (38-126); Aspartate Aminotransferase 28 IU/L (14-36); BUN Creatinine Ratio 18.3 (6-22); Bilirubin Total 0.8 mg/dL (0.2-1.3); Blood Urea Nitrogen 13 mg/dL (7-17); Calcium 9.1 mg/dL (8.4-10.2); Carbon Dioxide 23 mmol/L (22-32); Chloride 98 mmol/L (98-107); Estimated Glomerular Filt Rate > 60 mL/min (>60); Globulin 2.7 g/dL (1.7-4.1); Glucose 248 mg/dL (70-99); HEMOLYSIS < 15 (0-50); Potassium 3.9 mmol/L (3.4-5.1); Sodium 132 mmol/L (137-145)
[2024-10-11 10:57] LABS: Lactate (Lactic Acid) 2.2 mmol/L (0.7-2.1)
[2024-10-11 11:08] LABS: NT-proBNP (BNP-Adult 18+) 514 pg/mL (<125); Troponin I 0.101 ng/mL (0.01-0.034)
--- NOTE | 2024-10-11 11:18 | DI.CT.S_ITS ---
PROCEDURE: CT ANGIO CHEST PE PROTOCOL INDICATIONS: chest pain sob elevated troponin TECHNIQUE: After the administration of intravenous contrast, 2 mm thick sections acquired from the pulmonary apices to the posterior costophrenic angles. 3-dimensional maximum intensity projection (MIP) coronal and sagittal reformats were then acquired through the thorax. For radiation dose reduction, the following was used: automated exposure control, adjustment of mA and/or kV according to patient size. COMPARISON: [facility], CT, CT LUNG LOW DOSE SCREENING, 03/20/2024, 14:57. FINDINGS: Image quality: Diagnostic. Pulmonary arteries: Pulmonary arteries are normal in size, and demonstrate no intraluminal filling defects to suggest central pulmonary embolism. Lower Neck: No enlarged lymph nodes. Thyroid: No thyroid nodules which require sonographic follow up, per consensus guidelines. Axillae: No enlarged lymph nodes. Chest Wall: Unremarkable. Bones: Unremarkable. Lungs and Pleura: No pneumothorax or pleural effusions. Mild emphysematous change. No focal infiltrate. No suspicious pulmonary nodules. Heart: Heart size is normal. No pericardial effusion. Thoracic Vessels: No aortic aneurysm. Mediastinum and Emilia: No enlarged lymph nodes. Esophagus: No wall thickening. No hiatal hernia. Upper Abdomen: Visualized upper abdomen solid organs and bowel loops appear normal. IMPRESSION: No pulmonary embolus. No acute cardiopulmonary process. Mild emphysematous change. Dictated by: Zafar Wheeler M.D. on 10/11/2024 at 11:54 Approved by: Zafar Wheeler M.D. on 10/11/2024 at 11:58
--- NOTE | 2024-10-11 11:29 | RT ---
pt westley neb tx well, om room air with no distress noted post neb tx. Pt states she feel better
[2024-10-11] MEDS: methylPREDNISolone 125 MG/2 ML VIAL IV (11:54)
[2024-10-11 12:16] LABS: Reflexed Lactate in 2 Hours Y
[2024-10-11 13:08] LABS: Lactate 2HR (Lactic Acid Rflx) 2.4 mmol/L (0.7-2.1)
[2024-10-11 13:22] LABS: Troponin I 0.186 ng/mL (0.01-0.034)
[2024-10-11] MEDS: HEPARIN DRIP 25,000 UNIT/500 ML IV.SOLN 12.301 UNIT IV (15:30)
--- NOTE | 2024-10-11 15:30 | PC.NURSE ---
heparin infusion/drip started verified with Brenda Stafford RN, PTT labs ordered and value pending prior to infusion start
[2024-10-11] MEDS: ASPIRIN EC 325 MG TABLET PO (15:50)
[2024-10-11 15:56] LABS: PTT Partial Thromboplastin Tim 37 SECONDS (25.1-36.5)
[2024-10-11] MEDS: METOPROLOL IR 25 MG TABLET PO (20:40)
[2024-10-11] MEDS: NICOTINE 21 MG PATCH TOP (20:59)
[2024-10-11 21:27] LABS: PTT Partial Thromboplastin Tim 44 SECONDS (25.1-36.5)
[2024-10-11] MEDS: HEPARIN 5,000 UNIT/ML VIAL 1500 UNIT IV (21:56)
== END 2024-10-11 22:28 | disposition short-term general hospital (02) ==
PROVIDERS: Family Medicine; Emergency Provider Emergency Medicine; PCP Family Medicine
DX: I21.4 Non-ST elevation (NSTEMI) myocardial infarction (principal); R06.00 Dyspnea, unspecified; J44.9 Chronic obstructive pulmonary disease, unspecified
CPT/HCPCS: 36415; 71045; 71275; 80053; 83605; 83880; 84484; 85025; 85610; 85730; 93005; 94640; 96365; 96366; 96375; 99284; 99285; J1644; J2919; J7613; Q9967

== ENCOUNTER 2024-12-01 15:20 | Emergency (ER) | payer MEDICARE, SELFPAY ==
[2022-04-10 12:46] VITALS: BMI 19.9
[2024-12-01] VITALS (12 sets, daily range): BP systolic 127–214; BP diastolic 59–97; PULSE 61–87; RESP 12–24; TEMP 36.9; O2SAT 96–99; BMI 23.0
--- NOTE | 2024-12-01 15:33 | EKG_ITS ---
[address] [address] Test Date: 2024-12-01 Pat Name: Edwina Woods Department: [facility] Room: Gender: Female Enrollment Management Manager: CITLALI : 1955 Requested By: Order Number: [id number] Reading MD: Cristiano Perez Measurements Intervals [place] Rate: 65 P: 63 VA: 154 QRS: 70 QRSD: 72 T: 74 QT: 396 QTc: 411 Interpretive Statements Normal sinus rhythm Electronically Signed On 12-13-2024 8:45:00 PDT by Cristiano Perez
[2024-12-01 15:39] LABS: Add Manual Diff / Slide Review NO; Hematocrit 38.4 % (36-46); Hemoglobin 13.6 g/dL (12.0-16.0); Lymphocytes Absolute Auto 2300 /uL (1100-4500); Mean Corpuscular HGB Conc 35.5 % (30-36); Mean Corpuscular Hemoglobin 32.6 PG (26-34); Mean Corpuscular Volume 91.8 fL (80-100); Platelet Count 237 X10^3/uL (150-400)
[2024-12-01 15:49] LABS: Estimated Glomerular Filt Rate > 60 mL/min (>60); Total Protein 7.5 g/dL (6.3-8.2)
--- NOTE | 2024-12-01 16:36 | DI.MRI.S_ITS ---
PROCEDURE: MR HEAD/BRAIN WO CON INDICATIONS: Vertigo TECHNIQUE: Noncontrast axial T1 spin echo, axial T2 fast spin echo, sagittal and axial FLAIR, coronal T2 fast spin echo, axial gradient echo, axial diffusion and ADC through the brain. COMPARISON: None. FINDINGS: CSF Spaces: Basal cisterns are patent. No extra-axial fluid collections. Ventricles are normal in size and shape. Incidental persistent cavum septum pellucidum et vergae noted. Brain: No intracranial masses or hemorrhage. Hale/white matter interface is normal. Brainstem appears normal. Diffusion-weighted sequence is unremarkable without evidence of acute infarct. Normal intravascular flow voids are present. Significant confluent and multifocal white matter hyperintensity involves the deep and subcortical white matter as well as brainstem. Skull and face: Calvarium has normal marrow signal. Orbits appear normal. Sinuses: Sinuses and mastoids are clear. IMPRESSION: Advanced confluent and multifocal white matter disease is similar prior CT 11/10/2022. No acute infarct, hemorrhage or mass lesion Approved by: Yassine Jeong M.D. on 12/01/2024 at 16:43
--- NOTE | 2024-12-01 17:40 | ED.GENADULT ---
HPI - General Adult <Matthieu Meneses MD - Last Filed: 12/02/24 10:40> General Chief complaint: Dizziness Stated complaint: Vertigo/HTN Time Seen by Provider: 12/01/24 15:54 Source: EMS Mode of arrival: EMS History of Present Illness HPI narrative: 69 years old female came in today complaining of dizziness as spinning sensation, nausea vomiting around 2:00 p.m. while she was standing and working. She has also reported headache but denied any chest pain, shortness of breath, numbness weakness on 1 side of her body, facial droop, slurred speech, abdominal pain, back pain, fever. She reported history of dizziness but never had this severe dizziness before. Related Data Home Medications ?Medication ?Instructions ?Recorded ?Confirmed fluoxetine 40 mg capsule 40 mg PO DAILY 04/10/22 03/04/24 fluticasone propionate 45 2 puff inhalation BID 04/10/22 03/04/24 mcg-salmeterol 21 mcg/actuation HFA inhaler (Advair HFA) lisinopril 40 mg tablet 20 mg PO DAILY 03/04/24 03/04/24 metformin 500 mg tablet 500 mg PO DAILY #0 tabs 03/04/24 03/04/24 (Glucophage) Previous Rx's ?Medication ?Instructions ?Recorded blood sugar diagnostic #30 ea 04/23/22 blood-glucose meter #1 ea 04/23/22 amoxicillin 500 mg capsule 1,000 mg (2 x 500 mg) PO BID #56 05/17/24 caps clarithromycin 500 mg tablet 500 mg PO BID #28 tabs 05/17/24 omeprazole 20 mg capsule,delayed 20 mg PO BID #28 caps 06/03/24 release meclizine 25 mg tablet 25 mg PO TID 7 days #21 tabs 12/01/24 Allergies Allergy/AdvReac Type Severity Reaction Status Date / Time No Known Drug Allergies Allergy Verified 12/01/24 15:31 Review of Systems <Matthieu Meneses MD - Last Filed: 12/02/24 10:40> Review of Systems Narrative: Positive for a spinning sensation, nausea vomiting, headache. Negative for chest pain, shortness of breath, numbness weakness on 1 side of her body, facial droop, slurred speech, abdominal pain, back pain, fever. Patient History <Matthieu Meneses MD - Last Filed: 12/02/24 10:40> Medical History COPD (chronic obstructive pulmonary disease) Depression Hyperlipidemia Hypertension Social History household members: none alcohol intake: current tobacco type: cigarettes alcohol intake frequency: 3 or more drinks per day Exam <Matthieu Meneses MD - Last Filed: 12/02/24 10:40> Initial Vital Signs Initial Vital Signs: Vital Signs Pulse Rate 87 12/01/24 15:22 Pulse Oximetry 97 12/01/24 15:22 Const Other: Appear weak without acute distress. Cooperative. Eyes Pupils: PERRL EOM: EOM intact bilaterally Neck Neck: supple Resp Other: Clear to auscultation bilaterally without respiratory distress. Cardio Other: Normal S1-S2 without murmur. Regular rhythm and normal rate. GI Other: Soft, nontender, nondistention. No guarding or rebound tenderness. Skin General: no rashes or lesions noted Neuro Other: Alert oriented x3. Strength was 5/5 on both arms and legs. Normal facial movement. Extrem Other: No pedal edema on both legs. <Rubio Xiao MD - Last Filed: 12/02/24 02:54> Initial Vital Signs Initial Vital Signs: Vital Signs Pulse Rate 87 12/01/24 15:22 Pulse Oximetry 97 12/01/24 15:22 Course <Matthieu Meneses MD - Last Filed: 12/02/24 10:40> Orders Ordered: Discontinued Medications Aspirin (Aspirin Ec 325 Mg Tablet) 325 mg PO NOW ONE Stop: 12/01/24 19:32 Last Admin: 12/01/24 19:56 Dose: 325 mg Documented By: ISAURO Sodium Chloride (Normal Saline 0.9%) 500 mls @ 1,000 mls/hr IV BOLUS ONE Stop: 12/01/24 18:10 Last Infusion: 12/01/24 18:19 Dose: Infused Documented By: Admin: 12/01/24 17:55 Dose: 1,000 mls/hr Documented By: ISAURO Meclizine HCl (Meclizine Hcl 12.5 Mg Tablet) 25 mg PO NOW ONE Stop: 12/01/24 19:30 Last Admin: 12/01/24 19:57 Dose: 25 mg Documented By: ISAURO Metoclopramide HCl (Metoclopramide 10 Mg/2 Ml Inj) 10 mg IV NOW ONE Stop: 12/01/24 17:41 Last Admin: 12/01/24 17:55 Dose: 10 mg Documented By: ISAURO Ondansetron HCl (Ondansetron 4 Mg/2 Ml Inj) 4 mg IV NOW PRN PRN Reason: Nausea And Vomiting Ondansetron HCl (Ondansetron 4 Mg Odt) 4 mg PO NOW PRN PRN Reason: Nausea And Vomiting Vital Signs Vital signs: Vital Signs - 8 hr 12/01/24 19:00 12/01/24 19:00 12/01/24 20:02 Pulse Rate 68 69 Respiratory Rate 14 16 Blood Pressure 127/60 138/60 Pulse Oximetry 97 97 Oxygen Delivery Method Room Air <Rubio Xiao MD - Last Filed: 12/02/24 02:54> Orders Ordered: Discontinued Medications Aspirin (Aspirin Ec 325 Mg Tablet) 325 mg PO NOW ONE Stop: 12/01/24 19:32 Last Admin: 12/01/24 19:56 Dose: 325 mg Documented By: ISAURO Sodium Chloride (Normal Saline 0.9%) 500 mls @ 1,000 mls/hr IV BOLUS ONE Stop: 12/01/24 18:10 Last Infusion: 12/01/24 18:19 Dose: Infused Documented By: Admin: 12/01/24 17:55 Dose: 1,000 mls/hr Documented By: ISAURO Meclizine HCl (Meclizine Hcl 12.5 Mg Tablet) 25 mg PO NOW ONE Stop: 12/01/24 19:30 Last Admin: 12/01/24 19:57 Dose: 25 mg Documented By: ISAURO Metoclopramide HCl (Metoclopramide 10 Mg/2 Ml Inj) 10 mg IV NOW ONE Stop: 12/01/24 17:41 Last Admin: 12/01/24 17:55 Dose: 10 mg Documented By: ISAURO Ondansetron HCl (Ondansetron 4 Mg/2 Ml Inj) 4 mg IV NOW PRN PRN Reason: Nausea And Vomiting Ondansetron HCl (Ondansetron 4 Mg Odt) 4 mg PO NOW PRN PRN Reason: Nausea And Vomiting Vital Signs Vital signs: Vital Signs - 8 hr 12/01/24 19:00 12/01/24 19:00 12/01/24 20:02 Pulse Rate 68 69 Respiratory Rate 14 16 Blood Pressure 127/60 138/60 Pulse Oximetry 97 97 Oxygen Delivery Method Room Air Medical Decision Making <Matthieu Meneses MD - Last Filed: 12/02/24 10:40> Lab Data 12/01/24 15:30 12/01/24 15:30 Labs: Lab Results 12/01/24 12/01/24 Range/Units 15:30 18:00 WBC 7.1 (4.5-11.0) X10^3/uL RBC 4.19 (4.0-5.2) X10^6/uL Hgb 13.6 (12.0-16.0) g/dL Hct 38.4 (36-46) % MCV 91.8 (80-100) fL MCH 32.6 (26-34) PG MCHC 35.5 (30-36) % RDW 12.6 (11.6-14.8) % Plt Count 237 (150-400) X10^3/uL Neut % (Auto) 55.2 (50-75) % Lymph % (Auto) 32.3 (25-40) % Estill % (Auto) 7.8 (3-14) % Eos % (Auto) 2.1 (2-4) % Baso % (Auto) 2.6 H (0-2) % Neut # (Auto) 3900 (0402-6305) /uL Lymph # (Auto) 2300 (8561-7650) /uL Estill # (Auto) 500 (0-900) /uL Eos # (Auto) 200 (0-450) /uL Baso # (Auto) 200 H (0-100) /uL Sodium 130 L (137-145) mmol/L Potassium 4.5 (3.4-5.1) mmol/L Chloride 95 L (98-107) mmol/L Carbon Dioxide 22 (22-32) mmol/L BUN 32 H (7-17) mg/dL Creatinine 0.82 (0.52-1.04) mg/dL Estimated GFR > 60 (>60) mL/min BUN/Creatinine Ratio 39.0 H (6-22) Glucose 170 H (70-99) mg/dL Calcium 9.4 (8.4-10.2) mg/dL Total Bilirubin 0.8 (0.2-1.3) mg/dL AST 47 H (14-36) IU/L ALT 14 (<35) IU/L Alkaline Phosphatase 72 (38-126) U/L Troponin I < 0.012 < 0.012 (0.01-0.034) ng/mL Total Protein 7.5 (6.3-8.2) g/dL Albumin 4.6 (3.5-5.0) g/dL Globulin 2.9 (1.7-4.1) g/dL Albumin/Globulin Ratio 1.6 (1.0-2.8) Lipase 245 (23-300) U/L Point of Care Testing Glucose POC 226 Point of care testing: Point of Care Testing Glucose POC 226 Imaging Data MRI brain without contrast: Radiologist's Impression: PROCEDURE: MR HEAD/BRAIN WO CON INDICATIONS: Vertigo TECHNIQUE: Noncontrast axial T1 spin echo, axial T2 fast spin echo, sagittal and axial FLAIR, coronal T2 fast spin echo, axial gradient echo, axial diffusion and ADC through the brain. COMPARISON: None. FINDINGS: CSF Spaces: Basal cisterns are patent. No extra-axial fluid collections. Ventricles are normal in size and shape. Incidental persistent cavum septum pellucidum et vergae noted. Brain: No intracranial masses or hemorrhage. Hale/white matter interface is normal. Brainstem appears normal. Diffusion-weighted sequence is unremarkable without evidence of acute infarct. Normal intravascular flow voids are present. Significant confluent and multifocal white matter hyperintensity involves the deep and subcortical white matter as well as brainstem. Skull and face: Calvarium has normal marrow signal. Orbits appear normal. Sinuses: Sinuses and mastoids are clear. IMPRESSION: Advanced confluent and multifocal white matter disease is similar prior CT 11/10/2022. No acute infarct, hemorrhage or mass lesion Approved by: Yassine Jeong M.D. on 12/01/2024 at 16:43 ECG Data Interpretation: Normal sinus rhythm at 65 beats per minute without ischemic ST-T changes. [facility] Narrative Additional Information: 12/01/2024, 6:46 p.m.: 69 years old female with history of COPD came in today after having spinning sensation, dizziness and nausea vomiting about 2:00 p.m. with slight headache but denied any numbness weakness on 1 side of her body, facial droop, slurred speech, change in her vision, head injury, fever, chest pain, shortness of breath, abdominal pain. Her neuro exam was intact without focal deficit. She still reported some dizziness. Her MRI brain show no acute infarction, hemorrhage or mass. Her CBC was normal. Her CMP shows sodium 130, glucose 170, AST 47 and BUN 32 otherwise normal CMP. Her troponin is pending. Her EKG showed normal sinus rhythm. Her troponin is pending. I signed out to my colleague during the shift change. <Rubio Xiao MD - Last Filed: 12/02/24 02:54> Lab Data Labs: Lab Results 12/01/24 12/01/24 Range/Units 15:30 18:00 WBC 7.1 (4.5-11.0) X10^3/uL RBC 4.19 (4.0-5.2) X10^6/uL Hgb 13.6 (12.0-16.0) g/dL Hct 38.4 (36-46) % MCV 91.8 (80-100) fL MCH 32.6 (26-34) PG MCHC 35.5 (30-36) % RDW 12.6 (11.6-14.8) % Plt Count 237 (150-400) X10^3/uL Neut % (Auto) 55.2 (50-75) % Lymph % (Auto) 32.3 (25-40) % Estill % (Auto) 7.8 (3-14) % Eos % (Auto) 2.1 (2-4) % Baso % (Auto) 2.6 H (0-2) % Neut # (Auto) 3900 (2349-4105) /uL Lymph # (Auto) 2300 (1580-6946) /uL Estill # (Auto) 500 (0-900) /uL Eos # (Auto) 200 (0-450) /uL Baso # (Auto) 200 H (0-100) /uL Sodium 130 L (137-145) mmol/L Potassium 4.5 (3.4-5.1) mmol/L Chloride 95 L (98-107) mmol/L Carbon Dioxide 22 (22-32) mmol/L BUN 32 H (7-17) mg/dL Creatinine 0.82 (0.52-1.04) mg/dL Estimated GFR > 60 (>60) mL/min BUN/Creatinine Ratio 39.0 H (6-22) Glucose 170 H (70-99) mg/dL Calcium 9.4 (8.4-10.2) mg/dL Total Bilirubin 0.8 (0.2-1.3) mg/dL AST 47 H (14-36) IU/L ALT 14 (<35) IU/L Alkaline Phosphatase 72 (38-126) U/L Troponin I < 0.012 < 0.012 (0.01-0.034) ng/mL Total Protein 7.5 (6.3-8.2) g/dL Albumin 4.6 (3.5-5.0) g/dL Globulin 2.9 (1.7-4.1) g/dL Albumin/Globulin Ratio 1.6 (1.0-2.8) Lipase 245 (23-300) U/L Point of Care Testing Glucose POC 226 Point of care testing: Point of Care Testing Glucose POC 226 MDM Narrative Additional Information: 12/01/2024, 6:46 p.m.: 69 years old female with history of COPD came in today after having spinning sensation, dizziness and nausea vomiting about 2:00 p.m. with slight headache but denied any numbness weakness on 1 side of her body, facial droop, slurred speech, change in her vision, head injury, fever, chest pain, shortness of breath, abdominal pain. Her neuro exam was intact without focal deficit. She still reported some dizziness. Her MRI brain show no acute infarction, hemorrhage or mass. Her CBC was normal. Her CMP shows sodium 130, glucose 170, AST 47 and BUN 32 otherwise normal CMP. Her troponin is pending. Her EKG showed normal sinus rhythm. Her troponin is pending. I signed out to my colleague during the shift change. 12/01/24, Dameon Gracia. Sign-out from Dr Meneses. 69-year-old female with history of COPD, had dizziness sudden onset today at 2:00 p.m., with nausea and vomiting, some headache, MRI brain imaging showed no acute changes, no acute stroke. Symptomatically improved. Initial troponin negative. Awaiting repeat interval troponin. No ongoing chest pain. Non ischemic appearing and troponin. Anticipate discharge home if 2nd troponin negative. Assumed care. Repeat troponin negative as well. Patient ambulatory, we will give aspirin, we will give meclizine. Meclizine prescription sent to her pharmacy. She feels better and would like to go home. Discharged home as planned. Follow up advised tomorrow with your regular doctor, further workup as an outpatient for now. Return precautions discussed. Discharged home per patient request. Discharge Plan Departure Patient Disposition: Home Clinical Impression: Dizziness Instructions: DI for Vertigo Activity Restrictions/Additional Instructions: Dizziness acute onset today. Previous provider Dr. Meneses did an extensive workup with laboratory studies and EKGs and blood work. EKG and troponin blood testing not suggestive of heart attack at this time. MRI of the brain was also done which did not show any acute changes in no acute stroke. Your symptoms seemed to be improved. Oral meclizine dose was given. Prescription sent to your pharmacy. Your ambulatory without any difficulties at this time. You felt comfortable going home. Further workup as an outpatient for now. Consider taking aspirin daily if you are not allergic to any or not taking any aspirin. Take meclizine as needed. Follow up with your regular doctor on Monday. Return to this/nearest emergency department for any change worsening symptoms or any concerns prior. Prescriptions: New meclizine 25 mg tablet 25 mg PO TID 7 Days Qty: 21 0RF No Action metformin [Glucophage] 500 mg tablet 500 mg PO DAILY Qty: 0 amoxicillin 500 mg capsule 1,000 mg PO BID Qty: 56 0RF clarithromycin 500 mg tablet 500 mg PO BID Qty: 28 0RF omeprazole 20 mg capsule,delayed release(DR/EC) 20 mg PO BID Qty: 28 0RF (DME) blood-glucose meter Kit See Rx Instructions .Route Qty: 1 0RF Rx Instructions: As directed (DME) blood sugar diagnostic Strip See Rx Instructions .Route Qty: 30 0RF Rx Instructions: As directed Advair HFA 45-21 mcg/actuation HFA aerosol inhaler 2 puff INHALATION BID Patient Comments: INHALE TWO PUFFS BY MOUTH TWICE DAILY --RINSE MOUTH WITH WATER AFTER USE TO REDUCE AFTERTASTE AND CANDIDIASIS; DO NOT SWALLOW-- fluoxetine 40 mg capsule 40 mg PO DAILY lisinopril 40 mg tablet 20 mg PO DAILY Patient Comments: TAKE ONE TABLET BY MOUTH ONE TIME DAILY Referrals: Geetha Medrano MD [Primary Care Provider, Family Practice] Stand Alone Forms: Patient Portal/API
[2024-12-01] MEDS: METOCLOPRAMIDE 10 MG/2 ML INJ IV (17:55)
[2024-12-01] MEDS: SODIUM CHLORIDE 0.9% 500 ML 1000 ML IV (17:55)
[2024-12-01 18:10] LABS: HEMOLYSIS 125 (0-50)
[2024-12-01 18:11] LABS: Blood Urea Nitrogen 32 mg/dL (7-17); Calcium 9.4 mg/dL (8.4-10.2); Carbon Dioxide 22 mmol/L (22-32); Chloride 95 mmol/L (98-107); Glucose 170 mg/dL (70-99); Sodium 130 mmol/L (137-145)
[2024-12-01 18:12] LABS: Alanine Aminotransferase 14 IU/L (<35); Albumin 4.6 g/dL (3.5-5.0); Albumin Globulin Ratio 1.6 (1.0-2.8); Alkaline Phosphatase 72 U/L (38-126); Globulin 2.9 g/dL (1.7-4.1); Lipase 245 U/L (23-300)
[2024-12-01 18:13] LABS: Potassium 4.5 mmol/L (3.4-5.1)
[2024-12-01 18:14] LABS: Troponin I < 0.012 ng/mL (0.01-0.034)
[2024-12-01 18:52] LABS: Troponin I < 0.012 ng/mL (0.01-0.034)
--- NOTE | 2024-12-01 19:27 | PC.NURSE ---
ambulated pt to and from bathroom without issue. pt denied feeling weak, dizzy.
[2024-12-01] MEDS: ASPIRIN EC 325 MG TABLET PO (19:56)
[2024-12-01] MEDS: MECLIZINE HCL 12.5 MG TABLET 25 MG PO (19:57)
== END 2024-12-01 20:04 | disposition home or self-care (01) ==
PROVIDERS: Emergency Medicine; Emergency Provider Emergency Medicine; PCP Family Medicine
DX: R42 Dizziness and giddiness (principal); R51.9 Headache, unspecified
CPT/HCPCS: 36415; 70551; 80053; 83690; 84484; 85025; 93005; 96374; 99284; J2765